=== PATIENT | male | born 1945 | race Caucasian/White ===

== ENCOUNTER → 2016-08-25 | Outpatient (CLI) | payer BC ==
[~2016-08-25] MED LIST: ACT15 PO; CPRUNK PO; GLC500 PO; INSDGI SC; LRT5 PO; SIMV20TA2 PO
[2016-08-25 13:46] LABS: ESTIMATED AVERAGE GLUCOSE 166 mg/dl; HA1C FLAG Normal (Normal)
[2016-08-25 15:08] LABS: BLOOD UREA NITROGEN 27 mg/dl (7-18); BUN/CREATININE RATIO 24.1 (10-20); CALCIUM 8.8 mg/dl (8.5-10.1); CARBON DIOXIDE 25 mmol/L (21-32); CHLORIDE 105 mmol/L (98-107); GLUCOSE 144 mg/dl (70-99); POTASSIUM 4.5 mmol/L (3.5-5.1); SODIUM 138 mmol/L (136-145)
--- NOTE | 2016-09-09 09:53 | CODING QUERY MEDICAL NECESSITY ---
CQSUPPORTING DIAGNOSIS NEEDED A supporting diagnosis is required for the test/procedure performed on this patient in order for us to be reimbursed by the patient's insurance. Please provide a supporting diagnosis for the following test/procedure listed below next to the test name along with your signature. *If there is no additional diagnosis for this patient that would support the following test/procedure please document that below next to the test/procedure. Test(s)/Procedure(s) that require a supporting diagnosis: DOS 08/25/16 GLYCATED HEMOGLOBIN TEST Provider Signature: Date: Thank you Marissa Howard Health Information Management Once completed, please kindly fax back to [phone] For questions please call [phone]
== END | disposition home or self-care (01) ==
LOC: C.LABBFT 07:40
PROVIDERS: ATTEND Family Medicine
DX: K63.5 Polyp of colon (principal); E11.9 Type 2 diabetes mellitus without complications

== ENCOUNTER → 2017-01-31 | Outpatient (CLI) | payer BC ==
[2017-01-31 10:43] LABS: ALT/SGPT 30 U/L (12-78); AST/SGOT 25 U/L (15-37); BLOOD UREA NITROGEN 21 mg/dl (7-18); BUN/CREATININE RATIO 19.2 (10-20); CALCIUM 8.9 mg/dl (8.5-10.1); CARBON DIOXIDE 31 mmol/L (21-32); CHLORIDE 107 mmol/L (98-107); ESTIMATED AVERAGE GLUCOSE 160 mg/dl; GLUCOSE 98 mg/dl (70-99); HA1C FLAG Normal (Normal); POTASSIUM 4.8 mmol/L (3.5-5.1); SODIUM 140 mmol/L (136-145)
[2017-01-31 10:46] LABS: ALB/GLOB RATIO 0.9 (0.9-2); ALKALINE PHOSPHATASE 76 U/L (45-117); CHOLESTEROL 108 mg/dl (0-200); CHOLESTEROL/HDL RATIO 2.8; HDL CHOLESTEROL 39 mg/dl; LDL CHOLESTEROL CALCULATED 51 mg/dl; TRIGLYCERIDES 90 mg/dl (0-150); VERY LOW DENSITY LIPOPROT CALC 18 mg/dl
== END | disposition home or self-care (01) ==
LOC: C.LAB 08:17
PROVIDERS: ATTEND Family Medicine
DX: E11.9 Type 2 diabetes mellitus without complications (principal); E78.5 Hyperlipidemia, unspecified

== ENCOUNTER 2017-05-26 14:07 | Emergency (ER) | payer BC ==
[~2017-05-26] VITALS: Ht 167.6 cm; Wt 85.4 kg
[2017-05-26 14:11] VITALS: TEMP 36.3; Ht 167.6 cm; Wt 85.4 kg
[2017-05-26] MEDS ORDERED: OXYCODONE HCL IR 5 MG TAB (IMMEDIATE RELEASE) PO STA (14:22)
--- NOTE | 2017-05-26 15:00 | DIAGNOSTIC IMAGING REPORT ---
CT HEAD WITHOUT CONTRAST (CT) CLINICAL HISTORY: Head pain status post head trauma PATIENT FELL ON ICE COMPARISON STUDY: No previous studies for comparison. TECHNIQUE: Axial CT of the brain is performed from the vertex to the skull base. IV contrast was not administered for this examination. A dose lowering technique was utilized adhering to the principles of ALARA. CT DOSE: 614.27 mGy.cm FINDINGS: No intra or extra-axial mass lesions are visualized. There is no CT evidence of acute cortical infarction. There is no evidence of midline shift. There is no acute hemorrhage. No calvarial fractures are visualized. There are mild white matter hypodensities likely on a small vessel basis. There is no evidence of pathologic ventricular dilatation. There is no evidence of acute sinusitis IMPRESSION: No acute intracranial findings Electronically signed by: Eugene Santos M.D. 05/26/2017 2:59 PM Dictated Date/Time: 05/26/2017 2:57 PM
[2017-05-26] MEDS ORDERED: NAPR500T3 PO (15:11)
[2017-05-26] MEDS ORDERED: NVLG SQ (15:11)
[2017-05-26] MEDS ORDERED: SILD1TAB19 PO (15:11)
[2017-05-26] MEDS ORDERED: CHOL200010 PO (15:11)
[2017-05-26] MEDS ORDERED: LDXO60 TOP (15:11)
[2017-05-26] MEDS ORDERED: METF-384 PO (15:11)
[2017-05-26] MEDS ORDERED: INSDGIPEN SC (15:11)
[2017-05-26] MEDS ORDERED: MoRPHine SULFATE 10 MG/ML CARP/VIAL IM STA (15:37)
--- NOTE | 2017-05-26 15:37 | DIAGNOSTIC IMAGING REPORT ---
R RIBS UNILATERAL WITH PA CHEST CLINICAL HISTORY: Right-sided rib pain COMPARISON STUDY: Chest x-ray dated 10/29/2012 FINDINGS: Erect chest reveals no pneumothorax. There is left lower lobe atelectasis/scarring. There is an equivocal nondisplaced fracture the right ninth rib posteriorly. IMPRESSION: 1. No evidence of pneumothorax 2. Equivocal nondisplaced fracture the right posterior ninth rib Electronically signed by: Eugene Santos M.D. 05/26/2017 3:36 PM Dictated Date/Time: 05/26/2017 3:34 PM
[2017-05-26] MEDS ORDERED: MoRPHine SULFATE 4 MG/ML 1 ML CARP\\VIAL ONE (15:44)
[2017-05-26] MEDS ORDERED: ONDANSETRON 4MG OD TAB PO ONE (15:45)
[2017-05-26] MEDS ORDERED: OXYC1TAB3 PO ×2 (15:55→16:14)
--- NOTE | 2017-05-26 16:31 | EMERGENCY ROOM VISIT NOTE ---
ED Visit Note First contact with patient: 14:15 I did evaluate and examine this patient myself. I did guide management for the patient. I agree with the APC's assessment as discussed. Please see the APC's dictation for further details. I did independently review the x-rays and CT scan. The patient does have a right rib fracture. It is nondisplaced. He was given precautions and follow up instructions.
[2017-05-26 16:45] VITALS: BP 129/83; PULSE 75; O2SAT 95
--- NOTE | 2017-05-26 16:56 | EMERGENCY ROOM VISIT NOTE ---
History First contact with patient: 14:15 Chief Complaint: RIB PAIN Stated Complaint: RIB PAIN History of Present Illness The patient is a 71 year old male who presents to the Emergency Room with complaints of right rib pain and head injury after he slipped on ice this morning and fell onto his right side. The patient complains mostly of right lateral rib pain that is worsened with deep breathing. He denies any shortness of breath, but has notable pain with breathing. He also reports hitting his head. He did have a hat and put on which absorbed some of the impact, but also complains of a headache. The patient is currently not on any blood thinners. The patient denies any focal back pain or other extremity injuries, and rates his discomfort a 6 out of 10. His who is also present reports that he has a very high pain tolerance, and if he had to come to the emergency department for evaluation, he likely has a significant injury. Review of Systems 10 system review was performed and was negative except for pertinent positives and negatives as indicated in history of present illness Past Medical/Surgical History Medical Problems: (1) Calculus Of Ureter (2) Diverticulosis Colon (W/O Ment Of Hemorrhage) (3) Hyperlipidemia, Unspecified (4) Obstructive Sleep Apnea (Adult) (Pediatric) (5) Tobacco Use Disorder (6) Type 2 Diabetes Mellitus Without Complications (7) Vitamin D Deficiency Nos Surgical Problems: (1) History of cholecystectomy Family History Unremarkable Social History Smoking Status: Never Smoker Alcohol Use: occasionally Marital Status: Occupation Status: retired Current/Historical Medications Scheduled Cholecalciferol (Vitamin D), 2,000 UNITS PO DAILY Insulin Glargine (Lantus Solostar), 30 UNITS SC QAM Metformin Hcl (Glucophage), 1,000 MG PO BIDM Sildenafil Citrate (Pulmonary (Sildenafil Citrate), 50 MG PO PRN UD Simvastatin (Zocor), 20 MG PO QPM Scheduled PRN Fluocinonide (Lidex 0.05% Oint), 1 APPLN TOP BID PRN for RASH Insulin Aspart (Novolog), UNITS SQ AC PRN for SLIDING SCALE Naproxen (Naproxen), 1 TAB PO BID PRN for Pain Oxycodone Ir (Roxicodone Ir), 1-2 TAB PO Q4H PRN for Pain Physical Exam Vital Signs Date Time Temp Pulse Resp B/P (MAP) Pulse Ox O2 Delivery O2 Flow Rate FiO2 1/16/18 16:45 75 18 129/83 95 05/26/17 14:11 36.3 80 18 168/86 97 Room Air Physical Exam CONSTITUTIONAL: Healthy and well nourished. Alert and oriented X 3 with positive affect. Patient appears in mild discomfort. GCS 15. HEENT: Examination shows mild edema over the right crown. No ecchymosis, abrasions or lacerations. Pupils equal, round and reactive. Subconjunctival hemorrhage, epistaxis, hemotympanum, raccoon's eyes or Evans sign. NECK: Full active range of motion without discomfort. RESPIRATORY: Clear to auscultation bilaterally with no wheezing, crackles, rhonchi or stridor. Deep breathing worsens the patient's discomfort. CARDIOVASCULAR: Regular rate and rhythm with no murmurs, rubs or gallops. GASTROINTESTINAL: Bowel sounds present in all quadrants. Soft and nontender to palpation. MUSCULOSKELETAL: Examination shows right lateral rib discomfort with palpation. No obvious subcutaneous emphysema or flail chest. No focal tenderness through the central thoracolumbar spine or costochondral joints. Patient has full range of motion of upper and lower extremities without discomfort. INTEGUMENTARY: No rash or other significant dermatologic conditions noted. NEUROLOGIC: No focal neurologic deficits noted. Medical Decision & Procedures ER Provider Diagnostic Interpretation: Noncontrast CT of the head does not show any acute fractures or intracranial bleed. Radiologist report is as follows: CT HEAD WITHOUT CONTRAST (CT) CLINICAL HISTORY: Head pain status post head trauma PATIENT FELL ON ICE COMPARISON STUDY: No previous studies for comparison. TECHNIQUE: Axial CT of the brain is performed from the vertex to the skull base. IV contrast was not administered for this examination. A dose lowering technique was utilized adhering to the principles of ALARA. CT DOSE: 614.27 mGy.cm FINDINGS: No intra or extra-axial mass lesions are visualized. There is no CT evidence of acute cortical infarction. There is no evidence of midline shift. There is no acute hemorrhage. No calvarial fractures are visualized. There are mild white matter hypodensities likely on a small vessel basis. There is no evidence of pathologic ventricular dilatation. There is no evidence of acute sinusitis IMPRESSION: No acute intracranial findings My interpretation of right rib x-rays with a PA chest view shows an equivocal posterior right ninth rib fracture. No pneumothorax noted. Radiologist report is as follows: R RIBS UNILATERAL WITH PA CHEST CLINICAL HISTORY: Right-sided rib pain COMPARISON STUDY: Chest x-ray dated 10/29/2012 FINDINGS: Erect chest reveals no pneumothorax. There is left lower lobe atelectasis/scarring. There is an equivocal nondisplaced fracture the right ninth rib posteriorly. IMPRESSION: 1. No evidence of pneumothorax 2. Equivocal nondisplaced fracture the right posterior ninth rib Medications Administered Medications (Trade) Dose Ordered Sig/Manda Route Start Time Stop Time Status Last Admin Dose Admin Oxycodone HCl (Roxicodone Immediate Rel Tab) 5 mg NOW STAT PO 05/26/17 14:22 05/26/17 14:24 DC 05/26/17 14:29 5 MG Ondansetron HCl (Zofran Odt) 4 mg ONE ONCE PO 05/26/17 15:45 05/26/17 15:46 DC 05/26/17 15:47 4 MG Morphine Sulfate (MoRPHine SULFATE INJ) 8 mg STK-MED ONCE .ROUTE 05/26/17 15:44 05/26/17 15:45 DC 05/26/17 15:48 8 MG ED Course Patient history and physical exam were performed. Nurse's notes were reviewed. Vital signs were reviewed, showing a blood pressure 168/86. O2 sat duration is 97% on room air, and the patient is not tachycardic. The patient was administered OxyIR 5 mg for pain. Noncontrast CT of the head was normal. X- rays of the right ribs with a PA chest reveals an equivocal posterior ninth rib fracture. No pneumothorax noted. After the patient returned from x-ray, he reported the pain was actually worsening. At this point, he was administered IM morphine, and Zofran ODT to prevent nausea. This reduced his pain to a 5 out of 10 at the conclusion of my exam. The patient was dispensed an incentive spirometer with instructions for use. Patient reports that he has naproxen at home for pain. The patient was advised that he may also add Tylenol if needed for additional pain relief. He was also provided a prescription for OxyIR 5 mg as needed for breakthrough pain. He was warned about sedation and constipation while taking this medication. I did encourage the patient to follow-up with his PCP for recheck within the next 3-5 days. Return to the emergency department for any other concerning symptoms, including shortness of breath, cough or fever. The patient was happy with plan of care, and voiced understanding of all discharge instructions. The patient was also seen and examined by Dr. Melendez, ED attending physician, who agrees with workup and plan of care. Medical Decision Head Trauma GCS Score: 15 Medication Reconcilliation Current Medication List: was personally reviewed by me Blood Pressure Screening Patient's blood pressure: Normal blood pressure Impression Primary Impression: Right rib fracture Additional Impression: Fall due to slipping on ice or snow Departure Information Prescriptions Oxycodone Ir (Roxicodone Ir) 5 Mg Tab 1-2 TAB PO Q4H Y for Pain, #15 TAB For Initial Treatment Prov: Aba Casillas PA 05/26/17 Referrals Trenton Campos M.D. (PCP) Patient Instructions My [facility] Problem Qualifiers Primary Impression: Right rib fracture Encounter type: initial encounter Rib fracture type: single rib Fracture type: closed Qualified Codes: S22.31XA - Fracture of one rib, right side, initial encounter for closed fracture Additional Impression: Fall due to slipping on ice or snow Encounter type: initial encounter Qualified Codes: W00.9XXA - Unspecified fall due to ice and snow, initial encounter
== END 2017-05-26 16:45 | disposition home or self-care (01) ==
LOC: C.EDB 14:09 → C.EDD 16:45
DX: S22.31XA Fracture of one rib, right side, initial encounter for closed fracture (principal); W00.9XXA Unspecified fall due to ice and snow, initial encounter; R51 Headache; E11.9 Type 2 diabetes mellitus without complications; E78.5 Hyperlipidemia, unspecified; R40.2412 Glasgow coma scale score 13-15, at arrival to emergency department; Z79.4 Long term (current) use of insulin; Z79.84 Long term (current) use of oral hypoglycemic drugs

== ENCOUNTER → 2017-07-31 | Day surgery (SDC) | payer BC ==
[2017-07-22 09:50] VITALS: BMI 44.0
[~2017-07-31] VITALS: Ht 167.6 cm; Wt 125.0 kg
[~2017-07-31] MED LIST changes: -ACT15 PO; +CHOL200010 PO; -CPRUNK PO; -GLC500 PO; -INSDGI SC; +INSDGIPEN SC; +LDXO60 TOP; +LIDOCAINE HCL 2% 2 ML VIAL (20MG/ML) ONE; -LRT5 PO; +METF-384 PO; +NAPR-1169 PO; +NVLG SQ; +PROPOFOL IV EMULSION 10 MG/ML 20 ML VIAL IV ONE; +SILD1TAB19 PO; +SODIUM CHLORIDE 0.9% 500ML 500 ML IV ONE
[2017-07-31 09:06] VITALS: Ht 167.6 cm; Wt 125.0 kg
--- NOTE | 2017-07-31 09:09 | Endo History and Physical ---
History & Physical Date of Service: Jul 31, 2017. Chief Complaint: History of colon polyps Referring Physician: Dr. Campos History of Present Illness 72 yo CM who presents for colonoscopy secondary to history of colon polyps. Past Surgical History Hx Cardiac Surgery: No Hx Internal Defibrillator: No Hx Pacemaker: No Hx Abdominal Surgery: Yes (ANICETO) Hx of Implantable Prosthesis: No Hx Post-Op Nausea and Vomiting: No Hx Cancer Surgery: Yes (NOSE EXCISION) Hx Thoracic Surgery: No Hx Orthopedic: No Hx Urinary Tract Surgery: No Family History Colon CA Social History Smoking Status: Never Smoker Hx Substance Use: No Hx Alcohol Use: Yes (RARELY) Allergies Coded Allergies: No Known Allergies (Verified , 07/31/17) Current Medications Reported Home Medications Medications Dose Route/Sig Max Daily Dose Days Date Category Dose Instructions Naprosyn (Naproxen) 500 Mg Tab 500 Mg PO BID PRN 07/22/17 Reported Vitamin D (Cholecalciferol) 2,000 Unit Cap 2,000 Units PO QAM 05/26/17 Reported Sildenafil Citrate (Sildenafil Citrate (Pulmonary) 20 Mg Tab 50 Mg PO PRN UD 05/26/17 Reported TAKE 2 1/2 TABS Novolog (Insulin Aspart) 100 Units/Ml Inj Units SQ AC PRN 05/26/17 Reported Glucophage (Metformin Hcl) 1,000 Mg Tab 1,000 Mg PO BIDM 05/26/17 Reported Lantus Solostar (Insulin Glargine) 100 Unit/Ml Inj 30 Units SC QAM 05/26/17 Reported Lidex 0.05% Oint (Fluocinonide) 180 Appln/60 Gm Oint 1 Appln TOP BID PRN 05/26/17 Reported Zocor (Simvastatin) 20 Mg Tab 20 Mg PO QPM 04/08/10 Reported Vital Signs Weight (Kilograms): 125 Height (Feet): 5 Height (Inches): 6 Physical Exam General Appearance: WD/WN, no apparent distress Respiratory/Chest: Auscultation: breath sounds normal Cardiovascular: Heart Auscultation: RRR Abdomen: Bowel Sounds: normal Inspection & Palpation: soft, non-distended, no tenderness, guarding & rebound Assessment and Plan Assessment: 72 yo CM who presents for colonoscopy secondary to history of colon polyps. Plan: Proceed with colonoscopy.
--- NOTE | 2017-07-31 10:10 | Discharge Instructions ---
Endoscopy Patient Instructions Date / Procedure(s) Performed Jul 31, 2017. Colonoscopy Allergy Information Coded Allergies: No Known Allergies (Verified , 07/31/17) Discharge Date / Findings Jul 31, 2017. Colon polyp Diverticulosis Medication Instructions Stopped Medication(s): metformin held 3 days OK to resume all medications today as prescribed Reported Home Medications Medications Dose Route/Sig Max Daily Dose Days Date Category Dose Instructions Naprosyn (Naproxen) 500 Mg Tab 500 Mg PO BID PRN 07/22/17 Reported Vitamin D (Cholecalciferol) 2,000 Unit Cap 2,000 Units PO QAM 05/26/17 Reported Sildenafil Citrate (Sildenafil Citrate (Pulmonary) 20 Mg Tab 50 Mg PO PRN UD 05/26/17 Reported TAKE 2 1/2 TABS Novolog (Insulin Aspart) 100 Units/Ml Inj Units SQ AC PRN 05/26/17 Reported Glucophage (Metformin Hcl) 1,000 Mg Tab 1,000 Mg PO BIDM 05/26/17 Reported Lantus Solostar (Insulin Glargine) 100 Unit/Ml Inj 30 Units SC QAM 05/26/17 Reported Lidex 0.05% Oint (Fluocinonide) 180 Appln/60 Gm Oint 1 Appln TOP BID PRN 05/26/17 Reported Zocor (Simvastatin) 20 Mg Tab 20 Mg PO QPM 04/08/10 Reported Provider Instructions Activity Restrictions - No exercising or heavy lifting for 24 hours. - Do not drink alcohol the day of the procedure. - Do not drive a car or operate machinery until the day after the procedure. - Do not make any important decisions or sign important papers in 24 hours after the procedure. Following Day: - Return to full activity which may include returning to work/school. Diet Start your diet with liquids and light foods (jello, soup, juice, toast). Then eat your usual diet if not nauseated. Treatment For Common After Affects For mild abdominal pain, bloating, or excessive gas: - Rest - Eat lightly - Lie on right side Follow-Up Information Follow-up with dr. navarro as scheduled Anesthesia Information What You Should Know You have had a procedure that required some medicine to reduce anxiety and discomfort. This treatment is called moderate sedation. After receiving the treatment, you may be sleepy, but you will be able to breathe on your own. The effects of the treatment may last for several hours. Follow these instructions along with Activity/Diet recommendations noted above: * Do NOT do anything where dizziness or clumsiness would be dangerous. * Rest quietly at home today, then you can be up and about tomorrow. * Have a responsible person stay with you the rest of today. * You may have had an I.V. today. If so, you may take the dressing off later today. Recommendations Call your doctor if: * Trouble breathing * Continuous vomiting for more than 24 hours * Temperature above 101 degrees * Severe abdominal pain or bloating * Pain not relieved by pain medicine ordered * There is increased drainage or redness from any incision * A large amount of rectal bleeding greater than 2-3 tablespoons. (If you had a polyp/s removed or have hemorrhoids, a small amount of blood - from the rectum is to be expected.) * You have any unanswered questions or concerns. IN THE EVENT OF A SERIOUS EMERGENCY, GO TO THE NEAREST EMERGENCY ROOM Your discharge instructions were prepared by provider Robe Milton. Patient Instructions Signature Page Vj Dumas Patient (or Guardian) Signature/Date: I have read and understand the instructions given to me by my caregivers. Caregiver/RN/Doctor Signature/Date: The above-named patient and/or guardian has received patient instructions on this date. + Original Patient Signature Page (only) stays with chart. Please make copy for patient.
--- NOTE | 2017-07-31 10:28 | Anesthesiology Progress Note ---
Anesthesia Post Op Note Date & Time Jul 31, 2017 at 10:28 Vital Signs Pain Intensity: 0 Vital Signs Past 12 Hours Date Time Temp Pulse Resp B/P (MAP) Pulse Ox O2 Delivery O2 Flow Rate FiO2 07/31/17 10:10 86 16 124/65 (84) 97 Room Air 07/31/17 09:16 36.5 80 20 148/88 (108) 95 Room Air Notes Mental Status: alert / awake / arousable, participated in evaluation Pt Amnestic to Procedure: Yes Nausea / Vomiting: adequately controlled Pain: adequately controlled Airway Patency, RR, SpO2: stable & adequate BP & HR: stable & adequate Hydration State: stable & adequate Anesthetic Complications: no major complications apparent
[2017-07-31 10:40] VITALS: BP 154/97; PULSE 71; O2SAT 97
--- NOTE | 2017-07-31 10:43 | GI REPORT ---
Procedure Date: 07/31/2017 9:41 AM Procedure: Colonoscopy Indications: High risk colon cancer surveillance: Personal history of colonic polyps Medicines: Monitored Anesthesia Care Complications: No immediate complications. Estimated Blood Loss: Estimated blood loss: none. Procedure: Pre-Anesthesia Assessment: - Prior to the procedure, a History and Physical was performed, and patient medications and allergies were reviewed. The patient's tolerance of previous anesthesia was also reviewed. The risks and benefits of the procedure and the sedation options and risks were discussed with the patient. All questions were answered, and informed consent was obtained. Prior Anticoagulants: The patient has taken no previous anticoagulant or antiplatelet agents. ASA Grade Assessment: III - A patient with severe systemic disease. After reviewing the risks and benefits, the patient was deemed in satisfactory condition to undergo the procedure. After I obtained informed consent, the scope was passed under direct vision. Throughout the procedure, the patient's blood pressure, pulse, and oxygen saturations were monitored continuously. The scope was introduced through the anus and advanced to the terminal ileum. The colonoscopy was performed without difficulty. The patient tolerated the procedure well. The quality of the bowel preparation was good. The terminal ileum, ileocecal valve, appendiceal orifice, and rectum were photographed. Findings: The perianal and digital rectal examinations were normal. A 6 mm polyp was found in the sigmoid colon. The polyp was sessile. The polyp was removed with a hot snare. Resection and retrieval were complete. Multiple small-mouthed diverticula were found in the sigmoid colon. Non-bleeding internal hemorrhoids were found during retroflexion. The hemorrhoids were small. Impression: - One 6 mm polyp in the sigmoid colon, removed with a hot snare. Resected and retrieved. - Diverticulosis in the sigmoid colon. - Non-bleeding internal hemorrhoids. Recommendation: - Resume previous diet. - Continue present medications. - Repeat colonoscopy for surveillance based on pathology results. - Return to primary care physician as previously scheduled. Robe Milton, DO 07/31/2017 10:42:50 AM This report has been signed electronically. Note Initiated On: 07/31/2017 9:41 AM I attest to the content of the Intraoperative Record and orders documented therein, exceptions below
== END | disposition home or self-care (01) ==
LOC: C.GI 08:40
PROVIDERS: ATTEND Internal Medicine
DX: Z12.11 Encounter for screening for malignant neoplasm of colon (principal); D12.5 Benign neoplasm of sigmoid colon; K57.30 Diverticulosis of large intestine without perforation or abscess without bleeding; K64.8 Other hemorrhoids; Z86.010 Personal history of colon polyps; Z80.0 Family history of malignant neoplasm of digestive organs; Z90.49 Acquired absence of other specified parts of digestive tract; G47.33 Obstructive sleep apnea (adult) (pediatric); E78.5 Hyperlipidemia, unspecified; E11.9 Type 2 diabetes mellitus without complications; Z87.442 Personal history of urinary calculi; Z87.2 Personal history of diseases of the skin and subcutaneous tissue; Z90.89 Acquired absence of other organs; M19.90 Unspecified osteoarthritis, unspecified site; Z87.891 Personal history of nicotine dependence

== ENCOUNTER → 2017-08-31 | Outpatient (CLI) | payer BC ==
[~2017-08-31] MED LIST changes: -LIDOCAINE HCL 2% 2 ML VIAL (20MG/ML) ONE; -PROPOFOL IV EMULSION 10 MG/ML 20 ML VIAL IV ONE; -SODIUM CHLORIDE 0.9% 500ML 500 ML IV ONE
[2017-08-31 12:28] LABS: HEMATOCRIT 44.9 % (42-52); HEMOGLOBIN 15.4 g/dL (14.0-18.0); MEAN CELL VOLUME 87.9 fL (80-100); MEAN CORPUSCULAR HEMOGLOBIN 30.1 pg (25-34); MEAN CORPUSCULAR HGB CONC 34.3 g/dl (32-36); MEAN PLATELET VOLUME 9.6 fL (7.4-10.4); PLATELET COUNT 295 K/uL (130-400); RED CELL DISTRIBUTION WIDTH CV 14.1 % (11.5-14.5); RED CELL DISTRIBUTION WIDTH SD 45.5 fL (36.4-46.3); WHITE BLOOD COUNT 8.69 K/uL (4.8-10.8)
[2017-08-31 12:39] LABS: HEMOGLOBIN A1C 7.9 % (4.5-5.6)
[2017-08-31 13:09] LABS: ALBUMIN 3.3 gm/dl (3.4-5.0); ALT/SGPT 24 U/L (12-78); BLOOD UREA NITROGEN 24 mg/dl (7-18); CARBON DIOXIDE 27 mmol/L (21-32); CHOLESTEROL 113 mg/dl (0-200); CREATININE 1.24 mg/dl (0.60-1.40); GLUCOSE 198 mg/dl (70-99); POTASSIUM 4.6 mmol/L (3.5-5.1); SODIUM 136 mmol/L (136-145); TOTAL PROTEIN 7.3 gm/dl (6.4-8.2)
[2017-08-31 13:20] LABS: ALKALINE PHOSPHATASE 89 U/L (45-117); AST/SGOT 17 U/L (15-37); LDL CHOLESTEROL CALCULATED 52 mg/dl
== END | disposition home or self-care (01) ==
LOC: C.LABBFT 07:41
PROVIDERS: ATTEND Internal Medicine
DX: E11.9 Type 2 diabetes mellitus without complications (principal); Z12.5 Encounter for screening for malignant neoplasm of prostate

== ENCOUNTER → 2017-09-23 | Outpatient (CLI) | payer BC | END | disposition home or self-care (01) | LOC: C.LABBFT 10:37 | PROVIDERS: ATTEND Internal Medicine | DX: T14.8XXA Other injury of unspecified body region, initial encounter (principal); W57.XXXA Bitten or stung by nonvenomous insect and other nonvenomous arthropods, initial encounter ==

== ENCOUNTER 2019-08-30 20:41 | Inpatient (IN) ==
--- NOTE | 2019-08-30 21:31 | Emergency Department Note ---
History of Present Illness General Chief Complaint: Abdominal Pain Stated Complaint: ABD PAIN Time Seen by Provider: 08/30/19 21:19 History of Present Illness Provider Complaint: abdominal pain Onset (ago): hour(s) (11) Pain Consistency: constant Location: suprapubic Radiation: none Migration to: no migration Severity: moderate Maximum Pain Intensity: 6 Current Pain Intensity: 6 Quality: + aching, + fullness and + dull Relieved By: + nothing Exacerbated By: + nothing Associated Symptoms: + nausea and + anorexia; no vomiting, no fever, no chills, no dysuria, no hematemesis, no melena, no hematuria, no chest pain and no obdulio athing difficulty Decreased flatulence inability to have bowel movement. Home Medications Home Medications Medication Instructions Recorded Confirmed Type aspirin 81 mg tablet,delayed 81 mg PO DAILY #30 tab 03/11/19 08/30/19 Rx release insulin aspart U-100 100 unit/mL See Rx Instructions SUBCUT 04/15/19 08/30/19 Rx (3 mL) subcutaneous pen .COMPLEX #45 ml metformin 1,000 mg tablet 1,000 mg PO BID #180 tab 06/01/19 08/30/19 Rx linagliptin 5 mg tablet 5 mg PO DAILY #90 tab 06/03/19 08/30/19 Rx simvastatin 20 mg tablet 20 mg PO HS #90 tab 06/07/19 08/30/19 Rx insulin glargine 100 unit/mL (3 30 unit SUBCUT QAM #15 ml 08/12/19 08/30/19 Rx mL) subcutaneous pen naproxen 500 mg tablet 500 mg PO BID PRN #180 tab 08/12/19 08/30/19 Rx Allergies Allergy/AdvReac Type Severity Reaction Status Date / Time exenatide [From [place]] AdvReac Unknown Vomiting Verified 08/30/19 21:38 Past Med/Surg History Medical History Benign colonic polyp (Inactive 07/2017) tubular adenoma, recheck in 5 years 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 Diabetes mellitus, type 2 IDDM Diverticulosis (Inactive) Fracture, rib (Inactive) [place] syndrome (Inactive) Hyperlipidemia Kidney stones Malignant melanoma of skin (Inactive) Osteoarthritis Sleep apnea CPAP Vitamin D deficiency (Inactive) Surgical History History of cataract surgery Left- 2mg versed given without issues History of cholecystectomy History of colonoscopy (07/31/17) 6 mm tubular adenoma, sigmoid Dr deja Case History of herniorrhaphy UMBILICAL History of lithotripsy History of tonsillectomy History of tooth extraction Family History Brother Prostate cancer Social History Preferred Language: Georgian Communication Ability: Effective 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 Beliefs That Will Affect Care: None Current Living Situation: Spouse Feels Safe at Home: Yes Smoking Status: Never smoker Second Hand Exposure: No ; Hx Alcohol Use: No Hx Substance Use: No Review of Systems A total of 10 systems reviewed and were otherwise negative Physical Exam Vital Signs: Vital Signs - 24 hr 08/30/19 20:53 08/30/19 22:01 Temperature 36.8 C Temperature Source Oral Pulse Rate 90 Pulse Rate [Right Finger] 85 Respiratory Rate 18 18 Respiratory Effort / Characteristics Non-Labored Sponta neous Respiratory Depth Normal Blood Pressure 195/106 H Blood Pressure [Ri ght Arm] 187/107 H Blood Pressure Shari n 135 Blood Pressure Shari n [Right Arm] 133 Pulse Oximetry 98 98 Oxygen Delivery Me thod Room Air Sepsis Recent Feve r Within 48 Hours No Sepsis New/Unexpla ined Change in Men sindhu Status No Sepsis Action Take n by Nursing No Action Required Physical Exam: Physical Exam GENERAL: He is oriented to person, place, and time. He appears well-developed and well-nourished. He does not appear distressed. HENT: Exam performed. - Head: Normocephalic and atraumatic. - Right Ear: External ear normal. No mastoid tenderness. - Left Ear: External ear normal. No mastoid tenderness. - Mouth/Throat: The oropharynx is clear and moist. No trismus in the jaw. No dental abscesses or uvula swelling. No oropharyngeal exudate or tonsillar abscesses. EYES: Conjunctivae and EOM are normal. Pupils are equal, round, and reactive to light. Right eye exhibits no discharge. Left eye exhibits no discharge. No scleral icterus. NECK: Normal range of motion. Neck supple. No JVD present. No spinous process tenderness present. No carotid bruit present. No rigidity. No tracheal deviation and normal range of motion present. No Brudzinski's sign and no Kernig's sign noted. CV: Normal rate, regular rhythm, normal heart sounds and intact distal pulses. There is no peripheral edema. Palpable radial pulses bue. PULM/CHEST: Effort normal and breath sounds normal. No respiratory distress. No stridor. He has no wheezes. He has no rales. - Chest Wall: He exhibits no tenderness. ABD: Abdomen is distended. Diffusely tender to palpation especially in the suprapubic area. MUSC/SKEL: Normal range of motion. There is no peripheral edema, tenderness or deformity. LYMPH: No cervical adenopathy. NEURO: He is alert and oriented to person, place, and time. He has normal strength. No cranial nerve deficit or sensory deficit. Coordination and gait normal. GCS eye subscore is 4. GCS verbal subscore is 5. GCS motor subscore is 6. Cerebellar tests wnl. SKIN: Skin is warm and dry. He is not diaphoretic. PSYCH: He has a normal mood and affect. Behavior is normal. Judgment and thought content normal. Course Course 2124: The patient was evaluated in room C7. A complete history and physical exam was performed. 2229: Vital signs stable. Labs show leukocytosis 16.48. Imaging shows a possible positional diverticulitis. No small bowel obstruction however enteritis versus ileus is present on the CAT scan. Given the patient's leukocytosis, his inability have a bowel movement and pass gas, as well as the general diverticulitis, the patient will be admitted to the hospital. IV Rocephin and Flagyl started. Discussed the case with [facility] hospitalist Dr. Prather who agrees to the admission. Administered Medications Ioversol (Optiray 320 100ml) 93 ml IV ONCE PRN PRN Reason: Interaction Checking Stop: 09/03/19 21:50 Last Admin: 08/30/19 21:51 Dose: 93 ml Documented by: [id number] Medical Decision Making Laboratory Data Result diagrams: 08/30/19 21:30 08/30/19 21:30 Lab Results 08/30/19 08/30/19 08/30/19 Range/Units 21:20 21:30 21:30 WBC 16.48 H (4.8-10.8) K/uL RBC 4.85 (4.7-6.1) M/uL Hgb 14.7 (14.0-18.0) g/dL POC Hgb (14.0-18.0) g/dl Hct 42.1 (42-52) % POC Hct (42-52) % MCV 86.8 (80-100) fL MCH 30.3 (25-34) pg MCHC 34.9 (32-36) g/dL RDW Std Deviation 44.1 (36.4-46.3) fL RDW Coeff of [place] 13.9 (11.5-14.5) % Plt Count 327 (130-400) K/uL MPV 9.0 (7.4-10.4) fL Immature Gran % (Auto) 0.3 % Neut % (Auto) 65.6 % Lymph % (Auto) 26.7 % [place] % (Auto) 7.2 % Eos % (Auto) 0.1 % Baso % (Auto) 0.1 % Immature Gran # (Auto) 0.05 H (0.00-0.02) K/uL Neut # (Auto) 10.83 H (1.4-6.5) K/uL Lymph # (Auto) 4.40 H (1.2-3.4) K/uL [place] # (Auto) 1.18 H (0.11-0.59) K/uL Eos # (Auto) 0.01 (0-0.5) K/uL Baso # (Auto) 0.01 (0-0.2) K/uL PT (9.0-12.0) Seconds INR (0.9-1.1) APTT (21.0-31.0) Seconds PTT Ratio POC Sodium (135-144) mmol/L Sodium 135 L (136-145) mmol/L POC Potassium (3.3-5.0) mmol/L Potassium 4.0 (3.5-5.1) mmol/L POC Chloride (101-112) mmol/L Chloride 103 (98-107) mmol/L Carbon Dioxide 25 (21-32) mmol/L POC Total CO2 (24-31) mEq/l Anion Gap 6.0 (3-11) POC Anion Gap (16-25) mmol/L POC BUN (7-18) mg/dl BUN 25 H (7-18) mg/dl Creatinine 1.06 (0.6-1.4) mg/dl POC Creatinine (0.6-1.3) mg/dl Est Cr Clr Drug Dosing 63.0 ml/min Est GFR ( Amer) 80.3 Est GFR (Non-Af Amer) 69.3 BUN/Creatinine Ratio 23.4 H (10-20) Glucose 99 (70-99) mg/dl POC Glucose (other) (70-99) mg/dl Calcium 9.3 (8.5-10.1) mg/dl POC Ioniz Calcium Rebeca (1.12-1.32) mmol/l Total Bilirubin 1.2 H (0.2-1) mg/dl AST 20 (15-37) U/L ALT 25 (12-78) U/L Alkaline Phosphatase 75 (45-117) U/L Total Protein 7.6 (6.4-8.2) gm/dl Albumin 3.7 (3.4-5.0) gm/dl Globulin 3.9 (2.5-4.0) gm/dl Albumin/Globulin Ratio 1.0 (0.9-2) Lipase 202 (73-393) U/L Urine Color Yellow Urine Appearance Clear (Clear) Urine pH 7.0 (4.5-7.5) Ur Specific [place] 1.017 (1.000-1.030) Urine Protein Negative (Negative) Urine Glucose (UA) Negative (Negative) Urine Ketones Trace H (Negative) Urine Blood Trace H (Negative) Urine Nitrite Negative (Negative) Urine Bilirubin Negative (Negative) Urine Urobilinogen Negative (Negative) Ur Leukocyte Esterase Negative (Negative) Urine WBC (Auto) 0 (0-5) /hpf Urine RBC (Auto) 5-10 H (0-4) /hpf U Hyaline Cast (Auto) 0 (0-5) /lpf U Epithel Cells (Auto) 0-5 (0-5) /lpf Urine Bacteria (Auto) Negative (Negative) 08/30/19 08/30/19 Range/Units 21:30 21:42 WBC (4.8-10.8) K/uL RBC (4.7-6.1) M/uL Hgb (14.0-18.0) g/dL POC Hgb 15.0 (14.0-18.0) g/dl Hct (42-52) % POC Hct 44 (42-52) % MCV (80-100) fL MCH (25-34) pg MCHC (32-36) g/dL RDW Std Deviation (36.4-46.3) fL RDW Coeff of [place] (11.5-14.5) % Plt Count (130-400) K/uL MPV (7.4-10.4) fL Immature Gran % (Auto) % Neut % (Auto) % Lymph % (Auto) % [place] % (Auto) % Eos % (Auto) % Baso % (Auto) % Immature Gran # (Auto) (0.00-0.02) K/uL Neut # (Auto) (1.4-6.5) K/uL Lymph # (Auto) (1.2-3.4) K/uL [place] # (Auto) (0.11-0.59) K/uL Eos # (Auto) (0-0.5) K/uL Baso # (Auto) (0-0.2) K/uL PT 10.8 (9.0-12.0) Seconds INR 1.0 (0.9-1.1) APTT 29.5 (21.0-31.0) Seconds PTT Ratio 1.1 POC Sodium 134 L (135-144) mmol/L Sodium (136-145) mmol/L POC Potassium 4.2 (3.3-5.0) mmol/L Potassium (3.5-5.1) mmol/L POC Chloride 102 (101-112) mmol/L Chloride (98-107) mmol/L Carbon Dioxide (21-32) mmol/L POC Total CO2 24 (24-31) mEq/l Anion Gap (3-11) POC Anion Gap 14.0 L (16-25) mmol/L POC BUN 25 H (7-18) mg/dl BUN (7-18) mg/dl Creatinine (0.6-1.4) mg/dl POC Creatinine 1.0 (0.6-1.3) mg/dl Est Cr Clr Drug Dosing ml/min Est GFR ( Amer) Est GFR (Non-Af Amer) BUN/Creatinine Ratio (10-20) Glucose (70-99) mg/dl POC Glucose (other) 97 (70-99) mg/dl Calcium (8.5-10.1) mg/dl POC Ioniz Calcium Rebeca 1.12 (1.12-1.32) mmol/l Total Bilirubin (0.2-1) mg/dl AST (15-37) U/L ALT (12-78) U/L Alkaline Phosphatase (45-117) U/L Total Protein (6.4-8.2) gm/dl Albumin (3.4-5.0) gm/dl Globulin (2.5-4.0) gm/dl Albumin/Globulin Ratio (0.9-2) Lipase (73-393) U/L Urine Color Urine Appearance (Clear) Urine pH (4.5-7.5) Ur Specific [place] (1.000-1.030) Urine Protein (Negative) Urine Glucose (UA) (Negative) Urine Ketones (Negative) Urine Blood (Negative) Urine Nitrite (Negative) Urine Bilirubin (Negative) Urine Urobilinogen (Negative) Ur Leukocyte Esterase (Negative) Urine WBC (Auto) (0-5) /hpf Urine RBC (Auto) (0-4) /hpf U Hyaline Cast (Auto) (0-5) /lpf U Epithel Cells (Auto) (0-5) /lpf Urine Bacteria (Auto) (Negative) Imaging Data Radiologist's Impression: ABDOMEN AND PELVIS CT WITH IV CONTRAST CT DOSE: 569.83 mGy.cm HISTORY: Acute generalized abdominal pain with distention abddistentiondecreasedbmdecreasedflatulencerosbo TECHNIQUE: Multiaxial CT images of the abdomen and pelvis were performed following the IV administration of 93 cc of Optiray 320, A dose lowering technique was utilized adhering to the principles of ALARA. COMPARISON STUDY: CT abdomen and pelvis 02/26/2007 FINDINGS: Mild linear subsegmental bibasilar atelectasis/scarring. No pneumatosis or pneumoperitoneum identified. Imaged inferior cardiac chambers are mildly enlarged. Coronary artery calcifications. Spleen, adrenal glands, and pancreas appear unremarkable. Cholecystectomy. Patency of the hepatic and portal veins. No biliary ductal dilation. Unremarkable appearance of the liver. The hepatic and portal veins appear patent. Mild nonspecific bilateral perinephric stranding. 2 mm nonobstructing calculus of the inferior pole left kidney. 11 mm hypodensity of the interpolar left kidney suggest probable cyst. Partial distention of the urinary bladder with mild wall thickening. Prostamegaly. Moderate calcified plaque of the abdominal aorta. Jejunal diverticulosis. There is a 3.9 x 3.0 cm inflamed jejunal diverticulum of the left paracentral mid abdomen on image 234 series 3 demonstrating mucosal hyperemia with mild surrounding inflammatory stranding. No perforation identified. No drainable fluid collection. Moderate fecal retention. Colonic diverticulosis without acute diverticulitis of the large bowel. Normal appendix. Multiple nondilated air and fluid-filled loops of small bowel throughout the abdomen and pelvis. No small bowel obstruction. Tiny fat filled periumbilical hernia. Multilevel spondylitic spurring with facet arthrosis of the spine. Remote bilateral L5 pars defects with grade 1 anterolisthesis L5 on S1. IMPRESSION: 1. Small bowel diverticulosis with an acutely inflamed moderate sized jejunal diverticulum of the left paracentral mid abdomen. No evidence of perforation or drainable fluid collection. 2. Scattered small bowel air-fluid levels suggest enteritis versus ileus. No bowel obstruction. 3. Moderate fecal retention. 4. Colonic diverticulosis without acute diverticulitis. 5. Nonobstructing left nephrolithiasis. ACT 112: Negative or not required by law. The above report was generated using voice recognition software. It may contain grammatical, syntax or spelling errors. Electronically signed by: Sukhwinder Hartley M.D. 08/30/2019 10:14 PM Dictated: 08/30/192201 Transcribed: 08/30/192201 [facility] Narrative Vital signs stable. Labs show leukocytosis 16.48. Imaging shows a possible positional diverticulitis. No small bowel obstruction however enteritis versus ileus is present on the CAT scan. Given the patient's leukocytosis, his inability have a bowel movement and pass gas, as well as the general diverticulitis, the patient will be admitted to the hospital. IV Rocephin and Flagyl started. Discussed the case with [facility] hospitalist Dr. Prather who agrees to the admission. Impression & Plan Diverticulitis Discharge Plan Visit Data Chief Complaint: Abdominal Pain Stated Complaint: ABD PAIN ED Provider: Genaro Smallwood Discharge Problem: Diverticulitis Patient Disposition: Being Evaluated by Hospitalist Forms Stand Alone Forms: My [facility] [employer]pi[employer] Prescriptions Prescriptions: No Action Novolog Flexpen U-100 Insulin 100 unit/mL (3 mL) insulin pen See Rx Instructions SUBCUT .COMPLEX Qty: 45 RF: 3 metformin 1,000 mg tablet 1,000 mg PO BID Qty: 180 RF: 3 Tradjenta 5 mg tablet 5 mg PO DAILY Qty: 90 RF: 3 simvastatin 20 mg tablet 20 mg PO HS Qty: 90 RF: 3 naproxen 500 mg tablet 500 mg PO BID PRN (Reason: Pain) Qty: 180 RF: 1 Lantus Solostar U-100 Insulin 100 unit/mL (3 mL) insulin pen 30 unit SUBCUT QAM Qty: 15 RF: 6 aspirin [Adult Low Dose Aspirin] 81 mg tablet,delayed release (DR/EC) 81 mg PO DAILY Qty: 30 RF: 2 Referrals Referrals: Trenton Campos III, MD [Primary Care Provider] -
[2019-08-30 21:43] LABS: Basophils # (auto) 0.01 K/uL (0-0.2); Basophils % (auto) 0.1 %; Eosinophils # (auto) 0.01 K/uL (0-0.5); Eosinophils % (auto) 0.1 %; Hematocrit (blood only) 42.1 % (42-52); Hemoglobin 14.7 g/dL (14.0-18.0); Immature Granulocytes # (auto) 0.05 K/uL (0.00-0.02); Immature Granulocytes % (auto) 0.3 %; Lymphocytes % (auto) 26.7 %; Mean Corpuscular Hemoglobin 30.3 pg (25-34); Mean Corpuscular Hgb Conc 34.9 g/dL (32-36); Mean Corpuscular Volume 86.8 fL (80-100); Monocytes # (auto) 1.18 K/uL (0.11-0.59); Monocytes % (auto) 7.2 %; Neutrophils # (auto) 10.83 K/uL (1.4-6.5); Neutrophils % (auto) 65.6 %; Platelet Count 327 K/uL (130-400); RDW Coefficient of Variation 13.9 % (11.5-14.5); RDW Standard Deviation 44.1 fL (36.4-46.3); Red Blood Count 4.85 M/uL (4.7-6.1); White Blood Count 16.48 K/uL (4.8-10.8)
[2019-08-30] MEDS ORDERED: IOVERSOL 100ml IV PRN (21:51)
[2019-08-30 21:55] LABS: iSTAT Ionized Calcium 1.12 mmol/l (1.12-1.32); iSTAT Potassium 4.2 mmol/L (3.3-5.0)
[2019-08-30 21:59] LABS: Partial Thromboplastin Ratio 1.1; Partial Thromboplastin Time 29.5 Seconds (21.0-31.0); Prothrombin Time 10.8 Seconds (9.0-12.0)
[2019-08-30 22:02] LABS: Albumin Level 3.7 gm/dl (3.4-5.0); BUN Creatinine Ratio 23.4 (10-20); Calcium 9.3 mg/dl (8.5-10.1); Est GFR (African American) 80.3; Est GFR (Non-African American) 69.3
[2019-08-30 22:05] LABS: Bilirubin,Total 1.2 mg/dl (0.2-1); Globulin 3.9 gm/dl (2.5-4.0); Total Protein 7.6 gm/dl (6.4-8.2)
[2019-08-30 22:06] LABS: Appearance Urine Clear (Clear); Bacteria Urine Automated Negative (Negative); Bilirubin Urine Negative (Negative); Blood Urine Trace (Negative); Cast Urine Automated 0 /lpf (0-5); Color Urine Yellow; Epithelial Cell Urine Auto 0-5 /lpf (0-5); Glucose Urine UA Negative (Negative); Ketones Urine Trace (Negative); Leukocyte Esterase Urine Negative (Negative); Nitrite Urine Negative (Negative); Protein Urine Negative (Negative); Specific Gravity Urine 1.017 (1.000-1.030); Urobilinogen Urine Negative (Negative); WBC Urine Automated 0 /hpf (0-5)
--- NOTE | 2019-08-30 22:15 | CT Scan Report ---
ABDOMEN AND PELVIS CT WITH IV CONTRAST CT DOSE: 569.83 mGy.cm HISTORY: Acute generalized abdominal pain with distention abddistentiondecreasedbmdecreasedflatulenc erosbo TECHNIQUE: Multiaxial CT images of the abdomen and pelvis were performed following the IV administrat ion of 93 cc of Optiray 320, A dose lowering technique was utilized adhering to the principles of AL AMY. COMPARISON STUDY: CT abdomen and pelvis 02/26/2007 FINDINGS: Mild linear subsegmental bibasilar atelectasis/scarring. No pneumatosis or pneumoperitoneum identifie d. Imaged inferior cardiac chambers are mildly enlarged. Coronary artery calcifications. Spleen, adre nal glands, and pancreas appear unremarkable. Cholecystectomy. Patency of the hepatic and portal vein s. No biliary ductal dilation. Unremarkable appearance of the liver. The hepatic and portal veins allie ear patent. Mild nonspecific bilateral perinephric stranding. 2 mm nonobstructing calculus of the inferior pole l eft kidney. 11 mm hypodensity of the interpolar left kidney suggest probable cyst. Partial distention of the urinary bladder with mild wall thickening. Prostamegaly. Moderate calcified plaque of the abd ominal aorta. Jejunal diverticulosis. There is a 3.9 x 3.0 cm inflamed jejunal diverticulum of the le ft paracentral mid abdomen on image 234 series 3 demonstrating mucosal hyperemia with mild surroundin g inflammatory stranding. No perforation identified. No drainable fluid collection. Moderate fecal re tention. Colonic diverticulosis without acute diverticulitis of the large bowel. Normal appendix. Mul tiple nondilated air and fluid-filled loops of small bowel throughout the abdomen and pelvis. No smal l bowel obstruction. Tiny fat filled periumbilical hernia. Multilevel spondylitic spurring with facet arthrosis of the spine. Remote bilateral L5 pars defects with grade 1 anterolisthesis L5 on S1. IMPRESSION: 1. Small bowel diverticulosis with an acutely inflamed moderate sized jejunal diverticulum of the lef t paracentral mid abdomen. No evidence of perforation or drainable fluid collection. 2. Scattered small bowel air-fluid levels suggest enteritis versus ileus. No bowel obstruction. 3. Moderate fecal retention. 4. Colonic diverticulosis without acute diverticulitis. 5. Nonobstructing left nephrolithiasis. ACT 112: Negative or not required by law. The above report was generated using voice recognition software. It may contain grammatical, syntax o r spelling errors. Electronically signed by: Sukhwinder Hartley M.D. 08/30/2019 10:14 PM
[2019-08-30] MEDS ORDERED: cefTRIAXone SODIUM 1,000 MG/50 ML BAG IV STA (22:26)
[2019-08-30] MEDS ORDERED: metroNIDAZOLE 500 MG/100 ML BAG IV STA (22:26)
--- NOTE | 2019-08-30 23:16 | History & Physical Report ---
Date of Service August 30, 2019 Assessment & Plan (1) Diverticulitis: Vj Dumas is a 74 year old man with DMII, hyperlipidemia and history of abdominal surgery x2 who presents with a small bowel diverticulitis and possible SBO. Diverticulitis, Jejunal with possible SBO CT abdomen showing Small bowel diverticulosis with an acutely inflamed moderate sized jejunal diverticulum of the left paracentral mid abdomen. No evidence of perforation or drainable fluid collection. Along with multiple small bowel air fluid levels suggesting enteritis vs ileus, no SBO Will manage conservatively with IV ceftriaxone and metronidazole IV fluids NPO Holding off on NG tube at this time with no stella obstruction seen and no vomiting/mild symptoms Did not consult GI at this time, expect him to improve with antibiotics and bowel rest. No signs of perforation on imaging no signs of peritonitis on exam, will need to monitor closely for any acute changes but no need to consult surgery at this time. DMII Placed on sliding scale insulin, holding home metformin and linagliptin OA Holding naproxen HLD Holding simvastatin until he can tolerate PO DVT PPx: Lovenox F/E/N: NSS at 80 mls/hour Dispo: Med surg with antibiotics and bowel rest pending improvement and then hope to transition to oral abx and d/c home. 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 He woke up this morning in his usual state of health, and had breakfast around 8 am. After that time he developed some abdominal discomfort just under his belly button which persisted. About two hours later he was nauseous and dry heaving and thought he needed to throw up but was unable to. The discomfort continued, but he decided to try lunch and two hours after that he also developed dry heaving and the need to vomit. He again did not vomit the abdominal pain felt worse and he decided to come in for treatment. He had his last BM this morning after he woke up with no abnormality. On presentation to ED his vital signs were wnl apart from some hypertension. His discomfort continued and he received a CT abdomen pelvis which showed a jejunal divertuclum which was suspicious for possible diverticulitis/obstruction secondary to some air fluid levels appreciated on scan. He was given one dose of ceftriaxone and metornidazole and hospital team was consulted for admission. He has been eating and drinking well and normally for the past week. He has never had anything like this before. He denies any fevers, chills, weight changes, no sick contacts, no recent travel. No URI symptoms, no vision changes or dry eyes, no difficulty swallowing or sore throat, no SOB, no cough, no chest pain, no dyspnea on exertion. Abdominal pain as listed above, no skin rashes, no focal neuro weakness or other abnormalities. He has a history of two abdominal surgeries a cholecystectomy and a a hernia repair, he is not sure when these were but tells me it was many years ago. On home metformin glipizide and insulin for his DMII. Generally well controlled. Allergies Allergy/AdvReac Type Severity Reaction Status Date / Time exenatide [From [place]] AdvReac Unknown Vomiting Verified 08/30/19 21:38 Home Medications Home Medications Medication Instructions Recorded Confirmed Type aspirin 81 mg tablet,delayed 81 mg PO DAILY #30 tab 03/11/19 08/30/19 Rx release insulin aspart U-100 100 unit/mL See Rx Instructions SUBCUT 04/15/19 08/30/19 Rx (3 mL) subcutaneous pen .COMPLEX #45 ml metformin 1,000 mg tablet 1,000 mg PO BID #180 tab 06/01/19 08/30/19 Rx linagliptin 5 mg tablet 5 mg PO DAILY #90 tab 06/03/19 08/30/19 Rx simvastatin 20 mg tablet 20 mg PO HS #90 tab 06/07/19 08/30/19 Rx insulin glargine 100 unit/mL (3 30 unit SUBCUT QAM #15 ml 08/12/19 08/30/19 Rx mL) subcutaneous pen naproxen 500 mg tablet 500 mg PO BID PRN #180 tab 08/12/19 08/30/19 Rx Past Med/Surg History Medical History Benign colonic polyp (Inactive 07/2017) tubular adenoma, recheck in 5 years 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 Diabetes mellitus, type 2 IDDM Diverticulosis (Inactive) Fracture, rib (Inactive) Compton syndrome (Inactive) Hyperlipidemia Kidney stones Malignant melanoma of skin (Inactive) Osteoarthritis Sleep apnea CPAP Vitamin D deficiency (Inactive) Surgical History History of cataract surgery Left- 2mg versed given without issues History of cholecystectomy History of colonoscopy (07/31/17) 6 mm tubular adenoma, sigmoid ticamado, Case History of herniorrhaphy UMBILICAL History of lithotripsy History of tonsillectomy History of tooth extraction Family History Brother Prostate cancer Social History Preferred Language: Bahamian Communication Ability: Effective 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 Beliefs That Will Affect Care: None Current Living Situation: Spouse Feels Safe at Home: Yes Smoking Status: Never smoker Second Hand Exposure: No ; Hx Alcohol Use: No Hx Substance Use: No Review of Systems Review of Systems: All systems reviewed & are unremarkable except as noted in HPI & below Physical Exam Physical Exam: Constitutional: Well appearing 74 year old man in no apparent distress, conversing comfortably, Eyes: Anicteric sclerae, EOMMI bilaterally ENMT: External Appearance normal Neck: Supple, nontenderm, no masses REsp: Lungs clear to aucultation bilaterally, no increased work of breathing, breath sounds vesicular normal rate Cardiovascular: Patient with a quiet systolic ejection murmur, regular rate regular rhythm, peripheral pulses intact GI: Abdomen soft, acutely tender over and just inferior to umbilicus and just lateral in both directions. Inguinal and suprapubic areas nontender and epigastric and LUQ/RUQ nontender. Bowel sounds active and easily appreciated normal pitch. Skin: Warm dry and intact Neuro: AA+Ox4, no focal abnormalities Results & Data Results & Data ([facility]) Vital Signs (Past 12 Hours) Vital Signs Temp Pulse Pulse Resp BP BP Pulse Ox 08/30/19 22:01 85 18 187/107 H 98 08/30/19 20:53 36.8 C 90 18 195/106 H 98 Supervising Physician Co-Signing Physician Notes Patient seen and examined, chart reviewed, case discussed with Dr. Mares and I agree with his assessment and plan as documented above. Briefly, patient is a 74yo C male with history of DM, HLP presenting with lower abdominal pain, nausea and dry heaving following meals. No flatus, no BM since this AM. Found to have small bowel diverticulosis with acutely inflamed jejunal diverticulum, possible enteritis vs ileus. On exam he is afebrile, hypertensive otherwise HD stable, NAD HEENT - NC/AT, PERRL, MMM Heart - +S1/S2, regular, 2/6 CASI, no rhonchi/wheezes Lungs - CTA, no rales/rhonchi/wheezes Abd - +BS, soft, mildly tender in lower abdomen, no rebound/guarding Ext - No edema Labs and images reviewed, significant for WBC=16.48, Tbili=1.2 Assessment/Plan: Jejunal diverticultis with possible ileus - admit to medical floor. NPO, IVF and electrolyte repletion. Ceftriaxone and Metronidazole Remainder of plan as above Resident Activity Tracking Resident Involvement: Resident Care Provided Care Provided: Adult Hospital Medicine
[2019-08-31] MEDS ORDERED: GLUCOSE 10 TABS/TUBE PO PRN (01:47)
[2019-08-31] MEDS ORDERED: DC ALL PREVIOUSLY ORDERED DIABETES MEDS ONE (01:47)
[2019-08-31] MEDS ORDERED: GLUCAGON FOR INJ 1 MG VIAL SQ PRN (01:47)
[2019-08-31] MEDS ORDERED: ONDANSETRON INJ 2 MG/ML 2 ML VIAL IV PRN (01:47)
[2019-08-31] MEDS ORDERED: DEXTROSE 50% 50 ML SYRINGE IV PRN (01:47)
[2019-08-31] MEDS ORDERED: GLUCOSE 40% GEL 15 GM TUBE PO PRN (01:47)
[2019-08-31] MEDS ORDERED: CARBOHYDRATES FOR HYPOGLYCEMIA PO PRN (01:47)
--- NOTE | 2019-08-31 01:58 | Billing Data ---
Date of Service August 31, 2019 Coding Level of Care Code 13232 Initial Inpt Care Lvl 3
[2019-08-31] MEDS ORDERED: MoRPHine SULFATE 2 MG/ML CARP IV PRN (02:51)
[2019-08-31] MEDS: SODIUM CHLORIDE 0.9% 1000ML 1,000 ML IV SCH ×2 (02:55→14:34)
[2019-08-31] MEDS: ACETAMINOPHEN 1,000 MG/100 ML VIAL IV PRN ×2 (03:22→23:45)
[2019-08-31] MEDS: metroNIDAZOLE 500 MG/100 ML BAG IV SCH ×3 (06:34→21:11)
[2019-08-31] MEDS: ENOXAPARIN INJ 40 MG/0.4 ML SYR SQ SCH (06:35)
[2019-08-31] MEDS: INSULIN ASPART 100 UNITS/ML 3 ML PEN SC SCH ×4 (06:41→20:45)
[2019-08-31 13:20] LABS: Basophils # (auto) 0.01 K/uL (0-0.2); Basophils % (auto) 0.1 %; Eosinophils # (auto) 0.02 K/uL (0-0.5); Eosinophils % (auto) 0.2 %; Hemoglobin 14.3 g/dL (14.0-18.0); Immature Granulocytes # (auto) 0.03 K/uL (0.00-0.02); Immature Granulocytes % (auto) 0.2 %; Lymphocytes # (auto) 3.63 K/uL (1.2-3.4); Lymphocytes % (auto) 30.2 %; Mean Corpuscular Hemoglobin 29.5 pg (25-34); Mean Corpuscular Volume 86.6 fL (80-100); Mean Platelet Volume 9.1 fL (7.4-10.4); Monocytes # (auto) 0.89 K/uL (0.11-0.59); Monocytes % (auto) 7.4 %; Neutrophils # (auto) 7.44 K/uL (1.4-6.5); Neutrophils % (auto) 61.9 %; Platelet Count 275 K/uL (130-400); RDW Coefficient of Variation 14.1 % (11.5-14.5); RDW Standard Deviation 44.2 fL (36.4-46.3); Red Blood Count 4.85 M/uL (4.7-6.1); White Blood Count 12.02 K/uL (4.8-10.8)
[2019-08-31 13:36] LABS: BUN Creatinine Ratio 18.7 (10-20); Calcium 8.6 mg/dl (8.5-10.1); Est GFR (African American) 83.1; Est GFR (Non-African American) 71.7; Magnesium 1.5 mg/dl (1.8-2.4); Potassium 4.2 mmol/L (3.5-5.1)
--- NOTE | 2019-08-31 14:52 | Hospitalist Progress Note ---
Date of Service August 31, 2019 Assessment & Plan (1) Diverticulitis: Vj Dumas is a 74 year old man with DMII, hyperlipidemia and history of abdominal surgery x2 who presents with a small bowel diverticulitis and possible SBO. Diverticulitis, Jejunal with possible SBO CT abdomen showing Small bowel diverticulosis with an acutely inflamed moderate sized jejunal diverticulum of the left paracentral mid abdomen. No evidence of perforation or drainable fluid collection. Along with multiple small bowel air fluid levels suggesting enteritis vs ileus, no SBO Much improved already with bowel rest, IVFs Leukocytosis improving from 16 down to 12 -advance diet to clear liquids today -continue with IV ceftriaxone and metronidazole -continue IV fluids until taking po reliably (2) Aortic valve stenosis: mild-mod on ECHO from 2019 monitor as outpt (3) Uncontrolled type 2 diabetes mellitus with insulin therapy: -continue accuchecks, SSI holding home meds (4) Hyperlipidemia: -holding home statin (5) Hypomagnesemia: Mag 1.5 replace with IV magnesium follow in the AM Admission and Anticipated Discharge Date Admission Date: August 30, 2019 Subjective Feeling much improved. Abd pain is almost completely gone and is residual just below the umbilicus on the right. No nausea or vomiting. He passed flatus x 2 today but no BM since yesterday. Wants to eat. No chest pain or SOB Review of Systems Review of Systems: All systems reviewed & are unremarkable except as noted in HPI & below Physical Exam Constitutional: WD/WN, vitals as above Eyes: + anicteric sclerae ENMT: external ear and nose normal, oropharynx normal Neck: trachea midline, no thyromegaly Respiratory: normal respiratory effort, lungs clear to auscultation Cardiovascular: RRR, no murmur, no edema Chest (Breasts): Chest: normal inspection of chest Gastrointestinal (Abdomen): Inspection/Auscultation: abdomen normal to inspection and normal bowel sounds; abdomen not distended Percussion/Palpation: + abdomen tender (mild TTP right periumbilical region w/o guarding or rebound tenderness) and abdomen soft Musculoskeletal: Extremities: extremities normal to inspection; no cyanosis and no clubbing Skin: no rashes, warm and dry Neurologic: moves all extremities and awake; no focal motor deficits Psychiatric: A+Ox3, euthymic affect Lymphatic: no lymphedema Results & Data Results & Data ([place]) Vital Signs (Past 12 Hours) Vital Signs Temp Pulse Resp BP Pulse Ox 08/31/19 07:03 36.8 C 85 18 130/73 97 Laboratory Results 08/31/19 08/31/19 08/31/19 Range/Units 20:41 17:54 13:00 WBC (4.8-10.8) K/uL RBC (4.7-6.1) M/uL Hgb (14.0-18.0) g/dL Hct (42-52) % MCV (80-100) fL MCH (25-34) pg MCHC (32-36) g/dL RDW Std Deviation (36.4-46.3) fL RDW Coeff of [place] (11.5-14.5) % Plt Count (130-400) K/uL MPV (7.4-10.4) fL Immature Gran % (Auto) % Neut % (Auto) % Lymph % (Auto) % Howell % (Auto) % Eos % (Auto) % Baso % (Auto) % Immature Gran # (Auto) (0.00-0.02) K/uL Neut # (Auto) (1.4-6.5) K/uL Lymph # (Auto) (1.2-3.4) K/uL Howell # (Auto) (0.11-0.59) K/uL Eos # (Auto) (0-0.5) K/uL Baso # (Auto) (0-0.2) K/uL Sodium 133 L (136-145) mmol/L Potassium 4.2 (3.5-5.1) mmol/L Chloride 107 (98-107) mmol/L Carbon Dioxide 23 (21-32) mmol/L Anion Gap 3.0 (3-11) BUN 19 H (7-18) mg/dl Creatinine 1.03 (0.6-1.4) mg/dl Est Cr Clr Drug Dosing 64.0 ml/min Est GFR ( Amer) 83.1 Est GFR (Non-Af Amer) 71.7 BUN/Creatinine Ratio 18.7 (10-20) Glucose 118 H (70-99) mg/dl POC Glucose 206 H 217 H (70-99) mg/dl Calcium 8.6 (8.5-10.1) mg/dl Magnesium 1.5 L (1.8-2.4) mg/dl 08/31/19 08/31/19 08/31/19 Range/Units 13:00 12:12 06:10 WBC 12.02 H (4.8-10.8) K/uL RBC 4.85 (4.7-6.1) M/uL Hgb 14.3 (14.0-18.0) g/dL Hct 42.0 (42-52) % MCV 86.6 (80-100) fL MCH 29.5 (25-34) pg MCHC 34.0 (32-36) g/dL RDW Std Deviation 44.2 (36.4-46.3) fL RDW Coeff of [place] 14.1 (11.5-14.5) % Plt Count 275 (130-400) K/uL MPV 9.1 (7.4-10.4) fL Immature Gran % (Auto) 0.2 % Neut % (Auto) 61.9 % Lymph % (Auto) 30.2 % Howell % (Auto) 7.4 % Eos % (Auto) 0.2 % Baso % (Auto) 0.1 % Immature Gran # (Auto) 0.03 H (0.00-0.02) K/uL Neut # (Auto) 7.44 H (1.4-6.5) K/uL Lymph # (Auto) 3.63 H (1.2-3.4) K/uL Howell # (Auto) 0.89 H (0.11-0.59) K/uL Eos # (Auto) 0.02 (0-0.5) K/uL Baso # (Auto) 0.01 (0-0.2) K/uL Sodium (136-145) mmol/L Potassium (3.5-5.1) mmol/L Chloride (98-107) mmol/L Carbon Dioxide (21-32) mmol/L Anion Gap (3-11) BUN (7-18) mg/dl Creatinine (0.6-1.4) mg/dl Est Cr Clr Drug Dosing ml/min Est GFR ( Amer) Est GFR (Non-Af Amer) BUN/Creatinine Ratio (10-20) Glucose (70-99) mg/dl POC Glucose 110 H 98 (70-99) mg/dl Calcium (8.5-10.1) mg/dl Magnesium (1.8-2.4) mg/dl 08/31/19 Range/Units 01:46 WBC (4.8-10.8) K/uL RBC (4.7-6.1) M/uL Hgb (14.0-18.0) g/dL Hct (42-52) % MCV (80-100) fL MCH (25-34) pg MCHC (32-36) g/dL RDW Std Deviation (36.4-46.3) fL RDW Coeff of [place] (11.5-14.5) % Plt Count (130-400) K/uL MPV (7.4-10.4) fL Immature Gran % (Auto) % Neut % (Auto) % Lymph % (Auto) % Howell % (Auto) % Eos % (Auto) % Baso % (Auto) % Immature Gran # (Auto) (0.00-0.02) K/uL Neut # (Auto) (1.4-6.5) K/uL Lymph # (Auto) (1.2-3.4) K/uL Howell # (Auto) (0.11-0.59) K/uL Eos # (Auto) (0-0.5) K/uL Baso # (Auto) (0-0.2) K/uL Sodium (136-145) mmol/L Potassium (3.5-5.1) mmol/L Chloride (98-107) mmol/L Carbon Dioxide (21-32) mmol/L Anion Gap (3-11) BUN (7-18) mg/dl Creatinine (0.6-1.4) mg/dl Est Cr Clr Drug Dosing ml/min Est GFR ( Amer) Est GFR (Non-Af Amer) BUN/Creatinine Ratio (10-20) Glucose (70-99) mg/dl POC Glucose 88 (70-99) mg/dl Calcium (8.5-10.1) mg/dl Magnesium (1.8-2.4) mg/dl PG Care Time/CCT Total # of Minutes Spent Total Time Spent with Patient: Total time spent is greater than 50% in coordination of care (as documented) at patient's floor/unit and/or counseling patient: Coding Level of Care Code None Diagnoses Diverticulitis K57.92 Aortic valve stenosis I35.0 Uncontrolled type 2 diabetes mellitus with insulin therapy E11.65; Z79.4 Hyperlipidemia E78.5 Hypomagnesemia E83.42
[2019-08-31] MEDS ORDERED: Nursing to Pharmacy Communication ONE (15:17)
[2019-08-31] MEDS: MAGNESIUM SULFATE / D5W 1 GM/100 ML BAG IV SCH ×2 (15:37→17:01)
[2019-08-31] MEDS ORDERED: cefTRIAXone SODIUM 2,000 MG/70 ML BAG IV SCH (21:00)
[2019-09-01 05:41] LABS: Basophils # (auto) 0.01 K/uL (0-0.2); Basophils % (auto) 0.1 %; Eosinophils # (auto) 0.02 K/uL (0-0.5); Eosinophils % (auto) 0.2 %; Hematocrit (blood only) 40.4 % (42-52); Hemoglobin 13.8 g/dL (14.0-18.0); Immature Granulocytes # (auto) 0.02 K/uL (0.00-0.02); Immature Granulocytes % (auto) 0.2 %; Lymphocytes # (auto) 3.62 K/uL (1.2-3.4); Mean Corpuscular Hemoglobin 29.6 pg (25-34); Mean Corpuscular Hgb Conc 34.2 g/dL (32-36); Mean Corpuscular Volume 86.5 fL (80-100); Mean Platelet Volume 9.3 fL (7.4-10.4); Monocytes # (auto) 1.05 K/uL (0.11-0.59); Monocytes % (auto) 8.4 %; Neutrophils # (auto) 7.78 K/uL (1.4-6.5); Neutrophils % (auto) 62.1 %; Platelet Count 279 K/uL (130-400); RDW Standard Deviation 43.9 fL (36.4-46.3); Red Blood Count 4.67 M/uL (4.7-6.1)
[2019-09-01] MEDS: metroNIDAZOLE 500 MG/100 ML BAG IV SCH ×3 (05:51→21:47)
[2019-09-01] MEDS: SODIUM CHLORIDE 0.9% 1000ML 1,000 ML IV SCH ×2 (05:51→20:07)
[2019-09-01] MEDS: ENOXAPARIN INJ 40 MG/0.4 ML SYR SQ SCH (05:54)
[2019-09-01 06:07] LABS: BUN Creatinine Ratio 15.9 (10-20); Calcium 8.1 mg/dl (8.5-10.1); Creatinine Clr Calc Pharmacy 62.8 ml/min; Est GFR (African American) 81.2; Est GFR (Non-African American) 70.1; Magnesium 1.9 mg/dl (1.8-2.4); Potassium 4.1 mmol/L (3.5-5.1)
[2019-09-01] MEDS: INSULIN ASPART 100 UNITS/ML 3 ML PEN SC SCH ×4 (09:13→21:19)
--- NOTE | 2019-09-01 10:14 | Hospitalist Progress Note ---
Date of Service September 01, 2019 Assessment & Plan (1) Diverticulitis: Vj Dumas is a 74 year old man with DMII, hyperlipidemia and history of abdominal surgery x2 who presents with a small bowel diverticulitis and possible SBO. Diverticulitis, Jejunal with ileus CT abdomen showing Small bowel diverticulosis with an acutely inflamed moderate sized jejunal diverticulum of the left paracentral mid abdomen. No evidence of perforation or drainable fluid collection. Along with multiple small bowel air fluid levels suggesting enteritis vs ileus, no SBO Improved with bowel rest, IVFs, however WBC count stable today at 12k (16k on admission, but remains elevated) -withsome bloating and pain continuing, passing flatus but no BM-mild ileus remains -continue clear liquids today -dc IV ceftriaxone and switch to IV Cipro -continue IV metronidazole -follow CBC -continue IV fluids until taking more po -if leukocytosis persists or pain worsens, would repeat imaging to look for abscess/microperf (2) Aortic valve stenosis: mild-mod on ECHO from 2019 monitor as outpt (3) Uncontrolled type 2 diabetes mellitus with insulin therapy: HgbA1C ordered for tomorrow With some hyperglycemia here since starting po -continue accuchecks, SSI holding home meds of linagliptin, metformin -start Lantus 8 units daily (home dose 30 units daily) (4) Hyperlipidemia: -holding home statin (5) Hypomagnesemia: Mag 1.5 and was replaced--> now normal follow in the AM (6) Hyponatremia: Na+ 133 and now up to 134 with IVF hydration, likely from dehydration -follow BMP -continue NS at 80mLs/hr (7) DVT prophylaxis: Lovenox Dispo-continued stay for diverticulitis treatment, leukocytosis, abd pain Possible dc tomorrow if improving Continue ambulation Admission and Anticipated Discharge Date Admission Date: August 30, 2019 Subjective Still having some mid abdominal pain and bloating, worse after eating clears diet today. Still passing flatus but no BM in 2 days. Is making urine. Has been ambulating in halls. Denies chest pain or SOB. Review of Systems Review of Systems: All systems reviewed & are unremarkable except as noted in HPI & below Physical Exam Constitutional: WD/WN, vitals as above Eyes: + anicteric sclerae Neck: trachea midline, no thyromegaly Respiratory: normal respiratory effort, lungs clear to auscultation Cardiovascular: Rate/Rhythm: regular rate and regular rhythm Heart Sounds: + murmur (2/6 CASI at [facility]) Chest (Breasts): Chest: normal inspection of chest Gastrointestinal (Abdomen): Inspection/Auscultation: abdomen normal to inspection and normal bowel sounds; abdomen not distended Percussion/Palpation: + abdomen tender (mild TTP right periumbilical region w/o guarding or rebound tenderness) and abdomen soft Musculoskeletal: Extremities: extremities normal to inspection; no cyanosis and no clubbing Skin: no rashes, warm and dry Neurologic: moves all extremities and awake; no focal motor deficits Psychiatric: A+Ox3, euthymic affect Lymphatic: no lymphedema Results & Data Results & Data ([facility]) Vital Signs (Past 12 Hours) Vital Signs Temp Pulse Resp BP Pulse Ox 09/01/19 07:00 36.3 C L 77 16 123/69 96 08/31/19 23:05 37.2 C 86 16 149/74 H 95 Laboratory Results 09/01/19 09/01/19 09/01/19 Range/Units 08:05 04:49 04:49 WBC 12.50 H (4.8-10.8) K/uL RBC 4.67 L (4.7-6.1) M/uL Hgb 13.8 L (14.0-18.0) g/dL Hct 40.4 L (42-52) % MCV 86.5 (80-100) fL MCH 29.6 (25-34) pg MCHC 34.2 (32-36) g/dL RDW Std Deviation 43.9 (36.4-46.3) fL RDW Coeff of [place] 14.0 (11.5-14.5) % Plt Count 279 (130-400) K/uL MPV 9.3 (7.4-10.4) fL Immature Gran % (Auto) 0.2 % Neut % (Auto) 62.1 % Lymph % (Auto) 29.0 % Coffee % (Auto) 8.4 % Eos % (Auto) 0.2 % Baso % (Auto) 0.1 % Immature Gran # (Auto) 0.02 (0.00-0.02) K/uL Neut # (Auto) 7.78 H (1.4-6.5) K/uL Lymph # (Auto) 3.62 H (1.2-3.4) K/uL Coffee # (Auto) 1.05 H (0.11-0.59) K/uL Eos # (Auto) 0.02 (0-0.5) K/uL Baso # (Auto) 0.01 (0-0.2) K/uL Sodium 134 L (136-145) mmol/L Potassium 4.1 (3.5-5.1) mmol/L Chloride 105 (98-107) mmol/L Carbon Dioxide 22 (21-32) mmol/L Anion Gap 7.0 (3-11) BUN 17 (7-18) mg/dl Creatinine 1.05 (0.6-1.4) mg/dl Est Cr Clr Drug Dosing 62.8 ml/min Est GFR ( Amer) 81.2 Est GFR (Non-Af Amer) 70.1 BUN/Creatinine Ratio 15.9 (10-20) Glucose 153 H (70-99) mg/dl POC Glucose 157 H (70-99) mg/dl Calcium 8.1 L (8.5-10.1) mg/dl Magnesium 1.9 (1.8-2.4) mg/dl 08/31/19 08/31/19 08/31/19 Range/Units 20:41 17:54 13:00 WBC (4.8-10.8) K/uL RBC (4.7-6.1) M/uL Hgb (14.0-18.0) g/dL Hct (42-52) % MCV (80-100) fL MCH (25-34) pg MCHC (32-36) g/dL RDW Std Deviation (36.4-46.3) fL RDW Coeff of [place] (11.5-14.5) % Plt Count (130-400) K/uL MPV (7.4-10.4) fL Immature Gran % (Auto) % Neut % (Auto) % Lymph % (Auto) % Coffee % (Auto) % Eos % (Auto) % Baso % (Auto) % Immature Gran # (Auto) (0.00-0.02) K/uL Neut # (Auto) (1.4-6.5) K/uL Lymph # (Auto) (1.2-3.4) K/uL Coffee # (Auto) (0.11-0.59) K/uL Eos # (Auto) (0-0.5) K/uL Baso # (Auto) (0-0.2) K/uL Sodium 133 L (136-145) mmol/L Potassium 4.2 (3.5-5.1) mmol/L Chloride 107 (98-107) mmol/L Carbon Dioxide 23 (21-32) mmol/L Anion Gap 3.0 (3-11) BUN 19 H (7-18) mg/dl Creatinine 1.03 (0.6-1.4) mg/dl Est Cr Clr Drug Dosing 64.0 ml/min Est GFR ( Amer) 83.1 Est GFR (Non-Af Amer) 71.7 BUN/Creatinine Ratio 18.7 (10-20) Glucose 118 H (70-99) mg/dl POC Glucose 206 H 217 H (70-99) mg/dl Calcium 8.6 (8.5-10.1) mg/dl Magnesium 1.5 L (1.8-2.4) mg/dl 08/31/19 08/31/19 Range/Units 13:00 12:12 WBC 12.02 H (4.8-10.8) K/uL RBC 4.85 (4.7-6.1) M/uL Hgb 14.3 (14.0-18.0) g/dL Hct 42.0 (42-52) % MCV 86.6 (80-100) fL MCH 29.5 (25-34) pg MCHC 34.0 (32-36) g/dL RDW Std Deviation 44.2 (36.4-46.3) fL RDW Coeff of [place] 14.1 (11.5-14.5) % Plt Count 275 (130-400) K/uL MPV 9.1 (7.4-10.4) fL Immature Gran % (Auto) 0.2 % Neut % (Auto) 61.9 % Lymph % (Auto) 30.2 % Coffee % (Auto) 7.4 % Eos % (Auto) 0.2 % Baso % (Auto) 0.1 % Immature Gran # (Auto) 0.03 H (0.00-0.02) K/uL Neut # (Auto) 7.44 H (1.4-6.5) K/uL Lymph # (Auto) 3.63 H (1.2-3.4) K/uL Coffee # (Auto) 0.89 H (0.11-0.59) K/uL Eos # (Auto) 0.02 (0-0.5) K/uL Baso # (Auto) 0.01 (0-0.2) K/uL Sodium (136-145) mmol/L Potassium (3.5-5.1) mmol/L Chloride (98-107) mmol/L Carbon Dioxide (21-32) mmol/L Anion Gap (3-11) BUN (7-18) mg/dl Creatinine (0.6-1.4) mg/dl Est Cr Clr Drug Dosing ml/min Est GFR ( Amer) Est GFR (Non-Af Amer) BUN/Creatinine Ratio (10-20) Glucose (70-99) mg/dl POC Glucose 110 H (70-99) mg/dl Calcium (8.5-10.1) mg/dl Magnesium (1.8-2.4) mg/dl PG Care Time/CCT Total # of Minutes Spent Total Time Spent with Patient: Total time spent is greater than 50% in coordination of care (as documented) at patient's floor/unit and/or counseling patient: Coding Level of Care Code 82032 Subseq Hosp Care Lvl 3 Diagnoses Diverticulitis K57.92 Aortic valve stenosis I35.0 Uncontrolled type 2 diabetes mellitus with insulin therapy E11.65; Z79.4 Hyperlipidemia E78.5 Hypomagnesemia E83.42 Hyponatremia E87.1 DVT prophylaxis Z29.9
[2019-09-01] MEDS: CIPROFLOXACIN / D5W 400 MG/200 ML BAG IV SCH ×2 (11:22→22:52)
[2019-09-01] MEDS: INSULIN GLARGINE SOLOSTAR 100 UNITS/ML 3 ML PEN SC SCH (11:25)
[2019-09-01] MEDS: ACETAMINOPHEN 1,000 MG/100 ML VIAL IV PRN (21:16)
[2019-09-02 05:32] LABS: Basophils # (auto) 0.01 K/uL (0-0.2); Basophils % (auto) 0.1 %; Eosinophils # (auto) 0.03 K/uL (0-0.5); Eosinophils % (auto) 0.3 %; Hemoglobin 13.6 g/dL (14.0-18.0); Immature Granulocytes # (auto) 0.03 K/uL (0.00-0.02); Immature Granulocytes % (auto) 0.3 %; Lymphocytes # (auto) 3.44 K/uL (1.2-3.4); Lymphocytes % (auto) 37.1 %; Mean Corpuscular Hemoglobin 29.4 pg (25-34); Mean Corpuscular Volume 86.4 fL (80-100); Monocytes # (auto) 1.04 K/uL (0.11-0.59); Monocytes % (auto) 11.2 %; Neutrophils # (auto) 4.73 K/uL (1.4-6.5); Platelet Count 248 K/uL (130-400); RDW Coefficient of Variation 14.1 % (11.5-14.5); RDW Standard Deviation 44.2 fL (36.4-46.3); Red Blood Count 4.63 M/uL (4.7-6.1); White Blood Count 9.28 K/uL (4.8-10.8)
[2019-09-02 06:01] LABS: Albumin Level 2.5 gm/dl (3.4-5.0); BUN Creatinine Ratio 12.6 (10-20); Bilirubin Direct 0.3 mg/dl (0-0.2); Calcium 7.9 mg/dl (8.5-10.1); Creatinine Clr Calc Pharmacy 68.7 ml/min; Est GFR (African American) 90.5; Est GFR (Non-African American) 78.1; Magnesium 1.8 mg/dl (1.8-2.4); Potassium 4.4 mmol/L (3.5-5.1)
[2019-09-02 06:03] LABS: Bilirubin,Total 1.3 mg/dl (0.2-1); Phosphorus 1.9 mg/dl (2.5-4.9); Total Protein 6.3 gm/dl (6.4-8.2)
[2019-09-02] MEDS: metroNIDAZOLE 500 MG/100 ML BAG IV SCH (06:06)
[2019-09-02] MEDS: ENOXAPARIN INJ 40 MG/0.4 ML SYR SQ SCH (06:06)
[2019-09-02 06:09] LABS: Estimated Average Glucose 148 mg/dl; Hemoglobin A1C 6.8 % (4.5-5.6)
[2019-09-02] MEDS: INSULIN GLARGINE SOLOSTAR 100 UNITS/ML 3 ML PEN SC SCH (08:36)
[2019-09-02] MEDS: INSULIN ASPART 100 UNITS/ML 3 ML PEN SC SCH ×2 (08:38→12:52)
[2019-09-02] MEDS: POT PHOSPHATE MONOBASIC W/ SOD TAB PO SCH ×2 (10:27→12:54)
[2019-09-02] MEDS: CIPROFLOXACIN / D5W 400 MG/200 ML BAG IV SCH (10:29)
--- NOTE | 2019-09-02 11:20 | Discharge Summary ---
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 He woke up this morning in his usual state of health, and had breakfast around 8 am. After that time he developed some abdominal discomfort just under his belly button which persisted. About two hours later he was nauseous and dry heaving and thought he needed to throw up but was unable to. The discomfort continued, but he decided to try lunch and two hours after that he also developed dry heaving and the need to vomit. He again did not vomit the abdominal pain felt worse and he decided to come in for treatment. He had his last BM this morning after he woke up with no abnormality. On presentation to ED his vital signs were wnl apart from some hypertension. His discomfort continued and he received a CT abdomen pelvis which showed a jejunal divertuclum which was suspicious for possible diverticulitis/obstruction seco ndary to some air fluid levels appreciated on scan. He was given one dose of ceftriaxone and metornidazole and hospital team was consulted for admission. He has been eating and drinking well and normally for the past week. He has never had anything like this before. He denies any fevers, chills, weight changes, no sick contacts, no recent travel. No URI symptoms, no vision changes or dry eyes, no difficulty swallowing or sore throat, no SOB, no cough, no chest pain, no dyspnea on exertion. Abdominal pain as listed above, no skin rashes, no focal neuro weakness or other abnormalities. He has a history of two abdominal surgeries a cholecystectomy and a a hernia repair, he is not sure when these were but tells me it was many years ago. On home metformin glipizide and insulin for his DMII. Generally well controlled. Principal Diagnosis Jejunal diverticulitis Discharge Exam Constitutional WD/WN, vitals as above Eyes + anicteric sclerae ENMT external ear and nose normal, oropharynx normal Neck trachea midline, no thyromegaly Respiratory normal respiratory effort, lungs clear to auscultation Cardiovascular RRR, no murmur, no edema Rate/Rhythm: regular rate and regular rhythm Heart Sounds: + murmur (2/6 CASI at RUSB) Chest (Breasts) Chest: normal inspection of chest Gastrointestinal (Abdomen) Inspection/Auscultation: abdomen normal to inspection and normal bowel sounds; abdomen not distended Percussion/Palpation: + abdomen tender (mild TTP right periumbilical region w/o guarding or rebound tenderness) and abdomen soft Musculoskeletal Extremities: extremities normal to inspection; no cyanosis and no clubbing Skin no rashes, warm and dry Neurologic moves all extremities and awake; no focal motor deficits Psychiatric A+Ox3, euthymic affect Lymphatic no lymphedema Discharge Data Allergies Allergy/AdvReac Type Severity Reaction Status Date / Time exenatide [From [place]] AdvReac Unknown Vomiting Verified 08/30/19 21:38 Consultations 08/30/19 22:30 ED Decision to Admit Stat Ordered Studies 08/30/19 21:26 CT abd pelvis IV con only Stat Hospital Course (1) Diverticulitis: Vj Dumas is a 74 year old man with DMII, hyperlipidemia and history of abdominal surgery x2 who presents with a small bowel diverticulitis and possible SBO. Diverticulitis, Jejunal with ileus CT abdomen showing Small bowel diverticulosis with an acutely inflamed moderate sized jejunal diverticulum of the left paracentral mid abdomen. No evidence of perforation or drainable fluid collection. Along with multiple small bowel air fluid levels suggesting enteritis vs ileus, no SBO Improved with bowel rest, IVFs. Leukocytosis resolved -ileus resolved, passing BMs and flatus Tolerating low fiber diet -finish out course of Cipro and Flagyl x 10 days (2) Aortic valve stenosis: mild-mod on ECHO from 2019 monitor as outpt (3) Uncontrolled type 2 diabetes mellitus with insulin therapy: HgbA1C 6.8% -cont home meds of linagliptin, metformin, Lantus at half dose for now at home (4) Hyperlipidemia: -continue statin (5) Hypomagnesemia: Mag 1.5 and was replaced--> now normal (6) Hyponatremia: Na+ 133 and now up to 136 with IVF hydration, likely from dehydration (7) DVT prophylaxis: Lovenox Dispo-stable for dc to home Much improved Total Time Total Time Spent Total Time Spent (In Minutes): 40 min Total Time Includes: Examination of the Patient, Discharge Planning and Medication Reconciliation Discharge Plan Discharge Items Patient Disposition: Home - Self-Care Reason For Visit: JEJUNAL DIVERTICULUM, DIVERTICULITIS / SBO Discharge Diagnosis: Acute jejunal diverticulitis, ileus Condition on Discharge: Good Activity: Resume your previous activity Non-emergency contact: Primary Care Provider Call non-emergency contact if: you have any medication questions, your symptoms worsen, your pain is not controlled, your pain is worsening, your pain is unusual for you, your pain is concerning for you, you have a fever and your temperature is above 101 Follow-up/Referrals: Trenton Campos III, MD [Primary Care Provider] - 09/16/19 12:50 pm (Please follow up within 1-2 weeks visit will be over phone ) Diet: Carb Consistent or DM2 and Low Fiber Addtl Attending Provider Instructions: Please finish out 8 more days of the two antibiotics: Cipro 500mg twice a day and metronidazole 500mg three times a day. Eat a low fiber diet for the next 10-14 days and then gradually add fiber back in your diet. You were not requiring your usual dose of insulin while here as you were eating less, however you may need to slowly increase your insulin dose at home as your intake of food increases. If you have worsening abdominal pain, nausea, fevers, or any other acute concerns, please call your doctor or return to the hospital if severe. Pending Studies at Discharge: No Stand-Alone Forms: My [facility] Medications and DC Order Prescriptions: New ciprofloxacin HCl [Cipro] 500 mg tablet 500 mg PO BID Qty: 16 RF: 0 metronidazole 500 mg tablet 500 mg PO Q8H Qty: 24 RF: 0 Continued Novolog Flexpen U-100 Insulin 100 unit/mL (3 mL) insulin pen See Rx Instructions SUBCUT .COMPLEX Qty: 45 RF: 3 metformin 1,000 mg tablet 1,000 mg PO BID Qty: 180 RF: 3 Tradjenta 5 mg tablet 5 mg PO DAILY Qty: 90 RF: 3 simvastatin 20 mg tablet 20 mg PO HS Qty: 90 RF: 3 naproxen 500 mg tablet 500 mg PO BID PRN (Reason: Pain) Qty: 180 RF: 1 aspirin [Adult Low Dose Aspirin] 81 mg tablet,delayed release (DR/EC) 81 mg PO DAILY Qty: 30 RF: 2 Discontinued Lantus Solostar U-100 Insulin 100 unit/mL (3 mL) insulin pen 30 unit SUBCUT QAM Qty: 15 RF: 6 No Action fluocinonide 0.05 % ointment TOP .APPLY SPARINGLY TO A RF: 0 cholecalciferol (vitamin D3) 50 mcg (2,000 unit) capsule PO .one daily RF: 0 Lantus Solostar U-100 Insulin 100 unit/mL (3 mL) insulin pen 30 units SUBCUT QAM Qty: 15 RF: 6 Discharge Orders: Discharge Order (Routine); Ordered 09/02/19 Ordered By: Ava Stephens Admission Data Admit Date/Time: 08/30/19 23:31 Attending Provider: Ava Stephens Admit Provider: Tomy aGr Primary Care Provider: Trenton Campos III Other Interventions: Discharge Summary Assessment (RN) Last Done: 09/02/19 11:19 DC Date/Time DO NOT enter until pt leaves facility: 09/02/19 13:52 Coding Level of Care Code D/C Day Management >30 mins Diagnoses Diverticulitis K57.92 Aortic valve stenosis I35.0 Uncontrolled type 2 diabetes mellitus with insulin therapy E11.65; Z79.4 Hyperlipidemia E78.5 Hypomagnesemia E83.42 Hyponatremia E87.1 DVT prophylaxis Z29.9
== END 2019-09-02 13:52 | disposition home or self-care (01) | DRG 392 ==
LOC: ED 20:41 → 3E 23:31 → SUATTDRO 23:31 → 3E 08-31 01:07

== ENCOUNTER 2020-06-23 11:48 | Inpatient (IN) ==
[2020-06-23] MEDS ORDERED: ONDANSETRON INJ 2 MG/ML 2 ML VIAL IV STA (12:02)
--- NOTE | 2020-06-23 12:08 | Emergency Department Note ---
Impression & Plan Pneumonia, Acute left flank pain, Loculated pleural effusion, Left-sided chest pain ED Provider Note INFORMANT: Patient ED PROVIDER(S): Vj Samaniego MD CHIEF COMPLAINT: Flank pain PLAN: Disposition: Admitted Condition: Good Outpatient prescription management: none Referral: None MEDICAL DECISION MAKING: Patient presented with acute left-sided pain that he noted was in the flank r adiating into his chest. He looked extremely uncomfortable. He was evaluated right away and an ECG was performed. No ischemia was noted. The patient was tachycardic. He had a stat portable chest x-ray performed and there was no pneumothorax noted. The patient did have a pleural effusion. Given his history of kidney stones and the severe pain he was given IV Dilaudid and Zofran. The patient was sent for CT imaging. There was no evidence of intra-abdominal acute pathology however the patient was noted to have what appeared to be a pneumonia and pleural effusion. Given the severe pain, effusion, and sudden onset he was sent for a CT dissection study. This was negative for dissection however did confirm the pneumonia and loculated pleural effusion. The patient did have an elevated white count of 19,000. His other labs were unremarkable. Covid testing was negative. He was given IV cefepime and vancomycin. [facility] Patient was evaluated in the ER for further management. Triage Nursing notes reviewed and agree them. Vital Signs: reviewed and remarkable for tachycardia and hypertension Differential diagnosis: Renal colic, hemorrhage, PTX, ACS, UTI, appendicitis, diverticulitis, mesenteric ischemia, aortic pathology, infections, inflammatory bowel disease, PUD, biliary pathology, as well as other pathologies. Diagnostics interpreted by me: ECG: Twelve-lead ECG revealed sinus tachycardia 123 bpm. Poor baseline data. Nonspecific ST changes noted. No ST elevation. No PVCs. Normal axis. Cardiac Monitoring: Cardiac monitoring ordered by me: The patient was placed on continuous cardiac monitoring and observed. It revealed sinus tachycardia at 108 beats per minute without ectopy or evidence of dysrhythmia. Imaging studies: Chest x-ray and CT scans as noted above. I refer you to the EMR for further details. HPI: The patient is a 75 year old male who presents to the Emergency Room with complaints of left flank pain. This started 2 hrs ago and is severe. The kvng ent also notes the following associated symptoms, pain with breathing on left, left shoulder pain. The patient has tried naprosyn relieving factors. Current pain is rated as 9/10. Prior hx of stones but this feels different. Pt denies LOC, headache, fevers, chills, diaphoresis, visual changes, neck pain, nausea, vomiting, abdominal pain, back pain, melena, hematochezia, urinary symptoms, numbness, weakness, lymphadenopathy, rash, or other complaints. ROS: See above HPI for pertinent positives & negatives. A total of 10 systems reviewed and were otherwise negative. PAST MEDICAL HISTORY:See Below , DM PAST SURGICAL HISTORY:See Below,GB FAMILY HISTORY:See Below, kidney stones SOCIAL HISTORY:See Below, no tobacco HOME MEDICATIONS:See Below ALLERGIES:See Below VITALS:See Below PHYSICAL EXAMINATION: GENERAL: Awake, alert, very uncomfortable-appearing, in severe distress HENT: Normocephalic, atraumatic. Oropharynx unremarkable. EYES: Normal conjunctiva. Sclera non-icteric. NECK: Inspection normal. Non-tender. Supple. No nuchal rigidity. FROM. No masses. RESPIRATORY: Clear to auscultation. No wheezes. No rales. Normal respiratory effort. CARDIAC: Tachycardic rate. Normal rhythm. No murmurs. No rubs. Extremities warm and well perfused. Pulses equal. No JVD. GI: Soft, non-distended. Left flank and lateral tenderness to palpation. No rebound or guarding. No masses. RECTAL: Deferred. MUSCULOSKELETAL: Atraumatic. Chest examination reveals no tenderness. The back is symmetrical on inspection without obvious abnormality. There is no CVA tenderness to palpation. No joint edema. LOWER EXTREMITIES: Calves are equal size bilaterally and non-tender. No edema. No discoloration. NEURO: Normal sensorium. No sensory or motor deficits noted. SKIN: No rash or jaundice noted. Vj Samaniego MD Past Med/Surg History Medical History Benign colonic polyp (07/2017) tubular adenoma, recheck in 5 years 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 Diabetes mellitus, type 2 IDDM Diverticulosis Fracture, rib Marl[place] syndrome Hyperlipidemia Kidney stones Malignant melanoma of skin Osteoarthritis Sleep apnea CPAP Vitamin D deficiency Surgical History History of cataract surgery Left- 2mg versed given without issues History of cholecystectomy History of colonoscopy (07/31/17) 6 mm tubular adenoma, sigmoid Dr deja Case History of herniorrhaphy UMBILICAL History of lithotripsy History of tonsillectomy History of tooth extraction Family History Brother Prostate cancer Denies family history of Ovarian cancer Myocardial infarction Breast cancer Lung cancer Colorectal cancer Social History Smoking Status: Never smoker Second Hand Exposure: No; Hx Alcohol Use: Yes Alcohol type: beer Hx Substance Use: No Preferred Language: Qatari Communication Ability: Effective [employer]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 Beliefs That Will Affect Care: None Current Living Situation: Spouse Other Information That Helps Us Care for You: No Feels Safe at Home: Yes Safety Concerns: Feels Safe At This Time Seatbelt Use: always Assistive Devices: CPAP and Glasses Allergies Allergies Allergy/AdvReac Type Severity Reaction Status Date / Time exenatide [From [place]] AdvReac Unknown Vomiting Verified 06/23/20 13:55 Home Meds Home Medications Medication Instructions Recorded Confirmed cholecalciferol (vitamin D3) 50 50 mcg PO DAILY 09/07/19 06/23/20 mcg (2,000 unit) capsule Previous Rx's Medication Instructions Recorded aspirin 81 mg tablet,delayed 81 mg PO DAILY #30 tab 03/11/19 release insulin aspart U-100 100 unit/mL See Rx Instructions SUBCUT 04/15/19 (3 mL) subcutaneous pen .COMPLEX #45 ml insulin glargine 100 unit/mL (3 30 units SUBCUT QAM #15 ml 09/05/19 mL) subcutaneous pen pen needle, diabetic 31 gauge x #900 ea 10/11/19 5/16" naproxen 500 mg tablet 500 mg PO BID PRN #180 tab 01/19/20 simvastatin 20 mg tablet 20 mg PO HS #90 tab 05/09/20 metformin 1,000 mg tablet 1,000 mg PO BID #180 tab 05/21/20 blood sugar diagnostic #100 ea 06/06/20 linagliptin 5 mg tablet 5 mg PO DAILY #90 tab 06/22/20 Results & Data (ED) Vital Signs Vital Signs - 24 hr 06/23/20 11:51 06/23/20 12:02 06/23/20 12:09 Temperature Temperature Source Pulse Rate 120 H 116 H 114 H Pulse Rate [Apical] Pulse Rate from SpO2 Sensor 117 H Pulse Rhythm [Apical] Pulse Strength [Apical] Respiratory Rate 22 25 H 22 Blood Pressure 213/110 H Blood Pressure [Right Arm] Blood Pressure Mean 144 Blood Pressure Mean [Right Arm] Blood Pressure Position [Right Arm] Pulse Oximetry 92 93 92 Oxygen Delivery Method Room Air Room Air Oxygen Flow Rate Sepsis Recent Fever Within 48 Hours No Sepsis New/Unexplained Change in Mental Status N/A Sepsis Action Taken by Nursing No Action Required 06/23/20 12:12 06/23/20 12:30 06/23/20 13:03 Temperature Temperature Source Pulse Rate 112 H 115 H 117 H Pulse Rate [Apical] Pulse Rate from SpO2 Sensor 112 H 112 H Pulse Rhythm [Apical] Pulse Strength [Apical] Respiratory Rate 30 H 23 19 Blood Pressure 172/114 H 154/89 H Blood Pressure [Right Arm] Blood Pressure Mean 133 110 Blood Pressure Mean [Right Arm] Blood Pressure Position [Right Arm] Pulse Oximetry 93 93 Oxygen Delivery Method Oxygen Flow Rate Sepsis Recent Fever Within 48 Hours Sepsis New/Unexplained Change in Mental Status Sepsis Action Taken by Nursing 06/23/20 13:04 06/23/20 13:19 06/23/20 13:25 Temperature Temperature Source Pulse Rate 118 H Pulse Rate [Apical] Pulse Rate from SpO2 Sensor 117 H Pulse Rhythm [Apical] Pulse Strength [Apical] Respiratory Rate 20 Blood Pressure 161/86 H Blood Pressure [Right Arm] Blood Pressure Mean 111 Blood Pressure Mean [Right Arm] Blood Pressure Position [Right Arm] Pulse Oximetry 94 82 L 92 Oxygen Delivery Method Room Air Nasal Cannula Oxygen Flow Rate 2 Sepsis Recent Fever Within 48 Hours Sepsis New/Unexplained Change in Mental Status Sepsis Action Taken by Nursing 06/23/20 13:30 06/23/20 13:31 06/23/20 13:32 Temperature Temperature Source Pulse Rate 106 H 105 H 108 H Pulse Rate [Apical] Pulse Rate from SpO2 Sensor 101 H 105 H 104 H Pulse Rhythm [Apical] Pulse Strength [Apical] Respiratory Rate 20 22 23 Blood Pressure 154/86 H Blood Pressure [Right Arm] Blood Pressure Mean 108 Blood Pressure Mean [Right Arm] Blood Pressure Position [Right Arm] Pulse Oximetry 98 98 98 Oxygen Delivery Method Oxygen Flow Rate Sepsis Recent Fever Within 48 Hours Sepsis New/Unexplained Change in Mental Status Sepsis Action Taken by Nursing 06/23/20 14:00 06/23/20 14:01 Temperature 36.6 C Temperature Source Temporal Artery Scan Pulse Rate 108 H 105 H Pulse Rate [Apical] 105 H Pulse Rate from SpO2 Sensor 107 H 98 H Pulse Rhythm [Apical] Regular Pulse Strength [Apical] Normal Respiratory Rate 20 21 Blood Pressure 143/89 H Blood Pressure [Right Arm] 143/89 H Blood Pressure Mean 107 Blood Pressure Mean [Right Arm] 107 Blood Pressure Position [Right Arm] Sitting Pulse Oximetry 99 99 Oxygen Delivery Method Room Air Oxygen Flow Rate Sepsis Recent Fever Within 48 Hours Sepsis New/Unexplained Change in Mental Status Sepsis Action Taken by Nursing Laboratory Data Result diagrams: 06/23/20 12:09 06/23/20 12:09 Lab Results 06/23/20 06/23/20 06/23/20 Range/Units 12:09 12:09 13:29 WBC 19.90 H (4.8-10.8) K/uL RBC 5.03 (4.7-6.1) M/uL Hgb 14.8 (14.0-18.0) g/dL Hct 43.6 (42-52) % MCV 86.7 (80-100) fL MCH 29.4 (25-34) pg MCHC 33.9 (32-36) g/dL RDW Std Deviation 43.2 (36.4-46.3) fL RDW Coeff of [place] 13.6 (11.5-14.5) % Plt Count 345 (130-400) K/uL MPV 8.8 (7.4-10.4) fL Neutrophils % (Manual) 68.7 % Lymphocytes % (Manual) 7.0 % Reactive Lymphs % (Man) 21.7 % Monocytes % (Manual) 2.6 % Neutrophils # (Manual) 13.67 H (1.4-6.5) K/uL Total Absolute Neuts 13.67 H (1.4-6.5) K/uL Lymphocytes # (Manual) 1.39 (1.2-3.4) K/uL Reactive Lymphs # 4.32 K/uL Total Abs Lymphocytes 5.71 H (1.2-3.4) K/uL Monocytes # (Manual) 0.52 (0.11-0.59) K/uL Smudge Cells Present Sodium 135 L (136-145) mmol/L Potassium 4.8 (3.5-5.1) mmol/L Chloride 102 (98-107) mmol/L Carbon Dioxide 25 (21-32) mmol/L Anion Gap 8.0 (3-11) BUN 23 H (7-18) mg/dl Creatinine 1.46 H (0.6-1.4) mg/dl Est Cr Clr Drug Dosing 44.1 ml/min Est GFR ( Amer) 54.1 Est GFR (Non-Af Amer) 46.7 BUN/Creatinine Ratio 15.8 (10-20) Glucose 280 H (70-99) mg/dl Calcium 9.3 (8.5-10.1) mg/dl Total Bilirubin 1.8 H (0.2-1) mg/dl AST 40 H (15-37) U/L ALT 37 (12-78) U/L Alkaline Phosphatase 122 H (45-117) U/L Troponin I < 0.015 (0-0.045) ng/ml Total Protein 7.5 (6.4-8.2) gm/dl Albumin 3.2 L (3.4-5.0) gm/dl Globulin 4.3 H (2.5-4.0) gm/dl Albumin/Globulin Ratio 0.7 L (0.9-2) Lipase 192 (73-393) U/L Urine Color Urine Appearance (Clear) Urine pH (4.5-7.5) Ur Specific [place] (1.000-1.030) Urine Protein (Negative) Urine Glucose (UA) (Negative) Urine Ketones (Negative) Urine Blood (Negative) Urine Nitrite (Negative) Urine Bilirubin (Negative) Urine Urobilinogen (Negative) Ur Leukocyte Esterase (Negative) Urine WBC (Auto) (0-5) /hpf Urine RBC (Auto) (0-4) /hpf U Hyaline Cast (Auto) (0-5) /lpf U Epithel Cells (Auto) (0-5) /lpf Urine Bacteria (Auto) (Negative) COVID-19 Eval Order CovFluRsv at [facility] SARS-CoV-2 (PCR) (Negative) Influenza Type A (PCR) (Neg) Influenza Type B (PCR) (Neg) RSV (RT-PCR) (Neg) 06/23/20 06/23/20 Range/Units 13:29 14:25 WBC (4.8-10.8) K/uL RBC (4.7-6.1) M/uL Hgb (14.0-18.0) g/dL Hct (42-52) % MCV (80-100) fL MCH (25-34) pg MCHC (32-36) g/dL RDW Std Deviation (36.4-46.3) fL RDW Coeff of [place] (11.5-14.5) % Plt Count (130-400) K/uL MPV (7.4-10.4) fL Neutrophils % (Manual) % Lymphocytes % (Manual) % Reactive Lymphs % (Man) % Monocytes % (Manual) % Neutrophils # (Manual) (1.4-6.5) K/uL Total Absolute Neuts (1.4-6.5) K/uL Lymphocytes # (Manual) (1.2-3.4) K/uL Reactive Lymphs # K/uL Total Abs Lymphocytes (1.2-3.4) K/uL Monocytes # (Manual) (0.11-0.59) K/uL Smudge Cells Sodium (136-145) mmol/L Potassium (3.5-5.1) mmol/L Chloride (98-107) mmol/L Carbon Dioxide (21-32) mmol/L Anion Gap (3-11) BUN (7-18) mg/dl Creatinine (0.6-1.4) mg/dl Est Cr Clr Drug Dosing ml/min Est GFR ( Amer) Est GFR (Non-Af Amer) BUN/Creatinine Ratio (10-20) Glucose (70-99) mg/dl Calcium (8.5-10.1) mg/dl Total Bilirubin (0.2-1) mg/dl AST (15-37) U/L ALT (12-78) U/L Alkaline Phosphatase (45-117) U/L Troponin I (0-0.045) ng/ml Total Protein (6.4-8.2) gm/dl Albumin (3.4-5.0) gm/dl Globulin (2.5-4.0) gm/dl Albumin/Globulin Ratio (0.9-2) Lipase (73-393) U/L Urine Color Yellow Urine Appearance Clear (Clear) Urine pH 7.0 (4.5-7.5) Ur Specific [place] 1.045 H (1.000-1.030) Urine Protein Negative (Negative) Urine Glucose (UA) 3+ H (Negative) Urine Ketones Trace H (Negative) Urine Blood Trace H (Negative) Urine Nitrite Negative (Negative) Urine Bilirubin Negative (Negative) Urine Urobilinogen Negative (Negative) Ur Leukocyte Esterase Negative (Negative) Urine WBC (Auto) 0 (0-5) /hpf Urine RBC (Auto) 5-10 H (0-4) /hpf U Hyaline Cast (Auto) 0 (0-5) /lpf U Epithel Cells (Auto) 0-5 (0-5) /lpf Urine Bacteria (Auto) Negative (Negative) COVID-19 Eval Order SARS-CoV-2 (PCR) NEGATIVE (Negative) Influenza Type A (PCR) Negative (Neg) Influenza Type B (PCR) Negative (Neg) RSV (RT-PCR) Negative (Neg) Administered Medications Heparin Sodium (Porcine) (Heparin Sod 5,000 Unit/0.5 Ml Vial) 5,000 units SQ Q12 RICHARD Stop: 07/23/20 20:59 Last Admin: 06/23/20 19:51 Dose: 5,000 units Documented by: [id number] Hydromorphone HCl (Hydromorphone Inj 0.5 Mg/0.5 Ml Syr) 0.5 mg IV Q15M PRN PRN Reason: Pain Stop: 07/07/20 12:01 Last Admin: 06/23/20 19:43 Dose: 0.5 mg Documented by: [id number] Admin: 06/23/20 12:31 Dose: 0.5 mg Documented by: [id number] Admin: 06/23/20 12:12 Dose: 0.5 mg Documented by: [id number] Sodium Chloride (Nss 1000ml) 1,000 mls @ 100 mls/hr IV .Q10H RICHARD Stop: 06/24/20 11:43 Last Admin: 06/23/20 16:04 Dose: 100 mls/hr Documented by: [id number] Azithromycin 500 mg/ Dextrose 255 mls @ 125 mls/hr IV Q24H RICHARD Stop: 06/30/20 16:59 Last Infusion: 06/23/20 19:58 Dose: 0 mls/hr Documented by: [id number] Admin: 06/23/20 17:16 Dose: 125 mls/hr Documented by: [id number] Ampicillin Sodium/Sulbactam Sodium 3,000 mg/ Sodium Chloride 108 mls @ 200 mls/hr IV Q6H [facility]; Protocol Stop: 06/30/20 19:59 Last Admin: 06/23/20 19:56 Dose: 200 mls/hr Documented by: [id number] Insulin Aspart (Insulin Aspart 100 Units/Ml 3 Ml Pen) 0 units SC ACHS RICHARD Stop: 07/23/20 16:29 Last Admin: 06/23/20 17:16 Dose: 12 units Documented by: [id number] Cosigned by: [id number] Morphine Sulfate (Morphine Sulfate 4 Mg/Ml 1 Ml Carp\\Vial) 4 mg IV Q4 PRN PRN Reason: Pain Stop: 07/07/20 15:31 Last Admin: 06/23/20 16:04 Dose: 4 mg Documented by: [id number] Oxycodone HCl (Oxycodone Hcl Ir 5 Mg Tab (Immediate Release)) 10 mg PO Q6H PRN PRN Reason: Moderate Pain Stop: 07/07/20 15:31 Last Admin: 06/23/20 17:16 Dose: 10 mg Documented by: [id number] Simvastatin (Simvastatin 20 Mg Tab) 20 mg PO HS RICHARD Stop: 07/23/20 20:59 Last Admin: 06/23/20 19:56 Dose: 20 mg Documented by: [id number] Discontinued Medications Cefepime HCl (Maxipime) 2,000 mg in 20 mls @ 5 mls/min IV NOW STA; Protocol Stop: 06/23/20 12:47 Last Admin: 06/23/20 13:33 Dose: 5 mls/min Documented by: [id number] Sodium Chloride (Nss 1000ml) 1,000 mls @ 999 mls/hr IV .Q1H1M ONE Stop: 06/23/20 13:49 Last Infusion: 06/23/20 14:34 Dose: 0 mls/hr Documented by: [id number] Admin: 06/23/20 13:33 Dose: 999 mls/hr Documented by: [id number] Vancomycin HCl 2,000 mg/ (Sodium Chloride) 540 mls @ 200 mls/hr IV NOW ONE Stop: 06/23/20 16:30 Last Infusion: 06/23/20 16:39 Dose: 0 mls/hr Documented by: [id number] Admin: 06/23/20 14:16 Dose: 200 mls/hr Documented by: [id number] Ioversol (Optiray 320 125ml) 119 ml IV ONCE ONE Stop: 06/23/20 13:03 Last Admin: 06/23/20 13:03 Dose: 119 ml Documented by: [id number] Ondansetron HCl (Ondansetron Inj 2 Mg/Ml 2 Ml Vial) 4 mg IV NOW STA Stop: 06/23/20 12:03 Last Admin: 06/23/20 12:12 Dose: 4 mg Documented by: [id number] Discharge Plan Visit Data Chief Complaint: Shoulder Pain Stated Complaint: LEFT SHOULDER PAIN & RIB CAGE ED Provider: Vj Samaniego Discharge Problem: Pneumonia, Acute left flank pain, Loculated pleural effusion, Left-sided chest pain Patient Disposition: Admitted As Inpatient Discharge Instructions Interventions: ED Discharge Assessment Last Done: 06/23/20 15:19
[2020-06-23] MEDS: HYDROmorphone INJ 0.5 MG/0.5 ML SYR IV PRN ×3 (12:12→19:43)
[2020-06-23 12:16] LABS: Hematocrit (blood only) 43.6 % (42-52); Hemoglobin 14.8 g/dL (14.0-18.0); Mean Corpuscular Hemoglobin 29.4 pg (25-34); Mean Corpuscular Hgb Conc 33.9 g/dL (32-36); Mean Corpuscular Volume 86.7 fL (80-100); Mean Platelet Volume 8.8 fL (7.4-10.4); Platelet Count 345 K/uL (130-400); RDW Coefficient of Variation 13.6 % (11.5-14.5); RDW Standard Deviation 43.2 fL (36.4-46.3); Red Blood Count 5.03 M/uL (4.7-6.1)
[2020-06-23 12:36] LABS: Alanine Aminotransferase 37 U/L (12-78); Albumin Level 3.2 gm/dl (3.4-5.0); Aspartate Aminotransferase 40 U/L (15-37); BUN Creatinine Ratio 15.8 (10-20); Blood Urea Nitrogen 23 mg/dl (7-18); Calcium 9.3 mg/dl (8.5-10.1); Carbon Dioxide 25 mmol/L (21-32); Chloride 102 mmol/L (98-107); Creatinine Clr Calc Pharmacy 44.1 ml/min; Est GFR (African American) 54.1; Est GFR (Non-African American) 46.7; Glucose 280 mg/dl (70-99); Lipase 192 U/L (73-393); Potassium 4.8 mmol/L (3.5-5.1); Sodium 135 mmol/L (136-145)
[2020-06-23 12:40] LABS: Albumin Globulin Ratio 0.7 (0.9-2); Alkaline Phosphatase 122 U/L (45-117); Bilirubin,Total 1.8 mg/dl (0.2-1); Globulin 4.3 gm/dl (2.5-4.0); Total Protein 7.5 gm/dl (6.4-8.2); Troponin I < 0.015 ng/ml (0-0.045)
--- NOTE | 2020-06-23 12:40 | CT Scan Report ---
CT SCAN OF THE ABDOMEN AND PELVIS WITHOUT IV CONTRAST CLINICAL HISTORY: Left flank pain. COMPARISON STUDY: Abdominal CT dated 08/30/2019. TECHNIQUE: CT scan of the abdomen and pelvis is performed from the lung bases to the proximal femora. Images are reviewed in the axial, sagittal, and coronal planes. IV contrast was not administered for this examination. Note that the examination was performed in suboptimal fashion without oral and IV contrast. The examination is also compromised by motion artifact. A dose lowering technique was utili zed adhering to the principles of ALARA. CT DOSE: 623.84 mGy.cm FINDINGS: Lung bases: The heart is enlarged and without pericardial effusion. The coronary arteries are densely calcified. There is a small hiatal hernia. There is a small and at least partially loculated left pl eural effusion with left basilar consolidation. Scarring/atelectasis is noted at both lung bases. Liver: The unenhanced liver is normal in size, contour, and attenuation. There is no intrahepatic lydia iary ductal dilatation. Gallbladder: Surgically absent noting clips in the gallbladder fossa. Spleen: Normal in size and attenuation. Pancreas: The unenhanced pancreas is moderately atrophic and grossly unremarkable. Adrenal glands: Unremarkable. Kidneys: The unenhanced kidneys demonstrate cortical atrophy and are without hydronephrosis. There is a 3 mm nonobstructing left renal calculus. No right renal calculi are identified and there is no ure teral stone. There is no evidence of contour deforming renal mass lesion. Abdominal vasculature: The abdominal aorta is normal in course and caliber noting moderate atheroscle rotic calcification. Bowel: There is mild colonic diverticulosis without CT evidence of acute diverticulitis. Moderate con stipation is seen throughout the colon. No high-grade bowel obstruction is identified. A small umbili arvin hernia contains a nonobstructed segment of small bowel is seen on image #355. There is diverticul osis of the small bowel, with several giant small bowel diverticula which measure as much as 5 cm (im ages #211, #217, #231, and #258). The small bowel is mildly distended and fluid-filled. The appendix is well-visualized and normal. Peritoneum: There is no intraperitoneal free air or abdominal ascites. Lymphadenopathy: Mildly enlarged mesenteric lymph nodes are similar to previous. The largest node see n in the right lower quadrant on image #319 and measures 1.6 x 0.8 cm. Pelvic viscera: The prostate gland is mildly enlarged and heterogeneous. The bladder is normal as vis ualized. There are small bilateral fat-containing inguinal hernias. Skeletal structures: The skeletal structures are osteopenic. There are bilateral pars defects at L5 w ith minimal anterolisthesis at L5-S1. Mild lumbosacral spondylosis is observed. No lytic or blastic l esions are seen. IMPRESSION: 1. There is a small and at least partially loculated left pleural effusion with left basilar consolid ation. Correlate clinically for evidence of pneumonia/aspiration pneumonitis. 2. There is diverticulosis of both of the small bowel and colon, including several giant diverticula of the small bowel. There is no CT evidence of acute diverticulitis. 3. An umbilical hernia contains a tiny segment of small bowel. There is no evidence of high-grade obs truction. 4. The small bowel loops are mildly distended and fluid-filled. Correlate clinically for evidence of a nonspecific enteritis. 5. Left-sided nephrolithiasis. 6. Moderate constipation. 7. Cardiomegaly. 8. Additional findings as above. ACT 112: Negative or not required by law. Electronically signed by: Erik Breaux M.D. 06/23/2020 12:39 PM
[2020-06-23] MEDS ORDERED: CEFEPIME 2,000 MG/20 ML VIAL IV STA (12:44)
[2020-06-23] MEDS ORDERED: SODIUM CHLORIDE 0.9% 1000ML 1,000 ML IV ONE (12:49)
--- NOTE | 2020-06-23 12:57 | XRay Report ---
SINGLE VIEW CHEST CLINICAL HISTORY: Atypical chest pain. Left flank pain. FINDINGS: An AP, portable, upright chest radiograph is compared to study dated 05/26/2017. The examina tion is mildly degraded by portable technique and patient rotation. The heart is enlarged. The pulm onary vasculature is noncongested. There are low lung volumes. There is a small left pleural effusion with left basilar consolidation. Atelectasis is seen at the right lung base. No pneumothorax is seen . The skeletal structures are osteopenic. The bony thorax is grossly intact. Cholecystectomy clips ar e noted in the right upper quadrant. IMPRESSION: 1. Cardiomegaly without radiographic evidence of congestive failure. 2. Small left pleural effusion with left basilar consolidation. Correlate clinically for evidence of pneumonia/aspiration pneumonitis. 3. Low lung volumes. ACT 112: Negative or not required by law. Electronically signed by: Erik Breaux M.D. 06/23/2020 12:56 PM
[2020-06-23 12:59] LABS: ALC (manual) 5.71 K/uL (1.2-3.4); ANC (manual) 13.67 K/uL (1.4-6.5); Lymphocytes # (manual) 1.39 K/uL (1.2-3.4); Monocytes # (manual) 0.52 K/uL (0.11-0.59); Monocytes % (manual) 2.6 %; Neutrophils # (manual) 13.67 K/uL (1.4-6.5); Neutrophils % (manual) 68.7 %; Reactive Lymphocytes # (manual) 4.32 K/uL; Reactive Lymphocytes % (manual) 21.7 %; Smudge Cells Present
[2020-06-23] MEDS ORDERED: OPTIRAY 320 125ml IV ONE (13:02)
--- NOTE | 2020-06-23 13:16 | CT Scan Report ---
CT ANGIOGRAM OF THE CHEST COMBO CLINICAL HISTORY: Atypical chest pain. COMPARISON STUDY: Chest x-ray dated 06/23/2020. TECHNIQUE: Before and following the IV administration of 119 cc of Optiray 320, CT angiogram of the c hest was performed from the thoracic inlet to the upper abdomen utilizing the dissection protocol. Im ages are reviewed in the axial, sagittal, and coronal planes. 3-D MIPS images are created and assesse d. IV contrast was administered without complication. A dose lowering technique was utilized adherin g to the principles of ALARA. CT DOSE: 660.00 mGy.cm FINDINGS: Thyroid: Imaged portions of the thyroid gland are normal in size and attenuation. A 7 mm low-attenuat ion nodule is noted in the left lobe. Thoracic aorta: No intramural hemorrhage is seen on the unenhanced series. There is mild atherosclero tic calcification of the thoracic aorta, which is normal in caliber and demonstrates standard 3-vesse l arch anatomy. No dissection is seen. The arch vessels are widely patent. Pulmonary vasculature: The pulmonary trunk is normal in caliber. There are no filling defects identif ied within the main, lobar, or segmental pulmonary branches to indicate pulmonary emboli. Heart: The heart is enlarged and without pericardial effusion. The coronary arteries are densely calc ified. Lungs and pleural spaces: Evaluation of the lung parenchyma is degraded by motion artifact. Foci of p arenchymal scarring/atelectasis are seen in the right mid to lower lung. There is a small and at leas t partially loculated left pleural effusion with left basilar consolidation. The trachea and central airways are clear. Mediastinum: There is no mediastinal lymphadenopathy. Aida: Clear. Axillae: There is no axillary lymphadenopathy. Upper abdomen: There is a small hiatal hernia. Partially visualized upper abdominal viscera is otherw ise grossly unremarkable. Skeletal structures: The skeletal structures are osteopenic. Degenerative change and hyperkyphosis ar e noted in the thoracic spine. No lytic or blastic bony lesions are seen. IMPRESSION: 1. There is no aneurysm or dissection of the thoracic aorta. 2. There is no evidence of pulmonary embolus in the main, lobar, or segmental pulmonary arteries. 3. There is a small and at least partially loculated left pleural effusion with left basilar consolid ation. Correlate clinically for evidence of pneumonia/aspiration pneumonitis 4. Cardiomegaly. 5. Additional findings as above. ACT 112: Negative or not required by law. Electronically signed by: Erik Breaux M.D. 06/23/2020 1:15 PM
[2020-06-23] MEDS ORDERED: VANCOMYCIN CONSULT ACTIVE PRN (13:49)
[2020-06-23] MEDS ORDERED: VANCOMYCIN HCL 2,000 MG in SODIUM CHLORIDE 0.9% 500 ML IV ONE (13:49)
--- NOTE | 2020-06-23 14:17 | History & Physical Report ---
Date of Service June 23, 2020 Assessment & Plan (1) Pneumonia: Patient presents with little pulmonary symptoms but flank pain found to have pneumonia with parapneumonic loculated effusion. Does have a white blood cell count of 19,000 is hypoxic with exertion CT angiogram chest performed 06/23/2020, no evidence of PE small partially loculated left pleural effusion with left basilar consolidation associated with it CT scan abdomen pelvis 06/23/2020 diverticulosis of small and large bowel with no evidence of diverticulitis. Umbilical hernia containing a tiny segment of bowel with no evidence of obstruction. Possibly nonspecific enteritis with mildly distended loops of fluid-filled bowel. Left-sided nephrolithiasis with moderate constipation. pts vancomycin will cover until mrsa nasal swab is resulted, after speaking to pulmonary medicine will have unasyn to cover aspiration pneumonia and azithorymcin for atypicals, will have formal consult 06/24 and sent legionella ag (2) MARISSA (acute kidney injury): Pt has elevation of his creatinine on admission will hydrate but avoid nsaids for pain control (3) Uncontrolled type 2 diabetes mellitus with insulin therapy: Pt is on basal bolus insulin and linagliptin plus metformin, will hold the latter and use glargine 30 units at night plus ssi (4) Hyperlipidemia: continues on zocor (5) Aortic valve stenosis: Patient has mild we will keep fluids at a conservative pace (6) DVT prophylaxis: heparin sc full code History of Present Illness Primary Care Provider: Trenton Campos MD 75 year old male who presents to the Emergency Room with complaints of left flank pain. This started 2 hrs bell captain and is severe 9/10. The patient also notes pleuritic chest pain on left, left shoulder pain. Prior hx of kidney stones but this feels different. Pt denies LOC, headache, fevers, chills, diaphoresis, visual changes, neck pain, nausea, vomiting, abdominal pain, back pain, melena, hematochezia, urinary symptoms, numbness, weakness, lymphadenopathy, rash, or other complaints. with Ct evaluation apparent pneumonia with loculated effusion is present on the left, given vancomycin and Cefepime in the ER Allergies Allergy/AdvReac Type Severity Reaction Status Date / Time exenatide [From Byetta] AdvReac Unknown Vomiting Verified 06/23/20 13:55 Home Medications Medication Instructions Recorded Confirmed Type aspirin 81 mg tablet,delayed 81 mg PO DAILY #30 tab 03/11/19 06/23/20 Rx release insulin aspart U-100 100 unit/mL See Rx Instructions SUBCUT 04/15/19 06/23/20 Rx (3 mL) subcutaneous pen .COMPLEX #45 ml insulin glargine 100 unit/mL (3 30 units SUBCUT QAM #15 ml 09/05/19 06/23/20 Rx mL) subcutaneous pen cholecalciferol (vitamin D3) 50 50 mcg PO DAILY 09/07/19 06/23/20 History mcg (2,000 unit) capsule pen needle, diabetic 31 gauge x #900 ea 10/11/19 02/27/20 Rx 5/16" naproxen 500 mg tablet 500 mg PO BID PRN #180 tab 01/19/20 06/23/20 Rx simvastatin 20 mg tablet 20 mg PO HS #90 tab 05/09/20 06/23/20 Rx metformin 1,000 mg tablet 1,000 mg PO BID #180 tab 05/21/20 06/23/20 Rx blood sugar diagnostic #100 ea 06/06/20 Rx linagliptin 5 mg tablet 5 mg PO DAILY #90 tab 06/22/20 06/23/20 Rx Past Med/Surg History Medical History Benign colonic polyp (07/2017) tubular adenoma, recheck in 5 years 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 Diabetes mellitus, type 2 IDDM Diverticulosis Fracture, rib Ashburn syndrome Hyperlipidemia Kidney stones Malignant melanoma of skin Osteoarthritis Sleep apnea CPAP Vitamin D deficiency Surgical History History of cataract surgery Left- 2mg versed given without issues History of cholecystectomy History of colonoscopy (07/31/17) 6 mm tubular adenoma, sigmoid Dr deja Case History of herniorrhaphy UMBILICAL History of lithotripsy History of tonsillectomy History of tooth extraction Family History Brother Prostate cancer Denies family history of Ovarian cancer Myocardial infarction Breast cancer Lung cancer Colorectal cancer Social History Smoking Status: Never smoker Second Hand Exposure: No; Hx Alcohol Use: Yes Hx Substance Use: No Preferred Language: Chilean Communication Ability: Effective 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 Beliefs That Will Affect Care: None Current Living Situation: Spouse Feels Safe at Home: Yes Seatbelt Use: always Assistive Devices: None Review of Systems Review of Systems: Mild distress and fatigue no headache, blurry or double vision no speech or swallowing issues no chest pain, pressure or palpitations no shortness of breath, cough or wheezes no abdominal pain, nausea or vomiting, diarrhea or constipation no dysuria, hematuria or frequency no focal joint pain or swelling no back pain, CVA tenderness or radicular pain no bruising, bleeding or rashes no focal signs of weakness or numbness or altered sensation no complaints of anxiety or depression.. Physical Exam Physical Exam: The patient appeared well nourished and normally developed. Vital signs as documented. Head exam is normocephalic atraumatic no scleral icterus Neck is without JVD, thyromegaly, or carotid bruits. Lungs are clear to auscultation, no focal loss of breath sounds Cardiac exam, Rhythm is regular.. No murmurs, rubs or gallops. Abdominal exam reveals normal bowel sounds, soft non tender, no masses Extremities are nonedematous and both pedal pulses are present Neurologic exam is alert and oriented, no focal loss of strength or sensation Skin is without bruises or rashes Psychologically is without concerns for anxiety or depression Results & Data Results & Data ([facility]) Vital Signs (Past 12 Hours) Vital Signs Pulse Resp BP Pulse Ox 06/23/20 13:31 105 H 22 154/86 H 98 06/23/20 13:30 106 H 20 98 06/23/20 13:25 92 06/23/20 13:19 82 L 06/23/20 13:04 118 H 20 161/86 H 94 06/23/20 13:03 117 H 19 06/23/20 12:30 115 H 23 154/89 H 93 06/23/20 12:12 112 H 30 H 172/114 H 93 06/23/20 12:09 114 H 22 92 06/23/20 12:02 116 H 25 H 93 06/23/20 11:51 120 H 22 213/110 H 92 EKG shows sinus tach PG Care Time/CCT Total # of Minutes Spent Total Time Spent with Patient: Total time spent is greater than 50% in coordination of care (as documented) at patient's floor/unit and/or counseling patient: Coding Level of Care Code 05183 Initial Inpt Care Lvl 3 Diagnoses Pneumonia J18.9 MARISSA (acute kidney injury) N17.9 Uncontrolled type 2 diabetes mellitus with insulin therapy E11.65; Z79.4 Hyperlipidemia E78.5 Aortic valve stenosis I35.0 DVT prophylaxis Z29.9
[2020-06-23 14:25] LABS: Influenza A virus by PCR Negative (Neg); Influenza B virus by PCR Negative (Neg); RSV by PCR Negative (Neg); SARS CoV2 RNA(COVID-19) InHosp NEGATIVE (Negative)
[2020-06-23 15:01] LABS: Appearance Urine Clear (Clear); Bacteria Urine Automated Negative (Negative); Bilirubin Urine Negative (Negative); Blood Urine Trace (Negative); Cast Urine Automated 0 /lpf (0-5); Color Urine Yellow; Epithelial Cell Urine Auto 0-5 /lpf (0-5); Glucose Urine UA 3+ (Negative); Ketones Urine Trace (Negative); Leukocyte Esterase Urine Negative (Negative); Nitrite Urine Negative (Negative); Protein Urine Negative (Negative); Specific Gravity Urine 1.045 (1.000-1.030); Urobilinogen Urine Negative (Negative); WBC Urine Automated 0 /hpf (0-5)
[2020-06-23] MEDS ORDERED: DEXTROSE 50% 50 ML SYRINGE IV PRN (15:44)
[2020-06-23] MEDS ORDERED: POLYETHYLENE (MIRALAX) 17 GM PACK PO PRN (15:44)
[2020-06-23] MEDS ORDERED: CARBOHYDRATES FOR HYPOGLYCEMIA PO PRN (15:44)
[2020-06-23] MEDS ORDERED: GLUCOSE 10 TABS/TUBE PO PRN (15:44)
[2020-06-23] MEDS ORDERED: ACETAMINOPHEN 500 MG TAB PO PRN (15:44)
[2020-06-23] MEDS ORDERED: GLUCOSE 40% GEL 15 GM TUBE PO PRN (15:44)
[2020-06-23] MEDS ORDERED: ALUMINUM/MAGNESIUM SUSP 30 ML UDC PO PRN (15:44)
[2020-06-23] MEDS ORDERED: GLUCAGON FOR INJ 1 MG VIAL SQ PRN (15:44)
[2020-06-23] MEDS ORDERED: PHARMACY GLYCEMIC MGMT CONSULT PRN (15:54)
[2020-06-23] MEDS: MoRPHine SULFATE 4 MG/ML 1 ML CARP\\VIAL IV PRN ×2 (16:04→21:41)
[2020-06-23] MEDS: SODIUM CHLORIDE 0.9% 1000ML 1,000 ML IV SCH (16:04)
--- NOTE | 2020-06-23 16:13 | Pharmacy Report ---
Pharmacy Glycemic Short Note 2 - Date of Service June 23, 2020 - Glycemic Short BSG Results (Last 24 hours): 06/23/20 12:09 Glucose 280 H OUTPATIENT ANTIDIABETIC REGIMEN: * Lantus 30 units SQ AM * NovoLog 10-16 units SQ BIDM * Linagliptin (Tradjenta) 5mg PO Daily * Metformin 1,000mg PO BIDM * A1c = 7.5% on 02/20/20 ASSESSMENT: * 75yo T2DM male with adequate outpatient control per recent A1c/ However, this value is slightly outdated (greater than 90 days) will re-order repeat A1c with AM labs * Pt is maintained on oral antidiabetic agents + SQ basal bolus insulin as an outpatient * Oral agents are not recommended for inpatient use d/t drug interactions, changing PO intake, and difficulty titrating for acute hyper/hypoglycemia. ADA recommends re-initiating outpatient oral agents 1-2 days prior to di scharge if/when appropriate if they were held on admission. * Will hold oral agents for admission and adjust outpatient dosing of SQ basal bolus insulin regimen which is the recommended regimen for inpatient glycemic control. 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 BSGs Q4hrs RTC to cover for stress/illness hyperglycemia. PLAN FOR INPATIENT GLYCEMIC CONTROL: * Hold outpatient oral diabetes medications * Basal insulin * Lantus 30 units SQ daily in AM * Bolus insulin * NovoLog per scale ACHS or Q6hrs while NPO. Additional checks + coverage at 0000 & 0400 for hyperglycemia on admission * Goal Range: Low 100 mg/dL - High 140 mg/dL * Correction Factor: 20 mg/dL/unit * Nutritional / Prandial insulin per carb ratio of 1 unit per 6 grams CHO consumed PLAN FOR DISCHARGE: * TBD based on A1c
[2020-06-23] MEDS: INSULIN ASPART 100 UNITS/ML 3 ML PEN SC SCH ×2 (17:16→21:43)
[2020-06-23] MEDS: AZITHROMYCIN 500 MG in DEXTROSE 5% 250 ML IV SCH (17:16)
[2020-06-23] MEDS: oxyCODONE HCL IR 5 MG TAB (IMMEDIATE RELEASE) PO PRN (17:16)
[2020-06-23] MEDS: HEPARIN SOD 5,000 UNIT/0.5 ML VIAL SQ SCH (19:51)
[2020-06-23] MEDS: AMPICILLIN/SULBACTAM SOD 3,000 MG in 0.9 % SODIUM CHLORIDE 100 ML IV SCH (19:56)
[2020-06-23] MEDS: SIMVASTATIN 20 MG TAB PO SCH (19:56)
[2020-06-24] MEDS: INSULIN ASPART 100 UNITS/ML 3 ML PEN SC SCH ×6 (00:11→21:37)
[2020-06-24] MEDS: oxyCODONE HCL IR 5 MG TAB (IMMEDIATE RELEASE) PO PRN ×2 (00:26→17:50)
[2020-06-24] MEDS: AMPICILLIN/SULBACTAM SOD 3,000 MG in 0.9 % SODIUM CHLORIDE 100 ML IV SCH ×4 (02:29→21:35)
[2020-06-24] MEDS: SODIUM CHLORIDE 0.9% 1000ML 1,000 ML IV SCH (04:51)
[2020-06-24 06:17] LABS: Hematocrit (blood only) 37.6 % (42-52); Hemoglobin 12.4 g/dL (14.0-18.0); Mean Corpuscular Hemoglobin 29.5 pg (25-34); Mean Corpuscular Volume 89.3 fL (80-100); Mean Platelet Volume 8.7 fL (7.4-10.4); Platelet Count 357 K/uL (130-400); RDW Coefficient of Variation 14.1 % (11.5-14.5); RDW Standard Deviation 46.1 fL (36.4-46.3); Red Blood Count 4.21 M/uL (4.7-6.1); White Blood Count 23.94 K/uL (4.8-10.8)
--- NOTE | 2020-06-24 06:32 | Electrocardiogram Report ---
Test Reason : Blood Pressure : / mmHG Vent. Rate : 123 BPM Atrial Rate : 123 BPM P-R Int : 132 ms QRS Dur : 084 ms QT Int : 288 ms P-R-T Axes : 042 032 -03 degrees QTc Int : 412 ms Poor data quality, interpretation may be adversely affected Sinus tachycardia Cannot rule out Anterior infarct (cited on or before 08-APR-2010) Abnormal ECG When compared with ECG of 08-APR-2010 12:57, No significant change was found Confirmed by Jakub Martinez ([id number]) on 06/24/2020 6:32:04 AM Referred By: REFERRED SELF Confirmed By:Jakub Martinez
[2020-06-24 06:52] LABS: BUN Creatinine Ratio 15.9 (10-20); Calcium 8.3 mg/dl (8.5-10.1); Est GFR (Non-African American) 50.9; Potassium 4.8 mmol/L (3.5-5.1)
[2020-06-24] MEDS ORDERED: INSULIN GLARGINE SOLOSTAR 100 UNITS/ML 3 ML PEN SQ SCH (09:00)
[2020-06-24] MEDS: ONDANSETRON INJ 2 MG/ML 2 ML VIAL IV PRN (09:02)
[2020-06-24] MEDS: HEPARIN SOD 5,000 UNIT/0.5 ML VIAL SQ SCH ×2 (09:03→19:28)
[2020-06-24] MEDS: ASPIRIN 81 MG ECTAB PO SCH (09:05)
--- NOTE | 2020-06-24 11:55 | Hospitalist Progress Note ---
Date of Service June 24, 2020 Assessment & Plan (1) Pneumonia: 75-year-old male with past medical history type 2 diabetes, hyperlipidemia, aortic valve stenosis presents with concerns of flank pain found to have concern for pneumonia with parapneumonic loculated effusion seen on chest imaging. Pneumonia with Loculated pleural effusion -Patient presents with little pulmonary symptoms but flank pain found to have pneumonia with parapneumonic loculated effusion. On admission does have a white blood cell count of 19,000 and is hypoxic with exertion -CT angiogram chest performed 06/23/2020, no evidence of PE small . There is a small and at least partially loculated left pleural effusion with left basilar consolidation Covid negative -IV vancomycin DC'd as MRSA nasal swab negative IV unasyn to cover aspiration pneumonia and azithorymcin for atypicals. Will await culture results as well as pleural analysis as below. Legionella pending. Pro-Randell 1.76 -Concern for parapneumonic loculation that may represent an empyema. Pulm notes that unfortunately the loculated fluid collection appears to reside behind the scapula and therefore cannot find a window to be able to get into it to sample -Plan tomorrow is for radiology to undergo CT guided procedure to aspirate and possibly be able to get a pigtail catheter into the space. If able to send fluid for pH, LDH, Gram stain and culture, cell count differential, LDH, glucose, total protein If radiology is unable to successfully access to pleural space, consider patient for transfer to tertiary center with interventional radiology/thoracic surgery capabilities versus continuing to follow the patient closely clinically with antibiotics Appreciate pulmonology consult Hypoxia Wean off oxygen supplementation as needed. Patient currently requiring 2L NC. Normally with no O2 needs Uncontrolled type 2 diabetes mellitus with insulin therapy -A1c 7.13 February 2020. Repeat A1c this admission pending -Pt is on basal bolus insulin and linagliptin plus metformin, will hold the latter and use glargine 30 units at night plus SSI Hyperlipidemia -Continue on zocor MARISSA Pt had elevation of his creatinine on admission. Resolved after hydration -We will try and avoid nsaids for pain control Aortic valve stenosis -Patient has mild we will keep fluids at a conservative pace FEN/GI: DM 2 diet DVT prophylaxis: Heparin SQ CODE STATUS: Full code Dispo: Med telemetry Admission and Anticipated Discharge Date Admission Date: June 23, 2020 Supervising Physician Co-Signing Physician Notes Resident Physician Supervision Note: I independently interviewed and examined the patient and verified the bonds history and physical, reviewed labs and image studies, discussed the case with the resident Dr. Griffin and agree with the findings and care plan. Subjective Patient found in bed this morning in no acute distress. No reported overnight events. Patient notes still no ongoing issues with cough or breathing. No fevers, chills, sweats. Notes that pain in his flank has improved. Still requiring nasal cannula. Tolerating p.o. intake. Patient no other acute concerns or complaints. Review of Systems Review of Systems: All systems reviewed & are unremarkable except as noted in HPI & below Physical Exam Constitutional: WD/WN, vitals as above Eyes: PERRL, conjunctivae normal, anicteric sclerae ENMT: external ear and nose normal, oropharynx normal Respiratory: normal respiratory effort, lungs clear to auscultation Cardiovascular: Rate/Rhythm: regular rate and regular rhythm Heart Sounds: + murmur (AV) Gastrointestinal (Abdomen): normal bowel sounds, soft, nontender, no hepatosplenomegaly Skin: no rashes, warm and dry Psychiatric: A+Ox3, euthymic affect Results & Data Results & Data ([facility]) Vital Signs (Past 12 Hours) Vital Signs Temp Pulse Pulse Resp BP BP Pulse Ox 06/24/20 11:34 36.5 C 87 16 114/71 92 06/24/20 08:00 37.2 C 97 H 20 106/62 90 06/24/20 07:00 93 H 06/24/20 03:17 36.6 C 96 H 19 104/64 91 Laboratory Results Laboratory Results - last 24 hr 06/23/20 06/23/20 06/23/20 12:09 12:09 13:29 WBC 19.90 H RBC 5.03 Hgb 14.8 Hct 43.6 MCV 86.7 MCH 29.4 MCHC 33.9 RDW Std Deviation 43.2 RDW Coeff of Frnace 13.6 Plt Count 345 MPV 8.8 Neutrophils % (Manual) 68.7 Lymphocytes % (Manual) 7.0 Reactive Lymphs % (Man) 21.7 Monocytes % (Manual) 2.6 Neutrophils # (Manual) 13.67 H Total Absolute Neuts 13.67 H Lymphocytes # (Manual) 1.39 Reactive Lymphs # 4.32 Total Abs Lymphocytes 5.71 H Monocytes # (Manual) 0.52 Smudge Cells Present Blood Smear Review Pending Sodium 135 L Potassium 4.8 Chloride 102 Carbon Dioxide 25 Anion Gap 8.0 BUN 23 H Creatinine 1.46 H Est Cr Clr Drug Dosing 44.1 Est GFR ( Amer) 54.1 Est GFR (Non-Af Amer) 46.7 BUN/Creatinine Ratio 15.8 Glucose 280 H POC Glucose Estimat Average Glucose Hemoglobin A1c Lactate Calcium 9.3 Total Bilirubin 1.8 H AST 40 H ALT 37 Alkaline Phosphatase 122 H Troponin I < 0.015 Total Protein 7.5 Albumin 3.2 L Globulin 4.3 H Albumin/Globulin Ratio 0.7 L Lipase 192 Procalcitonin Urine Color Urine Appearance Urine pH Ur Specific Emerson Urine Protein Urine Glucose (UA) Urine Ketones Urine Blood Urine Nitrite Urine Bilirubin Urine Urobilinogen Ur Leukocyte Esterase Urine WBC (Auto) Urine RBC (Auto) U Hyaline Cast (Auto) U Epithel Cells (Auto) Urine Bacteria (Auto) Nasal Screen MRSA (PCR) COVID-19 Eval Order CovFluRsv at [facility] SARS-CoV-2 (PCR) Influenza Type A (PCR) Influenza Type B (PCR) Urine Legionella Ag RSV (RT-PCR) 06/23/20 06/23/20 06/23/20 13:29 14:25 15:04 WBC RBC Hgb Hct MCV MCH MCHC RDW Std Deviation RDW Coeff of [place] Plt Count MPV Neutrophils % (Manual) Lymphocytes % (Manual) Reactive Lymphs % (Man) Monocytes % (Manual) Neutrophils # (Manual) Total Absolute Neuts Lymphocytes # (Manual) Reactive Lymphs # Total Abs Lymphocytes Monocytes # (Manual) Smudge Cells Blood Smear Review Sodium Potassium Chloride Carbon Dioxide Anion Gap BUN Creatinine Est Cr Clr Drug Dosing Est GFR ( Amer) Est GFR (Non-Af Amer) BUN/Creatinine Ratio Glucose POC Glucose Estimat Average Glucose Hemoglobin A1c Lactate 1.2 Calcium Total Bilirubin AST ALT Alkaline Phosphatase Troponin I Total Protein Albumin Globulin Albumin/Globulin Ratio Lipase Procalcitonin Urine Color Yellow Urine Appearance Clear Urine pH 7.0 Ur Specific Emerson 1.045 H Urine Protein Negative Urine Glucose (UA) 3+ H Urine Ketones Trace H Urine Blood Trace H Urine Nitrite Negative Urine Bilirubin Negative Urine Urobilinogen Negative Ur Leukocyte Esterase Negative Urine WBC (Auto) 0 Urine RBC (Auto) 5-10 H U Hyaline Cast (Auto) 0 U Epithel Cells (Auto) 0-5 Urine Bacteria (Auto) Negative Nasal Screen MRSA (PCR) COVID-19 Eval Order SARS-CoV-2 (PCR) NEGATIVE Influenza Type A (PCR) Negative Influenza Type B (PCR) Negative Urine Legionella Ag RSV (RT-PCR) Negative 06/23/20 06/23/20 06/23/20 16:08 16:08 16:48 WBC RBC Hgb Hct MCV MCH MCHC RDW Std Deviation RDW Coeff of [place] Plt Count MPV Neutrophils % (Manual) Lymphocytes % (Manual) Reactive Lymphs % (Man) Monocytes % (Manual) Neutrophils # (Manual) Total Absolute Neuts Lymphocytes # (Manual) Reactive Lymphs # Total Abs Lymphocytes Monocytes # (Manual) Smudge Cells Blood Smear Review Sodium Potassium Chloride Carbon Dioxide Anion Gap BUN Creatinine Est Cr Clr Drug Dosing Est GFR ( Amer) Est GFR (Non-Af Amer) BUN/Creatinine Ratio Glucose POC Glucose 210 H Estimat Average Glucose Hemoglobin A1c Lactate Calcium Total Bilirubin AST ALT Alkaline Phosphatase Troponin I Total Protein Albumin Globulin Albumin/Globulin Ratio Lipase Procalcitonin Urine Color Urine Appearance Urine pH Ur Specific Emerson Urine Protein Urine Glucose (UA) Urine Ketones Urine Blood Urine Nitrite Urine Bilirubin Urine Urobilinogen Ur Leukocyte Esterase Urine WBC (Auto) Urine RBC (Auto) U Hyaline Cast (Auto) U Epithel Cells (Auto) Urine Bacteria (Auto) Nasal Screen MRSA (PCR) Negative COVID-19 Eval Order SARS-CoV-2 (PCR) Influenza Type A (PCR) Influenza Type B (PCR) Urine Legionella Ag Pending RSV (RT-PCR) 06/23/20 06/23/20 06/24/20 21:33 23:56 04:57 WBC RBC Hgb Hct MCV MCH MCHC RDW Std Deviation RDW Coeff of [place] Plt Count MPV Neutrophils % (Manual) Lymphocytes % (Manual) Reactive Lymphs % (Man) Monocytes % (Manual) Neutrophils # (Manual) Total Absolute Neuts Lymphocytes # (Manual) Reactive Lymphs # Total Abs Lymphocytes Monocytes # (Manual) Smudge Cells Blood Smear Review Sodium Potassium Chloride Carbon Dioxide Anion Gap BUN Creatinine Est Cr Clr Drug Dosing Est GFR ( Amer) Est GFR (Non-Af Amer) BUN/Creatinine Ratio Glucose POC Glucose 171 H 128 H 97 Estimat Average Glucose Hemoglobin A1c Lactate Calcium Total Bilirubin AST ALT Alkaline Phosphatase Troponin I Total Protein Albumin Globulin Albumin/Globulin Ratio Lipase Procalcitonin Urine Color Urine Appearance Urine pH Ur Specific Emerson Urine Protein Urine Glucose (UA) Urine Ketones Urine Blood Urine Nitrite Urine Bilirubin Urine Urobilinogen Ur Leukocyte Esterase Urine WBC (Auto) Urine RBC (Auto) U Hyaline Cast (Auto) U Epithel Cells (Auto) Urine Bacteria (Auto) Nasal Screen MRSA (PCR) COVID-19 Eval Order SARS-CoV-2 (PCR) Influenza Type A (PCR) Influenza Type B (PCR) Urine Legionella Ag RSV (RT-PCR) 06/24/20 06/24/20 06/24/20 05:57 05:57 05:57 WBC 23.94 H RBC 4.21 L Hgb 12.4 L Hct 37.6 L MCV 89.3 MCH 29.5 MCHC 33.0 RDW Std Deviation 46.1 RDW Coeff of [place] 14.1 Plt Count 357 MPV 8.7 Neutrophils % (Manual) Lymphocytes % (Manual) Reactive Lymphs % (Man) Monocytes % (Manual) Neutrophils # (Manual) Total Absolute Neuts Lymphocytes # (Manual) Reactive Lymphs # Total Abs Lymphocytes Monocytes # (Manual) Smudge Cells Blood Smear Review Sodium 136 Potassium 4.8 Chloride 104 Carbon Dioxide 27 Anion Gap 5.0 BUN 22 H Creatinine 1.36 Est Cr Clr Drug Dosing 49.0 Est GFR ( Amer) 59.0 Est GFR (Non-Af Amer) 50.9 BUN/Creatinine Ratio 15.9 Glucose 92 POC Glucose Estimat Average Glucose Pending Hemoglobin A1c Pending Lactate Calcium 8.3 L Total Bilirubin AST ALT Alkaline Phosphatase Troponin I Total Protein Albumin Globulin Albumin/Globulin Ratio Lipase Procalcitonin Urine Color Urine Appearance Urine pH Ur Specific Emerson Urine Protein Urine Glucose (UA) Urine Ketones Urine Blood Urine Nitrite Urine Bilirubin Urine Urobilinogen Ur Leukocyte Esterase Urine WBC (Auto) Urine RBC (Auto) U Hyaline Cast (Auto) U Epithel Cells (Auto) Urine Bacteria (Auto) Nasal Screen MRSA (PCR) COVID-19 Eval Order SARS-CoV-2 (PCR) Influenza Type A (PCR) Influenza Type B (PCR) Urine Legionella Ag RSV (RT-PCR) 06/24/20 06/24/20 06/24/20 06:11 07:45 10:55 WBC RBC Hgb Hct MCV MCH MCHC RDW Std Deviation RDW Coeff of [place] Plt Count MPV Neutrophils % (Manual) Lymphocytes % (Manual) Reactive Lymphs % (Man) Monocytes % (Manual) Neutrophils # (Manual) Total Absolute Neuts Lymphocytes # (Manual) Reactive Lymphs # Total Abs Lymphocytes Monocytes # (Manual) Smudge Cells Blood Smear Review Sodium Potassium Chloride Carbon Dioxide Anion Gap BUN Creatinine Est Cr Clr Drug Dosing Est GFR ( Amer) Est GFR (Non-Af Amer) BUN/Creatinine Ratio Glucose POC Glucose 92 105 H Estimat Average Glucose Hemoglobin A1c Lactate Calcium Total Bilirubin AST ALT Alkaline Phosphatase Troponin I Total Protein Albumin Globulin Albumin/Globulin Ratio Lipase Procalcitonin Pending Urine Color Urine Appearance Urine pH Ur Specific Emerson Urine Protein Urine Glucose (UA) Urine Ketones Urine Blood Urine Nitrite Urine Bilirubin Urine Urobilinogen Ur Leukocyte Esterase Urine WBC (Auto) Urine RBC (Auto) U Hyaline Cast (Auto) U Epithel Cells (Auto) Urine Bacteria (Auto) Nasal Screen MRSA (PCR) COVID-19 Eval Order SARS-CoV-2 (PCR) Influenza Type A (PCR) Influenza Type B (PCR) Urine Legionella Ag RSV (RT-PCR) Medications Administered Current Inpatient Medications Acetaminophen (Acetaminophen 500 Mg Tab) 1,000 mg PO Q6H PRN PRN Reason: Pain or Fever Stop: 07/23/20 15:43 Last Admin: 06/23/20 22:43 Dose: 1,000 mg Documented by: Al Hydrox/Mg Hydrox/Simethicone (Aluminum/Magnesium Susp 30 Ml Udc) 15 ml PO Q4H PRN PRN Reason: Dyspepsia Stop: 07/23/20 15:43 Aspirin (Aspirin 81 Mg Ectab) 81 mg PO DAILY RICHARD Stop: 07/24/20 08:59 Last Admin: 06/24/20 09:05 Dose: 81 mg Documented by: Dextrose (Dextrose 50% 50 Ml Syringe) 25 - 50 ml IV UD PRN; Protocol PRN Reason: Hypoglycemia Protocol Stop: 07/23/20 15:43 Glucagon (Glucagon For Inj 1 Mg Vial) 1 mg SQ UD PRN; Protocol PRN Reason: Hypoglycemia Protocol Stop: 07/23/20 15:43 Glucose (Glucose 10 Tabs/Tube) 4 - 8 tabs PO UD PRN; Protocol PRN Reason: Hypoglycemia Protocol Stop: 07/23/20 15:43 Glucose (Glucose 40% Gel 15 Gm Tube) 15 - 30 gm PO UD PRN; Protocol PRN Reason: Hypoglycemia Protocol Stop: 07/23/20 15:43 Heparin Sodium (Porcine) (Heparin Sod 5,000 Unit/0.5 Ml Vial) 5,000 units SQ Q12 RICHARD Stop: 07/23/20 20:59 Last Admin: 06/24/20 09:03 Dose: 5,000 units Documented by: Hydromorphone HCl (Hydromorphone Inj 0.5 Mg/0.5 Ml Syr) 0.5 mg IV Q15M PRN PRN Reason: Pain Stop: 07/07/20 12:01 Last Admin: 06/23/20 19:43 Dose: 0.5 mg Documented by: Azithromycin 500 mg/ Dextrose 255 mls @ 125 mls/hr IV Q24H [facility] Stop: 06/30/20 16:59 Last Infusion: 06/23/20 19:58 Dose: Infused Documented by: Ampicillin Sodium/Sulbactam Sodium 3,000 mg/ Sodium Chloride 108 mls @ 200 mls/hr IV Q6H [facility]; Protocol Stop: 06/30/20 19:59 Last Infusion: 06/24/20 09:48 Dose: Infused Documented by: Insulin Aspart (Insulin Aspart 100 Units/Ml 3 Ml Pen) 0 units SC ACHS [facility] Stop: 07/23/20 16:29 Last Admin: 06/24/20 09:04 Dose: 6 units Documented by: Insulin Glargine (Insulin Glargine Solostar 100 Units/Ml 3 Ml Pen) 30 units SQ QAM RICHARD Stop: 07/24/20 08:59 Last Admin: 06/24/20 09:05 Dose: 30 units Documented by: Miscellaneous (Carbohydrates For Hypoglycemia ) 15 - 30 gm PO UD PRN PRN Reason: Hypoglycemia Protocol Stop: 07/23/20 15:43 Miscellaneous Information (Pharmacy Glycemic Mgmt Consult) 1 ea N/A UD PRN; Protocol PRN Reason: Consult Stop: 07/23/20 15:53 Morphine Sulfate (Morphine Sulfate 2 Mg/Ml Carp) 2 mg IV Q4 PRN PRN Reason: Pain Stop: 07/07/20 15:31 Morphine Sulfate (Morphine Sulfate 4 Mg/Ml 1 Ml Carp\Vial) 4 mg IV Q4 PRN PRN Reason: Pain Stop: 07/07/20 15:31 Last Admin: 06/23/20 21:41 Dose: 4 mg Documented by: Ondansetron HCl (Ondansetron Inj 2 Mg/Ml 2 Ml Vial) 4 mg IV Q6H PRN PRN Reason: Nausea Stop: 07/23/20 15:43 Last Admin: 06/24/20 09:02 Dose: 4 mg Documented by: Oxycodone HCl (Oxycodone Hcl Ir 5 Mg Tab (Immediate Release)) 10 mg PO Q6H PRN PRN Reason: Moderate Pain Stop: 07/07/20 15:31 Last Admin: 06/24/20 00:26 Dose: 10 mg Documented by: Polyethylene Glycol (Polyethylene (Miralax) 17 Gm Pack) 17 gm PO DAILY PRN PRN Reason: Constipation Stop: 07/23/20 15:43 Simvastatin (Simvastatin 20 Mg Tab) 20 mg PO HS RICHARD Stop: 07/23/20 20:59 Last Admin: 06/23/20 19:56 Dose: 20 mg Documented by: Resident Activity Tracking Resident Involvement: Resident Care Provided Care Provided: Adult Hospital Medicine
--- NOTE | 2020-06-24 14:16 | Pulmonary Consultation ---
Date of Consultation June 24, 2020 Assessment & Plan (1) Pneumonia: (2) Loculated pleural effusion: Impression: 75-year-old male with loculated pleural effusion. I suspect this is likely parapneumonic and may represent an empyema. I performed ultrasound at the bedside but unfortunately the loculated fluid collection appears to reside behind the scapula and I cannot really find a window to be able to get into it to sample it were placed a pigtail catheter. Recommendations: 1. Loculated pleural effusion: Reviewed images with radiology, Dr. Santos. He believes that with CT guidance they can likely aspirate and may be able to get a pigtail catheter into the space. This will be set up for tomorrow. Fluid should be sent for pH, LDH, Gram stain and culture, cell count differential, LDH, glucose, total protein. 2. Agree with antibiotics in the form of Unasyn and azithromycin for now. Await results of culture data as well as pleural fluid analysis. 3. If radiology is unable to access the pleural space, options would be to continue antibiotics and follow the patient closely versus referral for interventional radiology or potential thoracic surgery evaluation. These would likely result and having to transfer the patient to a quaternary referral center History of Present Illness Attending Physician: Ann-Marie Fernandez MD History of Present Illness Asked by hospitalist to evaluate this patient with complicated pleural space, potentially infected. History is obtained from review the electronic medical record as well as interview the patient. Patient is a 75-year-old male with a history of nephrolithiasis who presented to the emergency room yesterday with complaints of left-sided flank pain. He had some pleuritic pain as well. No fevers chills diaphoresis nausea or vomiting or abdominal complaints. He had a CT scan performed which showed a somewhat loculated fluid collection on the left. He was treated with cefepime and van comycin in the emergency room. This was adjusted to Unasyn and azithromycin. The patient reports that his pain is somewhat better this morning. Allergies Allergy/AdvReac Type Severity Reaction Status Date / Time exenatide [From Byetta] AdvReac Unknown Vomiting Verified 06/23/20 13:55 Home Medications Medication Instructions Recorded Confirmed Type aspirin 81 mg tablet,delayed 81 mg PO DAILY #30 tab 03/11/19 06/23/20 Rx release insulin aspart U-100 100 unit/mL See Rx Instructions SUBCUT 04/15/19 06/23/20 Rx (3 mL) subcutaneous pen .COMPLEX #45 ml insulin glargine 100 unit/mL (3 30 units SUBCUT QAM #15 ml 09/05/19 06/23/20 Rx mL) subcutaneous pen cholecalciferol (vitamin D3) 50 50 mcg PO DAILY 09/07/19 06/23/20 History mcg (2,000 unit) capsule pen needle, diabetic 31 gauge x #900 ea 10/11/19 02/27/20 Rx 5/16" naproxen 500 mg tablet 500 mg PO BID PRN #180 tab 01/19/20 06/23/20 Rx simvastatin 20 mg tablet 20 mg PO HS #90 tab 05/09/20 06/23/20 Rx metformin 1,000 mg tablet 1,000 mg PO BID #180 tab 05/21/20 06/23/20 Rx blood sugar diagnostic #100 ea 06/06/20 Rx linagliptin 5 mg tablet 5 mg PO DAILY #90 tab 06/22/20 06/23/20 Rx Patient History Medical History Benign colonic polyp (07/2017) tubular adenoma, recheck in 5 years 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 Diabetes mellitus, type 2 IDDM Diverticulosis Fracture, rib Beulah syndrome Hyperlipidemia Kidney stones Malignant melanoma of skin Osteoarthritis Sleep apnea CPAP Vitamin D deficiency Surgical History History of cataract surgery Left- 2mg versed given without issues History of cholecystectomy History of colonoscopy (07/31/17) 6 mm tubular adenoma, sigmoid Dr deja Case History of herniorrhaphy UMBILICAL History of lithotripsy History of tonsillectomy History of tooth extraction Family History Brother Prostate cancer Denies family history of Ovarian cancer Myocardial infarction Breast cancer Lung cancer Colorectal cancer Social History Smoking Status: Never smoker Second Hand Exposure: No; Hx Alcohol Use: Yes Alcohol type: beer Hx Substance Use: No Preferred Language: Armenian Communication Ability: Effective Bioinformatics Developer Required: No Beliefs That Will Affect Care: None Current Living Situation: Spouse Other Information That Helps Us Care for You: No Feels Safe at Home: Yes Safety Concerns: Feels Safe At This Time Seatbelt Use: always Assistive Devices: Glasses and Walker Review of Systems Review of Systems: See HPI Physical Exam Constitutional: WD/WN, vitals as above Eyes: PERRL, conjunctivae normal, anicteric sclerae ENMT: external ear and nose normal, oropharynx normal Respiratory: normal respiratory effort, lungs clear to auscultation Cardiovascular: Rate/Rhythm: regular rate and regular rhythm Heart Sounds: + murmur (AV) Gastrointestinal (Abdomen): normal bowel sounds, soft, nontender, no hepatosplenomegaly Skin: no rashes, warm and dry Psychiatric: A+Ox3, euthymic affect Results & Data Results & Data ([facility]) Vital Signs (Past 12 Hours) Vital Signs Temp Pulse Pulse Resp BP BP Pulse Ox 06/24/20 11:34 36.5 C 87 16 114/71 92 06/24/20 08:00 37.2 C 97 H 20 106/62 90 06/24/20 07:00 93 H 06/24/20 03:17 36.6 C 96 H 19 104/64 91 Laboratory Results 06/24/20 05:57 06/24/20 05:[address] of the chest was independently reviewed. CLINICAL HISTORY: Atypical chest pain. COMPARISON STUDY: Chest x-ray dated 06/23/2020. TECHNIQUE: Before and following the IV administration of 119 cc of Optiray 320, CT angiogram of the chest was performed from the thoracic inlet to the upper abdomen utilizing the dissection protocol. Images are reviewed in the axial, sagittal, and coronal planes. 3-D MIPS images are created and assessed. IV contrast was administered without complication. A dose lowering technique was utilized adhering to the principles of ALARA. CT DOSE: 660.00 mGy.cm FINDINGS: Thyroid: Imaged portions of the thyroid gland are normal in size and attenuation. A 7 mm low-attenuation nodule is noted in the left lobe. Thoracic aorta: No intramural hemorrhage is seen on the unenhanced series. There is mild atherosclerotic calcification of the thoracic aorta, which is normal in caliber and demonstrates standard 3-vessel arch anatomy. No dissection is seen. The arch vessels are widely patent. Pulmonary vasculature: The pulmonary trunk is normal in caliber. There are no filling defects identified within the main, lobar, or segmental pulmonary branches to indicate pulmonary emboli. Heart: The heart is enlarged and without pericardial effusion. The coronary arteries are densely calcified. Lungs and pleural spaces: Evaluation of the lung parenchyma is degraded by motio n artifact. Foci of parenchymal scarring/atelectasis are seen in the right mid to lower lung. There is a small and at least partially loculated left pleural effusion with left basilar consolidation. The trachea and central airways are clear. Mediastinum: There is no mediastinal lymphadenopathy. Aida: Clear. Axillae: There is no axillary lymphadenopathy. Upper abdomen: There is a small hiatal hernia. Partially visualized upper abdominal viscera is otherwise grossly unremarkable. Skeletal structures: The skeletal structures are osteopenic. Degenerative change and hyperkyphosis are noted in the thoracic spine. No lytic or blastic bony lesions are seen. IMPRESSION: 1. There is no aneurysm or dissection of the thoracic aorta. 2. There is no evidence of pulmonary embolus in the main, lobar, or segmental pulmonary arteries. 3. There is a small and at least partially loculated left pleural effusion with left basilar consolidation. Correlate clinically for evidence of pneumonia/aspiration pneumonitis 4. Cardiomegaly. 5. Additional findings as above. PG Care Time/CCT Total # of Minutes Spent Total Time Spent with Patient: Total time spent is greater than 50% in coordination of care (as documented) at patient's floor/unit and/or counseling patient: Coding Level of Care Code 13917 Initial Inpt Care Lvl 3 Diagnoses Pneumonia J18.9 Loculated pleural effusion J90 Time Spent (min) 48
[2020-06-24] MEDS: AZITHROMYCIN 500 MG in DEXTROSE 5% 250 ML IV SCH (17:50)
[2020-06-24] MEDS: SIMVASTATIN 20 MG TAB PO SCH (19:29)
[2020-06-24] MEDS: MoRPHine SULFATE 4 MG/ML 1 ML CARP\\VIAL IV PRN (22:14)
[2020-06-25] MEDS: AMPICILLIN/SULBACTAM SOD 3,000 MG in 0.9 % SODIUM CHLORIDE 100 ML IV SCH ×4 (02:46→21:22)
[2020-06-25] MEDS: ONDANSETRON INJ 2 MG/ML 2 ML VIAL IV PRN (02:48)
[2020-06-25] MEDS: oxyCODONE HCL IR 5 MG TAB (IMMEDIATE RELEASE) PO PRN ×2 (04:17→18:16)
[2020-06-25 06:11] LABS: Estimated Average Glucose 160 mg/dl; Hemoglobin A1C 7.2 % (4.5-5.6)
[2020-06-25 06:53] LABS: Basophils # (auto) 0.01 K/uL (0-0.2); Eosinophils # (auto) 0.05 K/uL (0-0.5); Eosinophils % (auto) 0.2 %; Hematocrit (blood only) 37.8 % (42-52); Hemoglobin 12.5 g/dL (14.0-18.0); Immature Granulocytes # (auto) 0.16 K/uL (0.00-0.02); Immature Granulocytes % (auto) 0.6 %; Lymphocytes % (auto) 15.9 %; Mean Corpuscular Hemoglobin 29.5 pg (25-34); Mean Corpuscular Hgb Conc 33.1 g/dL (32-36); Mean Corpuscular Volume 89.2 fL (80-100); Mean Platelet Volume 8.7 fL (7.4-10.4); Monocytes # (auto) 1.42 K/uL (0.11-0.59); Monocytes % (auto) 5.6 %; Neutrophils # (auto) 19.51 K/uL (1.4-6.5); Neutrophils % (auto) 77.7 %; Platelet Count 327 K/uL (130-400); RDW Coefficient of Variation 13.9 % (11.5-14.5); RDW Standard Deviation 45.6 fL (36.4-46.3); Red Blood Count 4.24 M/uL (4.7-6.1); White Blood Count 25.15 K/uL (4.8-10.8)
[2020-06-25 07:17] LABS: BUN Creatinine Ratio 17.2 (10-20); Calcium 8.1 mg/dl (8.5-10.1); Creatinine Clr Calc Pharmacy 51.4 ml/min; Est GFR (African American) 62.3; Est GFR (Non-African American) 53.8; Potassium 4.6 mmol/L (3.5-5.1)
[2020-06-25] MEDS: ASPIRIN 81 MG ECTAB PO SCH (08:47)
[2020-06-25] MEDS: HEPARIN SOD 5,000 UNIT/0.5 ML VIAL SQ SCH ×2 (08:48→21:23)
[2020-06-25] MEDS: INSULIN ASPART 100 UNITS/ML 3 ML PEN SC SCH ×4 (08:48→21:23)
[2020-06-25] MEDS ORDERED: INSULIN GLARGINE SOLOSTAR 100 UNITS/ML 3 ML PEN SQ SCH (09:00)
--- NOTE | 2020-06-25 10:02 | Hospitalist Progress Note ---
Date of Service June 25, 2020 Assessment & Plan (1) Pneumonia: 75-year-old male who was admitted on 06/23/20 with chief complaint of flank pain, found to have a left lung consolidation concerning for a pneumonia with parapneumonic loculated effusion visualized on chest imaging. Sepsis - SIRS criteria met (elevated WBC, tachycardia) - has not met criteria for severe sepsis - infectious source: L basilar PNA with parapneumonic effusion. UA normal. COVID 19 negative. Blood Cultures showing no growth to date. - continue IV Unasyn + azithromycin - patient has been volume resuscitated - lactate normal on admission Parapneumonic Effusion - CT of A/P from admission showing L basilar consolidation with loculated effusion (concern for empyema) - Initially started on IV Vanco and Cefepime which were discontinued in favor of Unasyn (anaerobic coverage) + Azithromycin (atypical coverage) - WBC increasing from 19k to 25 k . procal elevated to 1.76. Legionella pending - Pulmonology consulted --> attempted bedside US pigtail catheter placement on 06/24 but unable to reach loculation (obscured by scapula) - Radiology performed CT guided aspiration + pigtail catheter placement today; chest tube connected to low intermittent suction; will send aspirate for analysis - Tylenol for mild pain, Roxicodone for moderate pain Leukocytosis - progressive - WBC up to 25 k today with neutrophil predominance - suspect secondary to parapneumonic effusion as above - anticipate improvement as parapneumonic loculation has been drained - smudge cells noted; peripheral smear favoring reactive process rather than lymphoproliferative disorder - trend CBC Hypoxia - suspect secondary to L basilar PNA and parapneumonic effusion - currently satting 94% on 3L --> wean O2 as tolerated Insulin dependent type 2 diabetes mellitus - A1c 7.2, down from 7.13 February 2020. At goal for age. - home medication regimen consists of basal insulin (30 units of glargine) + Sliding scale with Novolog, Metformin 2g daily and linagliptin 5mg, daily - hold home oral agents while inpatient; continue insulin therapy - patient is not on a high intensity statin (on simvastatin 20mg daily) or an FELTON/ARB; consider adding as outpatient Hyperlipidemia - Continue home simvastatin - most recent lipid panel showing LDL of 38. While this is at goal, patient is not getting plaque stabilization benefit of high intensity statin. Considering adjusting as outpatient MARISSA - resolved Pt had elevation of his creatinine on admission. Resolved after hydration - avoid nsaids; use Tylenol for pain control Aortic valve stenosis - Patient has mild ; we will keep fluids at a conservative rate - murmur present on exam FEN/GI: DM 2 diet DVT prophylaxis: Heparin SQ CODE STATUS: Full code Dispo: Med telemetry Admission and Anticipated Discharge Date Admission Date: June 23, 2020 Supervising Physician Co-Signing Physician Notes I personally examined the patient and verified all bonds points of history and exam, discussed case, and agree with decision making with Dr Govea. Main complaint is back pain. Pain medicines help but also make him feel a bit loopy. Vitals noted, in general he is awake and alert pleasant sitting upright in bed appears to be moderately uncomfortable. HEENT normocephalic atraumatic mucous membranes are moist. Breathing unlabored no accessory muscle use good effort. Skin shows no rashes no pallor or icterus. Neuro shows cranial nerves II through XII are grossly intact gross motor and sensory intact. Skin shows his drain sites to be well dressed, no tracking erythema no surrounding erythema no bruising or bleeding. Postop x-ray noted. Loculated effusionappears to be most likely empyema with sepsis present on admissioncontinue current antibiotics, drainage has been affected, continue to follow closely. Appreciate pulmonary input. Otherwise as above. Subjective No acute events overnight. Reports pain is well controlled. Breathing well. Review of Systems Respiratory: no cough and no dyspnea Cardiovascular: + chest pain (when taking a deep breath) Physical Exam Constitutional: WD/WN, vitals as above cooperative; no acute distress Eyes: PERRL, conjunctivae normal, anicteric sclerae ENMT: external ear and nose normal, oropharynx normal Neck: trachea midline and + tracheal deviation Respiratory: normal respiratory effort; no respiratory distress, no labored breathing and no cough Auscultation: no crackles, no wheezes and no vesicular breath sounds (respirations are coarse) Cardiovascular: Rate/Rhythm: regular rate, regular rhythm and + tachycardic Heart Sounds: normal S1, normal S2 and + murmur (systolic ejection ) Extremities: no pedal edema Gastrointestinal (Abdomen): normal bowel sounds, soft, nontender, no hepatosplenomegaly Skin: no rashes, warm and dry Neurologic: No focal deficits Psychiatric: A+Ox3, euthymic affect Results & Data Results & Data ([facility]) Vital Signs (Past 12 Hours) Vital Signs Temp Pulse Pulse Resp BP Pulse Ox 06/25/20 08:00 36.4 C L 108 H 18 122/74 91 06/25/20 07:53 100 H 06/25/20 03:10 37.7 C H 116 H 19 133/70 93 06/24/20 23:09 36.6 C 118 H 20 120/69 91 Resident Activity Tracking Resident Involvement: Resident Care Provided Care Provided: Adult [facility] Medicine
--- NOTE | 2020-06-25 11:09 | Pharmacy Report ---
Pharmacy Glycemic Short Note 2 - Date of Service June 25, 2020 - Glycemic Short BSG Results (Last 24 hours): 06/24/20 06/24/20 06/24/20 11:45 16:47 20:20 Glucose POC Glucose 210 H 205 H 231 H 06/24/20 06/25/20 06/25/20 21:12 02:46 06:34 Glucose 166 H POC Glucose 221 H 180 H 06/25/20 07:32 Glucose POC Glucose 161 H OUTPATIENT ANTIDIABETIC REGIMEN: * Lantus 30 units SQ AM * NovoLog 10-16 units SQ BIDM * Linagliptin (Tradjenta) 5mg PO Daily * Metformin 1,000mg PO BIDM * A1c = 7.5% on 02/20/20 ASSESSMENT: 06/25 * Patient received 55 units of insulin yesterday, of which 30 were basal insulin * Fasting BSG 161 mg/dL - patient did refused evening novolog coverage. BSGs in lower 200s yesterday * Patient NPO this AM, plan to reduce AM basal by ~25% for NPO status, continue same CF/CR for now 06/24 * 75yo T2DM male with adequate outpatient control per recent A1c/ However, this value is slightly outdated (greater than 90 days) will re-order repeat A1c with AM labs * Pt is maintained on oral antidiabetic agents + SQ basal bolus insulin as an outpatient * Oral agents are not recommended for inpatient use d/t drug interactions, changing PO intake, and difficulty titrating for acute hyper/hypoglycemia. ADA recommends re-initiating outpatient oral agents 1-2 days prior to discharge if/when appropriate if they were held on admission. * Will hold oral agents for admission and adjust outpatient dosing of SQ basal bolus insulin regimen which is the recommended regimen for inpatient glycemic control. * Pt took his Lantus this morning [employer], additional Lantus may not be needed today * Will slightly stress his NovoLog dosing to make up for oral agents on hold. BSGs Q4hrs RTC to cover for stress/illness hyperglycemia. PLAN FOR INPATIENT GLYCEMIC CONTROL: * Hold outpatient oral diabetes medications * Basal insulin * Lantus 23 units x 1 (npo status) * Bolus insulin * NovoLog per scale ACHS or Q6hrs while NPO. Additional checks + coverage at 0000 & 0400 for hyperglycemia on admission * Goal Range: Low 100 mg/dL - High 140 mg/dL * Correction Factor: 25 mg/dL/unit * Nutritional / Prandial insulin per carb ratio of 1 unit per 6 grams CHO consumed PLAN FOR DISCHARGE: * A1c of 7.2% indicates good glycemic control outpatient. Would recommend continuation of home diabetic agents as long as no contraindications exist
[2020-06-25] MEDS ORDERED: LIDOCAINE HCL 1% 20 ML VIAL ONE (11:25)
--- NOTE | 2020-06-25 12:35 | CT Scan Report ---
CT GUIDED PLEURAL FLUID DRAINAGE WITH PLACEMENT OF AN [address] DOSE: 627.23 mGycm CLINICAL HISTORY: L pleural effusion TECHNIQUE: Helical images were acquired in the transverse plane. A dose lowering technique was utili zed adhering to the principles of ALARA. COMPARISON STUDY: None. FINDINGS: A timeout was performed. The risks the procedure were explained the patient and informed consent was obtained. The patient was scanned in the right lateral decubitus position. The patient loculated left pleural effusion was localized utilizing a CT grid The patient was prepped and draped in a sterile fashion. The skin was anesthetized with 1% lidocaine. Utilizing a trocar technique. An 8 Palauan pigtail catheter was introduced into the pleural space. Approximately 300 cc of straw-colored fluid was aspirated. The catheter was affixed to the skin. The catheter be left in a placed on low suction pending laborat ory analysis of the pleural fluid. There were no immediate complications. Postprocedure images demonstrate adequate positioning of the pigtail catheter. There is a left-sided hydropneumothorax. There is left lung consolidation. Also noted is a small layering right pleural eff usion. IMPRESSION: 1. Successful CT-guided placement of an 8 Palauan pigtail catheter into the left pleural space. 2. The catheter will be placed on suction. 3. There were no immediate complications. ACT 112: Negative or not required by law. Electronically signed by: Eugene Santos M.D. 06/25/2020 12:34 PM
--- NOTE | 2020-06-25 13:18 | Pulmonology Progress Note ---
Date of Service June 25, 2020 Assessment & Plan (1) Pneumonia: (2) Loculated pleural effusion: Impression: 75-year-old male with loculated pleural effusion. Status post pigtail catheter placement by radiology on 06/25/2020. Recommendations: 1. Pleural fluid studies are pending. However, pleural pH is 6.93 which suggests a parapneumonic effusion and possibly an empyema. Continue Unasyn. MRSA screen on 06/23/2020 was negative. Urine Legionella ag is pending. Follow cultures closely. Pleural fluid cytology sent. Leave the pigtail catheter to suction. We will consider the instillation of intrapleural dornase and alteplase. Patient does have a postprocedural hydropneumothorax. Repeat chest x-ray is pending. (3) Hydropneumothorax: Admission and Anticipated Discharge Date Admission Date: June 23, 2020 Subjective Patient seen and examined this afternoon. A left pigtail catheter was placed by radiology. Approximately 100 mL of fluid was aspirated along with significant air. Postprocedural CT chest demonstrates a hydropneumothorax. A chest x-ray is pending. Patient feels symptomatically improved with less shortness of breath. He endorses a cough this morning that is nonproductive. No fevers overnight. Review of Systems Review of Systems: All systems reviewed & are unremarkable except as noted in HPI & below Physical Exam Constitutional: WD/WN, vitals as above Eyes: PERRL, conjunctivae normal, anicteric sclerae ENMT: external ear and nose normal, oropharynx normal Respiratory: normal respiratory effort, lungs clear to auscultation Diminished respiratory sounds on the left with mild expiratory wheezing. Cardiovascular: Rate/Rhythm: regular rhythm and + tachycardic Heart Sounds: + murmur (AV) Gastrointestinal (Abdomen): normal bowel sounds, soft, nontender, no hepatosplenomegaly Skin: no rashes, warm and dry Psychiatric: A+Ox3, euthymic affect Results & Data Results & Data ([facility]) Vital Signs (Past 12 Hours) Vital Signs Temp Pulse Pulse Pulse Resp BP Pulse Ox 06/25/20 13:11 97.9 F 108 H 16 117/70 93 06/25/20 12:30 100 H 18 117/70 94 06/25/20 11:45 102 H 104 H 22 152/89 H 92 06/25/20 08:00 97.5 F L 108 H 18 122/74 91 06/25/20 07:53 100 H 06/25/20 03:10 99.9 F H 116 H 19 133/70 93 PG Care Time/CCT Total # of Minutes Spent Total Time Spent with Patient: Total time spent is greater than 50% in coordination of care (as documented) at patient's floor/unit and/or counseling patient: Coding Level of Care Code 58610 Subseq Hosp Care Lvl 3 Diagnoses Pneumonia J18.9 Loculated pleural effusion J90 Hydropneumothorax J94.8
[2020-06-25 13:20] LABS: LDH Pleural Fluid 482 U/L; Total Protein Pleural Fluid 3.7 g/dl
[2020-06-25 14:08] LABS: Appearance Pleural Fluid CLOUDY; Basophils, Fluid 0 %; Color Pleural Fluid YELLOW; Eosinophils, Fluid 0 %; Lymphocytes, Fluid 0 %; Mono,Macrophage,Mesothelial 10 %; Neutrophils, Fluid 90 %; RBC Pleural Fluid (A) < 3000 /uL; Source Pleural Fluid LEFT LUNG; WBC Pleural Fluid (A) 8590 /uL
--- NOTE | 2020-06-25 14:28 | XRay Report ---
XR chest 1V portable CLINICAL HISTORY: Pneumothorax with pigtail catheter placement COMPARISON STUDY: Chest radiograph and chest CT June 23, 2020. CT-guided drain placement perform ed earlier today. FINDINGS: Left pleural pigtail catheter is in place. Left mid and basilar airspace opacities are pres ent. A small left pneumothorax has decreased in size since post catheter placement CT. Left lung volu me loss is noted. Right basilar opacity is present. Cardiomediastinal with stable. IMPRESSION: 1. Left pleural catheter in place. Interval decrease in size of the left pneumothorax since post proc edure CT. Small residual pneumothorax. 2. Left pleural effusion, decreased in size from preprocedure CT. Bilateral airspace opacities, great er within the left lung with mild left lung volume loss. ACT 112: Negative or not required by law. Electronically signed by: Dario Call M.D. 06/25/2020 2:26 PM
[2020-06-25] MEDS: ALTEPLASE, RECOMBINANT 10 MG in SYRINGE 50 ML IPL SCH (15:13)
[2020-06-25] MEDS: MoRPHine SULFATE 2 MG/ML CARP IV PRN ×2 (16:15→19:37)
[2020-06-25] MEDS: DORNASE ALFA 5 ML in SYRINGE 25 ML IPL SCH (17:19)
[2020-06-25] MEDS: AZITHROMYCIN 500 MG in DEXTROSE 5% 250 ML IV SCH (17:19)
[2020-06-25] MEDS ORDERED: oxyCODONE HCL IR 5 MG TAB (IMMEDIATE RELEASE) PO PRN (17:54)
[2020-06-25] MEDS ORDERED: IBUPROFEN 200 MG TAB PO PRN (17:54)
--- NOTE | 2020-06-25 17:59 | Billing Data ---
Date of Service June 25, 2020 Coding Level of Care Code 38372 Subseq Hosp Care Lvl 3
[2020-06-25] MEDS ORDERED: MELATONIN 3 MG TAB PO PRN (18:01)
--- NOTE | 2020-06-25 19:37 | Communication Note ---
Date of Service: June 25, 2020 Subjective: Called by nursing to evaluate Mr. Dumas who had an increased oxygen requirement from 2L NC to 6L oxymask. Objective: lungs course throughout with good air movement in all lung ko increased work of breathing, able to speak in 2-3 word sentences saturating 92% on 6L left sided chest tube appears in place and has pinkish fluid draining A/P: broadened abx with Cefepime ordered CXR, CBC, BMP and procal will continue to follow up imaging, labs and clinically Resident Activity Tracking Resident Involvement: Resident Care Provided Care Provided: [facility] Medicine CBC Results Results Complete Blood Count Results: RBC 4.24 M/uL (4.7-6.1) L 06/25/20 WBC 25.15 K/uL (4.8-10.8) H 06/25/20 Hgb 12.5 g/dL (14.0-18.0) L 06/25/20 Hct 37.8 % (42-52) L 06/25/20 Plt Count 327 K/uL (130-400) 06/25/20 Chemistry (BMP) Results BMP Results: Sodium 134 mmol/L (136-145) L 06/25/20 Potassium 4.6 mmol/L (3.5-5.1) 06/25/20 Chloride 103 mmol/L (98-107) 06/25/20 BUN 22 mg/dl (7-18) H 06/25/20 Creatinine 1.30 mg/dl (0.6-1.4) 06/25/20 Glucose 166 mg/dl (70-99) H 06/25/20
[2020-06-25 19:58] LABS: Basophils # (auto) 0.01 K/uL (0-0.2); Eosinophils # (auto) 0.01 K/uL (0-0.5); Hematocrit (blood only) 38.4 % (42-52); Immature Granulocytes # (auto) 0.14 K/uL (0.00-0.02); Immature Granulocytes % (auto) 0.6 %; Lymphocytes # (auto) 4.24 K/uL (1.2-3.4); Lymphocytes % (auto) 18.2 %; Mean Corpuscular Hemoglobin 30.2 pg (25-34); Mean Corpuscular Volume 89.3 fL (80-100); Mean Platelet Volume 8.7 fL (7.4-10.4); Monocytes # (auto) 1.23 K/uL (0.11-0.59); Monocytes % (auto) 5.3 %; Neutrophils # (auto) 17.64 K/uL (1.4-6.5); Neutrophils % (auto) 75.9 %; Platelet Count 389 K/uL (130-400); RDW Standard Deviation 46.1 fL (36.4-46.3); White Blood Count 23.27 K/uL (4.8-10.8)
--- NOTE | 2020-06-25 19:58 | XRay Report ---
XR chest 1V portable HISTORY: 75 years-old Male increased o2 req acute hypoxia COMPARISON: Chest radiograph and chest CT same day TECHNIQUE: Portable AP view of the chest FINDINGS: Cardiac silhouette is enlarged. Left-sided pleural drainage catheter redemonstrated which hasn't cool ged positioning with distal tip now projected inferiorly (previously projected superiorly medially). Previously noted tiny residual left apical pneumothorax is not identified. Persistent left pleural ef fusion with left greater than right bilateral airspace opacities. Left hemidiaphragmatic elevation. H ealed chronic right-sided rib fractures redemonstrated. IMPRESSION: 1. Slightly altered position of the left-sided pleural drainage catheter as above. 2. Previously noted tiny residual left-sided pneumothorax is not definitively seen. 3. Persistent left pleural effusion with left greater than right airspace opacities ACT 112: Negative or not required by law. The above report was generated using voice recognition software. It may contain grammatical, syntax o r spelling errors. Electronically signed by: Sukhwinder Hartley M.D. 06/25/2020 7:56 PM
[2020-06-25] MEDS ORDERED: CEFEPIME 2,000 MG in SYRINGE 0 ML IV SCH (20:00)
[2020-06-25 20:15] LABS: Calcium 8.5 mg/dl (8.5-10.1); Creatinine Clr Calc Pharmacy 48.4 ml/min; Potassium 4.6 mmol/L (3.5-5.1)
[2020-06-25] MEDS ORDERED: FUROSEMIDE 40 MG in SYRINGE 0 ML IV ONE (21:00)
[2020-06-25 21:01] LABS: Mean Corpuscular Hgb Conc 33.9 g/dL (32-36)
[2020-06-25] MEDS: SIMVASTATIN 20 MG TAB PO SCH (21:24)
[2020-06-25] MEDS: ACETAMINOPHEN 500 MG TAB PO SCH (21:24)
--- NOTE | 2020-06-25 22:49 | Communication Note ---
Date of Service: June 25, 2020 Patient was reassessed, and appeared stable from a respiratory standpoint, case was discussed with pulmonary and an EKG, troponin were ordered and the patient was given Lasix for concern of reexpansion edema. Patient was getting up to urinate after receiving Lasix and forgetting that he had his chest tube in place, a Abraham was placed although this can likely be removed tomorrow.
[2020-06-26] MEDS: AMPICILLIN/SULBACTAM SOD 3,000 MG in 0.9 % SODIUM CHLORIDE 100 ML IV SCH ×3 (02:17→14:17)
[2020-06-26] MEDS ORDERED: METOPROLOL TARTRATE 1 MG/ML VIAL IV STA ×4 (04:10→16:11)
[2020-06-26] MEDS ORDERED: dilTIAZem HCl 5 MG/ML 5 ML VIAL IV STA ×2 (04:57→05:28)
--- NOTE | 2020-06-26 04:58 | Communication Note ---
Date of Service: June 26, 2020 Subjective: - Nursing paged when the patient had elevated heart rate to 150's. He was asymptomatic. He is not having chest pain, no palpitations, no shortness of breath. was updated to the events and plan. Objective: - Blood pressure of 123/80's, his oxygen saturations have improved to mid 90's no increased work of breathing on exam, lungs with good air movement in all lung ko - EKG shows aflutter with rate of 150's A/P: - transfer to PCU - will give 10 mg IVP Diltiazem, will start diltiazem drip if needed - continue to evaluate and give IVF bolus if needed to support BP - added Magnesium to morning labs
[2020-06-26] MEDS ORDERED: STAT IV Infusion **Titration per Protocol STA ×2 (05:28→16:30)
[2020-06-26] MEDS: ACETAMINOPHEN 500 MG TAB PO SCH ×2 (05:29→14:18)
[2020-06-26] MEDS ORDERED: dilTIAZem HCL 125 MG in DEXTROSE 5% 100 ML IV SCH (05:30)
[2020-06-26] MEDS ORDERED: AMIODARONE 150MG / 100ML D5W IV ONE (05:31)
[2020-06-26 05:46] LABS: Hematocrit (blood only) 40.2 % (42-52); Hemoglobin 13.7 g/dL (14.0-18.0); Mean Corpuscular Hemoglobin 29.8 pg (25-34); Mean Corpuscular Hgb Conc 34.1 g/dL (32-36); Mean Corpuscular Volume 87.6 fL (80-100); Mean Platelet Volume 8.7 fL (7.4-10.4); Platelet Count 386 K/uL (130-400); RDW Coefficient of Variation 13.8 % (11.5-14.5); RDW Standard Deviation 44.3 fL (36.4-46.3); Red Blood Count 4.59 M/uL (4.7-6.1); White Blood Count 22.38 K/uL (4.8-10.8)
[2020-06-26] MEDS: ALTEPLASE, RECOMBINANT 10 MG in SYRINGE 50 ML IPL SCH (06:14)
[2020-06-26 06:20] LABS: BUN Creatinine Ratio 14.8 (10-20); Calcium 8.8 mg/dl (8.5-10.1); Est GFR (African American) 61.7; Est GFR (Non-African American) 53.3; Magnesium 1.6 mg/dl (1.8-2.4); Potassium 4.2 mmol/L (3.5-5.1)
[2020-06-26 06:43] LABS: Albumin Globulin Ratio 0.5 (0.9-2); Bilirubin,Total 2.6 mg/dl (0.2-1); Globulin 4.4 gm/dl (2.5-4.0); Total Protein 6.4 gm/dl (6.4-8.2)
--- NOTE | 2020-06-26 07:21 | XRay Report ---
XR chest 1V portable CLINICAL HISTORY: Left pleural effusion status post drainage COMPARISON STUDY: 06/25/2020 FINDINGS: The heart remains enlarged. There is a left-sided pleural pigtail catheter. There is a trac e left apical pneumothorax. There are left mid and lower lung zone opacities, atelectasis versus pneu monia. Minimally prominent right basilar markings remain similar.[There is a small left pleural effus ion. IMPRESSION: 1. Small left pleural effusion 2. Bibasilar left greater than right pulmonary airspace opacities ACT 112: Negative or not required by law. Electronically signed by: Eugene Santos M.D. 06/26/2020 7:20 AM
[2020-06-26] MEDS: DORNASE ALFA 5 ML in SYRINGE 25 ML IPL SCH (07:27)
[2020-06-26] MEDS: MAGNESIUM SULFATE / D5W 1 GM/100 ML BAG IV SCH ×2 (07:28→09:31)
[2020-06-26] MEDS: INSULIN ASPART 100 UNITS/ML 3 ML PEN SC SCH ×3 (07:49→16:27)
[2020-06-26] MEDS: ASPIRIN 81 MG ECTAB PO SCH (08:08)
[2020-06-26] MEDS: HEPARIN SOD 5,000 UNIT/0.5 ML VIAL SQ SCH (08:08)
[2020-06-26] MEDS ORDERED: INSULIN GLARGINE SOLOSTAR 100 UNITS/ML 3 ML PEN SQ SCH (09:00)
--- NOTE | 2020-06-26 09:20 | Hospitalist Progress Note ---
Date of Service June 26, 2020 Assessment & Plan (1) Pneumonia: 75-year-old male who was admitted on 06/23/20 with chief complaint of flank pain, found to have a left lung consolidation concerning for a pneumonia with parapneumonic loculated effusion visualized on chest imaging. Radiology was able to aspirate loculation and place pigtail catheter on 06/25/20. A post-procedure hydropneumothorax was visualized; chest tube was placed and connected to low intermittent wall suction. Overnight patient did have worsening pleural effusion, thought to be consistent with reexpansion edema. He was given Lasix 40mg IV with good dieresis. Later in the evening he entered into A-flutter with Rapid Ventricular response. He was placed on a diltiazem drip. On pulmonology rounds, the decision was made to transfer patient to the ICU for close monitoring. Sepsis - SIRS criteria met (elevated WBC, tachycardia) - has not met criteria for severe sepsis - infectious source: L basilar PNA with parapneumonic effusion. UA normal. COVID 19 negative. Blood Cultures showing no growth through 48 hours. - continue IV Unasyn + azithromycin - patient has been volume resuscitated - lactate normal on admission Parapneumonic Effusion - CT of A/P from admission showing L basilar consolidation with loculated effusion (concern for empyema) - Initially started on IV Vanco and Cefepime which were discontinued in favor of Unasyn (anaerobic coverage) + Azithromycin (atypical coverage). Cefepime added back overnight --> discontinued by day team. - Pulmonology consulted --> attempted bedside US pigtail catheter placement on 06/24 but unable to reach loculation (obscured by scapula) - Radiology performed CT guided aspiration + pigtail catheter placement on 06/25; chest tube connected to low intermittent suction. Patient underwent dornase and TPA's installation via chest tube. - WBC trending down. procal stable at 1.76. Legionella pending - scheduled Tylenol for mild pain + advil 200mg, prn and Roxicodone for moderate pain Exudative Effusion - Pleural fluid showing low pH, which is consistent with infection. all 3 Light's criteria met. culture pending - likely an empyema - pigtail catheter in place - consider transferring patient to tertiary care center for VATS - antibiotics as above A-flutter with RVR - HR increased to 150 bpm - EKG obtained showing A-flutter - Patient placed on Diltiazem drip by night team. Currently running at 10mg/hr. Rates < 110 bpm with adjunct Lopressor 5mg, prn - when patient was transferred to the ICU, he was started on a amiodarone drip - Echo ordered: EF appeared to be 60 to 65% with mild sclerosis of the aortic valve. There is mild right ventricular dysfunction. No evidence of cardiomyopathy. - TSH 3.1. Mag low, replacement ordered - [id number] at 3; long-term anticoagulation likely indicated; patient placed on a heparin drip on arrival to ICU Leukocytosis - improving - WBC down to 23k from 25 - suspect secondary to parapneumonic effusion as above - anticipate further improvement as parapneumonic loculation has been drained - smudge cells noted; peripheral smear favoring reactive process rather than lymphoproliferative disorder - trend CBC Hypoxia - suspect secondary to L basilar PNA and parapneumonic effusion - currently satting 92% on 5L --> wean O2 as tolerated Hypomagnesemia - level at 1.6 - replacement ordered Insulin dependent type 2 diabetes mellitus - A1c 7.2, down from 7.13 February 2020. At goal for age. - home medication regimen consists of basal insulin (30 units of glargine) + Sliding scale with Novolog, Metformin 2g daily and linagliptin 5mg, daily - hold home oral agents while inpatient; continue insulin therapy - patient is not on a high intensity statin (on simvastatin 20mg daily) or an FELTON/ARB; consider adding as outpatient Hyperlipidemia - Continue home simvastatin - most recent lipid panel showing LDL of 38. While this is at goal, patient is not getting plaque stabilization benefit of high intensity statin. Considering adjusting as outpatient MARISSA - resolved Pt had elevation of his creatinine on admission. Resolved after hydration - avoid nsaids; use Tylenol for pain control Aortic valve stenosis - Patient has mild ; we will keep fluids at a conservative rate - murmur present on exam FEN/GI: DM 2 diet DVT prophylaxis: Heparin SQ CODE STATUS: Full code Dispo: ICU Admission and Anticipated Discharge Date Admission Date: June 23, 2020 Subjective Overnight patient's O2 requirement increased from 2L to 6L. Night team checked a BMP, CBC and procal. The procal was unchanged and the WBC slightly trended down. Cefepime was added to antibiotic regimen. CXR showed worsening pleural effusion - 40mg IV lasix were given and henderson catheter was placed to assist with frequent urination. Later in the evening, Mr. Wiggins HR increased to 150bpm - trop and EKG were obtained. Trop was undetectable; EKG showed evidence of Aflutter. Patient was given Diltiazem 10mg IV x 2 without improvement. He was then started on a Diltizem drip at rate of 5. He was transferred to the PCU for close monitoring. His was updated twice overnight. This morning - he states it still hurts to take a deep breath. Review of Systems Cardiovascular: + chest pain (when taking a deep breath) Physical Exam Constitutional: WD/WN, vitals as above cooperative; no acute distress Eyes: PERRL, conjunctivae normal, anicteric sclerae ENMT: external ear and nose normal, oropharynx normal Neck: trachea midline and + tracheal deviation Respiratory: normal respiratory effort; no respiratory distress, no labored breathing and no cough Auscultation: no crackles, no wheezes and no vesicular breath sounds (respirations are coarse) Cardiovascular: Rate/Rhythm: regular rate, regular rhythm and + tachycardic Heart Sounds: normal S1, normal S2 and + murmur (systolic ejection ) Extremities: no pedal edema Chest (Breasts): Additional Comments: + pigtail catheter in place + chest tube in place draining blood tinged fluid (no clots) Gastrointestinal (Abdomen): normal bowel sounds, soft, nontender, no hepatosplenomegaly Skin: no rashes, warm and dry Psychiatric: A+Ox3, euthymic affect Genitourinary: Henderson catheter in place, draining yellow urine without visible blood clots Results & Data Results & Data ([facility]) Vital Signs (Past 12 Hours) Vital Signs Temp Pulse Pulse Pulse Resp BP BP 06/26/20 07:22 150 H 120/72 06/26/20 06:56 36.5 C 142 H 20 120/72 06/26/20 06:34 101/62 06/26/20 05:55 136 H 22 101/64 06/26/20 05:37 155 H 124/81 06/26/20 05:05 155 H 121/76 06/26/20 03:00 36.5 C 115 H 18 06/25/20 23:59 121 H 06/25/20 23:11 37 C 109 H 18 BP Pulse Ox 06/26/20 07:22 06/26/20 06:56 93 06/26/20 06:34 06/26/20 05:55 06/26/20 05:37 06/26/20 05:05 93 06/26/20 03:00 153/87 H 96 06/25/20 23:59 06/25/20 23:11 124/79 93 Resident Activity Tracking Resident Involvement: Resident Care Provided Care Provided: Adult Hospital Medicine
--- NOTE | 2020-06-26 10:47 | Pulmonology Progress Note ---
Date of Service June 26, 2020 Assessment & Plan (1) Pneumonia: (2) Loculated pleural effusion: Impression: 75-year-old male with a loculated pleural effusion. Status post pigtail catheter placement by radiology on 06/25/2020. Recommendations: 1. Pleural fluid studies are suggestive of a parapneumonic effusion. Cultures are pending. Continue Unasyn. Will order CT chest without contrast tomorrow. If there continues to be a significant amount of fluid on the CT chest, will need to consider transfer to a tertiary center for possible VATS decortication. MRSA screen on 06/23/2020 was negative. Urine Legionella ag is pending. Pleural fluid cytology sent. Leave the pigtail catheter to suction. Continue with intrapleural dornase and alteplase instillation. Management of tachycardia per primary team. I suspect this is sepsis mediated. He also may have a component of pulmonary edema, possibly from reexpansion pulmonary edema. Consider the addition of 20 mg IV Lasix today. I updated the patient's over the phone. She indicated that if transfer to a tertiary care center is required, then she would like her transferred to [facility]. (3) Hydropneumothorax: (4) Parapneumonic effusion: (5) Acute hypoxemic respiratory failure: Admission and Anticipated Discharge Date Admission Date: June 23, 2020 Subjective Patient seen and examined today. He had tachycardia overnight and is currently on diltiazem drip. He feels very fatigued and sleepy. He endorses insomnia overnight. He feels like he was having hallucinations. He has mild pain around the chest tube insertion site. He has drained roughly 1 L of fluid since insertion of chest tube. 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 Review of Systems Review of Systems: All systems reviewed & are unremarkable except as noted in HPI & below Physical Exam Constitutional: WD/WN, vitals as above Eyes: PERRL, conjunctivae normal, anicteric sclerae ENMT: external ear and nose normal, oropharynx normal Respiratory: Mild rhonchi bilaterally. Diminished lung sounds on the left. Cardiovascular: Rate/Rhythm: regular rhythm and + tachycardic Heart Sounds: + murmur (AV) Gastrointestinal (Abdomen): normal bowel sounds, soft, nontender, no hepatosplenomegaly Skin: no rashes, warm and dry Psychiatric: A+Ox3, euthymic affect Results & Data Results & Data ([facility]) Vital Signs (Past 12 Hours) Vital Signs Temp Pulse Pulse Pulse Resp BP BP 06/26/20 09:25 108 H 20 06/26/20 08:00 105 H 06/26/20 07:22 150 H 120/72 06/26/20 06:56 97.7 F 142 H 20 120/72 06/26/20 06:34 101/62 06/26/20 05:55 136 H 22 101/64 06/26/20 05:37 155 H 124/81 06/26/20 05:05 155 H 121/76 06/26/20 03:00 97.7 F 115 H 18 06/25/20 23:59 121 H 06/25/20 23:11 98.6 F 109 H 18 BP Pulse Ox 06/26/20 09:25 120/71 06/26/20 08:00 06/26/20 07:22 06/26/20 06:56 93 06/26/20 06:34 06/26/20 05:55 06/26/20 05:37 06/26/20 05:05 93 06/26/20 03:00 153/87 H 96 06/25/20 23:59 06/25/20 23:11 124/79 93 PG Care Time/CCT Total # of Minutes Spent Total Time Spent with Patient: Total time spent is greater than 50% in coordination of care (as documented) at patient's floor/unit and/or counseling patient: Coding Level of Care Code 87704 Subseq Hosp Care Lvl 3 Diagnoses Pneumonia J18.9 Loculated pleural effusion J90 Hydropneumothorax J94.8 Parapneumonic effusion J18.9; J91.8 Acute hypoxemic respiratory failure J96.01
--- NOTE | 2020-06-26 11:38 | Pharmacy Report ---
Pharmacy Glycemic Short Note 2 - Date of Service June 26, 2020 - Glycemic Short BSG Results (Last 24 hours): OUTPATIENT ANTIDIABETIC REGIMEN: * Lantus 30 units SQ AM * NovoLog 10-16 units SQ BIDM * Tradjenta 5 mg PO Daily * Metformin 1,000 mg PO BIDM * A1c = 7.2% (06/24/20) ASSESSMENT: 06/26: * Vj received a total of 35 units of insulin yesterday * 23 units basal + 12 units bolus * BSGs were elevated at [phone] mg/dL * Fasting BSG was 226 mg/dL this AM - significantly elevated * This is secondary to decreased basal dose patient received while NPO yesterday * Lantus was increased back to 30 units today * Lunchtime BSG was 282 mg/dL - uncontrolled * Have tightened goal range and will tighten both CF and CR today in hope of correcting hyperglycemia with Novolog. Believe these will need loosened tomorrow as increased basal dose starts to take effect. 06/25: * Patient received 55 units of insulin yesterday, of which 30 were basal insulin * Fasting BSG 161 mg/dL - patient did refused evening novolog coverage. BSGs in lower 200s yesterday * Patient NPO this AM, plan to reduce AM basal by ~25% for NPO status, continue same CF/CR for now 06/24: * 75yo T2DM male with adequate outpatient control per recent A1c/ However, this value is slightly outdated (greater than 90 days) will re-order repeat A1c with AM labs * Pt is maintained on oral antidiabetic agents + SQ basal bolus insulin as an outpatient * Oral agents are not recommended for inpatient use d/t drug interactions, changing PO intake, and difficulty titrating for acute hyper/hypoglycemia. ADA recommends re-initiating outpatient oral agents 1-2 days prior to discharge if/when appropriate if they were held on admission. * Will hold oral agents for admission and adjust outpatient dosing of SQ basal bolus insulin regimen which is the recommended regimen for inpatient glycemic control. * Pt took his Lantus this morning [employer], additional Lantus may not be needed today * Will slightly stress his NovoLog dosing to make up for oral agents on hold. BSGs Q4hrs RTC to cover for stress/illness hyperglycemia. PLAN FOR INPATIENT GLYCEMIC CONTROL: * Hold outpatient oral diabetes medications * Basal insulin - increased * Lantus 30 units SQ AM * Bolus insulin - tightened goal range, CF and CR * NovoLog per scale ACHS or Q6hrs while NPO. Additional checks + coverage at 0000 & 0400 for hyperglycemia on admission * Goal Range: Low 110 mg/dL - High 140 mg/dL * Correction Factor: 15 mg/dL/unit * Nutritional / Prandial insulin per carb ratio of 1 unit per 5 grams CHO consumed PLAN FOR DISCHARGE: * A1c of 7.2% indicates good glycemic control outpatient. Would recommend continuation of home diabetic agents as long as no contraindications exist
[2020-06-26] MEDS: oxyCODONE HCL IR 5 MG TAB (IMMEDIATE RELEASE) PO PRN (11:58)
[2020-06-26] MEDS ORDERED: METOPROLOL TARTRATE 1 MG/ML VIAL IV PRN (12:20)
[2020-06-26] MEDS ORDERED: PIPERACILL/TAZOBAC CONSULT ACTIVE PRN (15:59)
[2020-06-26] MEDS ORDERED: PIPERACILLIN/TAZOBACTAM 3.375 GM in DEXTROSE 5% 100 ML IV ONE (16:15)
--- NOTE | 2020-06-26 16:26 | Communication Note ---
Date of Service: June 26, 2020 I was called by the bedside nurse on the floor regarding the patient's condition. There was concern regarding his increasing tachypnea and tachycardia. I evaluated the patient at bedside and he appeared confused, hypoxic and tachycardic. He had an oxygen mask in place. He was complaining of left-sided chest pain. EKG obtained demonstrated atrial tachycardia with a rapid ventricular response. The patient underwent an echocardiogram earlier today. I spoke with Dr. Martinez of [facility] cardiology. He related to me that the EF appeared to be 60 to 65% with mild sclerosis of the aortic valve. There is mild right ventricular dysfunction. We are repeating a CBC, BMP, magnesium, phosphorus, lactate and a troponin series. Repeat chest x- ray is pending. Chest tube is draining serosanguineous appearing fluid. Patient underwent dornase and TPA's installation via chest tube. Patient is currently in the intensive care unit. He was given 5 mg of IV metoprolol with improvements of his heart rate to 110. He is currently on 10 mg IV of diltiazem. We will continue close monitoring in the ICU at this time. We will have a low threshold to start the patient on BiPAP. CRITICAL CARE TIME - I have personally spent 39 minutes of critical care time in the direct management of this patient. This is a life/limb threatening event. This includes time spent evaluating patient, direct bedside care, chart review, placing orders, interpretation of diagnostic studies, discussion with consultants, patient, and family members, as well as other required patient management activities. This time is exclusive of all separately billable procedures, and teaching time and separate from and in addition to any other critical care service time. Coding Level of Care Code Critical Care 1st 30-74 mins Time Spent (min) 39
[2020-06-26] MEDS ORDERED: AMIODARONE IV BOLUS & DRIP IV STA (16:30)
[2020-06-26] MEDS ORDERED: 0.2 MICRON FILTER SET 1 EA IV ONE (16:30)
[2020-06-26] MEDS ORDERED: Heparin IV Adult Wt-Based Standard *NO* Bolus Protocol IV ONE (16:30)
[2020-06-26] MEDS ORDERED: HEPARIN SODIUM/DEXTROSE 25,000 UNITS/500 ML BAG IV SCH (16:30)
[2020-06-26] MEDS ORDERED: AMIODARONE / D5W 150 MG/100 ML BAG IV ONE (16:45)
[2020-06-26 16:54] LABS: Basophils # (auto) 0.01 K/uL (0-0.2); Eosinophils # (auto) 0.02 K/uL (0-0.5); Eosinophils % (auto) 0.1 %; Hematocrit (blood only) 37.4 % (42-52); Hemoglobin 12.6 g/dL (14.0-18.0); Immature Granulocytes # (auto) 0.08 K/uL (0.00-0.02); Immature Granulocytes % (auto) 0.4 %; Lymphocytes % (auto) 20.8 %; Mean Corpuscular Hemoglobin 29.3 pg (25-34); Mean Platelet Volume 8.9 fL (7.4-10.4); Monocytes # (auto) 1.04 K/uL (0.11-0.59); Monocytes % (auto) 5.1 %; Neutrophils # (auto) 14.87 K/uL (1.4-6.5); Neutrophils % (auto) 73.6 %; Platelet Count 409 K/uL (130-400); RDW Coefficient of Variation 13.8 % (11.5-14.5); RDW Standard Deviation 43.7 fL (36.4-46.3); White Blood Count 20.22 K/uL (4.8-10.8)
[2020-06-26] MEDS ORDERED: AMIODARONE / D5W 360 MG/200 ML BAG IV ONE (16:55)
--- NOTE | 2020-06-26 16:55 | Cardiology Consultation ---
Date of Consultation June 26, 2020 Assessment & Plan (1) Atrial flutter with rapid ventricular response: (2) Acute hypoxemic respiratory failure: (3) Aortic valve stenosis: (4) Pneumonia: ASSESSMENT/PLAN: 1. Atrial flutter with rapid ventricular response: Started on 06/26/2020 at 3:47 a.m.. He is asymptomatic in this regard. Atrial flutter likely in response to his acute illness (sepsis/pneumonia/parapneumonic effusion) with respiratory failure. Recommend amiodarone 150 mg IV x1 followed by amiodarone drip per protocol. If no contraindication, recommend heparin drip to help reduce stroke risk reduction. Hopefully he will convert to sinus rhythm and would remain on amiodarone throughout the acute illness process. Can then discontinue diltiazem drip. 2. Acute hypoxemic respiratory failure: As per critical care team. He does not appear hypervolemic intravascular based on physical exam. LV systolic function normal. Has pneumonia with parapneumonic effusion. 3. Aortic stenosis/sclerosis: Based on today's echo, suspect sclerosis. No significant aortic stenosis. 4. Pneumonia: As per primary service. 5. Sepsis: As per primary service. 6. Disposition: Cardiology will continue to follow along. Patient care discussed with critical care team, Dr. Ford. I have personally spent 40 minutes of critical care time in the direct management of this patient, including treatment of his tachyarrhythmia, reviewing and interpreting diagnostic studies, chart review, direct bedside care, evaluation of patient, and coordinating care with critical care team and nursing staff. Thank you for allowing me to participate in the care of your patient. Please arvin l for any other questions or concerns. Sincerely, James Martinez M.D. History of Present Illness Reason for Consultation: Atrial tachycardia Requesting Physician: Dr. Ford Attending Physician: René Davis DO History of Present Illness Mr. Dumas is a very pleasant 75-year-old gentleman with history significant for type 2 diabetes, sleep apnea on CPAP, Gilbert's syndrome, and dyslipidemia. He was admitted on 06/23/2020 with pneumonia and a parapneumonic loculated effusion. On 06/25/2020, a left-sided pigtail catheter chest into his pleural space to assist in drainage of his loculated pleural effusion. A CT scan then demonstrated hydropneumothorax but his shortness of breath reportedly was improved following drain placement. Per pulmonology note, the pleural fluid studies suggest parapneumonic effusion. There is consideration for transfer to tertiary care center for possible VATS decortication depending on CT imaging findings (pending). His initial ECG on 06/25/2020 at 8:26 p.m., demonstrated sinus tachycardia with PVCs at 120 beats per minute. Overnight however, he developed atrial flutter at approximately 3:47 a.m. and became significantly more tachycardic. He was placed on a diltiazem drip by the hospitalist service. As the day progressed, he was transferred to the ICU for critical care given worsening dyspnea and ongoing tachycardia while in atrial flutter. While in the ICU, his heart rate was better controlled, with a heart rate near 110 beats per minute while on a diltiazem drip and also following intravenous metoprolol. He was not especially conversive in his current state, but was able to answer questions. He denies chest pain but does have pain at the chest tube location. He denies syncope, near-syncope, palpitations, edema, or bleeding. He admits that he is short of breath but was not certain if he has orthopnea as he has not been laying flat per his report. Review of systems: As above. Review of systems otherwise unremarkable. Family history: No known premature CAD. Social history: Denies tobacco, alcohol, or drug abuse. He was unaccompanied in his ICU room. Allergies Allergy/AdvReac Type Severity Reaction Status Date / Time exenatide [From [place]] AdvReac Unknown Vomiting Verified 06/23/20 13:55 Home Medications Medication Instructions Recorded Confirmed Type aspirin 81 mg tablet,delayed 81 mg PO DAILY #30 tab 03/11/19 06/23/20 Rx release insulin aspart U-100 100 unit/mL See Rx Instructions SUBCUT 04/15/19 06/23/20 Rx (3 mL) subcutaneous pen .COMPLEX #45 ml insulin glargine 100 unit/mL (3 30 units SUBCUT QAM #15 ml 09/05/19 06/23/20 Rx mL) subcutaneous pen cholecalciferol (vitamin D3) 50 50 mcg PO DAILY 09/07/19 06/23/20 History mcg (2,000 unit) capsule pen needle, diabetic 31 gauge x #900 ea 10/11/19 02/27/20 Rx /16" naproxen 500 mg tablet 500 mg PO BID PRN #180 tab 01/19/20 06/23/20 Rx simvastatin 20 mg tablet 20 mg PO HS #90 tab 05/09/20 06/23/20 Rx metformin 1,000 mg tablet 1,000 mg PO BID #180 tab 05/21/20 06/23/20 Rx blood sugar diagnostic #100 ea 06/06/20 Rx linagliptin 5 mg tablet 5 mg PO DAILY #90 tab 06/22/20 06/23/20 Rx Patient History Medical History Acute hypoxemic respiratory failure Atrial tachycardia Benign colonic polyp (07/2017) tubular adenoma, recheck in 5 years 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 Diabetes mellitus, type 2 IDDM Diverticulosis Fracture, rib [place] syndrome Hydropneumothorax Hyperlipidemia Kidney stones Malignant melanoma of skin Osteoarthritis Parapneumonic effusion Sleep apnea CPAP Vitamin D deficiency Surgical History History of cataract surgery Left- 2mg versed given without issues History of cholecystectomy History of colonoscopy (07/31/17) 6 mm tubular adenoma, sigmoid Dr deja Case History of herniorrhaphy UMBILICAL History of lithotripsy History of tonsillectomy History of tooth extraction Family History Brother Prostate cancer Denies family history of Ovarian cancer Myocardial infarction Breast cancer Lung cancer Colorectal cancer Social History Smoking Status: Never smoker Second Hand Exposure: No; Hx Alcohol Use: Yes Alcohol type: beer Hx Substance Use: No Preferred Language: Czech Communication Ability: Effective Marketing Lead Required: No Beliefs That Will Affect Care: None Current Living Situation: Spouse Other Information That Helps Us Care for You: No Feels Safe at Home: Yes Safety Concerns: Feels Safe At This Time Seatbelt Use: always Assistive Devices: Glasses and Walker Physical Exam Physical Exam: Gen.: Mild respiratory distress. Alert. HEENT: Anicteric sclera. Neck: No JVD. Bilateral carotid bruits versus radiation of cardiac murmur. Normal carotid upstrokes bilaterally. Cardiac: PMI was nonpalpable. No ventricular heave. Irregular. Normal S1-S2. 2/6 early peaking systolic ejection murmur. No rubs, or gallops. Pulmonary: Decreased breath sounds on anterior auscultation. Abdomen: Mildly distended, nontender, with normoactive bowel sounds. No bruits noted. Extremities: 2+ radial pulses bilaterally. 2+ posterior tibialis pulses bilaterally. Trace bilateral lower extremity edema. No cyanosis. Results & Data ([facility]) Vital Signs (Past 12 Hours) Vital Signs Temp Pulse Pulse Pulse Resp BP BP 06/26/20 16:24 118 H 117/76 06/26/20 15:17 36.6 C 117 H 22 114/48 L 06/26/20 11:15 37.0 C 104 H 19 119/86 06/26/20 09:25 108 H 20 06/26/20 08:00 105 H 06/26/20 07:22 150 H 120/72 06/26/20 06:56 36.5 C 142 H 20 120/72 06/26/20 06:34 101/62 06/26/20 05:55 136 H 22 101/64 06/26/20 05:37 155 H 124/81 06/26/20 05:05 155 H 121/76 BP Pulse Ox 06/26/20 16:24 06/26/20 15:17 90 06/26/20 11:15 92 06/26/20 09:25 120/71 06/26/20 08:00 06/26/20 07:22 06/26/20 06:56 93 06/26/20 06:34 06/26/20 05:55 06/26/20 05:37 06/26/20 05:05 93 Laboratory Results Laboratory Results - last 24 hr 06/25/20 06/25/20 06/25/20 19:40 19:40 19:40 WBC 23.27 H RBC 4.30 L Hgb 13.0 L Hct 38.4 L MCV 89.3 MCH 30.2 MCHC 33.9 RDW Std Deviation 46.1 RDW Coeff of [place] 14.0 Plt Count 389 MPV 8.7 Immature Gran % (Auto) 0.6 Neut % (Auto) 75.9 Lymph % (Auto) 18.2 [place] % (Auto) 5.3 Eos % (Auto) 0.0 Baso % (Auto) 0.0 Neut # (Auto) 17.64 H Lymph # (Auto) 4.24 H [place] # (Auto) 1.23 H Eos # (Auto) 0.01 Baso # (Auto) 0.01 Immature Gran # (Auto) 0.14 H Sodium 132 L Potassium 4.6 Chloride 101 Carbon Dioxide 23 Anion Gap 8.0 BUN 19 H Creatinine 1.38 Est Cr Clr Drug Dosing 48.4 Est GFR ( Amer) 58.0 Est GFR (Non-Af Amer) 50.0 BUN/Creatinine Ratio 14.0 Glucose 255 H POC Glucose Lactate Calcium 8.5 Phosphorus Magnesium Total Bilirubin AST ALT Alkaline Phosphatase Lactate Dehydrogenase Troponin I Total Protein Albumin Globulin Albumin/Globulin Ratio Lipase Procalcitonin 1.76 H TSH 06/25/20 06/25/20 06/25/20 19:43 20:42 22:16 WBC RBC Hgb Hct MCV MCH MCHC RDW Std Deviation RDW Coeff of [place] Plt Count MPV Immature Gran % (Auto) Neut % (Auto) Lymph % (Auto) [place] % (Auto) Eos % (Auto) Baso % (Auto) Neut # (Auto) Lymph # (Auto) [place] # (Auto) Eos # (Auto) Baso # (Auto) Immature Gran # (Auto) Sodium Potassium Chloride Carbon Dioxide Anion Gap BUN Creatinine Est Cr Clr Drug Dosing Est GFR ( Amer) Est GFR (Non-Af Amer) BUN/Creatinine Ratio Glucose POC Glucose 255 H 236 H Lactate Calcium Phosphorus Magnesium Total Bilirubin AST ALT Alkaline Phosphatase Lactate Dehydrogenase Troponin I < 0.015 Total Protein Albumin Globulin Albumin/Globulin Ratio Lipase Procalcitonin TSH 06/26/20 06/26/20 06/26/20 02:00 05:33 05:33 WBC 22.38 H RBC 4.59 L Hgb 13.7 L Hct 40.2 L MCV 87.6 MCH 29.8 MCHC 34.1 RDW Std Deviation 44.3 RDW Coeff of [place] 13.8 Plt Count 386 MPV 8.7 Immature Gran % (Auto) Neut % (Auto) Lymph % (Auto) [place] % (Auto) Eos % (Auto) Baso % (Auto) Neut # (Auto) Lymph # (Auto) [place] # (Auto) Eos # (Auto) Baso # (Auto) Immature Gran # (Auto) Sodium 133 L Potassium 4.2 Chloride 100 Carbon Dioxide 23 Anion Gap 10.0 BUN 19 H Creatinine 1.31 Est Cr Clr Drug Dosing 51.0 Est GFR ( Amer) 61.7 Est GFR (Non-Af Amer) 53.3 BUN/Creatinine Ratio 14.8 Glucose 191 H POC Glucose 193 H Lactate Calcium 8.8 Phosphorus Magnesium 1.6 L Total Bilirubin 2.6 H AST 17 ALT 22 Alkaline Phosphatase 136 H Lactate Dehydrogenase Troponin I Total Protein 6.4 Albumin 2.0 L Globulin 4.4 H Albumin/Globulin Ratio 0.5 L Lipase Procalcitonin TSH 06/26/20 06/26/20 06/26/20 05:33 05:33 07:22 WBC RBC Hgb Hct MCV MCH MCHC RDW Std Deviation RDW Coeff of [place] Plt Count MPV Immature Gran % (Auto) Neut % (Auto) Lymph % (Auto) [place] % (Auto) Eos % (Auto) Baso % (Auto) Neut # (Auto) Lymph # (Auto) [place] # (Auto) Eos # (Auto) Baso # (Auto) Immature Gran # (Auto) Sodium Potassium Chloride Carbon Dioxide Anion Gap BUN Creatinine Est Cr Clr Drug Dosing Est GFR ( Amer) Est GFR (Non-Af Amer) BUN/Creatinine Ratio Glucose POC Glucose 226 H Lactate Calcium Phosphorus Magnesium Total Bilirubin AST ALT Alkaline Phosphatase Lactate Dehydrogenase 174 Troponin I Total Protein Albumin Globulin Albumin/Globulin Ratio Lipase Procalcitonin TSH 3.100 06/26/20 06/26/20 06/26/20 11:12 16:21 16:31 WBC 20.22 H RBC 4.30 L Hgb 12.6 L Hct 37.4 L MCV 87.0 MCH 29.3 MCHC 33.7 RDW Std Deviation 43.7 RDW Coeff of [place] 13.8 Plt Count 409 H MPV 8.9 Immature Gran % (Auto) 0.4 Neut % (Auto) 73.6 Lymph % (Auto) 20.8 [place] % (Auto) 5.1 Eos % (Auto) 0.1 Baso % (Auto) 0.0 Neut # (Auto) 14.87 H Lymph # (Auto) 4.20 H [place] # (Auto) 1.04 H Eos # (Auto) 0.02 Baso # (Auto) 0.01 Immature Gran # (Auto) 0.08 H Sodium Potassium Chloride Carbon Dioxide Anion Gap BUN Creatinine Est Cr Clr Drug Dosing Est GFR ( Amer) Est GFR (Non-Af Amer) BUN/Creatinine Ratio Glucose POC Glucose 282 H 187 H Lactate Calcium Phosphorus Magnesium Total Bilirubin AST ALT Alkaline Phosphatase Lactate Dehydrogenase Troponin I Total Protein Albumin Globulin Albumin/Globulin Ratio Lipase Procalcitonin TSH 06/26/20 06/26/20 06/26/20 16:31 16:31 16:48 WBC RBC Hgb Hct MCV MCH MCHC RDW Std Deviation RDW Coeff of [place] Plt Count MPV Immature Gran % (Auto) Neut % (Auto) Lymph % (Auto) [place] % (Auto) Eos % (Auto) Baso % (Auto) Neut # (Auto) Lymph # (Auto) [place] # (Auto) Eos # (Auto) Baso # (Auto) Immature Gran # (Auto) Sodium 133 L Potassium 4.2 Chloride 101 Carbon Dioxide 25 Anion Gap 7.0 BUN 25 H Creatinine 1.32 Est Cr Clr Drug Dosing 50.6 Est GFR ( Amer) 61.2 Est GFR (Non-Af Amer) 52.8 BUN/Creatinine Ratio 18.9 Glucose 186 H POC Glucose Lactate 1.5 Calcium 8.8 Phosphorus Pending Magnesium Pending Total Bilirubin Pending AST 22 ALT 24 Alkaline Phosphatase Pending Lactate Dehydrogenase Troponin I Pending Total Protein Pending Albumin 1.9 L Globulin Pending Albumin/Globulin Ratio Pending Lipase Pending Procalcitonin TSH Diagnostic Findings Telemetry personally reviewed: Was in sinus rhythm, mostly sinus tachycardia until approximately 3:47 a.m. on 06/26/2020 when he developed atrial flutter with rapid ventricular response. Currently atrial flutter with improved heart rates but still tachycardic near 110 beats per minute. ECG from 06/25/2020 personally reviewed as noted above in HPI. ECG 06/26/2020 at 4:17 a.m.: Atrial flutter with PVC versus aberrantly conducted complex at 157 beats per minute. Possible Inferior infarct. ECG 06/26/2020 at 5:25 a.m.: Atrial flutter 154 beats per minute with PVC. Echo performed 06/26/2020 personally reviewed: Preliminary review demonstrated normal LV systolic function with normal wall motion. Estimated EF 60-65%. Right ventricle appeared mildly dilated with normal systolic function. Sclerotic aortic valve without significant stenosis. Formal review to follow. Medications Administered Current Inpatient Medications Acetaminophen (Acetaminophen 500 Mg Tab) 1,000 mg PO Q8 RICHARD Stop: 07/25/20 21:59 Last Admin: 06/26/20 14:18 Dose: 1,000 mg Documented by: Al Hydrox/Mg Hydrox/Simethicone (Aluminum/Magnesium Susp 30 Ml Udc) 15 ml PO Q4H PRN PRN Reason: Dyspepsia Stop: 07/23/20 15:43 Aspirin (Aspirin 81 Mg Ectab) 81 mg PO DAILY RICHARD Stop: 07/24/20 08:59 Last Admin: 06/26/20 08:08 Dose: 81 mg Documented by: Dextrose (Dextrose 50% 50 Ml Syringe) 25 - 50 ml IV UD PRN; Protocol PRN Reason: Hypoglycemia Protocol Stop: 07/23/20 15:43 Glucagon (Glucagon For Inj 1 Mg Vial) 1 mg SQ UD PRN; Protocol PRN Reason: Hypoglycemia Protocol Stop: 07/23/20 15:43 Glucose (Glucose 10 Tabs/Tube) 4 - 8 tabs PO UD PRN; Protocol PRN Reason: Hypoglycemia Protocol Stop: 07/23/20 15:43 Glucose (Glucose 40% Gel 15 Gm Tube) 15 - 30 gm PO UD PRN; Protocol PRN Reason: Hypoglycemia Protocol Stop: 07/23/20 15:43 Diltiazem HCl 125 mg/ Dextrose 125 mls @ 10 mls/hr IV .[id number] RICHARD; Protocol Stop: 07/26/20 05:29 Last Titration: 06/26/20 07:02 Dose: 10 mg/hr, 10 mls/hr Documented by: Piperacillin Sod/Tazobactam (Sod 3.375 gm/ Dextrose) 115 mls @ 28.75 mls/hr IV Q8H [facility]; Protocol Stop: 07/03/20 20:59 Piperacillin Sod/Tazobactam (Sod 3.375 gm/ Dextrose) 115 mls @ 28.75 mls/hr IV NOW ONE; Protocol Stop: 06/26/20 20:14 Last Admin: 06/26/20 16:25 Dose: 28.8 mls/hr Documented by: Heparin Sodium/Dextrose (Heparin Sodium/Dextrose) 25,000 units in 500 mls @ 26 mls/hr IV .[id number] [facility]; Protocol Stop: 07/26/20 16:29 Amiodarone HCl/Dextrose (Nexterone / D5w) 360 mg in 200 mls @ 33.333 mls/hr IV ONE ONE Stop: 06/26/20 22:54 Amiodarone HCl/Dextrose (Nexterone / D5w) 360 mg in 200 mls @ 16.667 mls/hr IV .Q12H RICHARD Stop: 07/26/20 22:54 Insulin Aspart (Insulin Aspart 100 Units/Ml 3 Ml Pen) 0 units SC ACHS RICHARD; Protocol Stop: 07/23/20 16:29 Last Admin: 06/26/20 16:27 Dose: 4 units Documented by: Insulin Glargine (Insulin Glargine Solostar 100 Units/Ml 3 Ml Pen) 30 units SQ QAM RICHARD Stop: 07/26/20 08:59 Last Admin: 06/26/20 08:08 Dose: 30 units Documented by: Melatonin (Melatonin 3 Mg Tab) 3 mg PO HS PRN PRN Reason: Sleep Stop: 07/25/20 18:00 Metoprolol Tartrate (Metoprolol Tartrate 1 Mg/Ml Vial) 5 mg IV Q5M PRN PRN Reason: Tachycardia Stop: 07/26/20 12:19 Miscellaneous (Carbohydrates For Hypoglycemia ) 15 - 30 gm PO UD PRN PRN Reason: Hypoglycemia Protocol Stop: 07/23/20 15:43 Miscellaneous Information (Pharmacy Glycemic Mgmt Consult) 1 ea N/A UD PRN; Protocol PRN Reason: Consult Stop: 07/23/20 15:53 Miscellaneous Information (Piperacill/Tazobac Consult Active) 1 ea N/A UD PRN PRN Reason: Consult Stop: 07/26/20 15:58 Ondansetron HCl (Ondansetron Inj 2 Mg/Ml 2 Ml Vial) 4 mg IV Q6H PRN PRN Reason: Nausea Stop: 07/23/20 15:43 Last Admin: 06/25/20 02:48 Dose: 4 mg Documented by: Polyethylene Glycol (Polyethylene (Miralax) 17 Gm Pack) 17 gm PO DAILY PRN PRN Reason: Constipation Stop: 07/23/20 15:43 Simvastatin (Simvastatin 20 Mg Tab) 20 mg PO HS RICHARD Stop: 07/23/20 20:59 Last Admin: 06/25/20 21:24 Dose: 20 mg Documented by: PG Care Time/CCT Total # of Minutes Spent Total Time Spent with Patient: Total time spent is greater than 50% in coordination of care (as documented) at patient's floor/unit and/or counseling patient: Critical Care Time: Yes Total Critical Care Time: 40 Coding Level of Care Code None Diagnoses Atrial flutter with rapid ventricular response I48.92 Acute hypoxemic respiratory failure J96.01 Aortic valve stenosis I35.0 Pneumonia J18.9 Additional Codes Critical Care Time - Critical Care Time: Yes ([id number]) Time Spent (min) 40 Comment [id number]
--- NOTE | 2020-06-26 16:59 | XRay Report ---
KUB HISTORY: Acute generalized abdominal pain abdominal pain COMPARISON: CT abdomen pelvis 06/23/2020 FINDINGS: Cholecystectomy. Prominent and mildly dilated air-filled loops of small bowel are noted thr oughout the abdomen measuring up to 3.2 cm transversely. Air is also noted within nondilated loops of large bowel. No renal calculi. No ureteral calculi. No pneumoperitoneum or pneumatosis. No fracture . IMPRESSION: Mildly dilated air-filled loops of small bowel within the central abdomen appears similar to comparis on which may reflect a mild enteritis or ileus. ACT 112: Negative or not required by law. The above report was generated using voice recognition software. It may contain grammatical, syntax o r spelling errors. Electronically signed by: Sukhwinder Hartley M.D. 06/26/2020 4:58 PM
--- NOTE | 2020-06-26 17:04 | XRay Report ---
XR chest 1V portable HISTORY: worsening hypoxia COMPARISON: Chest 06/26/2020. FINDINGS: Left upper lung zone percutaneous drainage catheter is again noted. Progressive left perihi lar opacification. This could represent progressive pleural fluid. No pneumothorax. Trace right pleur al effusion and cardiomegaly persist. Bibasilar densities are again noted. IMPRESSION: 1. Left-sided pleural pigtail catheter is again noted. This is in similar position. 2. Progressive left perihilar airspace opacities. This could represent increase in size of the pleura l effusion. ACT 112: Negative or not required by law. Electronically signed by: Myron Torres M.D. 06/26/2020 5:02 PM
[2020-06-26 17:07] LABS: Mean Corpuscular Hgb Conc 33.7 g/dL (32-36)
[2020-06-26 17:11] LABS: Albumin Level 1.9 gm/dl (3.4-5.0); BUN Creatinine Ratio 18.9 (10-20); Calcium 8.8 mg/dl (8.5-10.1); Creatinine Clr Calc Pharmacy 50.6 ml/min; Est GFR (African American) 61.2; Est GFR (Non-African American) 52.8; Potassium 4.2 mmol/L (3.5-5.1)
[2020-06-26 17:14] LABS: Lipase 64 U/L (73-393); Phosphorus 2.1 mg/dl (2.5-4.9); Troponin I < 0.015 ng/ml (0-0.045)
[2020-06-26 17:14] LABS: Albumin Globulin Ratio 0.5 (0.9-2); Bilirubin,Total 2.2 mg/dl (0.2-1); Total Protein 5.9 gm/dl (6.4-8.2)
--- NOTE | 2020-06-26 17:18 | CT Scan Report ---
CT chest diagnostic wo con CT DOSE: 362.75 mGy.cm HISTORY: Hypoxia TECHNIQUE: Multiaxial CT images of the chest were performed without contrast. A dose lowering techni que was utilized adhering to the principles of ALARA. COMPARISON: Chest CTA 06/23/2020. CT abscess drainage 06/25/2020. FINDINGS: There is again noted a left upper posterior pigtail pleural catheter. This appears to be in good position. The loculated small to moderate left pleural effusion has decreased in size. Trace le ft-sided pneumothorax likely represents postprocedural changes. There are few subcentimeter tree-in-b ud nodules within the left lung apex. These measure up to 4 mm. These are new from the prior study an d therefore favor mild inflammatory/infectious change. There is patchy areas of consolidation within the left upper lobe posteriorly and within the left lung. This could represent atelectasis from the l oculated pleural effusion or a superimposed pneumonia. The central airways are patent. There is mild respiratory motion artifact. There is a small right pleural effusion and consolidation within the rig ht lower lobe posteriorly. This also favors atelectasis. There is respiratory motion artifact. No fra ctures within the visualized osseous structures. Limited views the upper abdomen demonstrate a normal liver and spleen. Prior cholecystectomy. Normal esophagus. The heart is normal in size. No pericardi al effusion. Normal caliber thoracic aorta. Noncalcified plaque within the coronary arteries. No medi astinal or hilar lymphadenopathy. IMPRESSION: 1. There is again noted a left upper posterior pigtail pleural catheter. This appears to be good posi tion. 2. The loculated small to moderate left pleural effusion has decreased in size compared to the 021 CT-guided drainage study. 3. There is trace left pneumothorax which is likely related to catheter placement. 4. There is of consolidation within the left lung posteriorly and within the base of the right lower lobe. This is nonspecific but favors compressive atelectasis from the pleural effusions. A pneumonia could also have a similar appearance. 5. Small right pleural effusion. 6. A few new subcentimeter nodules within the left lung apex. This favors mild inflammatory/infectiou s change. ACT 112: Negative or not required by law. Electronically signed by: Myron Torres M.D. 06/26/2020 5:16 PM
[2020-06-26] MEDS ORDERED: VANCOMYCIN CONSULT ACTIVE PRN (18:14)
[2020-06-26 18:27] LABS: Appearance Urine Cloudy (Clear); Bacteria Urine Automated Negative (Negative); Blood Urine 2+ (Negative); Epithelial Cell Urine Auto >30 /lpf (0-5); Glucose Urine UA 1+ (Negative); Ketones Urine 1+ (Negative); Leukocyte Esterase Urine Trace (Negative); Nitrite Urine Negative (Negative); Protein Urine 2+ (Negative); Specific Gravity Urine 1.043 (1.000-1.030); Urobilinogen Urine Negative (Negative); pH Urine 5.5 (4.5-7.5)
[2020-06-26 18:30] LABS: Bilirubin Urine 1+ (Negative); Color Urine Dark Yellow
--- NOTE | 2020-06-26 18:49 | XCELERA ---
[id number]
--- NOTE | 2020-06-26 18:51 | Discharge Summary ---
Date of Service June 26, 2020 Admission HPI Per Admitting Provider 75 year old male who presents to the Emergency Room with complaints of left flank pain. This started 2 hrs captain room service and is severe 9/10. The patient also notes pleuritic chest pain on left, left shoulder pain. Prior hx of kidney stones but this feels different. Pt denies LOC, headache, fevers, chills, diaphoresis, visual changes, neck pain, nausea, vomiting, abdominal pain, back pain, melena, hematochezia, urinary symptoms, numbness, weakness, lymphadenopathy, rash, or other complaints. with Ct evaluation apparent pneumonia with loculated effusion is present on the left, given vancomycin and Cefepime in the ER Admission Exam Per Admitting Provider The patient appeared well nourished and normally developed. Vital signs as documented. Head exam is normocephalic atraumatic no scleral icterus Neck is without JVD, thyromegaly, or carotid bruits. Lungs are clear to auscultation, no focal loss of breath sounds Cardiac exam, Rhythm is regular.. No murmurs, rubs or gallops. Abdominal exam reveals normal bowel sounds, soft non tender, no masses Extremities are nonedematous and both pedal pulses are present Neurologic exam is alert and oriented, no focal loss of strength or sensation Skin is without bruises or rashes Psychologically is without concerns for anxiety or depression Principal Diagnosis Empyema Discharge Exam Constitutional WD/WN, vitals as above cooperative; no acute distress Eyes PERRL, conjunctivae normal, anicteric sclerae ENMT external ear and nose normal, oropharynx normal Neck trachea midline and + tracheal deviation Respiratory normal respiratory effort; no respiratory distress, no labored breathing and no cough Auscultation: no crackles, no wheezes and no vesicular breath sounds (respirations are coarse) Cardiovascular Rate/Rhythm: regular rate, regular rhythm and + tachycardic Heart Sounds: normal S1, normal S2 and + murmur (systolic ejection ) Extremities: no pedal edema Gastrointestinal (Abdomen) normal bowel sounds, soft, nontender, no hepatosplenomegaly Skin no rashes, warm and dry Psychiatric A+Ox3, euthymic affect Discharge Data Allergies Allergy/AdvReac Type Severity Reaction Status Date / Time exenatide [From [place]] AdvReac Unknown Vomiting Verified 06/23/20 13:55 Consultations 06/23/20 13:49 ED Decision to Admit Stat 06/23/20 15:44 Consult Pulmonology Routine 06/26/20 16:15 Consult Cardiology Routine 06/26/20 16:30 Consult Assistant Inventory Manager Routine 06/26/20 18:16 Burn CD for patient Stat Ordered Studies 06/23/20 12:02 CT abd pelvis wo con Stat 06/23/20 12:44 CT angio chest dissec wo/w con Stat 06/24/20 14:07 CT abscess drainage Routine 06/26/20 16:36 CT chest diagnostic wo con Stat 06/26/20 17:19 US point of care ultrasound Stat 06/27/20 06:00 CT chest diagnostic wo con Routine Hospital Course (1) Pneumonia: 75-year-old male who was admitted on 06/23/20 with chief complaint of flank pain, found to have a left lung consolidation concerning for a pneumonia with parapneumonic loculated effusion visualized on chest imaging. Radiology was able to aspirate loculation and place pigtail catheter on 06/25/20. A post-procedure hydropneumothorax was visualized; chest tube was placed and connected to low intermittent wall suction. Overnight patient did have worsening pleural effusion, thought to be consistent with reexpansion edema. He was given Lasix 40mg IV with good dieresis. Later in the evening he entered into A-flutter with Rapid Ventricular response. He was placed on a diltiazem drip. On pulmonology rounds, the patient's respiratory status decompensated (oxygen requirement went up to 6L) and decision was made to transfer patient to the ICU for close monitoring. Repeat CT of chest showed progression of L pleural effusion (despite re-expansion of the lung and drainage with chest tube with fibrinolytics). ICU team recommend [place] [facility] [place] as patient may require thoracic surgery intervention (possible VATS procedure). Transfer discussion was made with Dr. Tenzin Moralez (thoracic surgeon) and Dr. Shweta Estes at [facility]. Patient with leave via ambulance. An order to burn CD of his CT imaging was placed. Sepsis - SIRS criteria met (elevated WBC, tachycardia) - has not met criteria for severe sepsis - infectious source: L basilar PNA with parapneumonic effusion. UA normal. COVID 19 negative. Blood Cultures showing no growth through 48 hours. Blood Cultures re-drawn on 06/26/20. - antibiotics escalated to vanc + cefepime (per [facility] recommendation) - patient has been volume resuscitated - lactate normal on admission Parapneumonic Effusion - CT of A/P from admission showing L basilar consolidation with loculated effusion - Initially started on IV Vanco and Cefepime which were discontinued in favor of Unasyn (anaerobic coverage) + Azithromycin (atypical coverage). Cefepime and Vanco added back per [facility] transfer. - Pulmonology consulted --> attempted bedside US pigtail catheter placement on 06/24 but unable to reach loculation (obscured by scapula) - Radiology performed CT guided aspiration + pigtail catheter placement on 06/25; chest tube connected to low intermittent suction. Patient underwent dornase x2 and TPA's installation via chest tube. - WBC trending down. procal stable at 1.76. Legionella pending - repeat Chest CT today showing progression of pleural effusion despite re- expansion of lung - scheduled Tylenol for mild pain + advil 200mg, prn and Roxicodone for moderate pain Exudative Effusion - Pleural fluid showing low pH, which is consistent with infection. all 3 Light's criteria met. culture pending - likely an empyema - pigtail catheter in place - consider transferring patient to tertiary care center for VATS (effusion progressive despite drainage) - antibiotics as above A-flutter with RVR - HR increased to 150 bpm - EKG obtained showing A-flutter - Patient placed on Diltiazem drip by night team. Currently running at 10mg/hr. Rates < 110 bpm with adjunct Lopressor 5mg, prn - when patient was transferred to the ICU, he was started on a amiodarone drip - Echo ordered: EF appeared to be 60 to 65% with mild sclerosis of the aortic valve. There is mild right ventricular dysfunction. No evidence of cardiomyopathy. - TSH 3.1. Mag low, replacement ordered - [id number] at 3; long-term anticoagulation likely indicated; patient placed on a heparin drip on arrival to ICU. Discontinued prior to transfer (per [facility] recommendation) Leukocytosis - improving - WBC down to 23k from 25 - suspect secondary to parapneumonic effusion as above - anticipate further improvement as parapneumonic loculation has been drained - smudge cells noted; peripheral smear favoring reactive process rather than lymphoproliferative disorder - trend CBC Hypoxia - suspect secondary to L basilar PNA and parapneumonic effusion - currently satting 92% on 5L --> wean O2 as tolerated Hypomagnesemia - level at 1.6 - replacement ordered Insulin dependent type 2 diabetes mellitus - A1c 7.2, down from 7.13 February 2020. At goal for age. - home medication regimen consists of basal insulin (30 units of glargine) + Sliding scale with Novolog, Metformin 2g daily and linagliptin 5mg, daily - hold home oral agents while inpatient; continue insulin therapy - patient is not on a high intensity statin (on simvastatin 20mg daily) or an FELTON/ARB; consider adding as outpatient Hyperlipidemia - Continue home simvastatin - most recent lipid panel showing LDL of 38. While this is at goal, patient is not getting plaque stabilization benefit of high intensity statin. Considering adjusting as outpatient MARISSA - resolved Pt had elevation of his creatinine on admission. Resolved after hydration - avoid nsaids; use Tylenol for pain control Aortic valve stenosis - Patient has mild ; we will keep fluids at a conservative rate - murmur present on exam Total Time Total Time Spent Total Time Spent (In Minutes): >30 Discharge Plan Discharge Items Patient Disposition: Transfer Acute Care Hospital Reason For Visit: PNEUMONIA WITH EFFUSION Discharge Diagnosis: Empyema Activity: Resume your previous activity Non-emergency contact: Primary Care Provider Call non-emergency contact if: your symptoms worsen Follow-up/Referrals: Trenton Campos III, MD [Primary Care Provider] - Diet: Carb Consistent or DM2 Addtl Attending Provider Instructions: Per [facility]. Added to med rec - Cefepime, vano, amio. Pending Studies at Discharge: No Stand-Alone Forms: My [facility] Skilled Items Patient informed of condition?: Yes DNR: No Discharge Level of Care: Other Communicable Disease: No Discharge Prognosis: Other Lines: Peripheral IV Urinary Catheter: Yes Medications and DC Order Prescriptions: New aspirin 81 mg Tablet,Delayed Release (Dr/Ec) 81 mg PO DAILY 1 Days Qty: 1 RF: 0 acetaminophen 500 mg Tablet 1,000 mg PO Q8 14 Days Qty: 84 RF: 0 simvastatin 20 mg Tablet 20 mg PO HS 1 Days Qty: 1 RF: 0 Continued Novolog Flexpen U-100 Insulin 100 unit/mL (3 mL) insulin pen See Rx Instructions SUBCUT .COMPLEX Qty: 45 RF: 3 Lantus Solostar U-100 Insulin 100 unit/mL (3 mL) insulin pen 30 units SUBCUT QAM Qty: 15 RF: 6 Discontinued (DME) pen needle, diabetic [BD Ultra-Fine Short Pen Needle] 31 gauge x 5/16" needle See Rx Instructions .ROUTE .MEDSUPPLY Qty: 900 RF: 3 naproxen 500 mg tablet 500 mg PO BID PRN (Reason: Pain) Qty: 180 RF: 1 simvastatin 20 mg tablet 20 mg PO HS Qty: 90 RF: 3 metformin 1,000 mg tablet 1,000 mg PO BID Qty: 180 RF: 3 (DME) EasyMax Strip See Rx Instructions .ROUTE .MEDSUPPLY Qty: 100 RF: 2 Tradjenta 5 mg tablet 5 mg PO DAILY Qty: 90 RF: 3 aspirin [Adult Low Dose Aspirin] 81 mg tablet,delayed release (DR/EC) 81 mg PO DAILY Qty: 30 RF: 2 cholecalciferol (vitamin D3) 50 mcg (2,000 unit) capsule 50 mcg PO DAILY RF: 0 Discharge Orders: Discharge Order (Routine); Ordered 06/26/20 Ordered By: Corine Perdomo/Other Patient Handouts: Managing Type 2 Diabetes Admission Data Admit Date/Time: 06/23/20 14:26 Attending Provider: René Davis Admit Provider: Benjie Viramontes Primary Care Provider: Trenton Campos III Other Providers: Ann-Marie Fernandez ; Benjie Viramontes ; Lyndon Gonzalez ; Crescencio Pepper ; Logan Cornejo ; Rubén Walsh ; Pedro Robertson ; Garcia Mcadams ; Nikhil Blanc ; Sloane Key ; Rebecca Kapadia ; Curt Linares ; Oren Rivas ; Curt Galeana ; Aung Zimmer ; Dennys Romero ; Xavi Rosas ; Patrica Good ; Jakub Martinez ; Gayla Villagran ; Edmond Ryan Jr ; Damian Ford Supervising Physician Co-Signing Physician Notes I personally examined the patient and verified all bonds points of history and exam, discussed case, and agree with decision making with Dr Govea. When seen earlier in the day main complaint was a little bit of back or chest pain, as well as ongoing complaint that the pain medicines would make him feel a little bit loopy. Otherwise denied any chest pain palpitations fluttering etc. His breathing was really not bad. Later in the day his breathing was worsening and decision was made to transfer to [facility]. I was present and supervising Dr. Govea as she made the calls to transfer. Vitals noted, general awake and fatigued although not any serious physical distress to 2 times I see him. HEENT normocephalic atraumatic mucous membranes moist. Breathing is unlabored no accessory muscle use. Chest x-ray and CTs reviewed personally both films and reports. Cardio is irregularly irregular although whenever I see him his rates right around 100. Skin shows no rashes no pallor or icterus. Loculated effusionappears to be most likely empyema with sepsis present on admissionappears to be worsening in spite of chest tube drainagetransfer to [facility] for thoracic surgery supervision and possible further intervention. Continue antibiotics. Continue supportive care. New onset a flutterrate has been fairly easy to controlcontinue rate control for now. His [id number] would suggest that he will need long-term anticoagulation, but given everything going on with his chest and the possible need for procedures, there does not appear to be a need for immediate anticoagulation at this time. Otherwise as above Resident Activity Tracking Resident Involvement: Resident Care Provided Care Provided: Adult [facility]
--- NOTE | 2020-06-26 18:58 | Billing Data ---
Date of Service June 26, 2020 Coding Level of Care Code D/C Day Management >30 mins
[2020-06-26] MEDS ORDERED: VANCOMYCIN HCL 2,000 MG in SODIUM CHLORIDE 0.9% 500 ML IV ONE (19:00)
[2020-06-26] MEDS ORDERED: CEFEPIME 2,000 MG/20 ML VIAL IV ONE (19:15)
[2020-06-26] MEDS ORDERED: PIPERACILLIN/TAZOBACTAM 3.375 GM in DEXTROSE 5% 100 ML IV SCH (21:00)
[2020-06-26] MEDS ORDERED: AMIODARONE / D5W 360 MG/200 ML BAG IV SCH (22:55)
--- NOTE | 2020-06-27 05:52 | Electrocardiogram Report ---
Test Reason : Blood Pressure : / mmHG Vent. Rate : 120 BPM Atrial Rate : 120 BPM P-R Int : 146 ms QRS Dur : 086 ms QT Int : 302 ms P-R-T Axes : 018 -07 019 degrees QTc Int : 426 ms Sinus tachycardia with occasional Premature ventricular complexes Cannot rule out Inferior infarct , age undetermined Abnormal ECG When compared with ECG of 23-JUN-2020 11:53, Premature ventricular complexes are now Present Confirmed by Jakub Martinez ([id number]) on 06/27/2020 5:51:49 AM Referred By: REFERRED SELF Confirmed By:Jakub Martinez
--- NOTE | 2020-06-27 05:56 | Electrocardiogram Report ---
Test Reason : Blood Pressure : / mmHG Vent. Rate : 157 BPM Atrial Rate : 326 BPM P-R Int : 000 ms QRS Dur : 082 ms QT Int : 280 ms P-R-T Axes : 000 -01 010 degrees QTc Int : 452 ms Poor data quality, interpretation may be adversely affected Atrial flutter with variable A-V block with premature ventricular or aberrantly conducted complexes Left ventricular hypertrophy with repolarization abnormality Inferior infarct (cited on or before 25-JUN-2020) Abnormal ECG When compared with ECG of 25-JUN-2020 20:26, Atrial flutter has replaced Sinus rhythm Confirmed by Jakub Martinez ([id number]) on 06/27/2020 5:56:49 AM Referred By: REFERRED SELF Confirmed By:Jakub Martinez
--- NOTE | 2020-06-27 05:58 | Electrocardiogram Report ---
Test Reason : Blood Pressure : / mmHG Vent. Rate : 154 BPM Atrial Rate : 166 BPM P-R Int : 000 ms QRS Dur : 088 ms QT Int : 274 ms P-R-T Axes : 000 005 -14 degrees QTc Int : 438 ms Atrial flutter with rapid ventricular response with premature ventricular or aberrantly conducted com plexes Cannot rule out Anterior infarct , age undetermined Cannot rule out Inferior infarct Abnormal ECG When compared with ECG of 26-JUN-2020 04:17, No significant change Confirmed by Jakub Martinez ([id number]) on 06/27/2020 5:58:05 AM Referred By: REFERRED SELF Confirmed By:Jakub Martinez
[2020-06-27] MEDS ORDERED: VANCOMYCIN HCL 1,000 MG/270 ML BAG IV SCH (07:00)
--- NOTE | 2020-06-28 05:43 | Electrocardiogram Report ---
Test Reason : Blood Pressure : / mmHG Vent. Rate : 127 BPM Atrial Rate : 366 BPM P-R Int : 000 ms QRS Dur : 086 ms QT Int : 286 ms P-R-T Axes : 082 -03 054 degrees QTc Int : 415 ms Poor data quality, interpretation may be adversely affected Atrial flutter with variable A-V block with premature ventricular or aberrantly conducted complexes Inferior infarct (cited on or before 25-JUN-2020) Possible Anterior infarct (cited on or before 08-APR-2010) Abnormal ECG When compared with ECG of 26-JUN-2020 05:25, No significant change was found Confirmed by Jakub Martinez ([id number]) on 06/28/2020 5:42:32 AM Referred By: REFERRED SELF Confirmed By:Jakub Martinez
[2020-06-28] MEDS ORDERED: VANCOMYCIN TROUGH ONE (06:30)
== END 2020-06-26 21:24 | disposition short-term general hospital (02) | DRG 871 ==
LOC: ED 11:48 → 2N 14:26 → SUATTDRO 14:26 → 2N 15:19 → 2S 06-26 04:50 → 1E 06-26 16:04

== ENCOUNTER 2022-04-13 16:40 | Observation (INO) ==
[2022-04-13] MEDS ORDERED: SODIUM CHLORIDE 0.9% 1000ML 1,000 ML IV STA (17:08)
--- NOTE | 2022-04-13 17:19 | Emergency Department Note ---
Impression & Plan Rigors, Cholangitis, COVID-19 ED Provider Note Provider: Irineo Schmitz MD DATE OF SERVICE: 04/13/2022 CHIEF COMPLAINT: Shaking HISTORY OF PRESENT ILLNESS: Patient is a 76-year-old gentleman history of diabetes, diverticulitis, pneumonia, aortic stenosis, celiac disease presenting with today with the onset about 45 minutes prior to arrival of significant diffuse body shaking. Patient states that he may be had a bit of gas in his abdomen earlier but denies any neck pain now. Denies any recent fever or colds. Denies sore throat or chest pain. Denies shortness of breath. Denies rashes. Denies leg swelling. Patient states that shaking was very bad so they came here for evaluation. Did have some food before arrival in case it was related to low blood sugar as he is a diabetic and did not have lunch. No improvement with this. Still feels cold upon examination under blankets here. REVIEW OF SYSTEMS: A total of 10 review of systems was obtained and negative except as stated above in the HPI. PAST MEDICAL HISTORY: As noted above MEDICATIONS: Reviewed home medications SOCIAL HISTORY: , lives at home with PHYSICAL EXAM: GENERAL: alert and oriented in no acute distress on stretcher but under blankets and states he is feeling cold Head: normocephalic and atraumatic EYES: No injection, discharge or icterus. NECK: Trachea midline. Supple. ENT: Mucous membranes pink and moist. Pharynx without erythema or exudate. LUNGS: Airway patent. No retractions. Breath sounds clear with good air entry bilaterally. HEART: Regular rate and rhythm. No chest wall tenderness ABDOMEN: Soft and non-tender, without guarding or rebound. No significant flank tenderness. SKIN: Acyanotic, warm, dry, without rashes EXTREMITIES: Without swelling, tenderness or deformity NEUROLOGICAL: No focal deficits. No aphasia. No facial droop or slurred speech. Normal strength and tone in the extremities. Sensation to gross touch normal. EK bpm sinus tachycardia with PVC. Some artifact with a QTC of 400. No clear acute ST segment elevation. CONTINUOUS CARDIAC MONITORING: was ordered and showed a heart rate of 80s-100s bpm in normal sinus rhythm to sinus tachycardia Patient's laboratory studies and imaging reviewed. Differential includes Viral syndrome, otitis, pharyngitis, pneumonia, influenza, meningitis, urinary tract infection, sepsis, bacteremia, as well as other pathologies. IMPRESSION/MEDICAL DECISION MAKING: Patient without fever here. Denies recent illness. The shaking seems to approximate almost rigors. Blood work will be sent as well as cultures and viral panel testing. Denies any significant symptoms to lead to an obvious source. Given some IV fluids as his urine is a bit concentrated. Again denies pain. Does not seem consistent with seizure. Blood work here with a mildly elevated lactate as well as a leukocytosis of 14. Urinalysis not impressive for infection. Procalcitonin 0.34. No evidence of renal dysfunction today or severe electrolyte abnormality. Anaplasmosis smear was negative. Right ALT and alkaline phosphatase elevation is a bilirubin of 1.[address] scan of the abdomen pelvis completed to exclude intra-abdominal pathology. CT scan showed some biliary duct dilation with stranding questioning a cholangitis. Patient is incidentally positive for COVID. Given recent endoscopic procedure unsure why now but is possible. Discussed with him and his . Recommend that he stay for further GI evaluation and given a dose of Zosyn for antibiotic coverage as well as Tylenol although still no fever. They are in agreement and the hospitalist was contacted. DIAGNOSIS: Cholangitis, rigors, COVID-19 DISPOSTION: Hospitalist will evaluate Patient was agreeable with this plan. Past Med/Surg History Medical History (Updated 04/13/22 @ 23:33 by Irineo Schmitz M.D.) Aortic valve stenosis Mild per 09/2021 echo Atrial flutter 06/2020 (per cardio consult, felt likely r/t response of acute illness- sepsis/PNA/parapneumonic effusion with respiratory failure) Broken ribs s/p fall 10/01/21, denies current issues Carotid artery stenosis <50% ICA stenosis Celiac disease biopsy proven on EGD CLL (chronic lymphocytic leukemia) History of COVID-19 10/2021- asymptomatic History of kidney stones Hx of skin cancer, basal cell BCC (nose)- removed Hyperlipidemia IDDM (insulin dependent diabetes mellitus) Freestyle yolie monitoring Malignant melanoma of skin Osteoarthritis Sleep apnea CPAP Surgical History History of cataract surgery R/L History of cholecystectomy History of colonoscopy History of esophagogastroduodenoscopy (EGD) History of herniorrhaphy Umbilical History of lithotripsy History of placement of chest tube 2020 ([facility]) d/t pleural effusion History of tonsillectomy History of tooth extraction Family History Brother Prostate cancer Family history of diabetes mellitus Father Family hx of colon cancer Family history of diabetes mellitus Other No family history of adverse response to anesthesia Denies family history of Ovarian cancer Myocardial infarction Breast cancer Lung cancer Colorectal cancer Social History Smoking Status: Never smoker Second Hand Exposure: No; Hx Alcohol Use: No Hx Substance Use: No Preferred Language: Grenadian Communication Ability: Effective Gardening Instructor Required: No Beliefs That Will Affect Care: None Current Living Situation: Spouse Feels Safe at Home: Yes Seatbelt Use: always Assistive Devices: CPAP and Glasses Allergies Allergies Allergy/AdvReac Type Severity Reaction Status Date / Time gluten Allergy Severe celiac's Verified 04/13/22 20:06 disease wheat Allergy Severe celiac's Verified 04/13/22 20:06 disease exenatide [From Janesetta] AdvReac Mild Vomiting Verified 04/13/22 20:06 Home Meds Home Medications Medication Instructions Recorded Confirmed cholecalciferol (vitamin D3) 50 50 mcg PO QAM 09/07/19 04/13/22 mcg (2,000 unit) capsule aspirin 81 mg tablet,delayed 81 mg PO QAM 07/16/20 04/13/22 release (Adult Low Dose Aspirin) linagliptin 5 mg tablet (Tradjenta) 5 mg PO QAM 07/16/20 04/13/22 insulin glargine 100 unit/mL (3 18 unit subcut QAM 02/18/22 04/13/22 mL) subcutaneous pen (Lantus Solostar U-100 Insulin) Previous Rx's Medication Instructions Recorded naproxen 500 mg tablet 500 mg PO BID PRN Pain #180 tabs 01/19/20 blood glucose control, normal #1 ea 07/19/20 (Easymax 15 Level 2 solution) blood-glucose meter #1 ea 07/19/20 lancets 30 gauge (Twist Lancets) #300 ea 07/19/20 metoprolol tartrate 50 mg tablet 50 mg PO BID #20 tabs 08/03/20 sildenafil 50 mg tablet 50 mg PO DAILY PRN sexual activity 08/20/20 #5 tabs pen needle, diabetic 31 gauge x #900 ea 12/11/2009/23" (BD Ultra-Fine Short Pen Needle) pantoprazole 40 mg tablet,delayed 40 mg PO QAM #90 tabs 01/02/21 release blood sugar diagnostic (EasyMax #300 ea 02/08/21 strips) simvastatin 20 mg tablet 20 mg PO HS #90 tabs 04/15/21 metformin 1,000 mg tablet 1,000 mg PO BID #180 tabs 05/16/21 Results & Data (ED) Vital Signs Vital Signs - 24 hr 04/13/22 16:41 04/13/22 18:05 04/13/22 17:04 Temperature 36.8 C Temperature Source Temporal Artery Scan Pulse Rate 92 H 109 H Pulse Rate [Finger] 105 H Pulse Rate from SpO2 Sensor Pulse Rhythm [Finger] Regular Pulse Strength [Finger] Normal Respiratory Rate 20 20 25 H Respiratory Effort / Characteristics Non-Labored Non-Labored Respiratory Depth Normal Normal Respiratory Pattern Regular Blood Pressure 176/87 H Blood Pressure [Left Arm] 109/70 Blood Pressure Mean 116 Blood Pressure Mean [Left Arm] 83 Blood Pressure Position [Left Arm] Sitting Pulse Oximetry 98 94 Oxygen Delivery Method Room Air Room Air Sepsis Recent Fever Within 48 Hours No Sepsis New/Unexplained Change in Mental Status No Sepsis Action Taken by Nursing No Action Required 04/13/22 17:30 04/13/22 17:30 04/13/22 18:00 Temperature Temperature Source Pulse Rate 109 H 107 H Pulse Rate [Finger] Pulse Rate from SpO2 Sensor Pulse Rhythm [Finger] Pulse Strength [Finger] Respiratory Rate 22 15 Respiratory Effort / Characteristics Respiratory Depth Respiratory Pattern Blood Pressure 123/77 Blood Pressure [Left Arm] Blood Pressure Mean 92 Blood Pressure Mean [Left Arm] Blood Pressure Position [Left Arm] Pulse Oximetry Oxygen Delivery Method Sepsis Recent Fever Within 48 Hours Sepsis New/Unexplained Change in Mental Status Sepsis Action Taken by Nursing 04/13/22 18:02 04/13/22 18:02 04/13/22 18:30 Temperature Temperature Source Pulse Rate 106 H Pulse Rate [Finger] Pulse Rate from SpO2 Sensor 106 H Pulse Rhythm [Finger] Pulse Strength [Finger] Respiratory Rate 26 H Respiratory Effort / Characteristics Respiratory Depth Respiratory Pattern Blood Pressure 109/70 105/63 Blood Pressure [Left Arm] Blood Pressure Mean 83 77 Blood Pressure Mean [Left Arm] Blood Pressure Position [Left Arm] Pulse Oximetry 94 Oxygen Delivery Method Sepsis Recent Fever Within 48 Hours Sepsis New/Unexplained Change in Mental Status Sepsis Action Taken by Nursing 04/13/22 18:30 04/13/22 19:06 04/13/22 19:08 Temperature Temperature Source Pulse Rate 99 H 102 H Pulse Rate [Finger] Pulse Rate from SpO2 Sensor 99 H Pulse Rhythm [Finger] Pulse Strength [Finger] Respiratory Rate 21 25 H Respiratory Effort / Characteristics Respiratory Depth Respiratory Pattern Blood Pressure 140/79 Blood Pressure [Left Arm] Blood Pressure Mean 99 Blood Pressure Mean [Left Arm] Blood Pressure Position [Left Arm] Pulse Oximetry 95 Oxygen Delivery Method Sepsis Recent Fever Within 48 Hours Sepsis New/Unexplained Change in Mental Status Sepsis Action Taken by Nursing 04/13/22 19:08 04/13/22 19:30 04/13/22 19:30 Temperature Temperature Source Pulse Rate 103 H 96 H Pulse Rate [Finger] Pulse Rate from SpO2 Sensor 102 H 96 H Pulse Rhythm [Finger] Pulse Strength [Finger] Respiratory Rate 20 19 Respiratory Effort / Characteristics Respiratory Depth Respiratory Pattern Blood Pressure 160/80 H Blood Pressure [Left Arm] Blood Pressure Mean 106 Blood Pressure Mean [Left Arm] Blood Pressure Position [Left Arm] Pulse Oximetry 96 97 Oxygen Delivery Method Sepsis Recent Fever Within 48 Hours Sepsis New/Unexplained Change in Mental Status Sepsis Action Taken by Nursing 04/13/22 20:00 04/13/22 20:00 04/13/22 20:30 Temperature Temperature Source Pulse Rate 119 H Pulse Rate [Finger] Pulse Rate from SpO2 Sensor 119 H Pulse Rhythm [Finger] Pulse Strength [Finger] Respiratory Rate 21 Respiratory Effort / Characteristics Respiratory Depth Respiratory Pattern Blood Pressure 175/81 H 117/78 Blood Pressure [Left Arm] Blood Pressure Mean 112 91 Blood Pressure Mean [Left Arm] Blood Pressure Position [Left Arm] Pulse Oximetry 95 Oxygen Delivery Method Sepsis Recent Fever Within 48 Hours Sepsis New/Unexplained Change in Mental Status Sepsis Action Taken by Nursing 04/13/22 20:30 04/13/22 21:00 04/13/22 21:00 Temperature Temperature Source Pulse Rate 111 H 111 H Pulse Rate [Finger] Pulse Rate from SpO2 Sensor 111 H 111 H Pulse Rhythm [Finger] Pulse Strength [Finger] Respiratory Rate 25 H 24 Respiratory Effort / Characteristics Respiratory Depth Respiratory Pattern Blood Pressure 111/66 Blood Pressure [Left Arm] Blood Pressure Mean 81 Blood Pressure Mean [Left Arm] Blood Pressure Position [Left Arm] Pulse Oximetry 94 93 Oxygen Delivery Method Sepsis Recent Fever Within 48 Hours Sepsis New/Unexplained Change in Mental Status Sepsis Action Taken by Nursing 04/13/22 21:30 04/13/22 21:30 04/13/22 22:00 Temperature Temperature Source Pulse Rate 100 H Pulse Rate [Finger] Pulse Rate from SpO2 Sensor 100 H Pulse Rhythm [Finger] Pulse Strength [Finger] Respiratory Rate 22 Respiratory Effort / Characteristics Respiratory Depth Respiratory Pattern Blood Pressure 99/62 L 95/58 L Blood Pressure [Left Arm] Blood Pressure Mean 74 70 Blood Pressure Mean [Left Arm] Blood Pressure Position [Left Arm] Pulse Oximetry 94 Oxygen Delivery Method Sepsis Recent Fever Within 48 Hours Sepsis New/Unexplained Change in Mental Status Sepsis Action Taken by Nursing 04/13/22 22:00 Temperature Temperature Source Pulse Rate 93 H Pulse Rate [Finger] Pulse Rate from SpO2 Sensor 93 H Pulse Rhythm [Finger] Pulse Strength [Finger] Respiratory Rate 21 Respiratory Effort / Characteristics Respiratory Depth Respiratory Pattern Blood Pressure Blood Pressure [Left Arm] Blood Pressure Mean Blood Pressure Mean [Left Arm] Blood Pressure Position [Left Arm] Pulse Oximetry 94 Oxygen Delivery Method Sepsis Recent Fever Within 48 Hours Sepsis New/Unexplained Change in Mental Status Sepsis Action Taken by Nursing Laboratory Data Result diagrams: 04/13/22 17:25 04/13/22 18:15 Lab Results 04/13/22 04/13/22 04/13/22 Range/Units 16:44 17:25 17:25 WBC 14.08 H (4.8-10.8) K/ul RBC 4.36 L (4.63-6.08) M/uL Hgb 12.4 L (14.0-18.0) g/dl Hct 37.7 L (40.1-51.0) % MCV 86.5 (80.0-100.0) fL MCH 28.4 (25.0-34.0) pg MCHC 32.9 (32.0-36.0) g/dL RDW Std Deviation 45.1 (36.4-46.3) fL RDW Coeff of [place] 14.2 (11.5-14.5) % Plt Count 335 (130-400) K/uL MPV 9.2 L (9.4-12.4) fL Immature Gran % (Auto) 0.2 % Neut % (Auto) 56.3 % Lymph % (Auto) 42.3 % [place] % (Auto) 0.9 % Eos % (Auto) 0.2 % Baso % (Auto) 0.1 % Neut # (Auto) 7.92 H (1.4-6.5) K/uL Lymph # (Auto) 5.95 H (1.2-3.4) K/uL [place] # (Auto) 0.13 L (0.24-0.82) K/uL Eos # (Auto) 0.03 (0-0.50) K/uL Baso # (Auto) 0.02 (0-0.2) K/uL Immature Gran # (Auto) 0.03 H (0.00-0.02) K/uL Sodium 136 (136-145) mmol/L Potassium TNP Chloride 101 (98-107) mmol/L Carbon Dioxide 25 (21-32) mmol/L Anion Gap 10 (3-11) BUN 23 (6-23) mg/dl Creatinine 1.23 (0.6-1.4) mg/dl Est Cr Clr Drug Dosing 46.8 ml/min Est GFR ( Amer) 66.1 ml/min Est GFR (Non-Af Amer) 57.1 ml/min BUN/Creatinine Ratio 18.7 (10-20) Glucose 196 H (70-99(Fasting)) mg/dl POC Glucose 179 H (70-99) mg/dl Lactate (0.4-2.0) mmol/L Calcium 8.9 (8.5-10.1) mg/dl Magnesium (1.7-2.4) mg/dl Total Bilirubin 1.6 H (0.2-1.0) mg/dl AST TNP ALT 173 H (7-52) U/L Alkaline Phosphatase 337 H (34-104) U/L Troponin I High Sens 9.7 (0-20) pg/ml Total Protein 6.8 (6.0-8.3) gm/dl Albumin 3.6 (3.4-5.0) gm/dl Globulin 3.2 (2.5-4.0) gm/dl Albumin/Globulin Ratio 1.1 (0.9-2) Procalcitonin (0-0.5) ng/ml Urine Color Urine Appearance (Clear) Urine pH (4.5-7.5) Ur Specific [place] (1.000-1.030) Urine Protein (Negative) Urine Glucose (UA) (Negative) Urine Ketones (Negative) Urine Blood (Negative) Urine Nitrite (Negative) Urine Bilirubin (Negative) Urine Urobilinogen (Negative) Ur Leukocyte Esterase (Negative) Urine WBC (Auto) (0-5) /hpf Urine RBC (Auto) (0-4) /hpf U Hyaline Cast (Auto) (0-5) /lpf U Epithel Cells (Auto) (0-5) /lpf Urine Bacteria (Auto) (Negative) Anaplasma Smear See Comment Lyme Disease IgG Ab (Negative) Lyme Disease IgM Ab (Negative) SARS-CoV-2 (PCR) (Negative) Influenza Type A (PCR) (Neg) Influenza Type B (PCR) (Neg) RSV (RT-PCR) (Neg) 04/13/22 04/13/22 04/13/22 Range/Units 17:25 17:25 17:37 WBC (4.8-10.8) K/ul RBC (4.63-6.08) M/uL Hgb (14.0-18.0) g/dl Hct (40.1-51.0) % MCV (80.0-100.0) fL MCH (25.0-34.0) pg MCHC (32.0-36.0) g/dL RDW Std Deviation (36.4-46.3) fL RDW Coeff of [place] (11.5-14.5) % Plt Count (130-400) K/uL MPV (9.4-12.4) fL Immature Gran % (Auto) % Neut % (Auto) % Lymph % (Auto) % [place] % (Auto) % Eos % (Auto) % Baso % (Auto) % Neut # (Auto) (1.4-6.5) K/uL Lymph # (Auto) (1.2-3.4) K/uL [place] # (Auto) (0.24-0.82) K/uL Eos # (Auto) (0-0.50) K/uL Baso # (Auto) (0-0.2) K/uL Immature Gran # (Auto) (0.00-0.02) K/uL Sodium (136-145) mmol/L Potassium Chloride (98-107) mmol/L Carbon Dioxide (21-32) mmol/L Anion Gap (3-11) BUN (6-23) mg/dl Creatinine (0.6-1.4) mg/dl Est Cr Clr Drug Dosing ml/min Est GFR ( Amer) ml/min Est GFR (Non-Af Amer) ml/min BUN/Creatinine Ratio (10-20) Glucose (70-99(Fasting)) mg/dl POC Glucose (70-99) mg/dl Lactate 2.9 H* (0.4-2.0) mmol/L Calcium (8.5-10.1) mg/dl Magnesium (1.7-2.4) mg/dl Total Bilirubin (0.2-1.0) mg/dl AST ALT (7-52) U/L Alkaline Phosphatase (34-104) U/L Troponin I High Sens (0-20) pg/ml Total Protein (6.0-8.3) gm/dl Albumin (3.4-5.0) gm/dl Globulin (2.5-4.0) gm/dl Albumin/Globulin Ratio (0.9-2) Procalcitonin 0.34 (0-0.5) ng/ml Urine Color Dark Yellow Urine Appearance Clear (Clear) Urine pH 6.0 (4.5-7.5) Ur Specific [place] 1.024 (1.000-1.030) Urine Protein 1+ H (Negative) Urine Glucose (UA) 2+ H (Negative) Urine Ketones Trace H (Negative) Urine Blood Negative (Negative) Urine Nitrite Negative (Negative) Urine Bilirubin Negative (Negative) Urine Urobilinogen Negative (Negative) Ur Leukocyte Esterase Negative (Negative) Urine WBC (Auto) 0 (0-5) /hpf Urine RBC (Auto) 0-4 (0-4) /hpf U Hyaline Cast (Auto) 0 (0-5) /lpf U Epithel Cells (Auto) 0-5 (0-5) /lpf Urine Bacteria (Auto) Negative (Negative) Anaplasma Smear Lyme Disease IgG Ab Negative (Negative) Lyme Disease IgM Ab Negative (Negative) SARS-CoV-2 (PCR) (Negative) Influenza Type A (PCR) (Neg) Influenza Type B (PCR) (Neg) RSV (RT-PCR) (Neg) 04/13/22 04/13/22 04/13/22 Range/Units 17:38 18:15 18:15 WBC (4.8-10.8) K/ul RBC (4.63-6.08) M/uL Hgb (14.0-18.0) g/dl Hct (40.1-51.0) % MCV (80.0-100.0) fL MCH (25.0-34.0) pg MCHC (32.0-36.0) g/dL RDW Std Deviation (36.4-46.3) fL RDW Coeff of [place] (11.5-14.5) % Plt Count (130-400) K/uL MPV (9.4-12.4) fL Immature Gran % (Auto) % Neut % (Auto) % Lymph % (Auto) % [place] % (Auto) % Eos % (Auto) % Baso % (Auto) % Neut # (Auto) (1.4-6.5) K/uL Lymph # (Auto) (1.2-3.4) K/uL [place] # (Auto) (0.24-0.82) K/uL Eos # (Auto) (0-0.50) K/uL Baso # (Auto) (0-0.2) K/uL Immature Gran # (Auto) (0.00-0.02) K/uL Sodium (136-145) mmol/L Potassium 4.5 Chloride (98-107) mmol/L Carbon Dioxide (21-32) mmol/L Anion Gap (3-11) BUN (6-23) mg/dl Creatinine (0.6-1.4) mg/dl Est Cr Clr Drug Dosing ml/min Est GFR ( Amer) ml/min Est GFR (Non-Af Amer) ml/min BUN/Creatinine Ratio (10-20) Glucose (70-99(Fasting)) mg/dl POC Glucose (70-99) mg/dl Lactate (0.4-2.0) mmol/L Calcium (8.5-10.1) mg/dl Magnesium 1.0 L (1.7-2.4) mg/dl Total Bilirubin (0.2-1.0) mg/dl AST 503 H ALT (7-52) U/L Alkaline Phosphatase (34-104) U/L Troponin I High Sens (0-20) pg/ml Total Protein (6.0-8.3) gm/dl Albumin (3.4-5.0) gm/dl Globulin (2.5-4.0) gm/dl Albumin/Globulin Ratio (0.9-2) Procalcitonin (0-0.5) ng/ml Urine Color Urine Appearance (Clear) Urine pH (4.5-7.5) Ur Specific [place] (1.000-1.030) Urine Protein (Negative) Urine Glucose (UA) (Negative) Urine Ketones (Negative) Urine Blood (Negative) Urine Nitrite (Negative) Urine Bilirubin (Negative) Urine Urobilinogen (Negative) Ur Leukocyte Esterase (Negative) Urine WBC (Auto) (0-5) /hpf Urine RBC (Auto) (0-4) /hpf U Hyaline Cast (Auto) (0-5) /lpf U Epithel Cells (Auto) (0-5) /lpf Urine Bacteria (Auto) (Negative) Anaplasma Smear Lyme Disease IgG Ab (Negative) Lyme Disease IgM Ab (Negative) SARS-CoV-2 (PCR) POSITIVE A* (Negative) Influenza Type A (PCR) Negative (Neg) Influenza Type B (PCR) Negative (Neg) RSV (RT-PCR) Negative (Neg) 04/13/22 Range/Units 19:37 WBC (4.8-10.8) K/ul RBC (4.63-6.08) M/uL Hgb (14.0-18.0) g/dl Hct (40.1-51.0) % MCV (80.0-100.0) fL MCH (25.0-34.0) pg MCHC (32.0-36.0) g/dL RDW Std Deviation (36.4-46.3) fL RDW Coeff of [place] (11.5-14.5) % Plt Count (130-400) K/uL MPV (9.4-12.4) fL Immature Gran % (Auto) % Neut % (Auto) % Lymph % (Auto) % [place] % (Auto) % Eos % (Auto) % Baso % (Auto) % Neut # (Auto) (1.4-6.5) K/uL Lymph # (Auto) (1.2-3.4) K/uL [place] # (Auto) (0.24-0.82) K/uL Eos # (Auto) (0-0.50) K/uL Baso # (Auto) (0-0.2) K/uL Immature Gran # (Auto) (0.00-0.02) K/uL Sodium (136-145) mmol/L Potassium Chloride (98-107) mmol/L Carbon Dioxide (21-32) mmol/L Anion Gap (3-11) BUN (6-23) mg/dl Creatinine (0.6-1.4) mg/dl Est Cr Clr Drug Dosing ml/min Est GFR ( Amer) ml/min Est GFR (Non-Af Amer) ml/min BUN/Creatinine Ratio (10-20) Glucose (70-99(Fasting)) mg/dl POC Glucose (70-99) mg/dl Lactate 2.0 (0.4-2.0) mmol/L Calcium (8.5-10.1) mg/dl Magnesium (1.7-2.4) mg/dl Total Bilirubin (0.2-1.0) mg/dl AST ALT (7-52) U/L Alkaline Phosphatase (34-104) U/L Troponin I High Sens (0-20) pg/ml Total Protein (6.0-8.3) gm/dl Albumin (3.4-5.0) gm/dl Globulin (2.5-4.0) gm/dl Albumin/Globulin Ratio (0.9-2) Procalcitonin (0-0.5) ng/ml Urine Color Urine Appearance (Clear) Urine pH (4.5-7.5) Ur Specific [place] (1.000-1.030) Urine Protein (Negative) Urine Glucose (UA) (Negative) Urine Ketones (Negative) Urine Blood (Negative) Urine Nitrite (Negative) Urine Bilirubin (Negative) Urine Urobilinogen (Negative) Ur Leukocyte Esterase (Negative) Urine WBC (Auto) (0-5) /hpf Urine RBC (Auto) (0-4) /hpf U Hyaline Cast (Auto) (0-5) /lpf U Epithel Cells (Auto) (0-5) /lpf Urine Bacteria (Auto) (Negative) Anaplasma Smear Lyme Disease IgG Ab (Negative) Lyme Disease IgM Ab (Negative) SARS-CoV-2 (PCR) (Negative) Influenza Type A (PCR) (Neg) Influenza Type B (PCR) (Neg) RSV (RT-PCR) (Neg) Administered Medications Sodium Chloride (Nss 1000ml) 1,000 mls @ 100 mls/hr IV .Q10H ONE Stop: 04/14/22 06:32 Last Admin: 04/13/22 21:40 Dose: 100 mls/hr Documented By: GENESIS Magnesium Sulfate/Dextrose (Magnesium Sulfate / D5w) 1 gm in 100 mls @ 50 mls/hr IV Q2H RICHARD Stop: 04/14/22 05:29 Last Admin: 04/13/22 21:42 Dose: 50 mls/hr Documented By: GENESIS Discontinued Medications Acetaminophen (Acetaminophen 500 Mg Tab) 1,000 mg PO NOW STA Stop: 04/13/22 19:43 Last Admin: 04/13/22 20:00 Dose: 1,000 mg Documented By: GENESIS Sodium Chloride (Nss 1000ml) 1,000 mls @ 999 mls/hr IV .Q1H1M STA Stop: 04/13/22 18:08 Last Infusion: 04/13/22 21:59 Dose: 0 mls/hr Documented By: Admin: 04/13/22 18:04 Dose: 999 mls/hr Documented By: GENESIS Piperacillin Sod/Tazobactam Sod (Zosyn) 4.5 gm in 120 mls @ 240 mls/hr IV NOW ONE Stop: 04/13/22 20:11 Last Infusion: 04/13/22 21:58 Dose: 0 mls/hr Documented By: Admin: 04/13/22 20:01 Dose: 240 mls/hr Documented By: GENESIS Sodium Chloride (Nss 1000ml) 1,000 mls @ 999 mls/hr IV .Q1H1M ONE Stop: 04/13/22 20:42 Last Infusion: 04/13/22 21:59 Dose: 0 mls/hr Documented By: Admin: 04/13/22 20:01 Dose: 999 mls/hr Documented By: GENESIS Ioversol (Optiray 350 100ml) 85 ml IV ONCE ONE Stop: 04/13/22 19:04 Last Admin: 04/13/22 19:03 Dose: 85 ml Documented By: THANH Metoprolol Tartrate (Metoprolol Tartrate 50 Mg Tab) 50 mg PO NOW STA Stop: 04/13/22 20:34 Last Admin: 04/13/22 21:16 Dose: 50 mg Documented By: GENESIS Imaging Data Radiologist's Impression: Chest X-Ray 04/13/22 17:08 XR chest 1V portable HISTORY: rigors COMPARISON: Chest 10/01/2021. FINDINGS: Left basilar linear densities favor subsegmental atelectasis or scarring. Otherwise, the lungs are clear. The heart is normal in size. No pleural effusions. No pneumothorax. There are old, healed right-sided rib fractures. IMPRESSION: No acute process. ACT 112: Negative or not required by law. Electronically signed by: Myron Torres M.D. 04/13/2022 7:08 PM Abdomen/Pelvis CT 04/13/22 18:[address] WITH IV CONTRAST CT DOSE: 353.74 mGy.cm HISTORY: rigors, elev bili, transaminitis TECHNIQUE: Multiaxial CT images of the abdomen and pelvis were performed following the use of intravenous contrast. A dose lowering technique was utilized adhering to the principles of ALARA. COMPARISON STUDY: Abdomen and pelvis CT 06/23/2020. FINDINGS: Bibasilar linear densities consistent with subsegmental atelectasis or scarring. This has improved. No pneumoperitoneum. No pneumatosis. Bilateral L5 spondylolysis again noted. There are old, healed left-sided rib fractures. The heart is normal in size. Prior cholecystectomy. No hepatic or splenic masses. The main portal vein is patent. The pancreas, adrenal glands, and right kidney are unremarkable. There is a punctate stone within the left kidney. There is a 9 mm hypodense lesion within the left kidney which is too small to characterize but statistically represents a cyst. No ureteral stones. No hydronephrosis. Normal caliber abdominal aorta. No retroperitoneal or pelvic lymphadenopathy. The bladder is unremarkable. The prostate gland remains mildly enlarged. There is mild ileocolic lymphadenopathy. This is similar to the prior study. Mild intra and extra hepatic bile duct dilatation which has progressed in the interval. There is also mild enhancement and adjacent fat stranding at the commo n bile duct/common hepatic duct. Findings are concerning for an ascending cholangitis. The common bile duct measures up to 8 mm. Multiple jejunal diverticula. There are scattered colonic diverticula. No evidence for an acute diverticulitis. Moderate fecal retention again noted. No bowel wall thickening or obstruction. Normal appendix. IMPRESSION: 1. Mild intra and extra hepatic bile duct dilatation which has progressed in the interval. There is also mild enhancement and adjacent fat stranding at the common bile duct/common hepatic duct. Findings are concerning for an ascending cholangitis. GI consultation recommended. 2. Mild ileocolic lymphadenopathy. This is similar to the prior study. 3. Colonic and jejunal diverticulosis. No evidence for acute diverticulitis. 4. No bowel wall thickening or obstruction. 5. Left-sided nephrolithiasis. No hydronephrosis. 6. Additional findings as described above. ACT 112: Negative or not required by law. Electronically signed by: Myron Torres M.D. 04/13/2022 7:26 PM Discharge Plan Visit Data Chief Complaint: Illness Stated Complaint: SHAKING, COLD ED Provider: Irineo Schmitz Discharge Problem: Rigors, Cholangitis, COVID-19 Patient Disposition: Admitted As Inpatient Forms Stand Alone Forms: [facility] Prescriptions Prescriptions: No Action naproxen 500 mg tablet 500 mg PO BID PRN (Reason: Pain) Qty: 180 1RF (DME) blood-glucose meter Misc See Rx Instructions .ROUTE .MEDSUPPLY Qty: 1 0RF Rx Instructions: EASY MAX V METER E11.65 Z79.4 (DME) blood glucose control, normal [Easymax 15 Level 2] Solution See Rx Instructions .ROUTE .MEDSUPPLY Qty: 1 0RF Rx Instructions: As directed PER METER INSTRUCTIONS E11.65 (DME) lancets [Twist Lancets] 30 gauge misc See Rx Instructions .ROUTE .MEDSUPPLY Qty: 300 3RF Rx Instructions: USE THREE TIMES DAILY E11.65 metoprolol tartrate 50 mg tablet 50 mg PO BID Qty: 20 0RF (DME) pen needle, diabetic [BD Ultra-Fine Short Pen Needle] 31 gauge x 5/16" needle See Rx Instructions .ROUTE .MEDSUPPLY Qty: 900 3RF Rx Instructions: Test up to three times daily. DX: E11.65 pantoprazole 40 mg tablet,delayed release (DR/EC) 40 mg PO QAM Qty: 90 3RF (DME) EasyMax Strip See Rx Instructions .ROUTE .MEDSUPPLY Qty: 300 3RF Rx Instructions: EASY MAX TEST STRIPS CHECK BLOOD SUGARS TID E11.65 simvastatin 20 mg tablet 20 mg PO HS Qty: 90 3RF metformin 1,000 mg tablet 1,000 mg PO BID Qty: 180 3RF sildenafil 50 mg tablet 50 mg PO DAILY PRN (Reason: sexual activity) Qty: 5 5RF Rx Instructions: administer 30 minutes to 4 hours before activity cholecalciferol (vitamin D3) 50 mcg (2,000 unit) capsule 50 mcg PO QAM aspirin [Adult Low Dose Aspirin] 81 mg tablet,delayed release (DR/EC) 81 mg PO QAM Label Comments: on hold since broke ribs 4 weeks ago Tradjenta 5 mg tablet 5 mg PO QAM insulin glargine [Lantus Solostar U-100 Insulin] 100 unit/mL (3 mL) insulin pen 18 unit SUBCUT QAM Referrals Referrals: Corrine Amor DO [Primary Care Provider] -
[2022-04-13 17:42] LABS: Hematocrit (blood only) 37.7 % (40.1-51.0); Hemoglobin 12.4 g/dl (14.0-18.0); Mean Corpuscular Hemoglobin 28.4 pg (25.0-34.0); Mean Corpuscular Hgb Conc 32.9 g/dL (32.0-36.0); Mean Corpuscular Volume 86.5 fL (80.0-100.0); Mean Platelet Volume 9.2 fL (9.4-12.4); Platelet Count 335 K/uL (130-400); RDW Coefficient of Variation 14.2 % (11.5-14.5); RDW Standard Deviation 45.1 fL (36.4-46.3); Red Blood Count 4.36 M/uL (4.63-6.08); White Blood Count 14.08 K/ul (4.8-10.8)
[2022-04-13 18:08] LABS: Appearance Urine Clear (Clear); Bacteria Urine Automated Negative (Negative); Bilirubin Urine Negative (Negative); Blood Urine Negative (Negative); Cast Urine Automated 0 /lpf (0-5); Color Urine Dark Yellow; Epithelial Cell Urine Auto 0-5 /lpf (0-5); Glucose Urine UA 2+ (Negative); Ketones Urine Trace (Negative); Leukocyte Esterase Urine Negative (Negative); Nitrite Urine Negative (Negative); Protein Urine 1+ (Negative); RBC Urine Automated 0-4 /hpf (0-4); Specific Gravity Urine 1.024 (1.000-1.030); Urobilinogen Urine Negative (Negative); WBC Urine Automated 0 /hpf (0-5)
[2022-04-13 18:11] LABS: Alanine Aminotransferase 173 U/L (7-52); Albumin Globulin Ratio 1.1 (0.9-2); Albumin Level 3.6 gm/dl (3.4-5.0); Alkaline Phosphatase 337 U/L (34-104); Anion Gap 10 (3-11); BUN Creatinine Ratio 18.7 (10-20); Bilirubin,Total 1.6 mg/dl (0.2-1.0); Blood Urea Nitrogen 23 mg/dl (6-23); Calcium 8.9 mg/dl (8.5-10.1); Carbon Dioxide 25 mmol/L (21-32); Chloride 101 mmol/L (98-107); Creatinine Clr Calc Pharmacy 46.8 ml/min; Est GFR (African American) 66.1 ml/min; Est GFR (Non-African American) 57.1 ml/min; Globulin 3.2 gm/dl (2.5-4.0); Glucose 196 mg/dl (70-99(Fasting)); Sodium 136 mmol/L (136-145); Total Protein 6.8 gm/dl (6.0-8.3); Troponin I High Sensitivity 9.7 pg/ml (0-20)
[2022-04-13 18:19] LABS: Basophils # (auto) 0.02 K/uL (0-0.2); Basophils % (auto) 0.1 %; Eosinophils # (auto) 0.03 K/uL (0-0.50); Eosinophils % (auto) 0.2 %; Immature Granulocytes # (auto) 0.03 K/uL (0.00-0.02); Immature Granulocytes % (auto) 0.2 %; Lymphocytes # (auto) 5.95 K/uL (1.2-3.4); Lymphocytes % (auto) 42.3 %; Monocytes # (auto) 0.13 K/uL (0.24-0.82); Monocytes % (auto) 0.9 %; Neutrophils # (auto) 7.92 K/uL (1.4-6.5); Neutrophils % (auto) 56.3 %
[2022-04-13 18:19] LABS: Influenza A virus by PCR Negative (Neg); Influenza B virus by PCR Negative (Neg); RSV by PCR Negative (Neg)
[2022-04-13 18:27] LABS: Procalcitonin 0.34 ng/ml (0-0.5)
[2022-04-13 18:33] LABS: Lyme Ab IgG w/WB Rflx Negative (Negative); Lyme Ab IgM w/WB Rflx Negative (Negative)
[2022-04-13 18:43] LABS: SARS CoV2 RNA(COVID-19) Ceph POSITIVE (Negative)
[2022-04-13] MEDS ORDERED: OPTIRAY 350 100ml IV ONE (19:03)
--- NOTE | 2022-04-13 19:09 | XRay Report ---
XR chest 1V portable HISTORY: rigors COMPARISON: Chest 10/01/2021. FINDINGS: Left basilar linear densities favor subsegmental atelectasis or scarring. Otherwise, the kaveh ngs are clear. The heart is normal in size. No pleural effusions. No pneumothorax. There are old, hea led right-sided rib fractures. IMPRESSION: No acute process. ACT 112: Negative or not required by law. Electronically signed by: Myron Torres M.D. 04/13/2022 7:08 PM
[2022-04-13 19:22] LABS: Potassium 4.5 mmol/L (3.5-5.1)
--- NOTE | 2022-04-13 19:28 | CT Scan Report ---
ABDOMEN AND PELVIS CT WITH IV CONTRAST CT DOSE: 353.74 mGy.cm HISTORY: rigors, elev bili, transaminitis TECHNIQUE: Multiaxial CT images of the abdomen and pelvis were performed following the use of intrave nous contrast. A dose lowering technique was utilized adhering to the principles of ALARA. COMPARISON STUDY: Abdomen and pelvis CT 06/23/2020. FINDINGS: Bibasilar linear densities consistent with subsegmental atelectasis or scarring. This has i mproved. No pneumoperitoneum. No pneumatosis. Bilateral L5 spondylolysis again noted. There are old, healed left-sided rib fractures. The heart is normal in size. Prior cholecystectomy. No hepatic or sp lenic masses. The main portal vein is patent. The pancreas, adrenal glands, and right kidney are unre markable. There is a punctate stone within the left kidney. There is a 9 mm hypodense lesion within t he left kidney which is too small to characterize but statistically represents a cyst. No ureteral st ones. No hydronephrosis. Normal caliber abdominal aorta. No retroperitoneal or pelvic lymphadenopathy . The bladder is unremarkable. The prostate gland remains mildly enlarged. There is mild ileocolic ly mphadenopathy. This is similar to the prior study. Mild intra and extra hepatic bile duct dilatation which has progressed in the interval. There is also mild enhancement and adjacent fat stranding at th e common bile duct/common hepatic duct. Findings are concerning for an ascending cholangitis. The com mon bile duct measures up to 8 mm. Multiple jejunal diverticula. There are scattered colonic divertic lilia. No evidence for an acute diverticulitis. Moderate fecal retention again noted. No bowel wall thi ckening or obstruction. Normal appendix. IMPRESSION: 1. Mild intra and extra hepatic bile duct dilatation which has progressed in the interval. There is a lso mild enhancement and adjacent fat stranding at the common bile duct/common hepatic duct. Findings are concerning for an ascending cholangitis. GI consultation recommended. 2. Mild ileocolic lymphadenopathy. This is similar to the prior study. 3. Colonic and jejunal diverticulosis. No evidence for acute diverticulitis. 4. No bowel wall thickening or obstruction. 5. Left-sided nephrolithiasis. No hydronephrosis. 6. Additional findings as described above. ACT 112: Negative or not required by law. Electronically signed by: Myron Torres M.D. 04/13/2022 7:26 PM
[2022-04-13] MEDS ORDERED: PIPERACILLIN/TAZOBACTAM 4.5 GM/120 ML BAG IV ONE (19:42)
[2022-04-13] MEDS ORDERED: ACETAMINOPHEN 500 MG TAB PO STA (19:42)
[2022-04-13] MEDS ORDERED: SODIUM CHLORIDE 0.9% 1000ML 1,000 ML IV ONE ×2 (19:42→20:33)
[2022-04-13] MEDS ORDERED: METOPROLOL TARTRATE 50 MG TAB PO STA (20:33)
--- NOTE | 2022-04-13 21:18 | History & Physical Report ---
Date of Service April 13, 2022 Assessment & Plan (1) Severe sepsis: Plan: SIRS plus lactic acidosis Secondary to cholangitis hx periampullary tumor COVID-19 illness without respiratory symptoms hypertension, BP on the lower side hx paroxysmal atrial flutter on aspirin prophylaxis mild aortic stenosis/ascending thoracic aorta enlargement DM2 insulin requiring, reasonable control as of recent hemoglobin A1c of 7.2 last December 2021 chronic anemia, hemoglobin at baseline Medical telemetry CS, Zosyn Follow LFTs GI consult Re: Cholangitis N.p.o. until patient seen by GI in anticipation of procedural intervention COVID-19 precautions Decrease maintenance beta-george dose for now given borderline BP Basal bolus insulin adjusted for n.p.o. status, ISS BG goal 1 10-1 40 DVT prophylaxis per Lovenox subcu Full code Text document was generated using [employer] voice recognition software. It may contain grammatical or spelling errors. Kindly contact undersigned for clarification of any documentation item in question. History of Present Illness Chief Complaint: Shaking, weakness Primary Care Provider: Corrine Amor DO History obtained from patient, family, and records. 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 Last confinement June 2020 left parapneumonic effusion/empyema. Paroxysmal atrial flutter during confinement. Patient transferred to [facility]. Patient EGD deferred last October 2021 to positive preprocedural COVID-19 swab. Patient asymptomatic at time of test. Patient was at the [employer] today when he suddenly started shaking noted to be weak. Abdominal discomfort described as gas. No chest pain, no shortness of breath. No cough symptoms. Headache from being hungry as per patient. No recent COVID-19 contacts. Patient completed COVID-19 vaccination. Patient brought to the ER by . Zosyn administered for cholangitis on CT. 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 Allergies Allergy/AdvReac Type Severity Reaction Status Date / Time gluten Allergy Severe celiac's Verified 04/13/22 20:06 disease wheat Allergy Severe celiac's Verified 04/13/22 20:06 disease exenatide [From [facility]] AdvReac Mild Vomiting Verified 04/13/22 20:06 Home Medications Medication Instructions Recorded Confirmed Type cholecalciferol (vitamin D3) 50 50 mcg PO QAM 09/07/19 04/13/22 History mcg (2,000 unit) capsule naproxen 500 mg tablet 500 mg PO BID PRN Pain #180 tabs 01/19/20 04/13/22 Rx aspirin 81 mg tablet,delayed 81 mg PO QAM 07/16/20 04/13/22 History release (Adult Low Dose Aspirin) linagliptin 5 mg tablet (Tradjenta) 5 mg PO QAM 07/16/20 04/13/22 History blood glucose control, normal #1 ea 07/19/20 03/18/22 Rx (Easymax 15 Level 2 solution) blood-glucose meter #1 ea 07/19/20 03/18/22 Rx lancets 30 gauge (Twist Lancets) #300 ea 07/19/20 03/18/22 Rx metoprolol tartrate 50 mg tablet 50 mg PO BID #20 tabs 08/03/20 04/13/22 Rx sildenafil 50 mg tablet 50 mg PO DAILY PRN sexual activity 08/20/20 04/13/22 Rx #5 tabs pen needle, diabetic 31 gauge x #900 ea 12/11/20 03/18/22 Rx 5/16" (BD Ultra-Fine Short Pen Needle) pantoprazole 40 mg tablet,delayed 40 mg PO QAM #90 tabs 01/02/21 04/13/22 Rx release blood sugar diagnostic (EasyMax #300 ea 02/08/21 03/18/22 Rx strips) simvastatin 20 mg tablet 20 mg PO HS #90 tabs 04/15/21 04/13/22 Rx metformin 1,000 mg tablet 1,000 mg PO BID #180 tabs 05/16/21 04/13/22 Rx insulin glargine 100 unit/mL (3 18 unit subcut QAM 02/18/22 04/13/22 History mL) subcutaneous pen (Lantus Solostar U-100 Insulin) Past Med/Surg History Medical History (Updated 04/14/22 @ 08:08 by Robbi Abbott MD) Aortic valve stenosis Mild per 09/2021 echo Atrial flutter 06/2020 (per cardio consult, felt likely r/t response of acute illness- sepsis/PNA/parapneumonic effusion with respiratory failure) Broken ribs s/p fall 10/01/21, denies current issues Carotid artery stenosis <50% ICA stenosis Celiac disease biopsy proven on EGD CLL (chronic lymphocytic leukemia) History of COVID-19 10/2021- asymptomatic History of kidney stones Hx of skin cancer, basal cell BCC (nose)- removed Hyperlipidemia IDDM (insulin dependent diabetes mellitus) Freestyle yolie monitoring Malignant melanoma of skin Osteoarthritis Sleep apnea CPAP Surgical History History of cataract surgery R/L History of cholecystectomy History of colonoscopy History of esophagogastroduodenoscopy (EGD) History of herniorrhaphy Umbilical History of lithotripsy History of placement of chest tube 2020 ([facility]) d/t pleural effusion History of tonsillectomy History of tooth extraction Family History Brother Prostate cancer Family history of diabetes mellitus Father Family hx of colon cancer Family history of diabetes mellitus Other No family history of adverse response to anesthesia Denies family history of Ovarian cancer Myocardial infarction Breast cancer Lung cancer Colorectal cancer Social History Smoking Status: Never smoker Second Hand Exposure: No; Hx Alcohol Use: Yes Alcohol type: beer Hx Substance Use: No Preferred Language: Azeri Communication Ability: Effective Sugar Sampler Required: No Beliefs That Will Affect Care: None Current Living Situation: Spouse Feels Safe at Home: Yes Seatbelt Use: always Assistive Devices: Glasses Review of Systems Review of Systems: As per HPI, all other systems reviewed and negative Physical Exam Physical Exam: GENERAL: Slightly uncomfortable, pleasant, no respiratory distress SKIN: Pallor, warm HEENT: Partial alopecia, bespectacled, pale palpebral conjunctivae, no ptosis, dry buccal mucosa NECK : Supple, no tenderness CHEST : CTA, no tenderness HEART : Tachycardic, systolic murmur ABDOMEN: Some distention, minimal epigastric tenderness EXTREMITIES : No LE swelling/tenderness, no other conspicuous deformities noted NEUROLOGIC : Coherent, no facial asymmetry, no other gross focality Results & Data Results & Data ([facility]) Vital Signs (Past 12 Hours) Vital Signs Temp Pulse Pulse Resp BP BP Pulse Ox 04/13/22 20:00 119 H 21 95 04/13/22 20:00 175/81 H 04/13/22 19:30 96 H 19 97 04/13/22 19:30 160/80 H 04/13/22 19:08 103 H 20 96 04/13/22 19:08 140/79 04/13/22 19:06 102 H 25 H 04/13/22 18:30 99 H 21 95 04/13/22 18:30 105/63 04/13/22 18:02 109/70 04/13/22 18:02 106 H 26 H 94 04/13/22 18:00 107 H 15 04/13/22 17:30 109 H 22 04/13/22 17:30 123/77 04/13/22 17:04 109 H 25 H 04/13/22 18:05 105 H 20 109/70 94 04/13/22 16:41 36.8 C 92 H 20 176/87 H 98 O2 Del Method 04/13/22 20:00 04/13/22 20:00 04/13/22 19:30 04/13/22 19:30 04/13/22 19:08 04/13/22 19:08 04/13/22 19:06 04/13/22 18:30 04/13/22 18:30 04/13/22 18:02 04/13/22 18:02 04/13/22 18:00 04/13/22 17:30 04/13/22 17:30 04/13/22 17:04 04/13/22 18:05 Room Air 04/13/22 16:41 Room Air Laboratory Results Laboratory Results WBC 14.08 K/ul (4.8-10.8) H 04/13/22 17:25 RBC 4.36 M/uL (4.63-6.08) L 04/13/22 17:25 Hgb 12.4 g/dl (14.0-18.0) L 04/13/22 17:25 Hct 37.7 % (40.1-51.0) L 04/13/22 17:25 MCV 86.5 fL (80.0-100.0) 04/13/22 17:25 MCH 28.4 pg (25.0-34.0) 04/13/22 17:25 MCHC 32.9 g/dL (32.0-36.0) 04/13/22 17:25 RDW Std Deviation 45.1 fL (36.4-46.3) 04/13/22 17: RDW Coeff of [place] 14.2 % (11.5-14.5) 04/13/22 17: Plt Count 335 K/uL (130-400) 04/13/22 17:25 MPV 9.2 fL (9.4-12.4) L 04/13/22 17:25 Immature Gran % (Auto) 0.2 % 04/13/22 17:25 Neut % (Auto) 56.3 % 04/13/22 17:25 Lymph % (Auto) 42.3 % 04/13/22 17: [place] % (Auto) 0.9 % 04/13/22 17: Eos % (Auto) 0.2 % 04/13/22 17:25 Baso % (Auto) 0.1 % 04/13/22 17:25 Neut # (Auto) 7.92 K/uL (1.4-6.5) H 04/13/22 17:25 Lymph # (Auto) 5.95 K/uL (1.2-3.4) H 04/13/22 17:25 [place] # (Auto) 0.13 K/uL (0.24-0.82) L 04/13/22 17:25 Eos # (Auto) 0.03 K/uL (0-0.50) 04/13/22 17:25 Baso # (Auto) 0.02 K/uL (0-0.2) 04/13/22 17:25 Immature Gran # (Auto) 0.03 K/uL (0.00-0.02) H 04/13/22 17:25 Sodium 136 mmol/L (136-145) 04/13/22 17:25 Potassium 4.5 mmol/L (3.5-5.1) 04/13/22 18:15 Chloride 101 mmol/L (98-107) 04/13/22 17:25 Carbon Dioxide 25 mmol/L (21-32) 04/13/22 17:25 Anion Gap 10 (3-11) 04/13/22 17:25 BUN 23 mg/dl (6-23) 04/13/22 17:25 Creatinine 1.23 mg/dl (0.6-1.4) 04/13/22 17:25 Est Cr Clr Drug Dosing 46.8 ml/min 04/13/22 17:25 Est GFR ( Amer) 66.1 ml/min 04/13/22 17:25 Est GFR (Non-Af Amer) 57.1 ml/min 04/13/22 17:25 BUN/Creatinine Ratio 18.7 (10-20) 04/13/22 17:25 Glucose 196 mg/dl (70-99(Fasting)) H 04/13/22 17:25 POC Glucose 179 mg/dl (70-99) H 04/13/22 16:44 Lactate 2.0 mmol/L (0.4-2.0) 04/13/22 19:37 Calcium 8.9 mg/dl (8.5-10.1) 04/13/22 17:25 Magnesium 1.0 mg/dl (1.7-2.4) L 04/13/22 18:15 Total Bilirubin 1.6 mg/dl (0.2-1.0) H 04/13/22 17:25 AST 503 U/L (13-39) H 04/13/22 18:15 ALT 173 U/L (7-52) H 04/13/22 17:25 Alkaline Phosphatase 337 U/L (34-104) H 04/13/22 17:25 Troponin I High Sens 9.7 pg/ml (0-20) 04/13/22 17:25 Total Protein 6.8 gm/dl (6.0-8.3) 04/13/22 17:25 Albumin 3.6 gm/dl (3.4-5.0) 04/13/22 17:25 Globulin 3.2 gm/dl (2.5-4.0) 04/13/22 17:25 Albumin/Globulin Ratio 1.1 (0.9-2) 04/13/22 17:25 Procalcitonin 0.34 ng/ml (0-0.5) 04/13/22 17:25 Urine Color Dark Yellow 04/13/22 17:37 Urine Appearance Clear (Clear) 04/13/22 17:37 Urine pH 6.0 (4.5-7.5) 04/13/22 17:37 Ur Specific [place] 1.024 (1.000-1.030) 04/13/22 17:37 Urine Protein 1+ (Negative) H 04/13/22 17:37 Urine Glucose (UA) 2+ (Negative) H 04/13/22 17:37 Urine Ketones Trace (Negative) H 04/13/22 17:37 Urine Blood Negative (Negative) 04/13/22 17:37 Urine Nitrite Negative (Negative) 04/13/22 17:37 Urine Bilirubin Negative (Negative) 04/13/22 17:37 Urine Urobilinogen Negative (Negative) 04/13/22 17:37 Ur Leukocyte Esterase Negative (Negative) 04/13/22 17:37 Urine WBC (Auto) 0 /hpf (0-5) 04/13/22 17:37 Urine RBC (Auto) 0-4 /hpf (0-4) 04/13/22 17:37 U Hyaline Cast (Auto) 0 /lpf (0-5) 04/13/22 17:37 U Epithel Cells (Auto) 0-5 /lpf (0-5) 04/13/22 17:37 Urine Bacteria (Auto) Negative (Negative) 04/13/22 17:37 Anaplasma Smear See Comment 04/13/22 17:25 Lyme Disease IgG Ab Negative (Negative) 04/13/22 17:25 Lyme Disease IgM Ab Negative (Negative) 04/13/22 17:25 SARS-CoV-2 (PCR) POSITIVE (Negative) A* 04/13/22 17:38 Influenza Type A (PCR) Negative (Neg) 04/13/22 17:38 Influenza Type B (PCR) Negative (Neg) 04/13/22 17:38 RSV (RT-PCR) Negative (Neg) 04/13/22 17:38 Impressions Chest X-Ray 04/13/22 17:08 XR chest 1V portable HISTORY: rigors COMPARISON: Chest 10/01/2021. FINDINGS: Left basilar linear densities favor subsegmental atelectasis or scarring. Otherwise, the lungs are clear. The heart is normal in size. No pleural effusions. No pneumothorax. There are old, healed right-sided rib fractures. IMPRESSION: No acute process. ACT 112: Negative or not required by law. Electronically signed by: Myron Torres M.D. 04/13/2022 7:08 PM Abdomen/Pelvis CT 04/13/22 18:[address] WITH IV CONTRAST CT DOSE: 353.74 mGy.cm HISTORY: rigors, elev bili, transaminitis TECHNIQUE: Multiaxial CT images of the abdomen and pelvis were performed following the use of intravenous contrast. A dose lowering technique was utilized adhering to the principles of ALARA. COMPARISON STUDY: Abdomen and pelvis CT 06/23/2020. FINDINGS: Bibasilar linear densities consistent with subsegmental atelectasis or scarring. This has improved. No pneumoperitoneum. No pneumatosis. Bilateral L5 spondylolysis again noted. There are old, healed left-sided rib fractures. The heart is normal in size. Prior cholecystectomy. No hepatic or splenic masses. The main portal vein is patent. The pancreas, adrenal glands, and right kidney are unremarkable. There is a punctate stone within the left kidney. There is a 9 mm hypodense lesion within the left kidney which is too small to characterize but statistically represents a cyst. No ureteral stones. No hydronephrosis. Normal caliber abdominal aorta. No retroperitoneal or pelvic lymphadenopathy. The bladder is unremarkable. The prostate gland remains mildly enlarged. There is mild ileocolic lymphadenopathy. This is similar to the prior study. Mild intra and extra hepatic bile duct dilatation which has progressed in the interval. There is also mild enhancement and adjacent fat stranding at the common bile duct/common hepatic duct. Findings are concerning for an ascending cholangitis. The common bile duct measures up to 8 mm. Multiple jejunal diverticula. There are scattered colonic diverticula. No evidence for an acute diverticulitis. Moderate fecal retention again noted. No bowel wall thickening or obstruction. Normal appendix. IMPRESSION: 1. Mild intra and extra hepatic bile duct dilatation which has progressed in the interval. There is also mild enhancement and adjacent fat stranding at the common bile duct/common hepatic duct. Findings are concerning for an ascending cholangitis. GI consultation recommended. 2. Mild ileocolic lymphadenopathy. This is similar to the prior study. 3. Colonic and jejunal diverticulosis. No evidence for acute diverticulitis. 4. No bowel wall thickening or obstruction. 5. Left-sided nephrolithiasis. No hydronephrosis. 6. Additional findings as described above. ACT 112: Negative or not required by law. Electronically signed by: Myron Torres M.D. 04/13/2022 7:26 PM Diagnostic Findings EKG as per my interpretation :Rate 110, sinus tachycardia, normal axis, no ischemia, PVCs
[2022-04-13] MEDS: MAGNESIUM SULFATE / D5W 1 GM/100 ML BAG IV SCH (21:42)
[2022-04-13] MEDS ORDERED: ACETAMINOPHEN 500 MG TAB PO PRN (22:24)
[2022-04-14] MEDS ORDERED: GLUCOSE 10 TAB/TUBE PO PRN (00:12)
[2022-04-14] MEDS ORDERED: GLUCAGON FOR INJ 1 MG VIAL SQ PRN (00:12)
[2022-04-14] MEDS ORDERED: GLUCOSE 40% GEL 15 GM TUBE PO PRN (00:12)
[2022-04-14] MEDS ORDERED: CARBOHYDRATES FOR HYPOGLYCEMIA PO PRN (00:12)
[2022-04-14] MEDS ORDERED: traMADol HCL 50 MG TABLET PO PRN (00:12)
[2022-04-14] MEDS ORDERED: PROMETHAZINE HCL 12.5 MG in SODIUM CHLORIDE 0.9% 50 ML IV PRN (00:12)
[2022-04-14] MEDS ORDERED: DEXTROSE 50% 50 ML SYRINGE IV PRN (00:12)
[2022-04-14] MEDS: MAGNESIUM SULFATE / D5W 1 GM/100 ML BAG IV SCH ×3 (00:18→03:55)
[2022-04-14] MEDS: INSULIN ASPART PER UNIT SC SCH ×5 (01:38→21:19)
[2022-04-14] MEDS: PIPERACILLIN/TAZOBACTAM 3.375 GM in DEXTROSE 5% 100 ML IV SCH ×3 (01:42→16:59)
[2022-04-14 08:00] LABS: Basophils # (auto) 0.03 K/uL (0-0.2); Basophils % (auto) 0.3 %; Eosinophils # (auto) 0.05 K/uL (0-0.50); Eosinophils % (auto) 0.5 %; Hematocrit (blood only) 32.5 % (40.1-51.0); Hemoglobin 10.7 g/dl (14.0-18.0); Immature Granulocytes # (auto) 0.02 K/uL (0.00-0.02); Immature Granulocytes % (auto) 0.2 %; Lymphocytes % (auto) 49.2 %; Mean Corpuscular Hemoglobin 27.9 pg (25.0-34.0); Mean Corpuscular Hgb Conc 32.9 g/dL (32.0-36.0); Mean Corpuscular Volume 84.6 fL (80.0-100.0); Monocytes # (auto) 0.78 K/uL (0.24-0.82); Monocytes % (auto) 8.5 %; Neutrophils # (auto) 3.77 K/uL (1.4-6.5); Neutrophils % (auto) 41.3 %; Platelet Count 285 K/uL (130-400); RDW Coefficient of Variation 14.4 % (11.5-14.5); RDW Standard Deviation 44.1 fL (36.4-46.3); Red Blood Count 3.84 M/uL (4.63-6.08); White Blood Count 9.15 K/ul (4.8-10.8)
[2022-04-14] MEDS: METOPROLOL TARTRATE 25 MG TAB PO SCH ×2 (08:18→21:24)
--- NOTE | 2022-04-14 08:23 | Gastrointestinal Consultation ---
Date of Consultation April 14, 2022 Assessment & Plan (1) Severe sepsis: (2) Cholangitis: (3) COVID-19: (4) Elevated LFTs: Plan This a 76-year-old male who underwent ERCP last month with resection of a benign appearing biliary lesion, admitted with labs and concerning for sepsis, question cholangitis, with elevated LFTs, WBC, lactate LFTs are tending down, WBC and lactate have normalized; blood cultures are positive for gram-negative bacilli. Today he is feeling better though he is having some low normal blood pressure today. On exam, abd soft, nontender. - We will plan for ERCP tomorrow to evaluate his biliary tree for obstructive/infectious etiology - Diet as tolerated today; NPO after midnight - Hold Lovenox prior to procedure - IV ABX as per primary team - Continue supportive care including IVF - Further recommendations to follow procedure Thank you for allowing us to participate in the care of this patient. Please call with any acute changes, questions or concerns. Please see addendum below with additional recommendation from my supervising physician. Supervising Physician Co-Signing Physician Notes I performed a history and physical examination of the patient today, including specifically on physical exam - soft abdomen. I have discussed the patient's management with the advanced practitioner. Please refer to the nurse practitioner's note for the documented findings and plan of care. Possibly post ampullectomy stenosis, ERCP tomorrow. History of Present Illness Reason for Consultation: abnormal LFTS Requesting Physician: Dr. Abbott Attending Physician: Ashli Orellana MD History of Present Illness This is a 76 y/o male with PMhx HTN PAFlutter, mild , T2DM, insulin requiring, chronic anemia (baseline hemoglobin 12), who recently had EGD for dysphagia in February; found to have periampullary lesion; had subsequent ERCP in March with resection of this lesion (large juvenile polyp). He was shopping yesterday when he had the sudden onset of chills/rigors and could not get warm. He was taken to the ER and upon arrival found to be COVID positive, with elevated lactate, WBC, elevated LFTs, tbili of 1.6. Imaging including CTAP w/ biliary duct dilation with stranding at the CBD, ? a cholangitis. Concern was for sepsis/cholangitis. Pt started on IV ABX and IVF. CXR nonacute; he's asymptomatic from COVID; satting well on room air. Today has had some low normal BP. LFTs trending down but still elevated. WBC and lactate normalized. BC showing gram negative bacilli. He states he feels totally fine at present; asking for food and to even to go home. He had a BM today; states it was "normal." Making good urine. Denies abd pain, jaundice, icterus, n/v, hematemesis, hematochezia, melena, fever, further chills/rigors, dysphagia, syncope, dizziness, CP, SOB, dark urine or hidalgo stools. Takes baby ASA at home (is getting Lovenox here). Allergies Allergy/AdvReac Type Severity Reaction Status Date / Time gluten Allergy Severe celiac's Verified 04/13/22 20:06 disease wheat Allergy Severe celiac's Verified 04/13/22 20:06 disease exenatide [From Procurify] AdvReac Mild Vomiting Verified 04/13/22 20:06 Home Medications Medication Instructions Recorded Confirmed Type cholecalciferol (vitamin D3) 50 50 mcg PO QAM 09/07/19 04/13/22 History mcg (2,000 unit) capsule naproxen 500 mg tablet 500 mg PO BID PRN Pain #180 tabs 01/19/20 04/13/22 Rx aspirin 81 mg tablet,delayed 81 mg PO QAM 07/16/20 04/13/22 History release (Adult Low Dose Aspirin) linagliptin 5 mg tablet (Tradjenta) 5 mg PO QAM 07/16/20 04/13/22 History blood glucose control, normal #1 ea 07/19/20 03/18/22 Rx (Easymax 15 Level 2 solution) blood-glucose meter #1 ea 07/19/20 03/18/22 Rx lancets 30 gauge (Twist Lancets) #300 ea 07/19/20 03/18/22 Rx metoprolol tartrate 50 mg tablet 50 mg PO BID #20 tabs 08/03/20 04/13/22 Rx sildenafil 50 mg tablet 50 mg PO DAILY PRN sexual activity 08/20/20 04/13/22 Rx #5 tabs pen needle, diabetic 31 gauge x #900 ea 12/11/20 03/18/22 Rx 5/16" (BD Ultra-Fine Short Pen Needle) pantoprazole 40 mg tablet,delayed 40 mg PO QAM #90 tabs 01/02/21 04/13/22 Rx release blood sugar diagnostic (EasyMax #300 ea 02/08/21 03/18/22 Rx strips) simvastatin 20 mg tablet 20 mg PO HS #90 tabs 04/15/21 04/13/22 Rx metformin 1,000 mg tablet 1,000 mg PO BID #180 tabs 05/16/21 04/13/22 Rx insulin glargine 100 unit/mL (3 18 unit subcut QAM 02/18/22 04/13/22 History mL) subcutaneous pen (Lantus Solostar U-100 Insulin) Patient History Medical History (Updated 04/14/22 @ 12:06 by Serena Plasencia PA-C) Aortic valve stenosis Mild per 09/2021 echo Atrial flutter 06/2020 (per cardio consult, felt likely r/t response of acute illness- sepsis/PNA/parapneumonic effusion with respiratory failure) Broken ribs s/p fall 10/01/21, denies current issues Carotid artery stenosis <50% ICA stenosis Celiac disease biopsy proven on EGD CLL (chronic lymphocytic leukemia) History of COVID-19 10/2021- asymptomatic History of kidney stones Hx of skin cancer, basal cell BCC (nose)- removed Hyperlipidemia IDDM (insulin dependent diabetes mellitus) Freestyle yolie monitoring Malignant melanoma of skin Osteoarthritis Sleep apnea CPAP Surgical History History of cataract surgery R/L History of cholecystectomy History of colonoscopy History of esophagogastroduodenoscopy (EGD) History of herniorrhaphy Umbilical History of lithotripsy History of placement of chest tube 2020 ([facility]) d/t pleural effusion History of tonsillectomy History of tooth extraction Family History Brother Prostate cancer Family history of diabetes mellitus Father Family hx of colon cancer Family history of diabetes mellitus Other No family history of adverse response to anesthesia Denies family history of Ovarian cancer Myocardial infarction Breast cancer Lung cancer Colorectal cancer Social History Smoking Status: Never smoker Second Hand Exposure: No; Hx Alcohol Use: Yes Alcohol type: beer Hx Substance Use: No Preferred Language: Hungarian Communication Ability: Effective Ceo And Founder Required: No Beliefs That Will Affect Care: None Current Living Situation: Spouse Feels Safe at Home: Yes Seatbelt Use: always Assistive Devices: None Review of Systems Review of Systems: All systems reviewed & are unremarkable except as noted in HPI & below Physical Exam Constitutional: WD/WN, vitals as above Eyes: PERRL, conjunctivae normal, anicteric sclerae ENMT: external ear and nose normal, oropharynx normal Respiratory: normal respiratory effort, lungs clear to auscultation Cardiovascular: Rate/Rhythm: regular rate and regular rhythm Gastrointestinal (Abdomen): normal bowel sounds, soft, nontender, no hepatosplenomegaly Skin: no rashes, warm and dry Psychiatric: A+Ox3, euthymic affect Results & Data ([facility]) Vital Signs (Past 12 Hours) Vital Signs Temp Pulse Pulse Resp BP BP Pulse Ox 04/14/22 03:40 36.3 C L 67 16 100/55 L 97 04/14/22 00:27 79 04/14/22 00:05 36.6 C 74 14 86/47 L 95 04/14/22 00:05 04/13/22 23:30 75 19 94 04/13/22 23:30 104/57 L 04/13/22 23:00 83 20 94 04/13/22 23:00 101/58 L 04/13/22 22:30 84 19 96 04/13/22 22:30 99/59 L 04/13/22 22:00 93 H 21 94 04/13/22 22:00 95/58 L 04/13/22 21:30 100 H 22 94 04/13/22 21:30 99/62 L 04/13/22 21:00 111 H 24 93 04/13/22 21:00 111/66 04/13/22 20:30 111 H 25 H 94 04/13/22 20:30 117/78 Pulse Ox O2 Del Method O2 Del Method 04/14/22 03:40 Room Air 04/14/22 00:27 04/14/22 00:05 04/14/22 00:05 95 Room Air 04/13/22 23:30 04/13/22 23:30 04/13/22 23:00 04/13/22 23:00 04/13/22 22:30 04/13/22 22:30 04/13/22 22:00 04/13/22 22:00 04/13/22 21:30 04/13/22 21:30 04/13/22 21:00 04/13/22 21:00 04/13/22 20:30 04/13/22 20:30 Laboratory Results 04/14/22 04/14/22 04/14/22 Range/Units 07:22 07:22 05:49 WBC 9.15 (4.8-10.8) K/ul RBC 3.84 L (4.63-6.08) M/uL Hgb 10.7 L (14.0-18.0) g/dl Hct 32.5 L (40.1-51.0) % MCV 84.6 (80.0-100.0) fL MCH 27.9 (25.0-34.0) pg MCHC 32.9 (32.0-36.0) g/dL RDW Std Deviation 44.1 (36.4-46.3) fL RDW Coeff of [place] 14.4 (11.5-14.5) % Plt Count 285 (130-400) K/uL MPV 9.0 L (9.4-12.4) fL Immature Gran % (Auto) 0.2 % Neut % (Auto) 41.3 % Lymph % (Auto) 49.2 % [place] % (Auto) 8.5 % Eos % (Auto) 0.5 % Baso % (Auto) 0.3 % Neut # (Auto) 3.77 (1.4-6.5) K/uL Lymph # (Auto) 4.50 H (1.2-3.4) K/uL [place] # (Auto) 0.78 (0.24-0.82) K/uL Eos # (Auto) 0.05 (0-0.50) K/uL Baso # (Auto) 0.03 (0-0.2) K/uL Immature Gran # (Auto) 0.02 (0.00-0.02) K/uL Sodium 137 (136-145) mmol/L Potassium 4.3 Chloride 108 H (98-107) mmol/L Carbon Dioxide 27 (21-32) mmol/L Anion Gap 2 L (3-11) BUN 17 (6-23) mg/dl Creatinine 1.04 (0.6-1.4) mg/dl Est Cr Clr Drug Dosing 55.4 ml/min Est GFR ( Amer) 81.0 ml/min Est GFR (Non-Af Amer) 69.9 ml/min BUN/Creatinine Ratio 16.3 (10-20) Glucose 134 H (70-99(Fasting)) mg/dl POC Glucose 145 H (70-99) mg/dl Lactate (0.4-2.0) mmol/L Calcium 8.0 L (8.5-10.1) mg/dl Magnesium 2.1 (1.7-2.4) mg/dl Total Bilirubin 1.4 H (0.2-1.0) mg/dl AST 207 H ALT 182 H (7-52) U/L Alkaline Phosphatase 244 H (34-104) U/L Troponin I High Sens (0-20) pg/ml Total Protein 5.5 L (6.0-8.3) gm/dl Albumin 2.9 L (3.4-5.0) gm/dl Globulin 2.6 (2.5-4.0) gm/dl Albumin/Globulin Ratio 1.1 (0.9-2) Procalcitonin (0-0.5) ng/ml Urine Color Urine Appearance (Clear) Urine pH (4.5-7.5) Ur Specific [place] (1.000-1.030) Urine Protein (Negative) Urine Glucose (UA) (Negative) Urine Ketones (Negative) Urine Blood (Negative) Urine Nitrite (Negative) Urine Bilirubin (Negative) Urine Urobilinogen (Negative) Ur Leukocyte Esterase (Negative) Urine WBC (Auto) (0-5) /hpf Urine RBC (Auto) (0-4) /hpf U Hyaline Cast (Auto) (0-5) /lpf U Epithel Cells (Auto) (0-5) /lpf Urine Bacteria (Auto) (Negative) Anaplasma Smear Lyme Disease IgG Ab (Negative) Lyme Disease IgM Ab (Negative) SARS-CoV-2 (PCR) (Negative) Enterobacterales (PCR) (NotDetected) E. coli (PCR) (NotDetected) Influenza Type A (PCR) (Neg) Influenza Type B (PCR) (Neg) RSV (RT-PCR) (Neg) mcr-1 Colistin Res Gene PCR (NotDetected) blaIMP Car res Gene PCR (NotDetected) KPC-Carbap Res Gene PCR (NotDetected) blaNDM Car Res Gene PCR (NotDetected) OXA-48 Carbapenem Resis Gene (PCR) (NotDetected) blaVIM Car Res Gene PCR (NotDetected) CTX-M Gene Resistance (PCR) (NotDetected) Bld Cult ID Panel PCR (NotDetected) 04/14/22 04/13/22 04/13/22 Range/Units 01:09 19:37 18:15 WBC (4.8-10.8) K/ul RBC (4.63-6.08) M/uL Hgb (14.0-18.0) g/dl Hct (40.1-51.0) % MCV (80.0-100.0) fL MCH (25.0-34.0) pg MCHC (32.0-36.0) g/dL RDW Std Deviation (36.4-46.3) fL RDW Coeff of [place] (11.5-14.5) % Plt Count (130-400) K/uL MPV (9.4-12.4) fL Immature Gran % (Auto) % Neut % (Auto) % Lymph % (Auto) % [place] % (Auto) % Eos % (Auto) % Baso % (Auto) % Neut # (Auto) (1.4-6.5) K/uL Lymph # (Auto) (1.2-3.4) K/uL [place] # (Auto) (0.24-0.82) K/uL Eos # (Auto) (0-0.50) K/uL Baso # (Auto) (0-0.2) K/uL Immature Gran # (Auto) (0.00-0.02) K/uL Sodium (136-145) mmol/L Potassium Chloride (98-107) mmol/L Carbon Dioxide (21-32) mmol/L Anion Gap (3-11) BUN (6-23) mg/dl Creatinine (0.6-1.4) mg/dl Est Cr Clr Drug Dosing ml/min Est GFR ( Amer) ml/min Est GFR (Non-Af Amer) ml/min BUN/Creatinine Ratio (10-20) Glucose (70-99(Fasting)) mg/dl POC Glucose 219 H (70-99) mg/dl Lactate 2.0 (0.4-2.0) mmol/L Calcium (8.5-10.1) mg/dl Magnesium 1.0 L (1.7-2.4) mg/dl Total Bilirubin (0.2-1.0) mg/dl AST ALT (7-52) U/L Alkaline Phosphatase (34-104) U/L Troponin I High Sens (0-20) pg/ml Total Protein (6.0-8.3) gm/dl Albumin (3.4-5.0) gm/dl Globulin (2.5-4.0) gm/dl Albumin/Globulin Ratio (0.9-2) Procalcitonin (0-0.5) ng/ml Urine Color Urine Appearance (Clear) Urine pH (4.5-7.5) Ur Specific [place] (1.000-1.030) Urine Protein (Negative) Urine Glucose (UA) (Negative) Urine Ketones (Negative) Urine Blood (Negative) Urine Nitrite (Negative) Urine Bilirubin (Negative) Urine Urobilinogen (Negative) Ur Leukocyte Esterase (Negative) Urine WBC (Auto) (0-5) /hpf Urine RBC (Auto) (0-4) /hpf U Hyaline Cast (Auto) (0-5) /lpf U Epithel Cells (Auto) (0-5) /lpf Urine Bacteria (Auto) (Negative) Anaplasma Smear Lyme Disease IgG Ab (Negative) Lyme Disease IgM Ab (Negative) SARS-CoV-2 (PCR) (Negative) Enterobacterales (PCR) (NotDetected) E. coli (PCR) (NotDetected) Influenza Type A (PCR) (Neg) Influenza Type B (PCR) (Neg) RSV (RT-PCR) (Neg) mcr-1 Colistin Res Gene PCR (NotDetected) blaIMP Car res Gene PCR (NotDetected) KPC-Carbap Res Gene PCR (NotDetected) blaNDM Car Res Gene PCR (NotDetected) OXA-48 Carbapenem Resis Gene (PCR) (NotDetected) blaVIM Car Res Gene PCR (NotDetected) CTX-M Gene Resistance (PCR) (NotDetected) Bld Cult ID Panel PCR (NotDetected) 04/13/22 04/13/22 04/13/22 Range/Units 18:15 17:38 17:37 WBC (4.8-10.8) K/ul RBC (4.63-6.08) M/uL Hgb (14.0-18.0) g/dl Hct (40.1-51.0) % MCV (80.0-100.0) fL MCH (25.0-34.0) pg MCHC (32.0-36.0) g/dL RDW Std Deviation (36.4-46.3) fL RDW Coeff of [place] (11.5-14.5) % Plt Count (130-400) K/uL MPV (9.4-12.4) fL Immature Gran % (Auto) % Neut % (Auto) % Lymph % (Auto) % [place] % (Auto) % Eos % (Auto) % Baso % (Auto) % Neut # (Auto) (1.4-6.5) K/uL Lymph # (Auto) (1.2-3.4) K/uL [place] # (Auto) (0.24-0.82) K/uL Eos # (Auto) (0-0.50) K/uL Baso # (Auto) (0-0.2) K/uL Immature Gran # (Auto) (0.00-0.02) K/uL Sodium (136-145) mmol/L Potassium 4.5 Chloride (98-107) mmol/L Carbon Dioxide (21-32) mmol/L Anion Gap (3-11) BUN (6-23) mg/dl Creatinine (0.6-1.4) mg/dl Est Cr Clr Drug Dosing ml/min Est GFR ( Amer) ml/min Est GFR (Non-Af Amer) ml/min BUN/Creatinine Ratio (10-20) Glucose (70-99(Fasting)) mg/dl POC Glucose (70-99) mg/dl Lactate (0.4-2.0) mmol/L Calcium (8.5-10.1) mg/dl Magnesium (1.7-2.4) mg/dl Total Bilirubin (0.2-1.0) mg/dl AST 503 H ALT (7-52) U/L Alkaline Phosphatase (34-104) U/L Troponin I High Sens (0-20) pg/ml Total Protein (6.0-8.3) gm/dl Albumin (3.4-5.0) gm/dl Globulin (2.5-4.0) gm/dl Albumin/Globulin Ratio (0.9-2) Procalcitonin (0-0.5) ng/ml Urine Color Dark Yellow Urine Appearance Clear (Clear) Urine pH 6.0 (4.5-7.5) Ur Specific [place] 1.024 (1.000-1.030) Urine Protein 1+ H (Negative) Urine Glucose (UA) 2+ H (Negative) Urine Ketones Trace H (Negative) Urine Blood Negative (Negative) Urine Nitrite Negative (Negative) Urine Bilirubin Negative (Negative) Urine Urobilinogen Negative (Negative) Ur Leukocyte Esterase Negative (Negative) Urine WBC (Auto) 0 (0-5) /hpf Urine RBC (Auto) 0-4 (0-4) /hpf U Hyaline Cast (Auto) 0 (0-5) /lpf U Epithel Cells (Auto) 0-5 (0-5) /lpf Urine Bacteria (Auto) Negative (Negative) Anaplasma Smear Lyme Disease IgG Ab (Negative) Lyme Disease IgM Ab (Negative) SARS-CoV-2 (PCR) POSITIVE A* (Negative) Enterobacterales (PCR) (NotDetected) E. coli (PCR) (NotDetected) Influenza Type A (PCR) Negative (Neg) Influenza Type B (PCR) Negative (Neg) RSV (RT-PCR) Negative (Neg) mcr-1 Colistin Res Gene PCR (NotDetected) blaIMP Car res Gene PCR (NotDetected) KPC-Carbap Res Gene PCR (NotDetected) blaNDM Car Res Gene PCR (NotDetected) OXA-48 Carbapenem Resis Gene (PCR) (NotDetected) blaVIM Car Res Gene PCR (NotDetected) CTX-M Gene Resistance (PCR) (NotDetected) Bld Cult ID Panel PCR (NotDetected) 04/13/22 04/13/22 04/13/22 Range/Units 17:25 17:25 17:25 WBC (4.8-10.8) K/ul RBC (4.63-6.08) M/uL Hgb (14.0-18.0) g/dl Hct (40.1-51.0) % MCV (80.0-100.0) fL MCH (25.0-34.0) pg MCHC (32.0-36.0) g/dL RDW Std Deviation (36.4-46.3) fL RDW Coeff of [place] (11.5-14.5) % Plt Count (130-400) K/uL MPV (9.4-12.4) fL Immature Gran % (Auto) % Neut % (Auto) % Lymph % (Auto) % [place] % (Auto) % Eos % (Auto) % Baso % (Auto) % Neut # (Auto) (1.4-6.5) K/uL Lymph # (Auto) (1.2-3.4) K/uL [place] # (Auto) (0.24-0.82) K/uL Eos # (Auto) (0-0.50) K/uL Baso # (Auto) (0-0.2) K/uL Immature Gran # (Auto) (0.00-0.02) K/uL Sodium (136-145) mmol/L Potassium Chloride (98-107) mmol/L Carbon Dioxide (21-32) mmol/L Anion Gap (3-11) BUN (6-23) mg/dl Creatinine (0.6-1.4) mg/dl Est Cr Clr Drug Dosing ml/min Est GFR ( Amer) ml/min Est GFR (Non-Af Amer) ml/min BUN/Creatinine Ratio (10-20) Glucose (70-99(Fasting)) mg/dl POC Glucose (70-99) mg/dl Lactate 2.9 H* (0.4-2.0) mmol/L Calcium (8.5-10.1) mg/dl Magnesium (1.7-2.4) mg/dl Total Bilirubin (0.2-1.0) mg/dl AST ALT (7-52) U/L Alkaline Phosphatase (34-104) U/L Troponin I High Sens (0-20) pg/ml Total Protein (6.0-8.3) gm/dl Albumin (3.4-5.0) gm/dl Globulin (2.5-4.0) gm/dl Albumin/Globulin Ratio (0.9-2) Procalcitonin 0.34 (0-0.5) ng/ml Urine Color Urine Appearance (Clear) Urine pH (4.5-7.5) Ur Specific [place] (1.000-1.030) Urine Protein (Negative) Urine Glucose (UA) (Negative) Urine Ketones (Negative) Urine Blood (Negative) Urine Nitrite (Negative) Urine Bilirubin (Negative) Urine Urobilinogen (Negative) Ur Leukocyte Esterase (Negative) Urine WBC (Auto) (0-5) /hpf Urine RBC (Auto) (0-4) /hpf U Hyaline Cast (Auto) (0-5) /lpf U Epithel Cells (Auto) (0-5) /lpf Urine Bacteria (Auto) (Negative) Anaplasma Smear Lyme Disease IgG Ab Negative (Negative) Lyme Disease IgM Ab Negative (Negative) SARS-CoV-2 (PCR) (Negative) Enterobacterales (PCR) DETECTED A (NotDetected) E. coli (PCR) DETECTED A (NotDetected) Influenza Type A (PCR) (Neg) Influenza Type B (PCR) (Neg) RSV (RT-PCR) (Neg) mcr-1 Colistin Res Gene PCR Not Detected (NotDetected) blaIMP Car res Gene PCR Not Detected (NotDetected) KPC-Carbap Res Gene PCR Not Detected (NotDetected) blaNDM Car Res Gene PCR Not Detected (NotDetected) OXA-48 Carbapenem Resis Gene (PCR) Not Detected (NotDetected) blaVIM Car Res Gene PCR Not Detected (NotDetected) CTX-M Gene Resistance (PCR) Not Detected (NotDetected) Bld Cult ID Panel PCR See PCR Comment (NotDetected) 04/13/22 04/13/22 04/13/22 Range/Units 17:25 17:25 16:44 WBC 14.08 H (4.8-10.8) K/ul RBC 4.36 L (4.63-6.08) M/uL Hgb 12.4 L (14.0-18.0) g/dl Hct 37.7 L (40.1-51.0) % MCV 86.5 (80.0-100.0) fL MCH 28.4 (25.0-34.0) pg MCHC 32.9 (32.0-36.0) g/dL RDW Std Deviation 45.1 (36.4-46.3) fL RDW Coeff of [place] 14.2 (11.5-14.5) % Plt Count 335 (130-400) K/uL MPV 9.2 L (9.4-12.4) fL Immature Gran % (Auto) 0.2 % Neut % (Auto) 56.3 % Lymph % (Auto) 42.3 % [place] % (Auto) 0.9 % Eos % (Auto) 0.2 % Baso % (Auto) 0.1 % Neut # (Auto) 7.92 H (1.4-6.5) K/uL Lymph # (Auto) 5.95 H (1.2-3.4) K/uL [place] # (Auto) 0.13 L (0.24-0.82) K/uL Eos # (Auto) 0.03 (0-0.50) K/uL Baso # (Auto) 0.02 (0-0.2) K/uL Immature Gran # (Auto) 0.03 H (0.00-0.02) K/uL Sodium 136 (136-145) mmol/L Potassium TNP Chloride 101 (98-107) mmol/L Carbon Dioxide 25 (21-32) mmol/L Anion Gap 10 (3-11) BUN 23 (6-23) mg/dl Creatinine 1.23 (0.6-1.4) mg/dl Est Cr Clr Drug Dosing 46.8 ml/min Est GFR ( Amer) 66.1 ml/min Est GFR (Non-Af Amer) 57.1 ml/min BUN/Creatinine Ratio 18.7 (10-20) Glucose 196 H (70-99(Fasting)) mg/dl POC Glucose 179 H (70-99) mg/dl Lactate (0.4-2.0) mmol/L Calcium 8.9 (8.5-10.1) mg/dl Magnesium (1.7-2.4) mg/dl Total Bilirubin 1.6 H (0.2-1.0) mg/dl AST TNP ALT 173 H (7-52) U/L Alkaline Phosphatase 337 H (34-104) U/L Troponin I High Sens 9.7 (0-20) pg/ml Total Protein 6.8 (6.0-8.3) gm/dl Albumin 3.6 (3.4-5.0) gm/dl Globulin 3.2 (2.5-4.0) gm/dl Albumin/Globulin Ratio 1.1 (0.9-2) Procalcitonin (0-0.5) ng/ml Urine Color Urine Appearance (Clear) Urine pH (4.5-7.5) Ur Specific [place] (1.000-1.030) Urine Protein (Negative) Urine Glucose (UA) (Negative) Urine Ketones (Negative) Urine Blood (Negative) Urine Nitrite (Negative) Urine Bilirubin (Negative) Urine Urobilinogen (Negative) Ur Leukocyte Esterase (Negative) Urine WBC (Auto) (0-5) /hpf Urine RBC (Auto) (0-4) /hpf U Hyaline Cast (Auto) (0-5) /lpf U Epithel Cells (Auto) (0-5) /lpf Urine Bacteria (Auto) (Negative) Anaplasma Smear See Comment Lyme Disease IgG Ab (Negative) Lyme Disease IgM Ab (Negative) SARS-CoV-2 (PCR) (Negative) Enterobacterales (PCR) (NotDetected) E. coli (PCR) (NotDetected) Influenza Type A (PCR) (Neg) Influenza Type B (PCR) (Neg) RSV (RT-PCR) (Neg) mcr-1 Colistin Res Gene PCR (NotDetected) blaIMP Car res Gene PCR (NotDetected) KPC-Carbap Res Gene PCR (NotDetected) blaNDM Car Res Gene PCR (NotDetected) OXA-48 Carbapenem Resis Gene (PCR) (NotDetected) blaVIM Car Res Gene PCR (NotDetected) CTX-M Gene Resistance (PCR) (NotDetected) Bld Cult ID Panel PCR (NotDetected) Diagnostic Findings CTAP: FINDINGS: Bibasilar linear densities consistent with subsegmental atelectasis or scarring. This has improved. No pneumoperitoneum. No pneumatosis. Bilateral L5 spondylolysis again noted. There are old, healed left-sided rib fractures. The heart is normal in size. Prior cholecystectomy. No hepatic or splenic masses. The main portal vein is patent. The pancreas, adrenal glands, and right kidney are unremarkable. There is a punctate stone within the left kidney. There is a 9 mm hypodense lesion within the left kidney which is too small to characterize but statistically represents a cyst. No ureteral stones. No hydronephrosis. Normal caliber abdominal aorta. No retroperitoneal or pelvic lymphadenopathy. The bladder is unremarkable. The prostate gland remains mildly enlarged. There is mild ileocolic lymphadenopathy. This is similar to the prior study. Mild intra and extra hepatic bile duct dilatation which has progressed in the interval. There is also mild enhancement and adjacent fat stranding at the common bile duct/common hepatic duct. Findings are concerning for an ascending cholangitis. The common bile duct measures up to 8 mm. Multiple jejunal diverticula. There are scattered colonic diverticula. No evidence for an acute diverticulitis. Moderate fecal retention again noted. No bowel wall thickening or obstruction. Normal appendix. IMPRESSION: 1. Mild intra and extra hepatic bile duct dilatation which has progressed in the interval. There is also mild enhancement and adjacent fat stranding at the common bile duct/common hepatic duct. Findings are concerning for an ascending cholangitis. GI consultation recommended. 2. Mild ileocolic lymphadenopathy. This is similar to the prior study. 3. Colonic and jejunal diverticulosis. No evidence for acute diverticulitis. 4. No bowel wall thickening or obstruction. 5. Left-sided nephrolithiasis. No hydronephrosis. 6. Additional findings as described above. CXR: FINDINGS: Left basilar linear densities favor subsegmental atelectasis or scarring. Otherwise, the lungs are clear. The heart is normal in size. No pleural effusions. No pneumothorax. There are old, healed right-sided rib fractures. IMPRESSION: No acute process.
[2022-04-14 08:26] LABS: Albumin Globulin Ratio 1.1 (0.9-2); Albumin Level 2.9 gm/dl (3.4-5.0); BUN Creatinine Ratio 16.3 (10-20); Bilirubin,Total 1.4 mg/dl (0.2-1.0); Creatinine Clr Calc Pharmacy 55.4 ml/min; Est GFR (Non-African American) 69.9 ml/min; Globulin 2.6 gm/dl (2.5-4.0); Magnesium 2.1 mg/dl (1.7-2.4); Potassium 4.3 mmol/L (3.5-5.1); Total Protein 5.5 gm/dl (6.0-8.3)
[2022-04-14] MEDS: SODIUM CHLORIDE 0.9% 1000ML 1,000 ML IV SCH ×2 (08:26→21:24)
[2022-04-14] MEDS: PANTOprazole 40 MG TAB PO SCH (08:26)
[2022-04-14] MEDS ORDERED: METOPROLOL TARTRATE 25 MG TAB PO SCH (09:00)
[2022-04-14] MEDS ORDERED: ENOXAPARIN INJ 40 MG/0.4 ML SYR SQ SCH (09:00)
[2022-04-14] MEDS ORDERED: METOPROLOL TARTRATE 50 MG TAB PO SCH (09:00)
[2022-04-14 09:11] LABS: A calco-baum cmplx NotReported Not Detected (NotDetected); Bact fragilis Not Reported Not Detected (NotDetected); C auris Not Reported Not Detected (NotDetected); CTX-M Resistant Gene Not Detected (NotDetected); Calbicans Not Reported Not Detected (NotDetected); Candida glabrata Not Reported Not Detected (NotDetected); Candida krusei Not Reported Not Detected (NotDetected); Cneoformans/gatti Not Reported Not Detected (NotDetected); Cparapsilosis Not Reported Not Detected (NotDetected); Ctropicalis Not Reported Not Detected (NotDetected); E cloacae compx Not Reported Not Detected (NotDetected); Efaecalis Not Reported Not Detected (NotDetected); Efaecium Not Reported Not Detected (NotDetected); Enterobacterales DETECTED (NotDetected); Enterobacterales Not Reported DETECTED (NotDetected); Escherichia coli Not Reported DETECTED (NotDetected); H influenzae Not Reported Not Detected (NotDetected); IMP Resistant Gene Not Detected (NotDetected); K aerogenes Not Reported Not Detected (NotDetected); KPC Resistant Gene Not Detected (NotDetected); Koxytoca Not Reported Not Detected (NotDetected); Kpneumoniae grp Not Reported Not Detected (NotDetected); Lmonocyt Not Reported Not Detected (NotDetected); N meningitidis Not Reported Not Detected (NotDetected); NDM Resistant Gene Not Detected (NotDetected); OXA 48 Like Resistant Gene Not Detected (NotDetected); P aeruginosa Not Reported Not Detected (NotDetected); Proteus spp Not Reported Not Detected (NotDetected); Salmonella spp Not Reported Not Detected (NotDetected); Smarcescens Not Reported Not Detected (NotDetected); Staph lugdunensis Not Reported Not Detected (NotDetected); Staph spp. Not Reported Not Detected (NotDetected); Staphaureus Not Reported Not Detected (NotDetected); Staphepi Not Reported Not Detected (NotDetected); Stenmaltophilia Not Reported Not Detected (NotDetected); Strep agal(GrpB) Not Reported Not Detected (NotDetected); Strep pneum Not Reported Not Detected (NotDetected); Strep pyog (GrpA) Not Reported Not Detected (NotDetected); Strep spp Not Reported Not Detected (NotDetected); VIM Resistant Gene Not Detected (NotDetected); mcr-1 Colistin Resistant Gene Not Detected (NotDetected)
--- NOTE | 2022-04-14 13:57 | Hospitalist Progress Note ---
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 Patient completed COVID-19 vaccination. He is being managed for the following: Severe sepsis POA: SIRS positive at presentation, lactic acidosis at presentation. Cholangitis Patient presented with abdominal discomfort and shaking [see above] At admission WBC elevated, lactic acid elevated Admitting CTAP: Findings concerning for an ascending cholangitis. Admitting blood culture: Gram-negative bacilli, follow final results Repeat blood culture 04/14 evening. Patient started on Zosyn 04/13, continue with same, ID consult Discussed with GI, likely ERCP tomorrow, n.p.o. midnight Patient with no pain, no nausea or vomiting, on diet until midnight today. Follow labs in AM. COVID-19 infection: Asymptomatic, patient vaccinated, admitting CXR with no acute process, continue to monitor. Isolation. Incentive spirometer. Other chronic medical conditions: HTN, paroxysmal a flutter on aspirin, mild aortic stenosis/ascending thoracic aorta enlargement, DM 2 insulin requiring, chronic anemia -->> continue home meds as able. DVT prophylaxis: Lovenox subcu, hold breanne AM for ERCP. Full code Admission and Anticipated Discharge Date Admission Date: April 13, 2022 Subjective Patient seen and examined at bedside as a follow-up of severe sepsis secondary to cholangitis on the background of history of periampullary tumor, COVID-19 illness without respiratory symptoms, gram-negative bacteremia. Patient was lying in bed, on room air, NAD, reports feeling better, denies any abdominal pain, was n.p.o. but after GI evaluation we will be starting him on diet, n.p.o. midnight for possible ERCP tomorrow, discussed with GI, denies any fever/chills/headache/chest pain/sore throat/dizziness/other review of symptoms. Physical Exam Physical Exam: GENERAL: Alert and oriented x3. NAD, on RA. HEENT: No pallor, no icterus. Pupils equal, round and reactive to light. Oral mucosa moist. NECK: No JVD, no neck masses. HEART: S1 and S2 heard. Regular rate and rhythm. No murmur, no gallop. RESPIRATORY SYSTEM: Normal AP diameter. No accessory muscle use. No wheezing, no crackles. ABDOMEN: Soft, bowel sounds present, nontender, no distention. CENTRAL NERVOUS SYSTEM: No facial droop. Speech is clear. Obeys simple commands. Moves extremities. EXTREMITIES: No edema, no erythema seen. Results & Data Results & Data ([facility]) Vital Signs (Past 12 Hours) Vital Signs Temp Pulse Pulse Resp BP Pulse Ox O2 Del Method 04/14/22 12:20 36.6 C 61 18 137/63 97 Room Air 04/14/22 07:00 36.6 C 63 18 114/68 95 Room Air 04/14/22 08:00 55 L 04/14/22 03:40 36.3 C L 67 16 100/55 L 97 Room Air
--- NOTE | 2022-04-14 16:52 | Electrocardiogram Report ---
Test Reason : Blood Pressure : / mmHG Vent. Rate : 107 BPM Atrial Rate : 107 BPM P-R Int : 142 ms QRS Dur : 080 ms QT Int : 300 ms P-R-T Axes : -07 019 006 degrees QTc Int : 400 ms Sinus tachycardia with occasional Premature ventricular complexes Anterior infarct , age undetermined Abnormal ECG When compared with ECG of 21-MAR-2022 07:28, Premature ventricular complexes are now Present Vent. rate has increased BY 40 BPM Anterior infarct is now Present Confirmed by Rubén Walsh ([id number]) on 04/14/2022 4:51:33 PM Referred By: REFERRED SELF Confirmed By:Rubén Walsh
[2022-04-14] MEDS: LANTUS PER UNIT CHARGE SQ SCH (21:19)
[2022-04-15] MEDS: PIPERACILLIN/TAZOBACTAM 3.375 GM in DEXTROSE 5% 100 ML IV SCH ×3 (01:17→20:40)
[2022-04-15 07:37] LABS: Hematocrit (blood only) 31.8 % (40.1-51.0); Hemoglobin 10.5 g/dl (14.0-18.0); Mean Corpuscular Hemoglobin 27.7 pg (25.0-34.0); Mean Corpuscular Volume 83.9 fL (80.0-100.0); Mean Platelet Volume 9.1 fL (9.4-12.4); Platelet Count 293 K/uL (130-400); RDW Coefficient of Variation 14.2 % (11.5-14.5); RDW Standard Deviation 43.2 fL (36.4-46.3); Red Blood Count 3.79 M/uL (4.63-6.08); White Blood Count 7.25 K/ul (4.8-10.8)
[2022-04-15] MEDS ORDERED: LIDOCAINE 2% MPF LOCAL 5 ML VIAL INFIL ONE (08:13)
[2022-04-15] MEDS ORDERED: PROPOFOL IV EMULSION 10 MG/ML 20 ML VIAL IV ONE (08:13)
[2022-04-15] MEDS ORDERED: MIDAZOLAM HCL 1 MG/ML 2ML VIAL ONE (08:14)
[2022-04-15] MEDS ORDERED: fentaNYL citrate 100 MCG/2 ML VIAL ONE (08:14)
[2022-04-15 08:19] LABS: Albumin Globulin Ratio 1.1 (0.9-2); Albumin Level 2.9 gm/dl (3.4-5.0); BUN Creatinine Ratio 12.6 (10-20); Bilirubin,Total 1.4 mg/dl (0.2-1.0); Calcium 7.8 mg/dl (8.5-10.1); Creatinine Clr Calc Pharmacy 42.7 ml/min; Est GFR (African American) 59.1 ml/min; Globulin 2.6 gm/dl (2.5-4.0); Magnesium 1.5 mg/dl (1.7-2.4); Phosphorus 2.5 mg/dl (2.5-4.9); Potassium 4.2 mmol/L (3.5-5.1); Total Protein 5.5 gm/dl (6.0-8.3)
--- NOTE | 2022-04-15 08:44 | History & Physical Bridge Note ---
Date of Service April 15, 2022 History & Physical Bridge Note I have examined the patient, reviewed the History & Physical and in the interval since the performance of the History & Physical I have noted the following changes of clinical significance: no changes noted ERCP Patient was explained in detail regarding risks, benefits, limitations and alternatives of the above endoscopic procedure. Risks of intravenous sedation used for procedure were also explained. Risks include, but not limited to perforation, bleeding, infection, respiratory distress, cardiac arrest and . Patient is also aware about the possibility of missed lesion. Patient's questions were answered. The patient verbalized understanding the information and agreed to undergo the procedure.
[2022-04-15] MEDS ORDERED: INDOMETHACIN 50 MG SUPP PR ONE (09:00)
[2022-04-15] MEDS ORDERED: DEXAMETHASONE SOD INJ 4 MG/ML VIAL ONE (10:52)
[2022-04-15] MEDS ORDERED: ONDANSETRON INJ 2 MG/ML 2 ML VIAL ONE (10:52)
[2022-04-15] MEDS ORDERED: SUCCINYLCHOLINE CHLORIDE 20 MG/ML 10 ML VIAL IV ONE (10:52)
--- NOTE | 2022-04-15 11:35 | Operative Report ---
Post Operative Report Pre & Post Diagnosis Operation Date: 04/15/22 08:45 Pre-Op Diagnosis: SEPSIS, CHOLOANGITIS, COVID Post-Op Diagnosis: Biliary stent placement I identified the patient and participated in the time-out.: Yes Procedure Operation Date: 04/15/22 08:45 Actual Procedures p Endoscopic Retrograde Cholangiopancreato, EUS, Stent placement - Brad Gomez MD Surgeon Brad Gomez MD Promotions Associate None Estimated Blood Loss 0 Findings See Below (Complete papillary stenosis post recent Ampullectomy, EUS guided biliary access done and CBD stent placed.) Specimens None Description of Procedure EUS/ERCP I attest to the content of the Intraoperative Record and any orders documented therein. Any exceptions are noted below.
--- NOTE | 2022-04-15 11:37 | Gastroenterology Progress Note ---
Date of Service April 15, 2022 Assessment & Plan Admission and Anticipated Discharge Date Admission Date: April 13, 2022 Subjective Patient underwent ERCP however biliary access could not be gained with a s phincterotome with complete papillary stenosis and in view of Cholangitis, EUS guided biliary access deemed necessary and urgent and in the patient's best interest hence was performed and access was gained and a stent was placed. Results & Data ([facility]) Vital Signs (Past 12 Hours) Vital Signs Temp Pulse Pulse Resp BP BP Pulse Ox 04/15/22 08:12 36.3 C L 70 20 163/75 H 98 04/15/22 07:58 36.8 C 70 18 149/80 H 96 04/15/22 03:57 36.8 C 73 18 153/82 H 97 04/15/22 03:20 63 04/15/22 00:12 O2 Del Method O2 Del Method 04/15/22 08:12 Room Air 04/15/22 07:58 Room Air 04/15/22 03:57 Room Air 04/15/22 03:20 04/15/22 00:12 Room Air
--- NOTE | 2022-04-15 11:47 | GI REPORT ---
Patient Name: Vj Dumas Procedure Date: 04/15/2022 8:52 AM Date of : 1945 Admit Type: Inpatient Age: 76 Gender: Male Attending MD: Brad Gomez MD, Procedure: ERCP Providers: Brad Gomez MD Referring MD: Ashli Orellana Md Indications: Biliary dilation on Computed Tomogram Scan, For therapy of ascending cholangitis Medicines: General Anesthesia Complications: No immediate complications. Estimated Blood Loss: Estimated blood loss: none. Procedure: Pre-Anesthesia Assessment: - Prior to the procedure, a History and Physical was performed, and patient medications, allergies and sensitivities were reviewed. The patient's tolerance of previous anesthesia was reviewed. - The risks and benefits of the procedure and the sedation options and risks were discussed with the patient. All questions were answered and informed consent was obtained. - Patient identification and proposed procedure were verified prior to the procedure by the physician and the nurse. The procedure was verified in the procedure room. - Pre-procedure physical examination revealed no contraindications to sedation. After obtaining informed consent, the scope was passed under direct vision. Throughout the procedure, the patient's blood pressure, pulse, and oxygen saturations were monitored continuously. The Duodenoscope was introduced through the mouth, and advanced to the duodenum and used to inject contrast into the bile duct. The ERCP was accomplished without difficulty. The patient tolerated the procedure well. Findings: A clay pigeon loader film of the abdomen was obtained. Surgical clips, consistent with a previous cholecystectomy, were seen in the area of the right upper quadrant of the abdomen. The esophagus was successfully intubated under direct vision. The scope was advanced to the major papilla in the descending duodenum/ D3 area without detailed examination of the pharynx, larynx and associated structures, and upper GI tract. The upper GI tract was grossly normal. The major papilla contained a benign appearing stenosis post recent Papillectomy. The bile duct could not be cannulated with the short-nosed traction sphincterotome. Because deep cannulation of the bile duct was attempted but not achieved, preparations were made for a rendezvous maneuver. The duodenoscope was removed and exchanged for a therapeutic echoendoscope, which was inserted. The extrahepatic bile duct was punctured using a 19 gauge needle under endosonographic and radiologic guidance through a transduodenal approach. Bile was aspirated. Next, the bile duct was injected with contrast, and a cholangiogram was obtained under fluoroscopy. Contrast extended to the extrahepatic bile duct. A 0.025 inch x 450 cm angled Visiglide wire was passed anterograde through the needle and used successfully to traverse the obstruction. The end of the guidewire was passed into the duodenum. The echoendoscope was exchanged back for the duodenoscope. The duodenoscope was reinserted next to the guidewire. The guidewire was grabbed using a regular forceps. Over the guidewire, the bile duct was deeply cannulated with the short nose sphincterotome. The guidewire was removed. Preparations were then made for stent placement. The biliary orifice was stenotic. This appeared benign. The main bile duct was dilated. The largest diameter was 10 mm. Biliary sphincterotomy was made with a monofilament traction (standard) sphincterotome using ERBE electrocautery. There was no post-sphincterotomy bleeding. Dilation of the common bile duct with an 8 mm balloon dilator was successful. One 10 mm by 8 cm covered metal biliary stent was placed into the common bile duct. Bile flowed through the stent. The stent was in good position. Indomethacin 100 mg was given via suppository to decrease the risk of post-ERCP pancreatitis (PEP). Impression: - The major papilla appeared to be stenotic post recent papillectomy. - Difficult biliary access requiring biliary rendezvous access. - A biliary sphincterotomy was performed followed by balloon dilation sphincteroplasty. - One covered metal biliary stent was placed into the common bile duct. Recommendation: - [facility]. - Repeat ERCP in 3 months to remove stent. - Complete a 5 days course of ABx. Brad Gomez MD 04/15/2022 11:46:52 AM This report has been signed electronically. Note Initiated On: 04/15/2022 8:52 AM Number of Addenda: 0 I attest to the content of the Intraoperative Record and orders documented therein, exceptions below {[id number]}
--- NOTE | 2022-04-15 11:56 | GI REPORT ---
Patient Name: Vj uDmas Procedure Date: 04/15/2022 11:46 AM Date of : 1945 Admit Type: Inpatient Age: 76 Gender: Male Attending MD: Brad Gomez MD, Procedure: Upper EUS Providers: Brad Gomez MD Referring MD: Ashli Orellana Md Indications: Common bile duct dilation (acquired) seen on CT scan Medicines: General Anesthesia Complications: No immediate complications. Estimated Blood Loss: Estimated blood loss: none. Procedure: Pre-Anesthesia Assessment: - Prior to the procedure, a History and Physical was performed, and patient medications, allergies and sensitivities were reviewed. The patient's tolerance of previous anesthesia was reviewed. - The risks and benefits of the procedure and the sedation options and risks were discussed with the patient. All questions were answered and informed consent was obtained. - Patient identification and proposed procedure were verified prior to the procedure by the physician and the nurse. The procedure was verified in the procedure room. - Pre-procedure physical examination revealed no contraindications to sedation. After obtaining informed consent, the endoscope was passed under direct vision. Throughout the procedure, the patient's blood pressure, pulse, and oxygen saturations were monitored continuously. The Endosonoscope was introduced through the mouth, and advanced to the second part of duodenum. The upper EUS was accomplished without difficulty. The patient tolerated the procedure well. Findings: ENDOSONOGRAPHIC FINDING: : There was dilation in the common bile duct which measured up to 10 mm. Sludge seen in the duct. Inflammatory nodes seen in the juan carlos hepatis consistent with cholangitis. Because deep cannulation of the bile duct was attempted but not achieved, preparations were made for a rendezvous maneuver. The duodenoscope was removed and exchanged for a therapeutic echoendoscope, which was inserted. The extrahepatic bile duct was punctured using a 19 gauge needle under endosonographic and radiologic guidance through a transduodenal approach. Bile was aspirated. Next, the bile duct was injected with contrast, and a cholangiogram was obtained under fluoroscopy. Contrast extended to the extrahepatic bile duct. A 0.025 inch x 450 cm angled Visiglide wire was passed anterograde through the needle and used successfully to traverse the obstruction. The end of the guidewire was passed into the duodenum. The echoendoscope was removed. Impression: - Biliary rendezvous performed. Recommendation: - Perform an ERCP. Brad Gomez MD 04/15/2022 11:55:43 AM This report has been signed electronically. Note Initiated On: 04/15/2022 11:46 AM Number of Addenda: 0 I attest to the content of the Intraoperative Record and orders documented therein, exceptions below {[id number]}
--- NOTE | 2022-04-15 12:52 | Fluoroscopy Report ---
FL ERCP biliary ductal CLINICAL HISTORY: CHECK DUCTS TECHNIQUE: 7 views were obtained with the C-arm in the OR with the above procedure. Total fluoroscopy time was 9 minutes 17 seconds. Comparison: None available at the time of this dictation. FINDINGS/IMPRESSION: Intraoperative images were obtained of ERCP and biliary stent placement. Please correlate with intraoperative fluoroscopy and operative report. ACT 112: Negative or not required by law. Electronically signed by: Dante Land M.D. 04/15/2022 12:51 PM
[2022-04-15] MEDS: INSULIN ASPART PER UNIT SC SCH ×4 (13:41→20:52)
[2022-04-15] MEDS: SODIUM CHLORIDE 0.9% 1000ML 1,000 ML IV SCH (13:49)
[2022-04-15] MEDS: PANTOprazole 40 MG TAB PO SCH (13:49)
[2022-04-15] MEDS: METOPROLOL TARTRATE 25 MG TAB PO SCH ×2 (13:49→20:42)
[2022-04-15] MEDS: MAGNESIUM SULFATE / D5W 1 GM/100 ML BAG IV SCH ×2 (13:51→16:13)
[2022-04-15] MEDS ORDERED: hydrALAZINE HCL 20 MG/ML VIAL IV PRN (16:00)
--- NOTE | 2022-04-15 16:05 | Hospitalist Progress Note ---
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 Patient completed COVID-19 vaccination. He is being managed for the following: Severe sepsis POA: SIRS positive at presentation, lactic acidosis at presentation. Cholangitis Patient presented with abdominal discomfort and shaking [see above] At admission WBC elevated, lactic acid elevated Admitting CTAP: Findings concerning for an ascending cholangitis. Admitting blood culture: Gram-negative bacilli, follow final results Repeat blood culture 04/14 evening --> Pending Patient started on Zosyn 04/13, continue with same, ID consult 04/15 ERCP: The major papilla appeared to be stenotic post recent papillectomy. Difficult biliary access requiring biliary rendezvous access. A biliary sphincterotomy was performed followed by balloon dilation sphincteroplasty. 1 covered metal biliary stent was placed into the common bile duct. Repeat ERCP in 3 months to remove the stent. Patient with no pain, no nausea or vomiting, full liquid diet, advance as tolerated. Follow labs in AM. COVID-19 infection: Asymptomatic, patient vaccinated, admitting CXR with no acute process, continue to monitor. Isolation. Incentive spirometer. Other chronic medical conditions: HTN, paroxysmal a flutter on aspirin, mild aortic stenosis/ascending thoracic aorta enlargement, DM 2 insulin requiring, chronic anemia -->> continue home meds as able. Prn BP meds. DVT prophylaxis: Lovenox subcu. Full code Admission and Anticipated Discharge Date Admission Date: April 13, 2022 Subjective Patient seen and examined at bedside as a follow-up of severe sepsis secondary to cholangitis on the background of history of periampullary tumor, COVID-19 illness without respiratory symptoms, gram-negative bacteremia. Patient was lying in bed, on room air, NAD, appears drowsy likely anesthesia effect, patient came from ERCP, denies any abdominal pain, was n.p.o., will resume diet postop ERCP, updated patient's in person, patient reports some sore throat/likely secondary to scope, patient denies any fever/chills/headache/chest pain/dizziness/other review of symptoms. Physical Exam Physical Exam: GENERAL: Alert and oriented x3. NAD, on RA. HEENT: No pallor, no icterus. Pupils equal, round and reactive to light. Oral mucosa moist. NECK: No JVD, no neck masses. HEART: S1 and S2 heard. Regular rate and rhythm. No murmur, no gallop. RESPIRATORY SYSTEM: Normal AP diameter. No accessory muscle use. No wheezing, no crackles. ABDOMEN: Soft, bowel sounds present, nontender, no distention. CENTRAL NERVOUS SYSTEM: No facial droop. Speech is clear. Obeys simple commands. Moves extremities. EXTREMITIES: No edema, no erythema seen. Results & Data Results & Data ([facility]) Vital Signs (Past 12 Hours) Vital Signs Temp Pulse Resp BP BP Pulse Ox O2 Del Method 04/15/22 14:03 36.6 C 71 14 182/75 H 97 Room Air 04/15/22 12:40 36.7 C 68 16 150/77 H 99 Room Air 04/15/22 12:10 36.2 C L 72 18 158/62 H 97 Room Air 04/15/22 12:00 71 18 158/61 H 97 Room Air 04/15/22 11:50 69 18 161/70 H 98 Room Air 04/15/22 11:44 36.2 C L 69 20 162/89 H 98 Room Air 04/15/22 08:12 36.3 C L 70 20 163/75 H 98 Room Air 04/15/22 07:58 36.8 C 70 18 149/80 H 96 Room Air
[2022-04-15] MEDS: LANTUS PER UNIT CHARGE SQ SCH (20:52)
[2022-04-16] MEDS: PIPERACILLIN/TAZOBACTAM 3.375 GM in DEXTROSE 5% 100 ML IV SCH ×2 (04:35→12:37)
[2022-04-16 07:50] LABS: Hematocrit (blood only) 32.6 % (40.1-51.0); Hemoglobin 10.9 g/dl (14.0-18.0); Mean Corpuscular Hgb Conc 33.4 g/dL (32.0-36.0); Mean Corpuscular Volume 83.8 fL (80.0-100.0); Mean Platelet Volume 9.1 fL (9.4-12.4); Platelet Count 284 K/uL (130-400); RDW Coefficient of Variation 14.1 % (11.5-14.5); RDW Standard Deviation 43.2 fL (36.4-46.3); Red Blood Count 3.89 M/uL (4.63-6.08); White Blood Count 8.27 K/ul (4.8-10.8)
[2022-04-16 08:37] LABS: Albumin Globulin Ratio 1.1 (0.9-2); Albumin Level 2.9 gm/dl (3.4-5.0); BUN Creatinine Ratio 11.3 (10-20); Bilirubin,Total 0.9 mg/dl (0.2-1.0); Calcium 8.1 mg/dl (8.5-10.1); Creatinine Clr Calc Pharmacy 54.3 ml/min; Est GFR (African American) 79.2 ml/min; Est GFR (Non-African American) 68.3 ml/min; Globulin 2.7 gm/dl (2.5-4.0); Magnesium 1.7 mg/dl (1.7-2.4); Phosphorus 3.3 mg/dl (2.5-4.9); Potassium 4.5 mmol/L (3.5-5.1); Total Protein 5.6 gm/dl (6.0-8.3)
[2022-04-16] MEDS: METOPROLOL TARTRATE 25 MG TAB PO SCH (08:47)
[2022-04-16] MEDS: PANTOprazole 40 MG TAB PO SCH (08:48)
[2022-04-16] MEDS: INSULIN ASPART PER UNIT SC SCH ×2 (08:52→12:34)
[2022-04-16] MEDS ORDERED: ENOXAPARIN INJ 40 MG/0.4 ML SYR SQ SCH (12:00)
--- NOTE | 2022-04-16 12:27 | Gastroenterology Progress Note ---
Date of Service April 16, 2022 Assessment & Plan (1) Severe sepsis: (2) Cholangitis: (3) COVID-19: (4) Elevated LFTs: Plan This a 76-year-old male who underwent ERCP last month with resection of a benign biliary lesion, admitted with labs and concerning for sepsis, ? cholangitis, with elevated LFTs, WBC, lactate, BCx positive for gram-negative bacilli. Underwent EUS/ERCP yesterday as above, had post-papillectomy stenosis and difficulty biliary access requiring biliary rendezvous procedure; one covered CBD stent was then able to be placed. Today, LFTs trending down; no leukocytosis. On exam, soft abd; he is HD stable. - Advance diet as tolerated - Continue ABX; pt awaiting consult by ID to determine course based on history of positive BCx and cholangitis - We will arrange for ERCP repeat CT in 3 months for stent removal - Continue supportive care with hydration Thank you for allowing us to participate in the care of this patient. Please call with any acute changes, questions or concerns. Please see addendum below with additional recommendation from my supervising physician. Admission and Anticipated Discharge Date Admission Date: April 13, 2022 Supervising Physician Co-Signing Physician Notes I have discussed the patient's management with the advanced practitioner. Please refer to the nurse practitioner's note for the documented findings and plan of care. Repeat ERCP as OP in 3 months. Recall GI if needed. Subjective Patient seen and examined, chart reviewed. No acute events overnight. Pt feeling well; asking to go home. Tolerating liquid diet; wants to eat more. Denies abd pain, n/v, melena, hematochezia, fever, chills, CP, SOB, Review of Systems Review of Systems: All systems reviewed & are unremarkable except as noted in HPI & below Physical Exam Constitutional: WD/WN, vitals as above Eyes: PERRL, conjunctivae normal, anicteric sclerae ENMT: external ear and nose normal, oropharynx normal Respiratory: normal respiratory effort, lungs clear to auscultation Cardiovascular: Rate/Rhythm: regular rate and regular rhythm Gastrointestinal (Abdomen): normal bowel sounds, soft, nontender, no hepatos plenomegaly Skin: no rashes, warm and dry Psychiatric: A+Ox3, euthymic affect Results & Data ([facility]) Vital Signs (Past 12 Hours) Vital Signs Temp Pulse Pulse Resp BP Pulse Ox O2 Del Method 04/16/22 11:56 36.6 C 56 L 20 164/78 H 98 Room Air 04/16/22 07:53 36.6 C 61 20 152/78 H 96 Room Air 04/16/22 06:55 56 L 04/16/22 03:00 36.7 C 60 20 155/82 H 96 Room Air Laboratory Results 04/16/22 04/16/22 04/16/22 Range/Units 11:49 07:30 07:23 WBC 8.27 (4.8-10.8) K/ul RBC 3.89 L (4.63-6.08) M/uL Hgb 10.9 L (14.0-18.0) g/dl Hct 32.6 L (40.1-51.0) % MCV 83.8 (80.0-100.0) fL MCH 28.0 (25.0-34.0) pg MCHC 33.4 (32.0-36.0) g/dL RDW Std Deviation 43.2 (36.4-46.3) fL RDW Coeff of [place] 14.1 (11.5-14.5) % Plt Count 284 (130-400) K/uL MPV 9.1 L (9.4-12.4) fL Sodium (136-145) mmol/L Potassium (3.5-5.1) mmol/L Chloride (98-107) mmol/L Carbon Dioxide (21-32) mmol/L Anion Gap (3-11) BUN (6-23) mg/dl Creatinine (0.6-1.4) mg/dl Est Cr Clr Drug Dosing ml/min Est GFR ( Amer) ml/min Est GFR (Non-Af Amer) ml/min BUN/Creatinine Ratio (10-20) Glucose (70-99(Fasting)) mg/dl POC Glucose 176 H 167 H (70-99) mg/dl Calcium (8.5-10.1) mg/dl Phosphorus (2.5-4.9) mg/dl Magnesium (1.7-2.4) mg/dl Total Bilirubin (0.2-1.0) mg/dl AST (13-39) U/L ALT (7-52) U/L Alkaline Phosphatase (34-104) U/L Total Protein (6.0-8.3) gm/dl Albumin (3.4-5.0) gm/dl Globulin (2.5-4.0) gm/dl Albumin/Globulin Ratio (0.9-2) 04/16/22 04/15/22 04/15/22 Range/Units 07:23 20:20 16:12 WBC (4.8-10.8) K/ul RBC (4.63-6.08) M/uL Hgb (14.0-18.0) g/dl Hct (40.1-51.0) % MCV (80.0-100.0) fL MCH (25.0-34.0) pg MCHC (32.0-36.0) g/dL RDW Std Deviation (36.4-46.3) fL RDW Coeff of [place] (11.5-14.5) % Plt Count (130-400) K/uL MPV (9.4-12.4) fL Sodium 134 L (136-145) mmol/L Potassium 4.5 (3.5-5.1) mmol/L Chloride 105 (98-107) mmol/L Carbon Dioxide 24 (21-32) mmol/L Anion Gap 5 (3-11) BUN 12 (6-23) mg/dl Creatinine 1.06 (0.6-1.4) mg/dl Est Cr Clr Drug Dosing 54.3 ml/min Est GFR ( Amer) 79.2 ml/min Est GFR (Non-Af Amer) 68.3 ml/min BUN/Creatinine Ratio 11.3 (10-20) Glucose 167 H (70-99(Fasting)) mg/dl POC Glucose 290 H 262 H (70-99) mg/dl Calcium 8.1 L (8.5-10.1) mg/dl Phosphorus 3.3 (2.5-4.9) mg/dl Magnesium 1.7 (1.7-2.4) mg/dl Total Bilirubin 0.9 D (0.2-1.0) mg/dl AST 44 H (13-39) U/L ALT 96 H (7-52) U/L Alkaline Phosphatase 172 H (34-104) U/L Total Protein 5.6 L (6.0-8.3) gm/dl Albumin 2.9 L (3.4-5.0) gm/dl Globulin 2.7 (2.5-4.0) gm/dl Albumin/Globulin Ratio 1.1 (0.9-2) 04/15/22 Range/Units 12:50 WBC (4.8-10.8) K/ul RBC (4.63-6.08) M/uL Hgb (14.0-18.0) g/dl Hct (40.1-51.0) % MCV (80.0-100.0) fL MCH (25.0-34.0) pg MCHC (32.0-36.0) g/dL RDW Std Deviation (36.4-46.3) fL RDW Coeff of [place] (11.5-14.5) % Plt Count (130-400) K/uL MPV (9.4-12.4) fL Sodium (136-145) mmol/L Potassium (3.5-5.1) mmol/L Chloride (98-107) mmol/L Carbon Dioxide (21-32) mmol/L Anion Gap (3-11) BUN (6-23) mg/dl Creatinine (0.6-1.4) mg/dl Est Cr Clr Drug Dosing ml/min Est GFR ( Amer) ml/min Est GFR (Non-Af Amer) ml/min BUN/Creatinine Ratio (10-20) Glucose (70-99(Fasting)) mg/dl POC Glucose 232 H (70-99) mg/dl Calcium (8.5-10.1) mg/dl Phosphorus (2.5-4.9) mg/dl Magnesium (1.7-2.4) mg/dl Total Bilirubin (0.2-1.0) mg/dl AST (13-39) U/L ALT (7-52) U/L Alkaline Phosphatase (34-104) U/L Total Protein (6.0-8.3) gm/dl Albumin (3.4-5.0) gm/dl Globulin (2.5-4.0) gm/dl Albumin/Globulin Ratio (0.9-2) Diagnostic Findings ERCP 04/15/22: Impression: - The major papilla appeared to be stenotic post recent papillectomy. - Difficult biliary access requiring biliary rendezvous access. - A biliary sphincterotomy was performed followed by balloon dilation sphincteroplasty. - One covered metal biliary stent was placed into the common bile duct. EUS 04/15/22: Impression: - Biliary rendezvous performed.
--- NOTE | 2022-04-16 15:55 | Discharge Summary ---
Date of Service April 16, 2022 Admission HPI Per Admitting Provider History obtained from patient, family, and records. 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 Last confinement June 2020 left parapneumonic effusion/empyema. Paroxysmal atrial flutter during confinement. Patient transferred to [facility] [place]. Patient EGD deferred last October 2021 to positive preprocedural COVID-19 swab. Patient asymptomatic at time of test. Patient was at the [employer] today when he suddenly started shaking noted to be weak. Abdominal discomfort described as gas. No chest pain, no shortness of breath. No cough symptoms. Headache from being hungry as per patient. No recent COVID-19 contacts. Patient completed COVID-19 vaccination. Patient brought to the ER by . Zosyn administered for cholangitis on CT. 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 coli Discharge Exam GENERAL: Alert and oriented x3. NAD, on RA. HEENT: No pallor, no icterus. Pupils equal, round and reactive to light. Oral mucosa moist. NECK: No JVD, no neck masses. HEART: S1 and S2 heard. Regular rate and rhythm. No murmur, no gallop. RESPIRATORY SYSTEM: Normal AP diameter. No accessory muscle use. No wheezing, no crackles. ABDOMEN: Soft, bowel sounds present, nontender, no distention. CENTRAL NERVOUS SYSTEM: No facial droop. Speech is clear. Obeys simple commands. Moves extremities. EXTREMITIES: No edema, no erythema seen. Discharge Data Allergies Allergy/AdvReac Type Severity Reaction Status Date / Time gluten Allergy Severe celiac's Verified 04/13/22 20:06 disease wheat Allergy Severe celiac's Verified 04/13/22 20:06 disease exenatide [From [place]] AdvReac Mild Vomiting Verified 04/13/22 20:06 Consultations 04/13/22 20:07 ED Decision to Admit Stat 04/14/22 00:12 Consult Gastroenterology Routine 04/14/22 13:52 Consult Infectious Diseases Routine Procedures Performed Operation Date: 04/15/22 08:45 Actual Procedures p Endoscopic Retrograde Cholangiopancreatogram, Stent placement - Brad Gomez MD s EUS - Brad Gomez MD Ordered Studies 04/13/22 18:38 CT abd pelvis IV con only Stat 04/15/22 08:45 FL ERCP biliary ductal Routine 04/15/22 10:21 US upper EUS PACS images Routine Hospital Course (1) Severe sepsis: Plan 76-year-old male with PMH of HTN, paroxysmal a flutter, mild aortic stenosis, ascending thoracic aorta enlargement, DM 2 insulin requiring, chronic anemia [baseline hemoglobin 12], periampullary neoplasm [benign polyp negative for malignancy 04/01 biopsy] presented to our ED 04/13 with complaint of abrupt onset shaking associated with abdominal discomfort. Patient completed COVID-19 vaccination. He was managed for the following: Severe sepsis POA: SIRS positive at presentation, lactic acidosis at presentation. Cholangitis E coli bacteremia Patient presented with abdominal discomfort and shaking [see above] At admission WBC elevated, lactic acid elevated Admitting CTAP: Findings concerning for an ascending cholangitis. Admitting blood culture: Gram-negative bacilli,E coli Repeat blood culture 04/14 evening --> no growth so far Patient started on Zosyn 04/13, --> augmentin on DC, probiotics added, pt to f/u w/ pcp in a week of discharge. 04/15 ERCP: The major papilla appeared to be stenotic post recent papillectomy. Difficult biliary access requiring biliary rendezvous access. A biliary sphincterotomy was performed followed by balloon dilation sphincteroplasty. 1 covered metal biliary stent was placed into the common bile duct. Repeat ERCP in 3 months to remove the stent. Patient with no pain, no nausea or vomiting, tolerating diet, afebrile and feel significantly better Pt to f/u w/ GI as OP for ERCP/biliary stent removal. COVID-19 infection: Asymptomatic, patient vaccinated, admitting CXR with no acute process, continue to monitor. Isolation. Incentive spirometer. Self isolation for 5 days from diagnosis f/b masks around people for next 5 days. Other chronic medical conditions: HTN, paroxysmal a flutter on aspirin, mild aortic stenosis/ascending thoracic aorta enlargement, DM 2 insulin requiring, chronic anemia -->> continue home meds as able. Prn BP meds. Full code Patient being discharged home with following instruction at the point of discharge: Follow-up with your primary care physician within a week time and likely you will need blood test CBC/CMP/magnesium level. You are being discharged on antibiotic Augmentin twice a day for 14 days, your course will be completed by 04/29/2022. Probiotics has been added for the same duration. Follow-up with your GI doctor as an outpatient, you will need ERCP/your biliary stent removal in 3 months. Take your medications as prescribed. Maintain self-isolation for 5 days from the date of diagnosis of COVID-19 infection [04/13/2022], and then use face mask when around people for next 5 days. Please make sure that you are able to get your medications today by calling your pharmacy before you leave the hospital so that your treatment continuity is not broken. Home Health Attestation I certify that this patient is under my care and that I, or a physicians assistant director of security working with me, had a face to-face encounter that meets the home health [id number] encounter requirements with this patient. The encounter with the patient was in whole, or in part, for the following medical condition, which is the primary reason for home health care (list medical condition): I certify that, based on my findings, the following services are medically necessary home health services: My clinical findings support the need for the above services because: Further, I certify that my clinical findings support that this patient is homebound (i.e. absences from home require considerable and taxing effort and are for medical reasons or advent services or infrequently or of short duration when for other reasons) because: Certification for Home Health Services: Based on the above findings, I certify that this patient is confined to the home and needs intermittent custodial care, physical therapy and/or speech therapy or continues to need occupational therapy. The patient is under my care, and I have initiated the establishment of the plan of care. This patient will be followed by a physician who will periodically review the plan of care. Total Time Total Time Spent Total Time Spent (In Minutes): 40 Discharge Plan Discharge Items Patient Disposition: Home - Self-Care Reason For Visit: SEPSIS, CHOLOANGITIS, COVID Discharge Diagnosis: Severe sepsis POA Cholangitis Gram-negative bacteremia, E. coli Activity: Resume your previous activity Non-emergency contact: Primary Care Provider Call non-emergency contact if: you have any medication questions, your symptoms worsen, your pain is not controlled and your temperature is above 101 Follow-up/Referrals: Corrine Amor DO [Primary Care Provider] - (Date & Time 04/22/2022 8:20 AM Provider Cody Tang MD [facility] ) Diet: Carb Consistent or DM2 Addtl Attending Provider Instructions: Follow-up with your primary care physician within a week time and likely you will need blood test CBC/CMP/magnesium level. You are being discharged on antibiotic Augmentin twice a day for 14 days, your course will be completed by 04/29/2022. Probiotics has been added for the same duration. Follow-up with your GI doctor as an outpatient, you will need ERCP/your biliary stent removal in 3 months. Take your medications as prescribed. Maintain self-isolation for 5 days from the date of diagnosis of COVID-19 infection [04/13/2022], and then use face mask when around people for next 5 days. Please make sure that you are able to get your medications today by calling your pharmacy before you leave the hospital so that your treatment continuity is not broken. Pending Studies at Discharge: Yes (Repeat blood culture final results.) Stand-Alone Forms: [employer], Smoking Cessation Medications and DC Order Prescriptions: New amoxicillin-pot clavulanate 875-125 mg Tablet 1 tab PO BIDM 13 Days Qty: 26 0RF Probiotic 3 billion cell capsule 3,000 mmu cells PO DAILY 14 Days Qty: 14 0RF Rx Instructions: administer with a meal Continued naproxen 500 mg tablet 500 mg PO BID PRN (Reason: Pain) Qty: 180 1RF (DME) blood-glucose meter Misc See Rx Instructions .ROUTE .MEDSUPPLY Qty: 1 0RF Rx Instructions: EASY MAX V METER E11.65 Z79.4 (DME) blood glucose control, normal [Easymax 15 Level 2] Solution See Rx Instructions .ROUTE .MEDSUPPLY Qty: 1 0RF Rx Instructions: As directed PER METER INSTRUCTIONS E11.65 (DME) lancets [Twist Lancets] 30 gauge misc See Rx Instructions .ROUTE .MEDSUPPLY Qty: 300 3RF Rx Instructions: USE THREE TIMES DAILY E11.65 metoprolol tartrate 50 mg tablet 50 mg PO BID Qty: 20 0RF (DME) pen needle, diabetic [BD Ultra-Fine Short Pen Needle] 31 gauge x 5/16" needle See Rx Instructions .ROUTE .MEDSUPPLY Qty: 900 3RF Rx Instructions: Test up to three times daily. DX: E11.65 pantoprazole 40 mg tablet,delayed release (DR/EC) 40 mg PO QAM Qty: 90 3RF (DME) EasyMax Strip See Rx Instructions .ROUTE .MEDSUPPLY Qty: 300 3RF Rx Instructions: EASY MAX TEST STRIPS CHECK BLOOD SUGARS TID E11.65 simvastatin 20 mg tablet 20 mg PO HS Qty: 90 3RF metformin 1,000 mg tablet 1,000 mg PO BID Qty: 180 3RF sildenafil 50 mg tablet 50 mg PO DAILY PRN (Reason: sexual activity) Qty: 5 5RF Rx Instructions: administer 30 minutes to 4 hours before activity cholecalciferol (vitamin D3) 50 mcg (2,000 unit) capsule 50 mcg PO QAM aspirin [Adult Low Dose Aspirin] 81 mg tablet,delayed release (DR/EC) 81 mg PO QAM Label Comments: on hold since broke ribs 4 weeks ago Tradjenta 5 mg tablet 5 mg PO QAM insulin glargine [Lantus Solostar U-100 Insulin] 100 unit/mL (3 mL) insulin pen 18 unit SUBCUT QAM Discharge Orders: Discharge Order (Routine); Ordered 04/16/22 Ordered By: Ashli Perdomo/Other Patient Handouts: Managing Type 2 Diabetes Admission Data Admit Date/Time: 04/13/22 21:20 Attending Provider: Ashli Orellana Admit Provider: Robbi Abbott Primary Care Provider: Corrine Amor Other Providers: Robbi Abbott ; Lexy Waldrop ; Robe Milton ; Ivroy Linn ; Serena Plsaencia ; Madyson Peña ; Margie Forbes ; Greg Epperson ; Cori Wagner ; Edmundo Reyes ; Yaritza Tapia ; Alondra Vanegas ; Mamadou Arroyo ; Karo Yee ; Glenny Coronel ; Nallely Wang ; Guerita Ventura ; Brad Gomez ; German Vidales ; Manuel Whitt ; Delisa Anand ; Gabo Noland Jr ; Brian Kerr ; Lavonne Locke ; Jonny Prather I. ; Jorge Luis Ames II ; Laurence Aguilar ; Xander Willson ; Garcia Hill ; Michael Denton
[2022-04-16] MEDS ORDERED: AMOXICILLIN/CLAVULANATE 875 MG TAB PO SCH (17:00)
== END 2022-04-16 17:32 | disposition home or self-care (01) | DRG 871 ==
LOC: ED 16:40 → 2S 21:20 → INTOOBSV 21:20 → 2S 23:55 → 2N 04-15 09:32

== ENCOUNTER 2022-05-08 18:51 | Observation (INO) ==
--- NOTE | 2022-05-08 18:59 | ED Triage Note ---
Date of Service May 08, 2022 History of Present Illness This patient was briefly evaluated while in triage. An abbreviated physical exam was performed. This patient is a 76-year-old Male with recent hospitalization for ascending cholangitis who presents to the ED for evaluation of shaking. Patient states that he felt the same way recently when he was admitted for sepsis. Physical Exam VITALS: Vitals are noted on the nurse's note and reviewed by myself. GENERAL: This is a 76-year-old male, in no acute distress, well-developed well- nourished. SKIN: The skin was without rashes. EYES: Pupils equal round and reactive to light and accommodation. MOUTH: Mucous membranes moist. NECK: Supple without nuchal rigidity. HEART: Regular rate and rhythm without murmurs gallops or rubs. LUNGS: Clear to auscultation bilaterally without wheezes, rales or rhonchi. NEURO: Patient was alert and oriented to person place and time. Initial orders for labs and / or imaging were placed and patient was placed in the waiting area until a bed is available. Please see further documentation for the full ED course.
--- NOTE | 2022-05-08 20:00 | XRay Report ---
SINGLE VIEW CHEST CLINICAL HISTORY: Fever. FINDINGS: An AP, portable, upright chest radiograph is compared to study dated 04/13/2022 and correlat ed with chest CT dated 06/26/2020. The cardiomediastinal silhouette is unremarkable. There is mild bib asilar scarring/atelectasis. The lungs and pleural spaces are otherwise clear. No pneumothorax is see n. The skeletal structures are osteopenic. There are healed bilateral rib fractures. IMPRESSION: No active disease in the chest. ACT 112: Negative or not required by law. Electronically signed by: Erik Breaux M.D. 05/08/2022 7:58 PM
[2022-05-08 20:12] LABS: Basophils # (auto) 0.01 K/uL (0-0.2); Basophils % (auto) 0.1 %; Eosinophils # (auto) 0.02 K/uL (0-0.50); Eosinophils % (auto) 0.2 %; Hematocrit (blood only) 36.1 % (40.1-51.0); Hemoglobin 11.9 g/dl (14.0-18.0); Immature Granulocytes # (auto) 0.02 K/uL (0.00-0.02); Immature Granulocytes % (auto) 0.2 %; Lymphocytes # (auto) 4.81 K/uL (1.2-3.4); Lymphocytes % (auto) 47.1 %; Mean Corpuscular Hemoglobin 27.7 pg (25.0-34.0); Mean Platelet Volume 9.2 fL (9.4-12.4); Monocytes # (auto) 0.86 K/uL (0.24-0.82); Monocytes % (auto) 8.4 %; Neutrophils # (auto) 4.49 K/uL (1.4-6.5); Platelet Count 291 K/uL (130-400); RDW Coefficient of Variation 14.3 % (11.5-14.5); RDW Standard Deviation 43.9 fL (36.4-46.3); White Blood Count 10.21 K/ul (4.8-10.8)
[2022-05-08 20:31] LABS: Albumin Globulin Ratio 1.1 (0.9-2); Albumin Level 3.5 gm/dl (3.4-5.0); BUN Creatinine Ratio 23.1 (10-20); Bilirubin,Total 1.7 mg/dl (0.2-1.0); Calcium 8.4 mg/dl (8.5-10.1); Creatinine Clr Calc Pharmacy 55.4 ml/min; Est GFR (Non-African American) 69.9 ml/min; Globulin 3.2 gm/dl (2.5-4.0); Potassium 4.6 mmol/L (3.5-5.1); Total Protein 6.7 gm/dl (6.0-8.3)
[2022-05-08] MEDS ORDERED: SODIUM CHLORIDE 0.9% 1000ML 1,000 ML IV ONE (21:32)
--- NOTE | 2022-05-08 21:33 | Emergency Department Note ---
Impression & Plan Transaminitis ADMIT ED Provider Note HPI: The patient is a 76-year-old male with history of recent biliary stent placement, presents the emergency department with a chief complaint of acute epigastric pain that began earlier today. Patient states he also had a sensati on of fever/chills. Denies any vomiting. Patient was recently admitted to the hospital or cholangitis related to scar tissue formation and biliary stricture from polyp removal, patient was subsequently discharged home earlier this month. Patient states that earlier today he developed a sensation of epigastric discomfort, states that he felt some subjective fever/chills and therefore came to the ED as this did feel similar to episode he had in the past leading to his presentation/admission earlier this month. On arrival here to the ED the patient is febrile at 38.1, he is otherwise hemodynamically stable and saturating well on room air on my initial assessment. He states his epigastric discomfort is improved from previous. ROS: -GI: Abdominal pain *10 point review systems was conducted and is otherwise negative unless stated above *Outpatient medications and allergy history reviewed PE: General: Alert HEENT: Normocephalic, trachea midline Eyes: Extraocular eye movement is intact, no scleral erythema Pulmonary: Clear to auscultation bilaterally, no wheezing Cardio: Regular rate and rhythm GI: Abdomen is soft, moderate tenderness over the mid abdomen to palpation without guarding or rigidity : No suprapubic tenderness MSK: No evidence of trauma or malformation of the extremities, no edema Skin: No evidence of rash Neuro: Alert, no focal deficits Psychiatric: Cooperative security monitor: - An order was placed for continuous cardiac monitoring - Patient was noted to be in sinus rhythm with a rate of 75 Interventions provided in ED: -Normal saline bolus CT ABDOMEN & PELVIS With Contrast: The biliary stents or in good position. There is mild pneumobilia. Cholecystectomy. Minimal dilation of the intrahepatic biliary ducts. The remaini ng solid organs are within normal limits. No bowel obstruction. Normal appendix. Diverticulosis. No fracture. Radiologist: Nora Johnson MD Medical Decision Making: Patient presented to the emergency department with mid and epigastric abdominal pain that he stated felt similar to pain he had when he was admitted for cholangitis. On arrival here to the ED the patient is hemodynamically stable, CT imaging of the abdomen pelvis was performed with IV contrast that shows biliary stent in good position, mild pneumobilia, minimal dilation of the intrahepatic biliary ducts is noted. Otherwise no evidence of any surgical pathology. Patient's lab work unfortunately shows a worsening transaminitis, AST and ALT elevated in the 300s which are markedly worse than his discharge labs on April 16. In addition alk phos is elevated in the 700s, total bilirubin at 1.7. On reassessment patient states that he feels well, I did discuss imaging and lab work results with on-call gastroenterology, Dr. Payne, who recommends admission for observation overnight and gastroenterology consultation tomorrow morning. Following this discussion we will obtain ultrasound imaging of the right upper quadrant for further diagnostic value. Patient was discussed with the on-call hospitalist [facility], Dr. Orellana, and the patient was pl aced for admission in stable condition for further care and gastroenterology consultation given abdominal pain today and worsening transaminitis. Diagnosis: 1. Abdominal pain, acute 2. Transaminitis, acute 3. Elevated bilirubin 4. History of biliary stent Disposition: Admission Xander Haley DO Emergency Medicine Past Med/Surg History Medical History (Updated 05/09/22 @ 02:34 by Xander Haley DO) Aortic valve stenosis Mild per 09/2021 echo Atrial flutter 06/2020 (per cardio consult, felt likely r/t response of acute illness- sepsis/PNA/parapneumonic effusion with respiratory failure) Broken ribs s/p fall 10/01/21, denies current issues Carotid artery stenosis <50% ICA stenosis Celiac disease biopsy proven on EGD CLL (chronic lymphocytic leukemia) History of COVID-19 10/2021- asymptomatic History of kidney stones Hx of skin cancer, basal cell BCC (nose)- removed Hyperlipidemia IDDM (insulin dependent diabetes mellitus) Freestyle yolie monitoring Malignant melanoma of skin Osteoarthritis Sleep apnea CPAP Surgical History History of cataract surgery R/L History of cholecystectomy History of colonoscopy History of esophagogastroduodenoscopy (EGD) History of herniorrhaphy Umbilical History of lithotripsy History of placement of chest tube 2020 ([facility]) d/t pleural effusion History of tonsillectomy History of tooth extraction Family History Brother Prostate cancer Family history of diabetes mellitus Father Family hx of colon cancer Family history of diabetes mellitus Other No family history of adverse response to anesthesia Denies family history of Ovarian cancer Myocardial infarction Breast cancer Lung cancer Colorectal cancer Social History Smoking Status: Never smoker Second Hand Exposure: No; Hx Alcohol Use: Yes Alcohol type: beer Hx Substance Use: No Preferred Language: Danish Communication Ability: Effective Wheel And Axle Inspector Required: No Beliefs That Will Affect Care: None Current Living Situation: Spouse Feels Safe at Home: Yes Seatbelt Use: always Assistive Devices: None Allergies Allergies Allergy/AdvReac Type Severity Reaction Status Date / Time gluten Allergy Severe celiac's Verified 05/08/22 22:03 disease wheat Allergy Severe celiac's Verified 05/08/22 22:03 disease exenatide [From [place]] AdvReac Mild Vomiting Verified 05/08/22 22:03 Home Meds Home Medications Medication Instructions Recorded Confirmed cholecalciferol (vitamin D3) 50 50 mcg PO QAM 09/07/19 05/08/22 mcg (2,000 unit) capsule aspirin 81 mg tablet,delayed 81 mg PO QAM 07/16/20 05/08/22 release (Adult Low Dose Aspirin) linagliptin 5 mg tablet (Tradjenta) 5 mg PO QAM 07/16/20 05/08/22 insulin glargine 100 unit/mL (3 18 unit subcut QAM 02/18/22 05/08/22 mL) subcutaneous pen (Lantus Solostar U-100 Insulin) Previous Rx's Medication Instructions Recorded naproxen 500 mg tablet 500 mg PO BID PRN Pain #180 tabs 01/19/20 blood glucose control, normal #1 ea 07/19/20 (Easymax 15 Level 2 solution) blood-glucose meter #1 ea 07/19/20 lancets 30 gauge (Twist Lancets) #300 ea 07/19/20 metoprolol tartrate 50 mg tablet 50 mg PO BID #20 tabs 08/03/20 sildenafil 50 mg tablet 50 mg PO DAILY PRN sexual activity 08/20/20 #5 tabs pen needle, diabetic 31 gauge x #900 ea 12/11/20 5/16" (BD Ultra-Fine Short Pen Needle) pantoprazole 40 mg tablet,delayed 40 mg PO QAM #90 tabs 01/02/21 release blood sugar diagnostic (EasyMax #300 ea 02/08/21 strips) simvastatin 20 mg tablet 20 mg PO HS #90 tabs 04/15/21 metformin 1,000 mg tablet 1,000 mg PO BID #180 tabs 05/16/21 Results & Data (ED) Vital Signs Vital Signs - 24 hr 05/08/22 18:54 05/08/22 23:00 05/09/22 01:00 Temperature 38.1 C H 36.6 C Temperature Source Oral Oral Pulse Rate 98 H Pulse Rate [Apical] 75 71 Respiratory Rate 18 18 22 Respiratory Effort / Characteristics Non-Labored Spontaneous Non-Labored Spontaneous Respiratory Depth Normal Normal Respiratory Pattern Regular Regular Blood Pressure 123/71 Blood Pressure [Right Arm] 115/64 97/60 L Blood Pressure Mean 88 Blood Pressure Mean [Right Arm] 81 72 Blood Pressure Position Sitting Blood Pressure Position [Right Arm] Semi-fowlers Semi-fowlers Pulse Oximetry 97 96 95 Oxygen Delivery Method Room Air Room Air Room Air Sepsis Recent Fever Within 48 Hours Yes Sepsis New/Unexplained Change in Mental Status N/A Sepsis Action Taken by Nursing No Action Required Laboratory Data Result diagrams: 05/08/22 19:51 05/08/22 19:51 Lab Results 05/08/22 05/08/22 05/08/22 Range/Units 19:51 19:51 19:51 WBC 10.21 (4.8-10.8) K/ul RBC 4.30 L (4.63-6.08) M/uL Hgb 11.9 L (14.0-18.0) g/dl Hct 36.1 L (40.1-51.0) % MCV 84.0 (80.0-100.0) fL MCH 27.7 (25.0-34.0) pg MCHC 33.0 (32.0-36.0) g/dL RDW Std Deviation 43.9 (36.4-46.3) fL RDW Coeff of [place] 14.3 (11.5-14.5) % Plt Count 291 (130-400) K/uL MPV 9.2 L (9.4-12.4) fL Immature Gran % (Auto) 0.2 % Neut % (Auto) 44.0 % Lymph % (Auto) 47.1 % [place] % (Auto) 8.4 % Eos % (Auto) 0.2 % Baso % (Auto) 0.1 % Neut # (Auto) 4.49 (1.4-6.5) K/uL Lymph # (Auto) 4.81 H (1.2-3.4) K/uL [place] # (Auto) 0.86 H (0.24-0.82) K/uL Eos # (Auto) 0.02 (0-0.50) K/uL Baso # (Auto) 0.01 (0-0.2) K/uL Immature Gran # (Auto) 0.02 (0.00-0.02) K/uL Sodium 130 L (136-145) mmol/L Potassium 4.6 (3.5-5.1) mmol/L Chloride 99 (98-107) mmol/L Carbon Dioxide 24 (21-32) mmol/L Anion Gap 7 (3-11) BUN 24 H (6-23) mg/dl Creatinine 1.04 (0.6-1.4) mg/dl Est Cr Clr Drug Dosing 55.4 ml/min Est GFR ( Amer) 81.0 ml/min Est GFR (Non-Af Amer) 69.9 ml/min BUN/Creatinine Ratio 23.1 H (10-20) Glucose 131 H (70-99(Fasting)) mg/dl POC Glucose (70-99) mg/dl Lactate 0.7 (0.4-2.0) mmol/L Calcium 8.4 L (8.5-10.1) mg/dl Total Bilirubin 1.7 H (0.2-1.0) mg/dl AST 391 H (13-39) U/L ALT 322 H (7-52) U/L Alkaline Phosphatase 732 H (34-104) U/L Total Protein 6.7 (6.0-8.3) gm/dl Albumin 3.5 (3.4-5.0) gm/dl Globulin 3.2 (2.5-4.0) gm/dl Albumin/Globulin Ratio 1.1 (0.9-2) Lipase 69 (11-82) U/L Urine Color Urine Appearance (Clear) Urine pH (4.5-7.5) Ur Specific [place] (1.000-1.030) Urine Protein (Negative) Urine Glucose (UA) (Negative) Urine Ketones (Negative) Urine Blood (Negative) Urine Nitrite (Negative) Urine Bilirubin (Negative) Urine Urobilinogen (Negative) Ur Leukocyte Esterase (Negative) SARS-CoV-2 (PCR) (Negative) Influenza Type A (PCR) (Neg) Influenza Type B (PCR) (Neg) RSV (RT-PCR) (Neg) 05/08/22 05/08/22 05/09/22 Range/Units 21:30 22:40 00:16 WBC (4.8-10.8) K/ul RBC (4.63-6.08) M/uL Hgb (14.0-18.0) g/dl Hct (40.1-51.0) % MCV (80.0-100.0) fL MCH (25.0-34.0) pg MCHC (32.0-36.0) g/dL RDW Std Deviation (36.4-46.3) fL RDW Coeff of [place] (11.5-14.5) % Plt Count (130-400) K/uL MPV (9.4-12.4) fL Immature Gran % (Auto) % Neut % (Auto) % Lymph % (Auto) % [place] % (Auto) % Eos % (Auto) % Baso % (Auto) % Neut # (Auto) (1.4-6.5) K/uL Lymph # (Auto) (1.2-3.4) K/uL [place] # (Auto) (0.24-0.82) K/uL Eos # (Auto) (0-0.50) K/uL Baso # (Auto) (0-0.2) K/uL Immature Gran # (Auto) (0.00-0.02) K/uL Sodium (136-145) mmol/L Potassium (3.5-5.1) mmol/L Chloride (98-107) mmol/L Carbon Dioxide (21-32) mmol/L Anion Gap (3-11) BUN (6-23) mg/dl Creatinine (0.6-1.4) mg/dl Est Cr Clr Drug Dosing ml/min Est GFR ( Amer) ml/min Est GFR (Non-Af Amer) ml/min BUN/Creatinine Ratio (10-20) Glucose (70-99(Fasting)) mg/dl POC Glucose 66 L* (70-99) mg/dl Lactate (0.4-2.0) mmol/L Calcium (8.5-10.1) mg/dl Total Bilirubin (0.2-1.0) mg/dl AST (13-39) U/L ALT (7-52) U/L Alkaline Phosphatase (34-104) U/L Total Protein (6.0-8.3) gm/dl Albumin (3.4-5.0) gm/dl Globulin (2.5-4.0) gm/dl Albumin/Globulin Ratio (0.9-2) Lipase (11-82) U/L Urine Color Yellow Urine Appearance Clear (Clear) Urine pH 5.5 (4.5-7.5) Ur Specific [place] 1.013 (1.000-1.030) Urine Protein Negative (Negative) Urine Glucose (UA) Negative (Negative) Urine Ketones Trace H (Negative) Urine Blood Negative (Negative) Urine Nitrite Negative (Negative) Urine Bilirubin Negative (Negative) Urine Urobilinogen Negative (Negative) Ur Leukocyte Esterase Negative (Negative) SARS-CoV-2 (PCR) NEGATIVE (Negative) Influenza Type A (PCR) Negative (Neg) Influenza Type B (PCR) Negative (Neg) RSV (RT-PCR) Negative (Neg) 05/09/22 Range/Units 00:43 WBC (4.8-10.8) K/ul RBC (4.63-6.08) M/uL Hgb (14.0-18.0) g/dl Hct (40.1-51.0) % MCV (80.0-100.0) fL MCH (25.0-34.0) pg MCHC (32.0-36.0) g/dL RDW Std Deviation (36.4-46.3) fL RDW Coeff of [place] (11.5-14.5) % Plt Count (130-400) K/uL MPV (9.4-12.4) fL Immature Gran % (Auto) % Neut % (Auto) % Lymph % (Auto) % [place] % (Auto) % Eos % (Auto) % Baso % (Auto) % Neut # (Auto) (1.4-6.5) K/uL Lymph # (Auto) (1.2-3.4) K/uL [place] # (Auto) (0.24-0.82) K/uL Eos # (Auto) (0-0.50) K/uL Baso # (Auto) (0-0.2) K/uL Immature Gran # (Auto) (0.00-0.02) K/uL Sodium (136-145) mmol/L Potassium (3.5-5.1) mmol/L Chloride (98-107) mmol/L Carbon Dioxide (21-32) mmol/L Anion Gap (3-11) BUN (6-23) mg/dl Creatinine (0.6-1.4) mg/dl Est Cr Clr Drug Dosing ml/min Est GFR ( Amer) ml/min Est GFR (Non-Af Amer) ml/min BUN/Creatinine Ratio (10-20) Glucose (70-99(Fasting)) mg/dl POC Glucose 202 H (70-99) mg/dl Lactate (0.4-2.0) mmol/L Calcium (8.5-10.1) mg/dl Total Bilirubin (0.2-1.0) mg/dl AST (13-39) U/L ALT (7-52) U/L Alkaline Phosphatase (34-104) U/L Total Protein (6.0-8.3) gm/dl Albumin (3.4-5.0) gm/dl Globulin (2.5-4.0) gm/dl Albumin/Globulin Ratio (0.9-2) Lipase (11-82) U/L Urine Color Urine Appearance (Clear) Urine pH (4.5-7.5) Ur Specific [place] (1.000-1.030) Urine Protein (Negative) Urine Glucose (UA) (Negative) Urine Ketones (Negative) Urine Blood (Negative) Urine Nitrite (Negative) Urine Bilirubin (Negative) Urine Urobilinogen (Negative) Ur Leukocyte Esterase (Negative) SARS-CoV-2 (PCR) (Negative) Influenza Type A (PCR) (Neg) Influenza Type B (PCR) (Neg) RSV (RT-PCR) (Neg) Administered Medications Discontinued Medications Dextrose (Dextrose 50% 50 Ml Syringe) 50 ml IV NOW ONE Stop: 05/09/22 00:18 Last Admin: 05/09/22 00:20 Dose: 50 ml Documented By: JT Sodium Chloride (Nss 1000ml) 1,000 mls @ 999 mls/hr IV .Q1H1M ONE Stop: 05/08/22 22:32 Last Infusion: 05/08/22 22:35 Dose: 0 mls/hr Documented By: Admin: 05/08/22 21:37 Dose: 999 mls/hr Documented By: DIANN Ioversol (Optiray 350 100ml) 100 ml IV ONCE ONE Stop: 05/08/22 23:08 Last Admin: 05/08/22 23:08 Dose: 87 ml Documented By: SUNDAR Imaging Data Radiologist's Impression: Chest X-Ray 05/08/22 19:00 SINGLE VIEW CHEST CLINICAL HISTORY: Fever. FINDINGS: An AP, portable, upright chest radiograph is compared to study dated 04/13/2022 and correlated with chest CT dated 06/26/2020. The cardiomediastinal silhouette is unremarkable. There is mild bibasilar scarring/atelectasis. The lungs and pleural spaces are otherwise clear. No pneumothorax is seen. The skeletal structures are osteopenic. There are healed bilateral rib fractures. IMPRESSION: No active disease in the chest. ACT 112: Negative or not required by law. Electronically signed by: Erik Breaux M.D. 05/08/2022 7:58 PM Discharge Plan Visit Data Chief Complaint: Illness Stated Complaint: SHAKINESS TO BODY ED Provider: Xander Haley Discharge Problem: Transaminitis Patient Disposition: Admitted As Inpatient Forms Stand Alone Forms: [facility] Prescriptions Prescriptions: No Action naproxen 500 mg tablet 500 mg PO BID PRN (Reason: Pain) Qty: 180 1RF (DME) blood-glucose meter Misc See Rx Instructions .ROUTE .MEDSUPPLY Qty: 1 0RF Rx Instructions: EASY MAX V METER E11.65 Z79.4 (DME) blood glucose control, normal [Easymax 15 Level 2] Solution See Rx Instructions .ROUTE .MEDSUPPLY Qty: 1 0RF Rx Instructions: As directed PER METER INSTRUCTIONS E11.65 (DME) lancets [Twist Lancets] 30 gauge misc See Rx Instructions .ROUTE .MEDSUPPLY Qty: 300 3RF Rx Instructions: USE THREE TIMES DAILY E11.65 metoprolol tartrate 50 mg tablet 50 mg PO BID Qty: 20 0RF (DME) pen needle, diabetic [BD Ultra-Fine Short Pen Needle] 31 gauge x 5/16" needle See Rx Instructions .ROUTE .MEDSUPPLY Qty: 900 3RF Rx Instructions: Test up to three times daily. DX: E11.65 pantoprazole 40 mg tablet,delayed release (DR/EC) 40 mg PO QAM Qty: 90 3RF (DME) EasyMax Strip See Rx Instructions .ROUTE .MEDSUPPLY Qty: 300 3RF Rx Instructions: EASY MAX TEST STRIPS CHECK BLOOD SUGARS TID E11.65 simvastatin 20 mg tablet 20 mg PO HS Qty: 90 3RF metformin 1,000 mg tablet 1,000 mg PO BID Qty: 180 3RF sildenafil 50 mg tablet 50 mg PO DAILY PRN (Reason: sexual activity) Qty: 5 5RF Rx Instructions: administer 30 minutes to 4 hours before activity cholecalciferol (vitamin D3) 50 mcg (2,000 unit) capsule 50 mcg PO QAM aspirin [Adult Low Dose Aspirin] 81 mg tablet,delayed release (DR/EC) 81 mg PO QAM Label Comments: on hold since broke ribs 4 weeks ago Tradjenta 5 mg tablet 5 mg PO QAM insulin glargine [Lantus Solostar U-100 Insulin] 100 unit/mL (3 mL) insulin pen 18 unit SUBCUT QAM Referrals Referrals: Corrine Amor DO [Primary Care Provider] -
[2022-05-08 22:49] LABS: Influenza A virus by PCR Negative (Neg); Influenza B virus by PCR Negative (Neg); RSV by PCR Negative (Neg); SARS CoV2 RNA(COVID-19) Ceph NEGATIVE (Negative)
[2022-05-08] MEDS ORDERED: OPTIRAY 350 100ml IV ONE (23:07)
[2022-05-08 23:10] LABS: Appearance Urine Clear (Clear); Bilirubin Urine Negative (Negative); Blood Urine Negative (Negative); Color Urine Yellow; Glucose Urine UA Negative (Negative); Ketones Urine Trace (Negative); Leukocyte Esterase Urine Negative (Negative); Nitrite Urine Negative (Negative); Protein Urine Negative (Negative); Specific Gravity Urine 1.013 (1.000-1.030); Urobilinogen Urine Negative (Negative); pH Urine 5.5 (4.5-7.5)
[2022-05-09] MEDS ORDERED: DEXTROSE 50% 50 ML SYRINGE IV ONE (00:17)
--- NOTE | 2022-05-09 02:56 | History & Physical Report ---
Date of Service May 09, 2022 Assessment & Plan (1) Transaminitis: Plan Shaking/Chills Fever x1 at ED Upper belly discomfort/?? indigestion: will hold home naproxen, continue home pantoprazole. Patient was recently treated for cholangitis/E. coli bacteremia status post antibiotic course completed on 04/29/2022, presented this time with shaking and chills which he likens to the symptoms prior to his cholangitis episode last month. Normal temperature measured at home per pt's . Patient with one-time temperature of 38.1C at ED, follow-up temperature WNL, no antibiotics received in the ED. Hemodynamically stable, WBC WNL. Will order procalcitonin, will continue to monitor off of antibiotic. Follow-up admitting blood culture. Recent history of cholangitis: s/p Augmentin course completed on 04/29/22 Transaminitis Admitting T bili and other liver enzymes elevated. Respiratory viral panel negative. Recent history of ERCP on 04/15 status post metal biliary stent placement in the CBD. Emergency DrNunu Discussed with GI, plan to observe and evaluate in the morning CTAP and liver ultrasound sent, formal read pending. Could likely be due to recent Augmentin use, follow LFT in AM. GI to evaluate in a.m. We will send hepatitis panel. Mild hyponatremia: Appears chronic, follow labs. Other chronic medical conditions:HTN, paroxysmal a flutter on aspirin, mild aortic stenosis/ascending thoracic aorta enlargement, DM 2 insulin requiring, chronic anemia -->> continue home meds as able. 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 Pt complaints of on/off upper belly discomfort ongoing for last few days. Per patient, he had similar shaking and chills prior to the episode of cholangitis last month which made him worried and hence presented to the hospital. At home the temperature measured was in afebrile range per patient's but patient was found to have elevated temperature of 38.1C at ED presentation but follow-up temperature is WNL. Patient has not received any antibiotic. Patient reports improvement in his upper belly discomfort. Patient reports decreased appetite since last 2 years. Patient denies headache or dizziness or sore throat or cough or chest pain or palpitation or acute changes in his bowel or bladder habits. 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 Family history positive for DM, heart disease, stroke. Medications reviewed with the patient. Patient's Patricia at bedside who was updated as well. Full code Allergies Allergy/AdvReac Type Severity Reaction Status Date / Time gluten Allergy Severe celiac's Verified 05/08/22 22:03 disease wheat Allergy Severe celiac's Verified 05/08/22 22:03 disease exenatide [From [place]] AdvReac Mild Vomiting Verified 05/08/22 22:03 Home Medications Medication Instructions Recorded Confirmed Type cholecalciferol (vitamin D3) 50 50 mcg PO QAM 09/07/19 05/08/22 History mcg (2,000 unit) capsule naproxen 500 mg tablet 500 mg PO BID PRN Pain #180 tabs 01/19/20 05/08/22 Rx aspirin 81 mg tablet,delayed 81 mg PO QAM 07/16/20 05/08/22 History release (Adult Low Dose Aspirin) linagliptin 5 mg tablet (Tradjenta) 5 mg PO QAM 07/16/20 05/08/22 History blood glucose control, normal #1 ea 07/19/20 03/18/22 Rx (Easymax 15 Level 2 solution) blood-glucose meter #1 ea 07/19/20 03/18/22 Rx lancets 30 gauge (Twist Lancets) #300 ea 07/19/20 03/18/22 Rx metoprolol tartrate 50 mg tablet 50 mg PO BID #20 tabs 08/03/20 05/08/22 Rx sildenafil 50 mg tablet 50 mg PO DAILY PRN sexual activity 08/20/20 05/08/22 Rx #5 tabs pen needle, diabetic 31 gauge x #900 ea 12/11/20 03/18/22 Rx 5/16" (BD Ultra-Fine Short Pen Needle) pantoprazole 40 mg tablet,delayed 40 mg PO QAM #90 tabs 01/02/21 05/08/22 Rx release blood sugar diagnostic (EasyMax #300 ea 02/08/21 03/18/22 Rx strips) simvastatin 20 mg tablet 20 mg PO HS #90 tabs 04/15/21 05/08/22 Rx metformin 1,000 mg tablet 1,000 mg PO BID #180 tabs 05/16/21 05/08/22 Rx insulin glargine 100 unit/mL (3 18 unit subcut QAM 02/18/22 05/08/22 History mL) subcutaneous pen (Lantus Solostar U-100 Insulin) Past Med/Surg History Medical History (Updated 05/09/22 @ 02:34 by Xander Haley, ) Aortic valve stenosis Mild per 09/2021 echo Atrial flutter 06/2020 (per cardio consult, felt likely r/t response of acute illness- sepsis/PNA/parapneumonic effusion with respiratory failure) Broken ribs s/p fall 10/01/21, denies current issues Carotid artery stenosis <50% ICA stenosis Celiac disease biopsy proven on EGD CLL (chronic lymphocytic leukemia) History of COVID-19 10/2021- asymptomatic History of kidney stones Hx of skin cancer, basal cell BCC (nose)- removed Hyperlipidemia IDDM (insulin dependent diabetes mellitus) Freestyle yolie monitoring Malignant melanoma of skin Osteoarthritis Sleep apnea CPAP Surgical History History of cataract surgery R/L History of cholecystectomy History of colonoscopy History of esophagogastroduodenoscopy (EGD) History of herniorrhaphy Umbilical History of lithotripsy History of placement of chest tube 2020 ([facility]) d/t pleural effusion History of tonsillectomy History of tooth extraction Family History Brother Prostate cancer Family history of diabetes mellitus Father Family hx of colon cancer Family history of diabetes mellitus Other No family history of adverse response to anesthesia Denies family history of Ovarian cancer Myocardial infarction Breast cancer Lung cancer Colorectal cancer Social History Smoking Status: Never smoker Second Hand Exposure: No; Hx Alcohol Use: Yes Alcohol type: beer Hx Substance Use: No Preferred Language: Romanian Communication Ability: Effective Ceramics Teacher Required: No Beliefs That Will Affect Care: None Current Living Situation: Spouse Feels Safe at Home: Yes Seatbelt Use: always Assistive Devices: None Review of Systems Review of Systems: Negative otherwise mentioned in HPI. Physical Exam Physical Exam: GENERAL: Alert and oriented x3. NAD, on RA. HEENT: No pallor, no icterus. Pupils equal, round and reactive to light. Oral mucosa moist. NECK: No JVD, no neck masses. HEART: S1 and S2 heard. Regular rate and rhythm. No murmur, no gallop. RESPIRATORY SYSTEM: Normal AP diameter. No accessory muscle use. No wheezing, no crackles. ABDOMEN: Soft, bowel sounds present, nontender, no distention. CENTRAL NERVOUS SYSTEM: No facial droop. Speech is clear. Obeys simple commands. Moves extremities. EXTREMITIES: No edema, no erythema seen. Results & Data Results & Data ([facility]) Vital Signs (Past 12 Hours) Vital Signs Temp Pulse Pulse Resp BP BP Pulse Ox 05/09/22 01:00 71 22 97/60 L 95 05/08/22 23:00 36.6 C 75 18 115/64 96 05/08/22 18:54 38.1 C H 98 H 18 123/71 97 O2 Del Method 05/09/22 01:00 Room Air 05/08/22 23:00 Room Air 05/08/22 18:54 Room Air
[2022-05-09] MEDS ORDERED: MAGNESIUM HYDROXIDE SUSP 30 ML UDC PO PRN (03:03)
[2022-05-09] MEDS ORDERED: ONDANSETRON INJ 2 MG/ML 2 ML VIAL IV PRN (03:03)
[2022-05-09] MEDS ORDERED: ACETAMINOPHEN 325 MG TAB PO PRN (03:03)
[2022-05-09] MEDS ORDERED: GLUCAGON FOR INJ 1 MG VIAL SQ PRN (03:05)
[2022-05-09] MEDS ORDERED: DEXTROSE 50% 50 ML SYRINGE IV PRN (03:05)
[2022-05-09] MEDS ORDERED: GLUCOSE 40% GEL 15 GM TUBE PO PRN (03:05)
[2022-05-09] MEDS ORDERED: CARBOHYDRATES FOR HYPOGLYCEMIA PO PRN (03:05)
[2022-05-09] MEDS ORDERED: GLUCOSE 10 TAB/TUBE PO PRN (03:05)
[2022-05-09] MEDS ORDERED: SODIUM CHLORIDE 0.9% 1000ML 1,000 ML IV SCH (03:15)
[2022-05-09 04:48] LABS: Hematocrit (blood only) 32.4 % (40.1-51.0); Hemoglobin 10.8 g/dl (14.0-18.0); Mean Corpuscular Hemoglobin 27.8 pg (25.0-34.0); Mean Corpuscular Hgb Conc 33.3 g/dL (32.0-36.0); Mean Corpuscular Volume 83.5 fL (80.0-100.0); Mean Platelet Volume 9.2 fL (9.4-12.4); Nucleated RBC # (auto) 0.02 K/uL (0-0); Nucleated RBC % (auto) 0.3 %; Platelet Count 258 K/uL (130-400); RDW Coefficient of Variation 14.4 % (11.5-14.5); RDW Standard Deviation 43.8 fL (36.4-46.3); Red Blood Count 3.88 M/uL (4.63-6.08); White Blood Count 7.62 K/ul (4.8-10.8)
[2022-05-09 05:09] LABS: Albumin Globulin Ratio 1.1 (0.9-2); Albumin Level 2.9 gm/dl (3.4-5.0); BUN Creatinine Ratio 22.2 (10-20); Bilirubin,Total 1.3 mg/dl (0.2-1.0); Calcium 7.8 mg/dl (8.5-10.1); Est GFR (African American) 96.5 ml/min; Est GFR (Non-African American) 83.3 ml/min; Globulin 2.7 gm/dl (2.5-4.0); Magnesium 1.3 mg/dl (1.7-2.4); Phosphorus 3.4 mg/dl (2.5-4.9); Total Protein 5.6 gm/dl (6.0-8.3)
[2022-05-09] MEDS ORDERED: PIPERACILLIN/TAZOBACTAM 3.375 GM in DEXTROSE 5% 100 ML IV ONE (05:30)
[2022-05-09] MEDS: MAGNESIUM SULFATE / D5W 1 GM/100 ML BAG IV SCH ×3 (05:44→09:35)
[2022-05-09] MEDS: INSULIN ASPART PER UNIT SC SCH ×4 (07:54→20:52)
--- NOTE | 2022-05-09 08:02 | CT Scan Report ---
CT SCAN OF THE ABDOMEN AND PELVIS WITH IV CONTRAST CLINICAL HISTORY: Epigastric abdominal pain. Recent biliary stent. COMPARISON STUDY: Abdominal CT dated 04/13/2022. TECHNIQUE: Following the IV administration of 87 cc of Optiray 350, CT scan of the abdomen and pelvi s is performed from the lung bases to the proximal femora. Images are reviewed in the axial, sagittal , and coronal planes. IV contrast was administered without complication. A dose lowering technique wa s utilized adhering to the principles of ALARA. CT DOSE: 333.18 mGy.cm FINDINGS: Lung bases: The heart is moderately enlarged and without pericardial effusion. The coronary arteries and aortic valve leaflets are densely calcified. The lung bases are clear noting bibasilar scarring/a telectasis. A small hiatal hernia is noted. Liver: The contrast-enhanced liver is normal in size, contour, and attenuation. There is minimal intr ahepatic biliary ductal dilatation. Pneumobilia is observed. The hepatic veins and portal veins are p atent. Gallbladder: Surgically absent noting clips in the gallbladder fossa. A common bile duct stent is in place. Pneumobilia suggests patency of the stent. There is nonspecific wall thickening of the common bile duct with mild surrounding infiltration. Spleen: Normal in size and attenuation. Pancreas: Unremarkable. Adrenal glands: Unremarkable. Kidneys: The contrast enhanced kidneys demonstrate cortical atrophy and are without hydronephrosis. T he kidneys enhance symmetrically. A 1.4 cm cyst is noted on the left. Abdominal vasculature: The abdominal aorta is normal in course and caliber noting moderate atheroscle rotic calcification. Bowel: There is mild to moderate colonic diverticulosis without CT evidence of acute diverticulitis. There are also diverticula of the small bowel. No bowel obstruction is seen. There is moderate consti pation. The appendix is well-visualized and normal. Peritoneum: There is no intraperitoneal free air or abdominal ascites. Lymphadenopathy: There are numerous mildly enlarged mesenteric lymph nodes which measure up to 12 mm short axis. Pelvic viscera: The prostate gland is enlarged and heterogeneous. The bladder is distended, and the w all appears thickened/trabeculated indicating chronic outlet obstruction. Skeletal structures: The skeletal structures are osteopenic. There is mild lumbosacral spondylosis. B ilateral pars defects are noted at L5. No lytic or blastic lesions are seen. There are healed left-si ded rib fractures. IMPRESSION: 1. A common bile duct stent has been placed. Pneumobilia suggests patency of the stent and there is o nly minimal intrahepatic biliary duct dilatation. 2. There is nonspecific wall thickening of the common bile duct with mild surrounding infiltration. C linical correlation will be required. 3. Mildly enlarged mesenteric lymph nodes are nonspecific and similar to previous. 4. Diverticulosis of the small bowel and colon without CT evidence of acute diverticulitis. 5. Cardiomegaly. 6. Additional findings as above. ACT 112: Negative or not required by law. Electronically signed by: Erik Breaux M.D. 05/09/2022 7:59 AM
--- NOTE | 2022-05-09 08:25 | Ultrasound Report ---
US liver CLINICAL HISTORY: Transaminitis, eval bile ducts TECHNIQUE: Multiple real-time sonographic images of the right upper quadrant were obtained. Comparison: Comparison is made to right upper quadrant ultrasound 04/08/[address] abdomen pelvis FINDINGS: The liver is diffusely homogenous with normal contour and echogenicity. No focal mass lesions are see n. No intrahepatic ductal dilatation is seen. Patient is status post cholecystectomy. Echogenic f oci are seen in the common bile duct likely representing pneumobilia. The common bile duct stent is n ot visualized due to overlying bowel gas. The common duct measures 0.5 cm in diameter at the level of the hepatic artery. The visualized portions of the pancreas appear normal. The right kidney shows normal echogenicity, cortical thickness and renal contour. The right kidney sh ows no evidence of hydronephrosis or mass. No ascites or free fluid is seen in Carias's pouch. IMPRESSION: Pneumobilia is seen without biliary ductal dilation. The common bile duct stent is not visualized due to overlying bowel gas. ACT 112: Negative or not required by law. Electronically signed by: Dante Land M.D. 05/09/2022 8:24 AM
[2022-05-09] MEDS ORDERED: LANTUS PER UNIT CHARGE SQ SCH (09:00)
[2022-05-09] MEDS: ASPIRIN 81 MG ECTAB PO SCH (09:12)
[2022-05-09] MEDS: METOPROLOL TARTRATE 50 MG TAB PO SCH ×2 (09:12→20:53)
[2022-05-09] MEDS: PANTOprazole 40 MG TAB PO SCH (09:12)
[2022-05-09] MEDS: CHOLECALCIFEROL 1,000 UNITS 25 MCG TAB PO SCH (09:12)
[2022-05-09] MEDS: PIPERACILLIN/TAZOBACTAM 3.375 GM in DEXTROSE 5% 100 ML IV SCH ×2 (12:09→20:51)
--- NOTE | 2022-05-09 12:26 | Gastrointestinal Consultation ---
Date of Consultation May 09, 2022 Assessment & Plan (1) Transaminitis: (2) Rigors: Pt is a 76 yo male w hx of benign biliary lesion, sepsis, cholangitis s/p ERCP w biliary rendezvous procedure & metal CBD stent placement on 04/15/2022. He presented overnight w fever, chills, post prandial abd pain, noted to have elevated LFTs. Abd imaging studies wo acute findings such as large fluid collection or abscess, biliary stent appear in place and patent. ? 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 - CL diet - Continue Zosyn IV - F/U blood ct results - Monitor clinical presentation and trend LFTs. If fever, chills, abd pain recur and LFTs increased again; will re-evaluate for possible repeat endoscopic intervention. Supervising Physician Co-Signing Physician Notes Attg add: I interviewed and examined pt, reviewed chart and labs. 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 On exam, pt is much improved. Cont abx for empric 7 day course. Clears today, then if LFTs improving, diet as tolerated. Please follow LFT"s daily. If LFT's improved and pt is asymptomatic, and cultures OK, then anticipate discharge in 1-[address] Epperson covering over the weekend. History of Present Illness Reason for Consultation: Abdominal pain, transaminitis Requesting Physician: Dr. Beni Ni Attending Physician: Dr. 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 He also has intermittent abdominal discomfort and had a worsening symptom of this after eating lunch. He was afebrile via home thermometer however found to have temperature of 38.1 Celsius in the ED on presentation. Lab work-up did not show any signs of leukocytosis, however his LFTs are increased from prior: Total bilirubin 1.3, AST 183, ALT 223, alkaline phosphatase 551. Chest x-ray was unremarkable. Abdomen and pelvis CT scan with contrast showed signs of biliary stent in place with pneumobilia, and minimal intrahepatic biliary ductal dilatation and nonspecific wall thickening of the CBD with surrounding infiltration. Per my exam today, he appears comfortably laying down on hospital bed, not having any chills or rigors noted, abdomen soft, nontender to palpation, bowel sounds present, he feels hungry Allergies Allergy/AdvReac Type Severity Reaction Status Date / Time gluten Allergy Severe celiac's Verified 05/08/22 22:03 disease wheat Allergy Severe celiac's Verified 05/08/22 22:03 disease exenatide [From Aeromot] AdvReac Mild Vomiting Verified 05/08/22 22:03 Home Medications Medication Instructions Recorded Confirmed Type cholecalciferol (vitamin D3) 50 50 mcg PO QAM 09/07/19 05/08/22 History mcg (2,000 unit) capsule naproxen 500 mg tablet 500 mg PO BID PRN Pain #180 tabs 01/19/20 05/08/22 Rx aspirin 81 mg tablet,delayed 81 mg PO QAM 07/16/20 05/08/22 History release (Adult Low Dose Aspirin) linagliptin 5 mg tablet (Tradjenta) 5 mg PO QAM 07/16/20 05/08/22 History blood glucose control, normal #1 ea 07/19/20 03/18/22 Rx (Easymax 15 Level 2 solution) blood-glucose meter #1 ea 07/19/20 03/18/22 Rx lancets 30 gauge (Twist Lancets) #300 ea 07/19/20 03/18/22 Rx metoprolol tartrate 50 mg tablet 50 mg PO BID #20 tabs 08/03/20 05/08/22 Rx sildenafil 50 mg tablet 50 mg PO DAILY PRN sexual activity 08/20/20 05/08/22 Rx #5 tabs pen needle, diabetic 31 gauge x #900 ea 12/11/20 03/18/22 Rx 5/16" (BD Ultra-Fine Short Pen Needle) pantoprazole 40 mg tablet,delayed 40 mg PO QAM #90 tabs 01/02/21 05/08/22 Rx release blood sugar diagnostic (EasyMax #300 ea 02/08/21 03/18/22 Rx strips) simvastatin 20 mg tablet 20 mg PO HS #90 tabs 04/15/21 05/08/22 Rx metformin 1,000 mg tablet 1,000 mg PO BID #180 tabs 05/16/21 05/08/22 Rx insulin glargine 100 unit/mL (3 18 unit subcut QAM 02/18/22 05/08/22 History mL) subcutaneous pen (Lantus Solostar U-100 Insulin) Patient History Medical History Aortic valve stenosis Mild per 09/2021 echo Atrial flutter 06/2020 (per cardio consult, felt likely r/t response of acute illness- sepsis/PNA/parapneumonic effusion with respiratory failure) Broken ribs s/p fall 10/01/21, denies current issues Carotid artery stenosis <50% ICA stenosis Celiac disease biopsy proven on EGD CLL (chronic lymphocytic leukemia) History of COVID-19 10/2021- asymptomatic History of kidney stones Hx of skin cancer, basal cell BCC (nose)- removed Hyperlipidemia IDDM (insulin dependent diabetes mellitus) Freestyle yolie monitoring Malignant melanoma of skin Osteoarthritis Sleep apnea CPAP Surgical History History of cataract surgery R/L History of cholecystectomy History of colonoscopy History of esophagogastroduodenoscopy (EGD) History of herniorrhaphy Umbilical History of lithotripsy History of placement of chest tube 2020 ([facility]) d/t pleural effusion History of tonsillectomy History of tooth extraction Family History Brother Prostate cancer Family history of diabetes mellitus Father Family hx of colon cancer Family history of diabetes mellitus Other No family history of adverse response to anesthesia Denies family history of Ovarian cancer Myocardial infarction Breast cancer Lung cancer Colorectal cancer Social History Smoking Status: Never smoker Second Hand Exposure: No; Do You Dip or Chew Tobacco: No; Tobacco Cessation Education Requested by Patient: No Hx Alcohol Use: No Hx Substance Use: No Preferred Language: Vietnamese Communication Ability: Effective Director Of First Impressions Required: No Beliefs That Will Affect Care: None Current Living Situation: Spouse Other Information That Helps Us Care for You: No Feels Safe at Home: Yes Safety Concerns: Feels Safe At This Time Seatbelt Use: always Assistive Devices: None Review of Systems Review of Systems: All systems reviewed & are unremarkable except as noted in HPI & below Physical Exam Constitutional: WD/WN, vitals as above well groomed, cooperative and comfortable Eyes: PERRL, conjunctivae normal, anicteric sclerae ENMT: external ear and nose normal, oropharynx normal Respiratory: normal respiratory effort, lungs clear to auscultation Cardiovascular: RRR, no murmur, no edema Gastrointestinal (Abdomen): normal bowel sounds, soft, nontender, no hepatosplenomegaly Skin: no rashes, warm and dry no jaundice Psychiatric: A+Ox3, euthymic affect Lymphatic: no lymphedema Results & Data ([facility]) Vital Signs (Past 12 Hours) Vital Signs Temp Pulse Resp BP Pulse Ox Pulse Ox O2 Del Method 05/09/22 11:35 59 L 18 123/72 97 Room Air 05/09/22 08:28 68 16 131/63 97 Room Air 05/09/22 06:37 36.6 C 70 18 126/68 98 Room Air 05/09/22 03:03 37.1 C 63 18 127/70 98 Room Air 05/09/22 03:03 98 05/09/22 01:00 71 22 97/60 L 95 Room Air O2 Del Method 05/09/22 11:35 05/09/22 08:28 05/09/22 06:37 05/09/22 03:03 05/09/22 03:03 Room Air 05/09/22 01:00
--- NOTE | 2022-05-09 12:55 | Electrocardiogram Report ---
Test Reason : Blood Pressure : / mmHG Vent. Rate : 084 BPM Atrial Rate : 326 BPM P-R Int : 000 ms QRS Dur : 082 ms QT Int : 342 ms P-R-T Axes : 000 016 033 degrees QTc Int : 404 ms Poor data quality, interpretation may be adversely affected Sinus rhythm Nonspecific ST abnormality Abnormal ECG When compared with ECG of 13-APR-2022 17:49, Criteria for Anterior infarct are no longer Present Confirmed by Nghia Galeana ([id number]) on 05/09/2022 12:55:23 PM Referred By: REFERRED SELF Confirmed By:Eugene Galeana
--- NOTE | 2022-05-09 14:54 | Hospitalist Progress Note ---
Date of Service May 09, 2022 Assessment & Plan (1) Transaminitis: Plan Transaminitis Possible Sump syndrome H/O cholangitis S/P ERCP with biliary rendezvous procedure & metal CBD stent placement on 04/15/2022 Completed Augmentin course on 04/29/22 -CT ABD: A common bile duct stent has been placed. Pneumobilia suggests patency of the stent and there is only minimal intrahepatic biliary duct dilatation. There is nonspecific wall thickening of the common bile duct with mild surrounding infiltration. Clinical correlation will be required. Mildly enlarged mesenteric lymph nodes are nonspecific and similar to previous. Diverticulosis of the small bowel and colon without CT evidence of acute diverticulitis. Cardiomegaly. -Liver USD:Pneumobilia is seen without biliary ductal dilation. The common bile duct stent is not visualized due to overlying bowel gas. -- Blood cultures pending -Continue IV Zosyn, fluids Monitor LFTs Hepatitis panel pending Appreciate GI input Continue PPI Hypomagnesemia Replace as needed Monitor Chronic Hyponatremia: Monitor Sodium levels DM II HbA1c 6.7 Continue insulin while hospitalized HTN P.atrial flutter Mild aortic stenosis Ascending thoracic aorta enlargement Chronic anemia continue home meds DVT Px: Heparin SQ Code Status Full code Admission and Anticipated Discharge Date Admission Date: May 09, 2022 Subjective Patient is seen and examined at bedside States feeling much better today Abdominal pain resolved Denies any chest pain, shortness breath, dizziness, nausea Discussed with patient's family at bedside No other complaints Review of Systems Review of Systems: All systems reviewed & are unremarkable except as noted in Subjective Physical Exam Physical Exam: Physical Exam: Vitals signs as noted above General Appearance:Moderately built and nourished, no apparent distress Head: normocephalic, Atraumatic Eyes: normal inspection, EOMI Neck: supple, Trachea midline Respiratory/Chest: Normal breath sounds, CTA, No accessory muscle use Cardiovascular: S1, S2, + murmur Abdomen/GI:Soft, Non tender, Bowel sounds present Extremities/Musculoskeletal:normal inspection, 1+ Pedal edema Neurologic/Psych:AAOX3, grossly no focal neurological deficits Skin: normal color, warm Results & Data Results & Data ([facility]) Vital Signs (Past 12 Hours) Vital Signs Temp Pulse Resp BP Pulse Ox Pulse Ox O2 Del Method 05/09/22 14:34 65 16 125/68 97 Room Air 05/09/22 11:35 59 L 18 123/72 97 Room Air 05/09/22 08:28 68 16 131/63 97 Room Air 05/09/22 06:37 36.6 C 70 18 126/68 98 Room Air 05/09/22 03:03 37.1 C 63 18 127/70 98 Room Air 05/09/22 03:03 98 O2 Del Method 05/09/22 14:34 05/09/22 11:35 05/09/22 08:28 05/09/22 06:37 05/09/22 03:03 05/09/22 03:03 Room Air Laboratory Results Short CBC 05/08/22 05/09/22 Range/Units 19:51 04:34 WBC 10.21 7.62 (4.8-10.8) K/ul Hgb 11.9 L 10.8 L (14.0-18.0) g/dl Hct 36.1 L 32.4 L (40.1-51.0) % Plt Count 291 258 (130-400) K/uL BMP 05/08/22 05/09/22 19:51 04:34 Sodium 130 L 135 L Potassium 4.6 4.0 Chloride 99 106 Carbon Dioxide 24 24 BUN 24 H 20 Creatinine 1.04 0.90 Glucose 131 H 101 H Calcium 8.4 L 7.8 L Liver Function 05/08/22 05/09/22 Range/Units 19:51 04:34 Total Bilirubin 1.7 H 1.3 H (0.2-1.0) mg/dl AST 391 H 183 H (13-39) U/L ALT 322 H 223 H (7-52) U/L Alkaline Phosphatase 732 H 551 H (34-104) U/L Albumin 3.5 2.9 L (3.4-5.0) gm/dl Urine 05/08/22 Range/Units 22:40 Urine Color Yellow Urine Appearance Clear (Clear) Urine pH 5.5 (4.5-7.5) Ur Specific [place] 1.013 (1.000-1.030) Urine Protein Negative (Negative) Urine Glucose (UA) Negative (Negative)
[2022-05-09] MEDS: LANTUS PER UNIT CHARGE SQ SCH (20:52)
[2022-05-09] MEDS: HEPARIN SOD 5,000 UNIT/0.5 ML VIAL SQ SCH (20:53)
[2022-05-09] MEDS: SIMVASTATIN 20 MG TAB PO SCH (20:53)
[2022-05-10] MEDS: PIPERACILLIN/TAZOBACTAM 3.375 GM in DEXTROSE 5% 100 ML IV SCH ×3 (04:51→21:11)
[2022-05-10 05:07] LABS: Hematocrit (blood only) 31.9 % (40.1-51.0); Hemoglobin 10.7 g/dl (14.0-18.0); Mean Corpuscular Hemoglobin 27.9 pg (25.0-34.0); Mean Corpuscular Hgb Conc 33.5 g/dL (32.0-36.0); Mean Corpuscular Volume 83.3 fL (80.0-100.0); Mean Platelet Volume 8.8 fL (9.4-12.4); Platelet Count 242 K/uL (130-400); RDW Coefficient of Variation 14.3 % (11.5-14.5); RDW Standard Deviation 43.5 fL (36.4-46.3); Red Blood Count 3.83 M/uL (4.63-6.08); White Blood Count 7.62 K/ul (4.8-10.8)
[2022-05-10 05:28] LABS: Albumin Level 2.7 gm/dl (3.4-5.0); BUN Creatinine Ratio 13.3 (10-20); Bilirubin,Total 1.2 mg/dl (0.2-1.0); Calcium 8.1 mg/dl (8.5-10.1); Creatinine Clr Calc Pharmacy 58.8 ml/min; Est GFR (African American) 87.1 ml/min; Est GFR (Non-African American) 75.1 ml/min; Globulin 2.7 gm/dl (2.5-4.0); Magnesium 1.6 mg/dl (1.7-2.4); Phosphorus 3.1 mg/dl (2.5-4.9); Potassium 4.3 mmol/L (3.5-5.1); Total Protein 5.4 gm/dl (6.0-8.3)
[2022-05-10] MEDS: ASPIRIN 81 MG ECTAB PO SCH (07:23)
[2022-05-10] MEDS: CHOLECALCIFEROL 1,000 UNITS 25 MCG TAB PO SCH (07:23)
[2022-05-10] MEDS: PANTOprazole 40 MG TAB PO SCH (07:23)
[2022-05-10] MEDS: METOPROLOL TARTRATE 50 MG TAB PO SCH ×2 (07:23→22:21)
[2022-05-10] MEDS: HEPARIN SOD 5,000 UNIT/0.5 ML VIAL SQ SCH ×2 (07:24→21:11)
[2022-05-10] MEDS: LANTUS PER UNIT CHARGE SQ SCH ×2 (08:26→21:21)
[2022-05-10] MEDS: INSULIN ASPART PER UNIT SC SCH ×4 (08:26→21:13)
[2022-05-10] MEDS: MAGNESIUM SULFATE / D5W 1 GM/100 ML BAG IV SCH ×2 (08:50→10:17)
[2022-05-10 10:38] LABS: HBSAG NON-REACTIVE (NON-REACTIVE); Hepatitis A Antibody IgM NON-REACTIVE (NON-REACTIVE); Hepatitis B Core Antibody IgM NON-REACTIVE (NON-REACTIVE)
--- NOTE | 2022-05-10 12:36 | Communication Note ---
Date of Service: May 10, 2022 GI brief note LFTs improving, afebrile. suspecting Sump syndrome, continue current management. Greg Epperson MD Gastroenterology
--- NOTE | 2022-05-10 14:53 | Hospitalist Progress Note ---
Date of Service May 10, 2022 Assessment & Plan (1) Transaminitis: Plan Transaminitis Possible Sump syndrome H/O cholangitis S/P ERCP with biliary rendezvous procedure & metal CBD stent placement on 04/15/2022 Completed Augmentin course on 04/29/22 -CT ABD: A common bile duct stent has been placed. Pneumobilia suggests patency of the stent and there is only minimal intrahepatic biliary duct dilatation. There is nonspecific wall thickening of the common bile duct with mild surrounding infiltration. Clinical correlation will be required. Mildly enlarged mesenteric lymph nodes are nonspecific and similar to previous. Diverticulosis of the small bowel and colon without CT evidence of acute diverticulitis. Cardiomegaly. -Liver USD:Pneumobilia is seen without biliary ductal dilation. The common bile duct stent is not visualized due to overlying bowel gas. -Hepatitis panel: Non reactive -- Blood cultures pending -Continue IV Zosyn, fluids Monitor LFTs--Improving Appreciate GI input Continue PPI Continue current management Hypomagnesemia Replace as needed Monitor Chronic Hyponatremia: Monitor Sodium levels Sodium 132 today DM II HbA1c 6.7 Continue insulin while hospitalized HTN P.atrial flutter Mild aortic stenosis Ascending thoracic aorta enlargement Chronic anemia continue home meds DVT Px: Heparin SQ Code Status Full code Admission and Anticipated Discharge Date Admission Date: May 09, 2022 Subjective Patient is seen and examined at bedside Offers no complaints Feels well Denies any chest pain, shortness breath, dizziness, nausea Discussed with patient's family at bedside Blood cultures pending Review of Systems Review of Systems: All systems reviewed & are unremarkable except as noted in Subjective Physical Exam Physical Exam: Physical Exam: Vitals signs as noted above General Appearance:Moderately built and nourished, no apparent distress Head: normocephalic, Atraumatic Eyes: normal inspection, EOMI Neck: supple, Trachea midline Respiratory/Chest: Normal breath sounds, CTA, No accessory muscle use Cardiovascular: S1, S2, + murmur Abdomen/GI:Soft, Non tender, Bowel sounds present Extremities/Musculoskeletal:normal inspection, 1+ Pedal edema Neurologic/Psych:AAOX3, grossly no focal neurological deficits Skin: normal color, warm Results & Data Results & Data ([facility]) Vital Signs (Past 12 Hours) Vital Signs Temp Pulse Pulse Resp BP Pulse Ox O2 Del Method 05/10/22 11:27 36.7 C 59 L 16 106/64 96 Room Air 05/10/22 07:45 36.4 C L 16 118/70 94 Room Air 05/10/22 07:16 65 Laboratory Results Short CBC 05/10/22 Range/Units 04:57 WBC 7.62 (4.8-10.8) K/ul Hgb 10.7 L (14.0-18.0) g/dl Hct 31.9 L (40.1-51.0) % Plt Count 242 (130-400) K/uL BMP 05/10/22 04:57 Sodium 132 L Potassium 4.3 Chloride 103 Carbon Dioxide 25 BUN 13 Creatinine 0.98 Glucose 112 H Calcium 8.1 L Liver Function 05/10/22 Range/Units 04:57 Total Bilirubin 1.2 H (0.2-1.0) mg/dl AST 60 H (13-39) U/L ALT 142 H (7-52) U/L Alkaline Phosphatase 395 H (34-104) U/L Albumin 2.7 L (3.4-5.0) gm/dl
[2022-05-10] MEDS: SIMVASTATIN 20 MG TAB PO SCH (22:21)
[2022-05-11] MEDS: PIPERACILLIN/TAZOBACTAM 3.375 GM in DEXTROSE 5% 100 ML IV SCH ×2 (03:32→11:28)
[2022-05-11] MEDS: METOPROLOL TARTRATE 50 MG TAB PO SCH (07:26)
[2022-05-11] MEDS: CHOLECALCIFEROL 1,000 UNITS 25 MCG TAB PO SCH (07:27)
[2022-05-11] MEDS: PANTOprazole 40 MG TAB PO SCH (07:27)
[2022-05-11] MEDS: ASPIRIN 81 MG ECTAB PO SCH (07:27)
[2022-05-11] MEDS: HEPARIN SOD 5,000 UNIT/0.5 ML VIAL SQ SCH (07:27)
[2022-05-11 07:45] LABS: Hematocrit (blood only) 33.6 % (40.1-51.0); Hemoglobin 11.3 g/dl (14.0-18.0); Mean Corpuscular Hemoglobin 27.6 pg (25.0-34.0); Mean Corpuscular Hgb Conc 33.6 g/dL (32.0-36.0); Mean Corpuscular Volume 82.2 fL (80.0-100.0); Platelet Count 259 K/uL (130-400); RDW Standard Deviation 41.6 fL (36.4-46.3); Red Blood Count 4.09 M/uL (4.63-6.08); White Blood Count 6.16 K/ul (4.8-10.8)
[2022-05-11 08:07] LABS: BUN Creatinine Ratio 11.5 (10-20); Calcium 8.1 mg/dl (8.5-10.1); Creatinine Clr Calc Pharmacy 44.3 ml/min; Est GFR (African American) 61.9 ml/min; Est GFR (Non-African American) 53.4 ml/min; Globulin 2.9 gm/dl (2.5-4.0); Magnesium 1.7 mg/dl (1.7-2.4); Potassium 4.4 mmol/L (3.5-5.1); Total Protein 5.9 gm/dl (6.0-8.3)
[2022-05-11] MEDS: INSULIN ASPART PER UNIT SC SCH ×2 (08:14→11:39)
[2022-05-11] MEDS: LANTUS PER UNIT CHARGE SQ SCH (08:15)
[2022-05-11] MEDS ORDERED: MAGNESIUM CHLORIDE W/CALCIUM 64MG DELAYED REL TAB PO SCH (09:00)
--- NOTE | 2022-05-11 11:53 | Hospitalist Progress Note ---
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 Pneumobilia suggests patency of the stent and there is only minimal intrahepatic biliary duct dilatation. There is nonspecific wall thickening of the common bile duct with mild surrounding infiltration. Clinical correlation will be required. Mildly enlarged mesenteric lymph nodes are nonspecific and similar to previous. Diverticulosis of the small bowel and colon without CT evidence of acute diverticulitis. Cardiomegaly. -Liver USD:Pneumobilia is seen without biliary ductal dilation. The common bile duct stent is not visualized due to overlying bowel gas. -Hepatitis panel: Non reactive -- Blood cultures: No growth to date -Continue IV Zosyn, fluids Monitor LFTs--Improving Appreciate GI input Continue PPI Discussed with GI 05/11/22: Advised to complete 7-10 day course of antibiotics in total and follow up with GI as outpatient Hypomagnesemia Replace as needed Monitor Chronic Hyponatremia: Monitor Sodium levels Sodium 134 today DM II HbA1c 6.7 Continue insulin while hospitalized HTN P.atrial flutter Mild aortic stenosis Ascending thoracic aorta enlargement Chronic anemia continue home meds DVT Px: Heparin SQ Code Status Full code Admission and Anticipated Discharge Date Admission Date: May 09, 2022 Subjective Patient is seen and examined at bedside Doing well today Eager to get discharged No recurrence of abdominal pain Tolerated diet Denies any chest pain, shortness breath, dizziness, nausea Discussed with GI today Review of Systems Review of Systems: All systems reviewed & are unremarkable except as noted in Subjective Physical Exam Physical Exam: Physical Exam: Vitals signs as noted above General Appearance:Moderately built and nourished, no apparent distress Head: normocephalic, Atraumatic Eyes: normal inspection, EOMI Neck: supple, Trachea midline Respiratory/Chest: Normal breath sounds, CTA, No accessory muscle use Cardiovascular: S1, S2, + murmur Abdomen/GI:Soft, Non tender, Bowel sounds present Extremities/Musculoskeletal:normal inspection, 1+ Pedal edema Neurologic/Psych:AAOX3, grossly no focal neurological deficits Skin: normal color, warm Results & Data Results & Data ([facility]) Vital Signs (Past 12 Hours) Vital Signs Temp Pulse Pulse Resp BP Pulse Ox O2 Del Method 05/11/22 11:17 36.5 C 62 20 105/64 97 Room Air 05/11/22 07:41 36.3 C L 56 L 20 124/80 96 Room Air 05/11/22 07:15 54 L 05/11/22 03:31 36.5 C 58 L 16 114/70 94 Room Air Laboratory Results Short CBC 05/11/22 Range/Units 07:24 WBC 6.16 (4.8-10.8) K/ul Hgb 11.3 L (14.0-18.0) g/dl Hct 33.6 L (40.1-51.0) % Plt Count 259 (130-400) K/uL BMP 05/11/22 07:24 Sodium 134 L Potassium 4.4 Chloride 103 Carbon Dioxide 27 BUN 15 Creatinine 1.30 D Glucose 166 H Calcium 8.1 L Liver Function 05/11/22 Range/Units 07:24 Total Bilirubin 1.0 (0.2-1.0) mg/dl AST 26 (13-39) U/L ALT 96 H (7-52) U/L Alkaline Phosphatase 378 H (34-104) U/L Albumin 3.0 L (3.4-5.0) gm/dl
--- NOTE | 2022-05-11 12:03 | Discharge Summary ---
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 Pt complaints of on/off upper belly discomfort ongoing for last few days. Per patient, he had similar shaking and chills prior to the episode of cholangitis last month which made him worried and hence presented to the hospital. At home the temperature measured was in afebrile range per patient's but patient was found to have elevated temperature of 38.1C at ED presentation but follow-up temperature is WNL. Patient has not received any antibiotic. Patient reports improvement in his upper belly discomfort. Patient reports decreased appetite since last 2 years. Patient denies headache or dizziness or sore throat or cough or chest pain or palpitation or acute changes in his bowel or bladder habits. 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 Family history positive for DM, heart disease, stroke. Medications reviewed with the patient. Patient's Patricia at bedside who was updated as well. Full code Admission Exam Per Admitting Provider Physical Exam Physical Exam: GENERAL: Alert and oriented x3. NAD, on RA. HEENT: No pallor, no icterus. Pupils equal, round and reactive to light. Oral mucosa moist. NECK: No JVD, no neck masses. HEART: S1 and S2 heard. Regular rate and rhythm. No murmur, no gallop. RESPIRATORY SYSTEM: Normal AP diameter. No accessory muscle use. No wheezing, no crackles. ABDOMEN: Soft, bowel sounds present,nontender, no distention. CENTRAL NERVOUS SYSTEM: No facial droop. Speech is clear. Obeys simple commands. Moves extremities. EXTREMITIES: No edema, no erythema seen. Principal Diagnosis Transaminitis Possible Sump syndrome Hypomagnesemia Discharge Data Allergies Allergy/AdvReac Type Severity Reaction Status Date / Time gluten Allergy Severe celiac's Verified 05/08/22 22:03 disease wheat Allergy Severe celiac's Verified 05/08/22 22:03 disease exenatide [From [place]restes] AdvReac Mild Vomiting Verified 05/08/22 22:03 Consultations 05/09/22 02:02 ED Decision to Admit Stat 05/09/22 02:03 Consult Gastroenterology Routine Procedures Performed Laboratory Results WBC 6.16 K/ul (4.8-10.8) 05/11/22 07:24 RBC 4.09 M/uL (4.63-6.08) L 05/11/22 07:24 Hgb 11.3 g/dl (14.0-18.0) L 05/11/22 07:24 Hct 33.6 % (40.1-51.0) L 05/11/22 07:24 MCV 82.2 fL (80.0-100.0) 05/11/22 07:24 MCH 27.6 pg (25.0-34.0) 05/11/22 07:24 MCHC 33.6 g/dL (32.0-36.0) 05/11/22 07:24 RDW Std Deviation 41.6 fL (36.4-46.3) 05/11/22 07:24 RDW Coeff of [place] 14.0 % (11.5-14.5) 05/11/22 07:24 Plt Count 259 K/uL (130-400) 05/11/22 07:24 MPV 9.0 fL (9.4-12.4) L 05/11/22 07:24 Immature Gran % (Auto) 0.2 % 05/08/22 19:51 Neut % (Auto) 44.0 % 05/08/22 19:51 Lymph % (Auto) 47.1 % 05/08/22 19:51 [place] % (Auto) 8.4 % 05/08/22 19:51 Eos % (Auto) 0.2 % 05/08/22 19:51 Baso % (Auto) 0.1 % 05/08/22 19:51 Neut # (Auto) 4.49 K/uL (1.4-6.5) 05/08/22 19:51 Lymph # (Auto) 4.81 K/uL (1.2-3.4) H 05/08/22 19:51 [place] # (Auto) 0.86 K/uL (0.24-0.82) H 05/08/22 19:51 Eos # (Auto) 0.02 K/uL (0-0.50) 05/08/22 19:51 Baso # (Auto) 0.01 K/uL (0-0.2) 05/08/22 19:51 Immature Gran # (Auto) 0.02 K/uL (0.00-0.02) 05/08/22 19:51 Absolute Nucleated RBC 0.02 K/uL (0-0) H 05/09/22 04:34 Nucleated RBC % (auto) 0.3 % 05/09/22 04:34 Sodium 134 mmol/L (136-145) L 05/11/22 07:24 Potassium 4.4 mmol/L (3.5-5.1) 05/11/22 07:24 Chloride 103 mmol/L (98-107) 05/11/22 07:24 Carbon Dioxide 27 mmol/L (21-32) 05/11/22 07:24 Anion Gap 4 (3-11) 05/11/22 07:24 BUN 15 mg/dl (6-23) 05/11/22 07:24 Creatinine 1.30 mg/dl (0.6-1.4) D 05/11/22 07:24 Est Cr Clr Drug Dosing 44.3 ml/min 05/11/22 07:24 Est GFR ( Amer) 61.9 ml/min 05/11/22 07:24 Est GFR (Non-Af Amer) 53.4 ml/min 05/11/22 07:24 BUN/Creatinine Ratio 11.5 (10-20) 05/11/22 07:24 Glucose 166 mg/dl (70-99(Fasting)) H 05/11/22 07:24 POC Glucose 197 mg/dl (70-99) H 05/11/22 11:28 Lactate 0.7 mmol/L (0.4-2.0) 05/08/22 19:51 Calcium 8.1 mg/dl (8.5-10.1) L 05/11/22 07:24 Phosphorus 3.1 mg/dl (2.5-4.9) 05/10/22 04:57 Magnesium 1.7 mg/dl (1.7-2.4) 05/11/22 07:24 Total Bilirubin 1.0 mg/dl (0.2-1.0) 05/11/22 07:24 AST 26 U/L (13-39) 05/11/22 07:24 ALT 96 U/L (7-52) H 05/11/22 07:24 Alkaline Phosphatase 378 U/L (34-104) H 05/11/22 07:24 Total Protein 5.9 gm/dl (6.0-8.3) L 05/11/22 07:24 Albumin 3.0 gm/dl (3.4-5.0) L 05/11/22 07:24 Globulin 2.9 gm/dl (2.5-4.0) 05/11/22 07:24 Albumin/Globulin Ratio 1.0 (0.9-2) 05/11/22 07:24 Lipase 69 U/L (11-82) 05/08/22 19:51 Procalcitonin 0.28 ng/ml (0-0.5) 05/10/22 04:57 Urine Color Yellow 05/08/22 22:40 Urine Appearance Clear (Clear) 05/08/22 22:40 Urine pH 5.5 (4.5-7.5) 05/08/22 22:40 Ur Specific [place] 1.013 (1.000-1.030) 05/08/22 22:40 Urine Protein Negative (Negative) 05/08/22 22:40 Urine Glucose (UA) Negative (Negative) 05/08/22 22:40 Urine Ketones Trace (Negative) H 05/08/22 22:40 Urine Blood Negative (Negative) 05/08/22 22:40 Urine Nitrite Negative (Negative) 05/08/22 22:40 Urine Bilirubin Negative (Negative) 05/08/22 22:40 Urine Urobilinogen Negative (Negative) 05/08/22 22:40 Ur Leukocyte Esterase Negative (Negative) 05/08/22 22:40 Nasal Screen MRSA (PCR) Negative (Negative) 05/09/22 18:41 SARS-CoV-2 (PCR) NEGATIVE (Negative) 05/08/22 21:30 Hepatitis A IgM Ab NON-REACTIVE (NON-REACTIVE) 05/09/22 04:34 Hep Bs Antigen NON-REACTIVE (NON-REACTIVE) 05/09/22 04:34 Hep Bs Ag Confirmation TNP 05/09/22 04:34 Hep B Core IgM Ab NON-REACTIVE (NON-REACTIVE) 05/09/22 04:34 Hepatitis C Ab (EIA) NON-REACTIVE (NON-REACTIVE) 05/09/22 04:34 Hep C Ab Signal/Cutoff 0.06 (<1.00) 05/09/22 04:34 Influenza Type A (PCR) Negative (Neg) 05/08/22 21:30 Influenza Type B (PCR) Negative (Neg) 05/08/22 21:30 RSV (RT-PCR) Negative (Neg) 05/08/22 21:30 Impressions Chest X-Ray 05/08/22 19:00 SINGLE VIEW CHEST CLINICAL HISTORY: Fever. FINDINGS: An AP, portable, upright chest radiograph is compared to study dated 04/13/2022 and correlated with chest CT dated 06/26/2020. The cardiomediastinal silhouette is unremarkable. There is mild bibasilar scarring/atelectasis. The lungs and pleural spaces are otherwise clear. No pneumothorax is seen. The skeletal structures are osteopenic. There are healed bilateral rib fractures. IMPRESSION: No active disease in the chest. ACT 112: Negative or not required by law. Electronically signed by: Erik Breaux M.D. 05/08/2022 7:58 PM Abdomen/Pelvis CT 05/08/22 21:31 CT SCAN OF THE ABDOMEN AND PELVIS WITH IV CONTRAST CLINICAL HISTORY: Epigastric abdominal pain. Recent biliary stent. COMPARISON STUDY: Abdominal CT dated 04/13/2022. TECHNIQUE: Following the IV administration of 87 cc of Optiray 350, CT scan of the abdomen and pelvis is performed from the lung bases to the proximal femora. Images are reviewed in the axial, sagittal, and coronal planes. IV contrast was administered without complication. A dose lowering technique was utilized adhering to the principles of ALARA. CT DOSE: 333.18 mGy.cm FINDINGS: Lung bases: The heart is moderately enlarged and without pericardial effusion. The coronary arteries and aortic valve leaflets are densely calcified. The lung bases are clear noting bibasilar scarring/atelectasis. A small hiatal hernia is noted. Liver: The contrast-enhanced liver is normal in size, contour, and attenuation. There is minimal intrahepatic biliary ductal dilatation. Pneumobilia is observed. The hepatic veins and portal veins are patent. Gallbladder: Surgically absent noting clips in the gallbladder fossa. A common bile duct stent is in place. Pneumobilia suggests patency of the stent. There is nonspecific wall thickening of the common bile duct with mild surrounding infiltration. Spleen: Normal in size and attenuation. Pancreas: Unremarkable. Adrenal glands: Unremarkable. Kidneys: The contrast enhanced kidneys demonstrate cortical atrophy and are without hydronephrosis. The kidneys enhance symmetrically. A 1.4 cm cyst is noted on the left. Abdominal vasculature: The abdominal aorta is normal in course and caliber noting moderate atherosclerotic calcification. Bowel: There is mild to moderate colonic diverticulosis without CT evidence of acute diverticulitis. There are also diverticula of the small bowel. No bowel obstruction is seen. There is moderate constipation. The appendix is well- visualized and normal. Peritoneum: There is no intraperitoneal free air or abdominal ascites. Lymphadenopathy: There are numerous mildly enlarged mesenteric lymph nodes which measure up to 12 mm short axis. Pelvic viscera: The prostate gland is enlarged and heterogeneous. The bladder is distended, and the wall appears thickened/trabeculated indicating chronic outlet obstruction. Skeletal structures: The skeletal structures are osteopenic. There is mild lumbosacral spondylosis. Bilateral pars defects are noted at L5. No lytic or blastic lesions are seen. There are healed left-sided rib fractures. IMPRESSION: 1. A common bile duct stent has been placed. Pneumobilia suggests patency of the stent and there is only minimal intrahepatic biliary duct dilatation. 2. There is nonspecific wall thickening of the common bile duct with mild surrounding infiltration. Clinical correlation will be required. 3. Mildly enlarged mesenteric lymph nodes are nonspecific and similar to previous. 4. Diverticulosis of the small bowel and colon without CT evidence of acute diverticulitis. 5. Cardiomegaly. 6. Additional findings as above. ACT 112: Negative or not required by law. Electronically signed by: Erik Breaux M.D. 05/09/2022 7:59 AM Liver Ultrasound 05/09/22 01:45 US liver CLINICAL HISTORY: Transaminitis, eval bile ducts TECHNIQUE: Multiple real-time sonographic images of the right upper quadrant were obtained. Comparison: Comparison is made to right upper quadrant ultrasound 04/08/[address] abdomen pelvis 05/08/2022 FINDINGS: The liver is diffusely homogenous with normal contour and echogenicity. No focal mass lesions are seen. No intrahepatic ductal dilatation is seen. Patient is status post cholecystectomy. Echogenic foci are seen in the common bile duct likely representing pneumobilia. The common bile duct stent is not visualized due to overlying bowel gas. The common duct measures 0.5 cm in diameter at the level of the hepatic artery. The visualized portions of the pancreas appear normal. The right kidney shows normal echogenicity, cortical thickness and renal contour. The right kidney shows no evidence of hydronephrosis or mass. No ascites or free fluid is seen in Carias's pouch. IMPRESSION: Pneumobilia is seen without biliary ductal dilation. The common bile duct stent is not visualized due to overlying bowel gas. ACT 112: Negative or not required by law. Electronically signed by: Dante Land M.D. 05/09/2022 8:24 AM Ordered Studies 05/08/22 21:31 CT abd pelvis IV con only Urgent 05/09/22 01:45 liver Urgent Hospital Course (1) Transaminitis: Plan Transaminitis Possible Sump syndrome H/O cholangitis S/P ERCP with biliary rendezvous procedure & metal CBD stent placement on 04/15/2022 Completed Augmentin course on 04/29/22 -CT ABD: A common bile duct stent has been placed. Pneumobilia suggests patency of the stent and there is only minimal intrahepatic biliary duct dilatation. There is nonspecific wall thickening of the common bile duct with mild surrounding infiltration. Clinical correlation will be required. Mildly enlarged mesenteric lymph nodes are nonspecific and similar to previous. Diverticulosis of the small bowel and colon without CT evidence of acute diverticulitis. Cardiomegaly. -Liver USD:Pneumobilia is seen without biliary ductal dilation. The common bile duct stent is not visualized due to overlying bowel gas. -Hepatitis panel: Non reactive -- Blood cultures: No growth to date -Continue IV Zosyn, fluids Monitor LFTs--Improving Appreciate GI input Continue PPI Discussed with GI 05/11/22: Advised to complete 7-10 day course of antibiotics in total and follow up with GI as outpatient Hypomagnesemia Replace as needed Monitor Chronic Hyponatremia: Monitor Sodium levels Sodium 134 today DM II HbA1c 6.7 Continue insulin while hospitalized HTN P.atrial flutter Mild aortic stenosis Ascending thoracic aorta enlargement Chronic anemia continue home meds DVT Px: Heparin SQ Code Status Full code Total Time Total Time Spent Total Time Spent (In Minutes): 49 minutes Discharge Plan Discharge Items Patient Disposition: Home - Self-Care Reason For Visit: UPPER BELLY PAIN Discharge Diagnosis: Transaminitis Possible Sump syndrome Hypomagnesemia Activity: Per Instructions section Exercise/Sports: Gradually increase as tolerated Non-emergency contact: Primary Care Provider and [employer] Call non-emergency contact if: you have any medication questions, your symptoms worsen, your pain is concerning for you and you have a fever Follow-up/Referrals: Corrine Amor DO [Primary Care Provider] - Diet: Carb Consistent or DM2 and Gluten Free Addtl Attending Provider Instructions: Follow-up with your primary care physician in 1 week. Please call for appointment Follow-up with your retail assistant store manager in 2 weeks as advised ---Your final blood cultures are pending at the time of discharge. Follow-up with your physician for results. --- Complete antibiotic course Augmentin as prescribed, per recommendations from your retail assistant store manager. Seek immediate medical attention if your symptoms reoccur or worsen Please take all medications as instructed on discharge list below. Please call if you have any questions or problems. You can reach a [facility] hospitalist on duty at [facility] 24 hours a day by calling [phone] Pending Studies at Discharge: Yes Studies:: Blood Cultures Stand-Alone Forms: My [facility], Smoking Cessation Medications and DC Order Prescriptions: New Mag 64 64 mg Tablet,Delayed Release (Dr/Ec) 64 mg PO BID Qty: 60 0RF amoxicillin-pot clavulanate [Augmentin] 500-125 mg tablet 1 tab PO BID Qty: 8 0RF Continued (DME) blood-glucose meter Misc See Rx Instructions .ROUTE .MEDSUPPLY Qty: 1 0RF Rx Instructions: EASY MAX V METER E11.65 Z79.4 (DME) blood glucose control, normal [Easymax 15 Level 2] Solution See Rx Instructions .ROUTE .MEDSUPPLY Qty: 1 0RF Rx Instructions: As directed PER METER INSTRUCTIONS E11.65 (DME) lancets [Twist Lancets] 30 gauge misc See Rx Instructions .ROUTE .MEDSUPPLY Qty: 300 3RF Rx Instructions: USE THREE TIMES DAILY E11.65 metoprolol tartrate 50 mg tablet 50 mg PO BID Qty: 20 0RF (DME) pen needle, diabetic [BD Ultra-Fine Short Pen Needle] 31 gauge x 5/16" needle See Rx Instructions .ROUTE .MEDSUPPLY Qty: 900 3RF Rx Instructions: Test up to three times daily. DX: E11.65 pantoprazole 40 mg tablet,delayed release (DR/EC) 40 mg PO QAM Qty: 90 3RF (DME) EasyMax Strip See Rx Instructions .ROUTE .MEDSUPPLY Qty: 300 3RF Rx Instructions: EASY MAX TEST STRIPS CHECK BLOOD SUGARS TID E11.65 simvastatin 20 mg tablet 20 mg PO HS Qty: 90 3RF metformin 1,000 mg tablet 1,000 mg PO BID Qty: 180 3RF sildenafil 50 mg tablet 50 mg PO DAILY PRN (Reason: sexual activity) Qty: 5 5RF Rx Instructions: administer 30 minutes to 4 hours before activity cholecalciferol (vitamin D3) 50 mcg (2,000 unit) capsule 50 mcg PO QAM aspirin [Adult Low Dose Aspirin] 81 mg tablet,delayed release (DR/EC) 81 mg PO QAM Label Comments: on hold since broke ribs 4 weeks ago Tradjenta 5 mg tablet 5 mg PO QAM insulin glargine [Lantus Solostar U-100 Insulin] 100 unit/mL (3 mL) insulin pen 18 unit SUBCUT QAM Discontinued naproxen 500 mg tablet 500 mg PO BID PRN (Reason: Pain) Qty: 180 1RF Discharge Orders: Discharge Order (Routine); Ordered 05/11/22 Ordered By: Beni Ni Admission Data Admit Date/Time: 05/09/22 02:09 Attending Provider: Beni Ni Admit Provider: Ashli Orellana Primary Care Provider: Corrine Amor Other Providers: Ahsli Orellana ; Glenny Croonel
== END 2022-05-11 13:58 | disposition home or self-care (01) ==
LOC: ED 18:51 → EDINP 05-09 02:09 → INTOOBSV 05-09 02:09 → SUATTDRO 05-09 02:09 → 1E 05-09 03:02 → 2N 05-10 06:13

== ENCOUNTER 2023-12-20 17:03 | Observation (INO) ==
--- OUTSIDE RECORDS SUMMARY | 2023-12-20 17:10 | External Medical Summary | Summary of Care ---
Author Name Unknown Organization [facility] Address [address] [facility] [place] [address] Phone [phone] Care Team Providers Care Consulting Analyst Name Role Phone Corrine Amor DO Primary Care Provider Reason for Visit * Reason Onset Date Comments Test Results 12/09/2023 Encounter Details Date Type Department Care Team (Late st Contact Info) Description 12/09/2023 Telephone Cardiology, [facility] [address] [place] [address] Benjie Amor DO [address] [place] [address] Test Results Allergies Active Allergy Reactions Criticality Noted Date Comments Exenatide 11/20/2020 Gluten Meal Abdominal pain High 02/19/2022 Wheat Abdominal pain High 02/19/2022 documented as of this encounter (statuses as of 12/09/2023) Medications Medication Sig Dispensed Refills Start Date End Date Status VIAGRA 100 MG Tablet 0 05/23/2016 Acti ve Vitamin D3 50 MCG (1999 UT) Oral Capsule Take 1 Capsule by mouth in the morning. Active Naproxen 500 MG Oral Tablet (Naprosyn) Take 1 Tablet by mouth 2 times a day with morning and evening meals. Active Aspirin 81 MG Oral Tablet Chewable Take 1 Tablet by mouth in the morning. Active Zoster Vac Recomb Adjuvanted 50 MCG/0.5ML Intramuscular Suspension Reconstituted (Shingrix)Indications :Need for shingles vaccine Inject 0.5 mL into a large muscle now and repeat dose in 60 to 180 days 1 Each 1 07/02/2021 Active Glucose Blood In Vitro Strip Easy Max test strip - use to test blood sugar twice daily E11.9 180 Strip 3 08/13/2021 Active FreeStyle Junie 14 Day [place] Device Use as directed . 1 Each 01/10/2022 Active Probiotic Acidophilus Oral Capsule Take 1 Capsule by mouth in the morning. 04/16/2022 Active BD Pen Needle Short U/F 31G X 8 MM Using with Lantus Solostar injector Pen daily E9.11 100 Each 3 02/23/2023 Active Lantus SoloStar 100 UNIT/ML Subcutaneous Solution Pen-injector INJECT 18 UNITS UNDER THE SKIN IN THE MORNING 45 mL 2 03/05/2023 Active Triamcinolone Acetonide 0.5 % External Cream (Aristocort)Indicatio ns:Rash and nonspecific skin eruption Apply topically to affected area 2 times a day. To affected area. 20 g 5 03/19/2023 Active Simvastatin 20 MG Oral Tablet (Zocor) TAKE 1 TABLET EVERY EVENING 90 Tablet 3 04/27/2023 Active Metoprolol Tartrate 50 MG Oral Tablet (Lopressor) TAKE 1 TABLET IN THE MORNING AND 1 TABLET BEFORE BEDTIME 180 Tablet 3 06/22/2023 Active Pantoprazole Sodium 40 MG Oral Tablet Delayed Release (Protonix) Take 1 Tablet by mouth in the morning. 90 Tablet 1 08/04/2023 Active B-12 1000 MCG Sublingual Tablet SublingualIndications :B12 deficiency DISSOLVE 1 TABLET BY MOUTH EVERY MORNING 30 Tablet 08/06/2023 Active metFORMIN HCl ER (MOD) 1000 MG Oral Tablet Extended Release 24 Hour Take 1 Tablet by mouth in the morning and 1 Tablet before bedtime. 180 Tablet 1 08/19/2023 Active Tradjenta 5 MG Oral Tablet (linaGLIPtin) TAKE 1 TABLET IN THE MORNING 90 Tablet 1 09/08/2023 Active Alendronate Sodium 70 MG Oral Tablet (Fosamax)Indications: Age-related osteoporosis without current pathological fracture Take 1 Tablet by mouth once a week. with 8 oz. water 30 minutes before first meal of the day. Remain upright for 30 min after taking tablet. 15 Tablet 3 09/22/2023 Active FreeStyle Junie 14 Day Sensor Use as directed. Change Sensor every 2 weeks. 2 Each 10/01/2023 Active Magnesium Chloride 64 MG Oral Tablet Delayed Release (MagDelay)Indications :Hypomagnesemia Take 1 Tablet by mouth in the morning. 180 Tablet 10/12/2023 Active predniSONE 10 MG Oral Tablet (Deltasone)Indication s:Erythema multiforme Take 5 tabs for 2 days, 4 tabs for 2 days, 3 tabs for 2 days, 2 tabs for 2 days 1 tab for 2 days 30 Tablet 11/17/2023 Active documented as of this encounter (statuses as of 12/09/2023) Active Problems Problem Noted Date Diagnosed Date CLL (chronic lymphocytic leukemia) 06/16/2022 Paroxysmal atrial fibrillation 04/22/2022 Protein-calorie malnutrition 04/22/2022 Celiac disease 03/13/2021 Type 2 diabetes mellitus wit h hemoglobin A1c goal of less than 7.0% Overview: ICD-10 update of inactive term Umbilical hernia OTHER AND UNSPECIFIED SLEEP APNEA Pain in limb Calculus of kidney BENIGN NEOPLASM LG BOWEL Other psoriasis documented as of this encounter (statuses as of 12/09/2023) Resolved Problems Problem Noted Date Diagnosed Date Resolved Date Psoriatic arthropathy 05/19/20222022 documented as of this encounter (statuses as of 12/09/2023) Immunizations Name Administration Dates Next Due COVID-19 mRNA, LNP-s, No Pre serve, 2-Dose Series (Moderna) 07/12/2020,05/31/2020 COVID-19, mRNA, LNP-s, PF, B ooster, 100mcg/0.5mg (Moderna) 09/23/2021,03/09/2021 DTaP Dipth/Tet/Acell Pertussis (Infanrix), Peds 09/12/2015 Diptheria/Tetanus (Adult) 12/09/1994,07/09/1985 Pneumococcal Conjugate Vacc, 13 Valent (Prevnar) 01/01/2015 Pneumococcal Conjugate Vacci ne, 7 Valent 03/31/2002 Pneumococcal Polysaccharide PPV23 (Pneumovax) 03/11/2002 Seasonal Influenza Virus Vac cine, Unspecified Formulation 03/11/2002,03/11/1992,03/11/1990,02/08,03/11/1988,02/08/1986,02/08/1985 Seasonal Influenza, Quadriva lent Hd (Fluzone Hd) 03/05/2023,02/12/2022 Seasonal Influenza, Split, I IV3, With Preserve, Inj 04/24/2001 TD, Preservative Free 12/09/1994,07/09/1985 Zoster Vaccine Recombinant (Shingrix) 01/22/2009 documented as of this encounter Social History Tobacco Use Types Packs/Day Years Used Date Smoking Tobacco: Never Passive Smoke Exposure: Never Smokeless Tobacco: Former Chew Alcohol Use Standard Drinks/Week Comments No 0 (1 standard drink = 0.6 oz pur e alcohol) RARE PHQ-2 Answer Date Recorded PHQ Adult Total Score 0 10/21/2023 Hunger Vital Sign Answer Date Recorded Within the past 12 months, y ou worried that your food would run out before you got the money to buy more. Patient declined Within the past 12 months, t he food you bought just didn't last and you didn't have money to get more. Patient declined 04/2024 Childcare Answer Date Recorded Do you feel overwhelmed with taking care of a child, family member or friend? No 10/21/2023 Does your family need help f inding childcare? (Household - for ages 0-17 years) Not on file 10/21/2023 Clothing Answer Date Recorded Have you been unable to get clothing when it was really needed? No 10/21/2023 Is your family able to get c lothes or diapers when needed? (Household - for ages 0-17 years) Not on file 10/21/2023 Personal Safety Answer Date Recorded Do you feel unsafe or have concerns for your saf ety? No 10/21/2023 Do you have concerns for you r family's safety? (Household - for ages 0-17 years) Not on file 10/21/2023 Utilities Answer Date Recorded Do you have trouble paying y our heating, water, or electric bill? No 10/21/2023 Is your family able to pay t he heat, water, or electric bill? (Household - for ages 0-17 years) Not on file 10/21/2023 Does your family have access to good internet? (Household - for ages 0-17 years) Not on file 10/21/2023 Employment Status Answer Date Recorded Are you unemployed or without regular income? No 10/21/2023 Does the household have a re gular source of income? (Household - for ages 0-17 years) Not on file 10/21/2023 Social Connections Answer Date Recorded How often do you feel lonely or isolated from th ose around you? Never 10/21/2023 Financial Resource Strain Answer Date R ecorded Do you have any trouble payi ng for your medications, or do you think you might in the future? No 10/21/2023 Does your family have troubl e paying for medicine? (Household - for ages 0-17 years) Not on file 10/21/2023 Transportation Needs Answer Date Record ed READ ONLY Do you have troubl e getting a ride to medical visits or work? Never True 10/21/2023 Does your family have a hard time getting a ride to doctors visits? (Household - for ages 0-17 years) Not on file 10/21/2023 Has lack of transportation k ept you from medical appointments, meetings, work, or from getting things needed for daily living? Check all that apply. (Adult - for ages 18 years and over) Not on file 10/21/2023 Do you (or your family) have trouble finding or paying for a ride (transportation)? (Household - for ages 0-17 years) Not on file 10/21/2023 Housing Stability Answer Date Recorded Do you currently live in a s helter or have no steady place to sleep at night? No 10/21/2023 READ ONLY Do you think you a re at risk of becoming homeless? No 10/21/2023 Does your family worry about paying for your home or becoming homeless? (Household - for ages 0-17 years) Not on file 0 10/21/2023 Are you homeless or worried that you might be in the future? (Adult - for ages 18 years and over) Not on file Are you (or your family) chip eless or worried that you might be in the future? (Household - for ages 0-17 years) Not on file Food Insecurity Answer Date Recorded Do you need food for this week? No 10/21/2023 Are you able to get enough f ood for your family? (Household - for ages 0-17 years) Not on file 10/21/2023 Does your family need food t his week? (Household - for ages 0-17 years) Not on file 10/21/2023 Do you always have enough fo od for your family? (Household - for ages 0-17 years) Not on file 10/21/2023 Sex and Gender Information Value Date Recorded Sex Assigned at Male 12/18/2021 8:18 AM EDT Gender Identity Male 12/18/2021 8:18 AM EDT Sexual Orientation Straight 12/18/2021 8: 18 AM EDT Job Start Date Occupation Industry Not on file Not on file Not on file documented as of this encounter Miscellaneous Notes * Telephone Encounter - Myron Cat OSA - 12/09/2023 1:57 PM EDT LM for patient to call back to schedule. * Telephone Encounter - Brown Rader LPN - 12/09/2023 1:49 PM EDT Called and informed patient's spouse who verbalized understanding. Scheduling please assist with a routine follow up appointment. ----- Message from Benjie Amor DO sent at 12/07/2023 1:48 PM EDT ----- Echocardiogram demonstrates mild to borderline moderate aortic valve stenosis. This is a mild progression compared to echocardiogram of 1 year ago. Patient is due for cardiology follow-up. Please schedule. documented in this encounter Plan of Treatment Upcoming Encounters Date Type Department Care Team (Late st Contact Info) Description 01/15/2024 10:00 AM EDT Office Visit Neurology [facility] [place] [address] [place] [address] Aniceto Plummer DO [address] [place] [address] 03/09/2024 10:20 AM EDT Office Visit Endocrinology [address] [place] [address] Jerardo Romano MD [address] [place], [place] [address] 03/25/2024 9:10 AM EST Office Visit [facility] [address] [place] [address] Corrine Amor, [address], [place] [id number] 06/22/2024 11:40 AM EST Office Visit Nephrology, [facility] [address] [place] [address] Darius Lomeli MD [address] [place] [address] Health Maintenance Due Date Last Done Comments Zoster Vaccines (2 of 2) 03/19/2009 01/22/2009 Pneumococcal Vaccine: 65+ Years (3 of 3 - PPSV23 or PCV20) 02/26/2015 01/01/2015, 03/11/2002 Diabetic Eye Exam 06/21/2022 06/21/2021 COVID-19 Vaccine ( season) 2023 09/23/2021, 03/09/2021, 07/12/2020, Additional history exists DXA Scan 07/22/2023 07/21/2022 Albumin/Creatinine Ratio 12/18/2023 023, 08/08/2021, 12/08/2011, Additional history exists Influenza Vaccine (FLU shot) (#1) 2024 03/05/2023, 02/12/2022, 02/23/2019, Additional history exists HbA1c 03/02/2024 09/01/2023, 02/09, 08/27/2022, Additional history exists Diabetic Foot Exam 03/05/2024 03/05/2023, 12/18/2021 GFR 09/22/2024 09/23/2023, 09/08, 09/10/2023, Additional history exists Depression Screening 10/20/2024 10/21/2023 DTaP,Tdap,and Td Vaccines (2 - Tdap) 09/11/2025 09/12/2015, 09/12/2015 (Done elsewhere), 12/09/1994, Additional history exists Colonoscopy Discontinued 07/12/2001 Colorectal Cancer Screening Discontinued Cologuard Discontinued Fecal Occult Blood Test Discontinued HPV (Gardasil) Vaccine Aged Out No lo nger eligible based on patient's age to complete this topic Hepatitis B Vaccine Aged Out No longe r eligible based on patient's age to complete this topic Hepatitis C Screening Discontinued MENINGOCOCCAL (MENACTRA/MENVEO) Aged Out No longer eligible based on patient's age to complete this topic Sigmoidoscopy Discontinued documented as of this encounter Medical Devices Not on filedocumented as of this encounter Care Teams Consulting Analyst Relationship Specialty Start Date End Date Corrine Amor DO [address] [place] [address] PCP - General Family Medicine 04/28/22 documented as of this encounter
--- OUTSIDE RECORDS SUMMARY | 2023-12-20 17:10 | External Medical Summary | Summary of Care ---
Author Name Unknown Organization [facility] Address [address] [facility] [place] [address] Phone [phone] Care Team Providers Care Yard General Car Supervisor Name Role Phone Corrine Amor DO Primary Care Provider Reason for Visit * Reason Onset Date Comments Advice 11/16/2023 Med Request Encounter Details Date Type Department Care Team (Late st Contact Info) Description 11/16/2023 Telephone [facility] [address] [place] [address] Corrine Amor DO [address] [place] [address] Advice (Med Request) Allergies Active Allergy Reactions Criticality Noted Date Comments Exenatide 11/20/2020 Gluten Meal Abdominal pain High 02/19/2022 Wheat Abdominal pain High 02/19/2022 documented as of this encounter (statuses as of 11/18/2023) Medications Medication Sig Dispensed Refills Start Date End Date Status VIAGRA 100 MG Tablet 0 05/23/2016 Active Vitamin D3 50 MCG (1999 UT) Oral Capsule Take 1 Capsule by mouth in the morning. Active Naproxen 500 MG Oral Tablet (Naprosyn) Take 1 Tablet by mouth 2 times a day with morning and evening meals. Active Aspirin 81 MG Oral Tablet Chewable Take 1 Tablet by mouth in the morning. Active Zoster Vac Recomb Adjuvanted 50 MCG/0.5ML Intramuscular Suspension Reconstituted (Shingrix)Indicatio ns:Need for shingles vaccine Inject 0.5 mL into a large muscle now and repeat dose in 60 to 180 days 1 Each 1 07/02/2021 Active Glucose Blood In Vitro Strip Easy Max test strip - use to test blood sugar twice daily E11.9 180 Strip 3 08/13/2021 Active FreeStyle Junie 14 Day [place] Device Use as directed . 1 Each [...] Active Triamcinolone Acetonide 0.5 % External Cream (Aristocort)Indicat ions:Rash and nonspecific skin eruption Apply topically to [...] 08/04/2023 Active B-12 1000 MCG Sublingual Tablet SublingualIndicatio ns:B12 deficiency DISSOLVE 1 TABLET BY MOUTH EVERY [...] Active Alendronate Sodium 70 MG Oral Tablet (Fosamax)Indication s:Age-related osteoporosis without current pathological fracture Take 1 Tablet by mouth once a week. with 8 oz. water 30 minutes before first meal of the day. Remain upright for 30 min after taking tablet. 15 Tablet 3 09/22/2023 Active FreeStyle Junie 14 Day Sensor Use as directed. Change Sensor every 2 weeks. 2 Each 10/01/2023 Active Magnesium Chloride 64 MG Oral Tablet Delayed Release (MagDelay)Indicatio ns:Hypomagnesemia Take 1 Tablet by mouth in the morning. 180 Tablet 10/12/2023 Active predniSONE 10 MG Oral Tablet (Deltasone)Indicati ons:Erythema multiforme Take 5 tabs for 2 days, 4 tabs for 2 days, 3 tabs for 2 days, 2 tabs for 2 days 1 tab for 2 days 30 Tablet 11/17/2023 Active predniSONE 10 MG Oral Tablet (Deltasone)Indicati ons:Erythema multiforme Take 5 tabs for 2 days, 4 tabs for 2 days, 3 tabs for 2 days, 2 tabs for 2 days 1 tab for 2 days 30 Tablet 09/10/2023 4 Discontinue d(Refill) documented as of this encounter (statuses as of 11/18/2023) Active Problems Problem Noted Date Diagnosed Date [...] as of this encounter (statuses as of 11/18/2023) Resolved Problems Problem Noted Date Diagnosed Date Resolved Date Psoriatic arthropathy 05/19/20222022 documented as of this encounter (statuses as of 11/18/2023) Immunizations Name Administration Dates Next Due COVID-19 mRNA, LNP-s, No Pre serve, 2-Dose Series (Moderna) 07/12/2020,05/31/2020 COVID-19, mRNA, LNP-s, PF, B ooster, 100mcg/0.5mg (Moderna) 09/23/2021,03/09/2021 DTaP Dipth/Tet/Acell Pertussis (Infanrix), Peds 09/12/2015 Pneumococcal Conjugate Vacc, 13 Valent (Prevnar) 01/01/2015 Pneumococcal Polysaccharide PPV23 (Pneumovax) Seasonal Influenza, Quadrivalent Hd (Fluzone Hd) 03/05/2023,02/12/2022 TD, Preservative Free 12/09/1994,07/09/1985 Zoster Vaccine Recombinant [...] encounter Miscellaneous Notes * Telephone Encounter - Patricia Anglin LPN - 11/18/2023 10:17 AM EDT Patient(s) returned call. Informed of message. Verbalized understanding. Will comply. Will call dermatology when they get back. * Telephone Encounter - Varsha Garcia OSA - 11/18/2023 10:14 AM EDT Reason for patient's call: Returning Call Caller was transferred to [facility] at the nurse line. * Telephone Encounter - Ofelia Ricardo LPN - 11/18/2023 9:48 AM EDT Left message for pt to call back. * Telephone Encounter - Joseph Ellis MD - 11/17/2023 7:14 PM EDT Course of prednisone has been sent to selected pharmacy. I would advise that he talk to his engraver machine about the best course of action. I would minimize sun exposure. Needs eval (urgent care or [place] the area) if progressively worsening. * Telephone Encounter - Karen Montaño bus info consultant - 11/17/2023 2:25 PM EDT Pt's ec calling to check on status of rx. Caller can be reached at [phone] . Thank you, [facility] First Line Production Supervisor [facility] 11/17/2023, 2:25 PM * Telephone Encounter - Loreto Weeks bus info consultant - 11/17/2023 10:42 AM EDT Pt calling to check on status of requested Rx for sores on body. Caller can be reached at [phone] would like to be called when a script is sent to [id number] . Thank you, Loreto Weeks Chips Screen Tender I [facility] 11/17/2023,10:42 AM * Telephone Encounter - Vera Andarde OSA - 11/16/2023 3:19 PM EDT Patient calling in to check on the status of previous message. Patient Called within 48 hour timeframe. Reminded patient of 48 hour turn-around time. * Telephone Encounter - Jose Lowery MED ASSIST - 11/16/2023 9:57 AM EDT Please advise * Telephone Encounter - Julieta Aviles OSA - 11/16/2023 9:23 AM EDT Pts called stating that they are on vacation in [place] and the pt is having a break out of the reoccurring sores again. Pt just saw Dr. Ellis on 10/20 and discussed this then and the pt also sees derm. They are requesting the medications that get prescribed for this issue. Please advise. documented in this encounter Plan of Treatment Upcoming Encounters Date Type Department Care Team (Late st Contact Info) Description 12/07/2023 9:30 AM EDT Cardiac Studies Cardiac Studies, [facility] [address] [place] [address] 01/15/2024 10:00 AM EDT Office Visit Neurology Leslee Agu[facility] [place] [address] [place] [address] Aniceto Plummer DO [address] [place] [address] 03/09/2024 10:20 AM EDT Office Visit Endocrinology [address] [place] [address] Jerardo Romano MD [address] [facility] [place] [address] 03/25/2024 9:10 AM EST Office Visit [address] [phone] Corrine Amor [address] [place] [address] 06/22/2024 11:40 AM EST Office Visit Nephrology, [facility] [address] [place] [address] Darius Lomeli MD [address] [place] [address] Health Maintenance Due Date Last Done Comments [...] Not on filedocumented as of this encounter Visit Diagnoses Diagnosis Erythema multiforme Erythema multiforme, unspecified documented in this encounter Care Teams Yard General Car Supervisor Relationship Specialty Start Date End Date Corrine Amor DO [address] [place] [address] PCP - General Family Medicine 04/28/22 documented as of this encounter
--- OUTSIDE RECORDS SUMMARY | 2023-12-20 17:10 | External Medical Summary | Summary of Care ---
Author Name Unknown Organization [facility] Address [address] [facility] [place] [address] Phone [phone] Care Team Providers Care Hotshot Superintendent Name Role Phone Corrine Amor DO Primary Care Provider Reason for Visit * Reason Onset Date Comments Test Results 12/09/2023 Encounter Details Date Type Department Care Team (Late st Contact Info) Description 12/09/2023 Telephone Cardiology, [facility] [address] [place] [address] Benjie Amor DO [address] [place] [address] Test Results Allergies Active Allergy Reactions Criticality Noted Date Comments Exenatide 11/20/2020 Gluten Meal Abdominal pain High 02/19/2022 Wheat Abdominal pain High 02/19/2022 documented as of this encounter (statuses as of 12/16/2023) Medications Medication Sig Dispensed Refills Start Date [...] 3 08/13/2021 Active FreeStyle Junie 14 Day [place] Device Use as directed . 1 Each [...] as of this encounter (statuses as of 12/16/2023) Active Problems Problem Noted Date Diagnosed Date [...] as of this encounter (statuses as of 12/16/2023) Resolved Problems Problem Noted Date Diagnosed Date Resolved Date Psoriatic arthropathy 05/19/20222022 documented as of this encounter (statuses as of 12/16/2023) Immunizations Name Administration Dates Next Due COVID-19 [...] encounter Miscellaneous Notes * Telephone Encounter - Melisa Burciaga OSA - 12/16/2023 11:02 AM EDT Called pt and LM * Telephone Encounter - Myron Cat OSA - 12/14/2023 10:53 AM EDT LM for patient to call back to schedule appt. * Telephone Encounter - Myron Cat OSA [...] 01/15/2024 10:00 AM EDT Office Visit [facility] [place] [address] [facility] [place] [address] Aniceto Plummer, DO [address] [facility] [place] [address] 03/09/2024 10:20 AM EDT Office Visit Endocrinology [address] [place] [address] Jerardo Romano MD [address] [facility] [place] [address] 03/25/2024 9:10 AM EST Office Visit Family [place] [address] [place] [address] Corrine Amor, [address] [place] [address] 06/22/2024 11:40 AM EST Office Visit Nephrology, [facility] [address] [facility] [place] [address] Darius Lomeli MD [address] [facility] [place] [address] Health Maintenance Due Date Last Done Comments [...] filedocumented as of this encounter Care Teams Hotshot Superintendent Relationship Specialty Start Date End Date Corrine Amor DO [address] [place] [address] PCP - General Family Medicine 04/28/22 documented as of this encounter
--- OUTSIDE RECORDS SUMMARY | 2023-12-20 17:10 | External Medical Summary | Summary of Care ---
Author Name Unknown Organization [facility] Address [address] [facility] [place] [address] Phone [phone] Care Team Providers Care Vulcanizer Rubber Plate Name Role Phone Corrine Amor Primary Care Provider Reason for Visit * Reason Onset Date Comments Follow Up 10/21/2023 Encounter Details Date Type Department Care Team (Late st Contact Info) Description 10/21/2023 Telephone [facility] [address] [place] [address] Joseph Ellis MD [address] [place] [address] Follow Up Allergies Active Allergy Reactions Criticality Noted Date Comments Exenatide 11/20/2020 Gluten Meal Abdominal pain High 02/19/2022 Wheat Abdominal pain High 02/19/2022 documented as of this encounter (statuses as of 10/28/2023) Medications Medication Sig Dispensed Refills Start Date [...] 3 08/13/2021 Active FreeStyle Junie 14 Day [place] Device Use as directed . 1 Each [...] THE MORNING 90 Tablet 1 09/08/2023 Active predniSONE 10 MG Oral Tablet (Deltasone)Indication s:Erythema multiforme Take 5 tabs for 2 days, 4 tabs for 2 days, 3 tabs for 2 days, 2 tabs for 2 days 1 tab for 2 days 30 Tablet 09/10/2023 Active Alendronate Sodium 70 MG Oral Tablet [...] in the morning. 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 Both intend to follow up with the patient. * Telephone Encounter - Julieta [place] LPN - 10/27/2023 11:07 AM EDT Ok to close encounter? * Telephone Encounter - Patricia Anglin LPN - 10/23/2023 12:27 PM EDT Karissa Pickett PA calling from [facility] to speak to Dr. Ellis. Called [facility]. Spoke to Tatiana. Transferred call to Dr. Ellis. * Telephone Encounter - Maryuri Ruth LPN - 10/23/2023 8:39 AM EDT Left a message with Dr. Pickett to return our call. I was able to get ahold of Dr. Pedro which was transferred to Dr. Arambula. * Telephone Encounter - Joseph Ellis MD - 10/21/2023 2:22 PM EDT I would like to review this case with Karissa Pickett - she is a PA with [facility]. Want to make sure that she is aware that pt has had recurrent bouts of the erythema multiforme. Please see if she is available to talk on the phone Th or Thu. Would also like to make Dr Pedro ([facility]) aware. Please see if she is able to talk on the phone or Thursday as well. documented in this encounter Plan of Treatment Upcoming Encounters Date Type Department Care Team (Late st Contact Info) Description 12/07/2023 9:30 AM EDT Cardiac Studies Cardiac Studies, [facility] [address] [facility] [place] [address] 01/15/2024 10:00 AM EDT Office Visit Neurology Leslee Aguilar [place] [address] [place] [address] Aniceto Plummer DO [address] [facility] [place] [address] 03/09/2024 10:20 AM EDT Office Visit Endocrinology [place] [address] [place] [address] Jerardo Romano MD [address] [place] [facility] [address] 03/25/2024 9:10 AM EST Office Visit [facility] [address] [place] [phone] Corrine Amor [address] [place] [address] 06/22/2024 11:40 AM EST Office Visit Nephrology, [facility] [address] [place] [address] Darius Lomeli MD [address] [facility] [place] [address] Health Maintenance Due Date Last Done Comments Zoster Vaccines (2 of 2) 03/19/2009 01/22/2009 Pneumococcal Vaccine: 65+ Years (3 of 3 - PPSV23 or PCV20) 02/26/2015 01/01/2015, 03/11/2002 Diabetic Eye Exam 06/21/2022 06/21/2021 COVID-19 Vaccine ( - season) 2023 09/23/2021, 03/09/2021, 07/12/2020, Additional history exists DXA Scan 07/22/2023 07/21/2022 Albumin/Creatinine Ratio 12/18/2023 023, 08/08/2021, 12/08/2011, Additional history exists HbA1c 03/02/2024 09/01/2023, 02/09, 08/27/2022, Additional history exists Diabetic Foot Exam 03/05/2024 03/05/2023, 12/18/2021 GFR 09/22/2024 09/23/2023, 09/08, 09/10/2023, Additional history exists Depression Screening 10/20/2024 10/21/2023 DTaP,Tdap,and Td Vaccines (2 - Tdap) 09/11/2025 09/12/2015, 09/12/2015 (Done elsewhere), 12/09/1994, Additional history exists Colonoscopy Discontinued 07/12/2001 Colorectal Cancer Screening Discontinued Influenza Vaccine (FLU shot) Completed 03/05/2023, 02/12/2022, 02/23/2019, Additional history exists Cologuard Discontinued Fecal Occult Blood Test Discontinued GARDASIL-HPV IMMUNIZATION SERIES Aged Out No longer eligible based on patient's age to complete this topic Hepatitis B Aged Out No longer eligi ble based on patient's age to complete this topic Hepatitis C Screening Discontinued MENINGOCOCCAL (MENACTRA/MENVEO) Aged Out No longer eligible based on patient's age to complete this topic Sigmoidoscopy Discontinued documented as of this encounter Medical Devices Not on filedocumented as of this encounter Care Teams Vulcanizer Rubber Plate Relationship Specialty Start Date End Date Corrine Amor DO [address] [place] [address] PCP - General Family Medicine 04/28/22 documented as of this encounter
--- OUTSIDE RECORDS SUMMARY | 2023-12-20 17:10 | External Medical Summary | Summary of Care ---
Author Name Unknown Organization [facility] Address [address] [facility] [place] [address] Phone [phone] Care Team Providers Care Jewelry Drill Operator Name Role Phone Corrine Amor DO Primary Care Provider Reason for Visit * Reason Onset Date Comments Test Results 12/09/2023 Encounter Details Date Type Department Care Team (Late st Contact Info) Description 12/09/2023 Telephone Cardiology, [facility] [address] [place] [address] Benjie Amor DO [address] [place] [address] Test Results Allergies Active Allergy Reactions Criticality [...] 3 08/13/2021 Active FreeStyle Junie 14 Day [place] Device Use as directed . 1 Each [...] tablet. 15 Tablet 3 09/22/2023 Active FreeStyle Jnuie 14 Day Sensor Use as directed. Change [...] AM EDT Office Visit Neurology Leslee Aguilar [place] [address] [place] [address] Aniceto Plummer DO [address] [place] [address] 03/09/2024 10:20 AM EDT Office Visit Endocrinology [place] [address] [place] [address] Jerardo Romano MD [address] [place], [place] [address] 03/25/2024 9:10 AM EST Office Visit [facility] [address] [place] [address] Corrine Amor, [address] [place], [place] [phone] 06/22/2024 11:40 AM EST Office Visit Nephrology, [facility] [address] [facility] [address] Darius Lomeli MD [address] [facility] [address] Health Maintenance Due Date Last Done Comments [...] filedocumented as of this encounter Care Teams Jewelry Drill Operator Relationship Specialty Start Date End Date Corrine Amor DO [address] [place] [address] PCP - General Family Medicine 04/28/22 documented as of this encounter
--- OUTSIDE RECORDS SUMMARY | 2023-12-20 17:10 | External Medical Summary | Summary of Care ---
Author Name Unknown Organization [facility] Address [address] [facility] [place] [address] Phone [phone] Care Team Providers Care Teachers Aide Name Role Phone Corrine Amor DO Primary Care Provider Reason for Visit * Reason Onset Date Comments Test Results 12/09/2023 Encounter Details Date Type Department Care Team (Late st Contact Info) Description 12/09/2023 Telephone Cardiology, [facility] [address] [place] [address] Benjie Amor DO [address] [place] [address] Test Results Allergies Active Allergy Reactions Criticality Noted Date Comments Exenatide 11/20/2020 Gluten Meal Abdominal pain High 02/19/2022 Wheat Abdominal pain High 02/19/2022 documented as of this encounter (statuses as of 12/17/2023) Medications Medication Sig Dispensed Refills Start Date [...] 3 08/13/2021 Active FreeStyle Junie 14 Day [place] Device Use as directed . 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 Sending a letter on 12/17/23 * Telephone Encounter - Melisa Burciaga OSA [...] 01/15/2024 10:00 AM EDT Office Visit Neurology [facility] [address] [place] [address] [address] Aniceto Plummer DO [address] [place] [address] 03/09/2024 10:20 AM EDT Office Visit Endocrinology [place] [address] [place] [phone] Jerardo Romano MD [address] [place] [address] 03/25/2024 9:10 AM EST Office Visit [address] [phone] Corrine Amor DO [address] [place] [address] 06/22/2024 11:40 AM EST Office Visit Nephrology, [facility] [address] [place] [address] Darius Lomeli MD [address] [place] [address] Health Maintenance Due Date Last Done Comments Zoster Vaccines (2 of 2) 03/19/2009 01/22/2009 Adult Wellness Visit 2012 Pneumococcal Vaccine: 65+ Years (3 of 3 - PPSV23 or PCV20) 02/26/2015 01/01/2015, 03/11/2002 Diabetic Eye Exam 06/21/2022 06/21/2021 COVID-19 Vaccine (5 - 2022- season) 2023 09/23/2021, 03/09/2021, 07/12/2020, Additional history [...] filedocumented as of this encounter Care Teams Teachers Aide Relationship Specialty Start Date End Date Corrine Amor DO [address] [place] [address] PCP - General Family Medicine 04/28/22 documented as of this encounter
--- OUTSIDE RECORDS SUMMARY | 2023-12-20 17:10 | External Medical Summary | Summary of Care ---
Author Name Unknown Organization [facility] Address [address] [facility] [place] [address] Phone [phone] Care Team Providers Care Stock Manager Name Role Phone Zuleyma Corrine Pepe LEVY Primary Care Provider Encounter Details Date Type Department Care Team (Late st Contact Info) Description 10/24/2023 Orders Only PATIENT PORTAL DO NOT DELETE THIS DEPT USED BY [place] [id number] Allergies Active Allergy Reactions Criticality Noted Date Comments Exenatide 11/20/2020 Gluten Meal Abdominal pain High 02/19/2022 Wheat Abdominal pain High 02/19/2022 documented as of this encounter (statuses as of 10/24/2023) Medications Medication Sig Dispensed Refills Start Date [...] 3 08/13/2021 Active FreeStyle Junie 14 Day [place] Device Use as directed . 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 Patient declined 04/2024 Sex and Gender Information Value Date Recorded Sex Assigned at Male 12/18/2021 8:18 AM EDT Gender Identity Male 12/18/2021 8:18 AM EDT Sexual Orientation Straight 12/18/2021 8: 18 AM EDT Job Start Date Occupation Industry Not on file Not on file Not on file documented as of this encounter Plan of Treatment Upcoming Encounters Date Type Department Care Team (Late st Contact Info) Description 12/07/2023 9:30 AM EDT Cardiac Studies Cardiac Studies, [facility] [address] [facility] [place] [address] 01/15/2024 10:00 AM EDT Office Visit Neurology [facility] [address] [place] [address] Aniceto Plummer DO [address] [place] [address] 03/09/2024 10:20 AM EDT Office Visit Endocrinology [place] [address] [place] [phone] Jerardo Romano MD [address] [facility] [place] [id number] 03/25/2024 9:10 AM EST Office Visit [facility] [address] [place] [address] Corrine Amor [address] [place] [address] 06/22/2024 11:40 AM EST Office Visit Nephrology, [facility] [address] [place] [address] Darius Lomeli MD [address] [place] [address] [place] [address] Health Maintenance Due Date Last Done Comments [...] filedocumented as of this encounter Care Teams Stock Manager Relationship Specialty Start Date End Date Corrine Amor DO [address] [place] [address] PCP - General Family Medicine 04/28/22 documented as of this encounter
--- OUTSIDE RECORDS SUMMARY | 2023-12-20 17:10 | External Medical Summary | Summary of Care ---
Author Name Unknown Organization [facility] Address [address] [facility] [place] [address] Phone [phone] Care Team Providers Care Whiskey Proof Reader Name Role Phone Corrine Amor Primary Care Provider [phone] Reason for Visit * Reason Comments Acute Pt here due to dannielle sorto having cellulitis (spots on his body all over) Encounter Details Date Type Department Care Team (Late st Contact Info) Description 10/21/2023 12:00 PM EDT Office Visit [facility] [address] [place] [address] Joseph Ellis MD [address] [place] [address] Erythema multiforme*; Type 2 diabetes mellitus with hemoglobin A1c goal of less than 7.0% ([facility]) Allergies Active Allergy Reactions Criticality Noted Date Comments Exenatide 11/20/2020 Gluten Meal Abdominal pain High 02/19/2022 Wheat Abdominal pain High 02/19/2022 documented as of this encounter (statuses as of 10/23/2023) Medications Medication Sig Dispensed Refills Start Date [...] 3 08/13/2021 Active FreeStyle Junie 14 Day [place] Device Use as directed . 1 Each [...] as of this encounter (statuses as of 10/23/2023) Active Problems Problem Noted Date Diagnosed Date [...] as of this encounter (statuses as of 10/23/2023) Resolved Problems Problem Noted Date Diagnosed Date Resolved Date Psoriatic arthropathy 05/19/20222022 documented as of this encounter (statuses as of 10/23/2023) Immunizations Name Administration Dates Next Due COVID-19 [...] on file documented as of this encounter Last Filed Vital Signs Vital Sign Reading Time Taken Comments Blood Pressure 112/62 10/21/2023 11:58 AM EDT Pulse 54 10/21/2023 11:58 AM EDT Temperature 36.2 C (97.1 F) 10/21/2023 1 1:58 AM EDT Respiratory Rate 16 10/21/2023 11:5 8 AM EDT Oxygen Saturation 96% 10/21/2023 11: 58 AM EDT Inhaled Oxygen Concentration - - Weight 59.8 kg (131 lb 12.8 oz) 024 11:58 AM EDT Height - - Body Mass Index 21.27 09/18/2023 3:36 PM EDT documented in this encounter Patient Instructions * Patient Instructions* Malinda Mckee LPN - 10/21/2023 12:01 PM EDT Osteoporosis: Screening for Bone Loss The strength of bones is measured by their density (thickness). High bone density means bones are less likely to fracture. If you are at risk for bone loss, your healthcare provider may refer you forbone density testing. Bone Density Testing Bone density testing is safe, quick, easy, and painless. Testing can detect osteoporosis before a fracture happens. It can also predict the risk of future fractures. And testing can measure the response to treatment. There are two types of tests that you may have: Peripheral tests are used for screening. They measure density in the finger, wrist, knee, bullock, or heel. A common peripheral test is the quantitative ultrasound (QUS). Central tests are used for diagnosis. They measure density in the hip or spine. The main centraltest is the dual energy x-ray absorptiometry (DXA). The DXA is the standard bone density test. Who Should Be Tested? All postmenopausal women under age 65, with one or more risk factors in addition to menopause. All women age 65 and older. Postmenopausal women with fractures. Women who are thinking about treatment for osteoporosis. Women who have been on hormone therapy for a long time. Men or women with certain medical conditions or who are taking certain medications (such as glucocorticoids or prednisone) for a long period. Common Testing Sites Any bone can fracture, but with osteoporosis some bones fracture more easily. These include bones in the spine, wrist, shoulder, and hip. Thats why bone density testing may be done at one or more of these sites. Understanding Your Results The results of your test may seem confusing at first. Dont be afraid to ask your provider to explain. Your bone mineral density (BMD) describes the thickness of the bone that was scanned. Your healthcare provider will compare your BMD with the BMD of young, healthy bone. The result is called a T-score. Bones remodel at different rates. So, a healthy T-score in the wrist doesnt mean the spine is also healthy. Thats why more than one site may be scanned. [id number] [facility], [address] [place] [address], [place] [address]. All rights reserved. This information is not intended as a substitute for professional medical care. Always follow your healthcare professional's instructions documented in this encounter Progress Notes * Joseph Ellis MD - 10/21/2023 12:06 PM EDT Subjective: Vj Dumas is a 78 year old male here today for Chief Complaint Patient presents with Acute Pt here due to possibly having cellulitis (spots on his body all over) Patient presents for an acute visit for evaluation of rash. Patient states he had been out in the sun about a week and a half ago. The day after noticed bright red rash on both shins although this rash extended below the line of the socks that he was wearing the day before. He felt it might relate to sunburn. He was seen by his physical therapist who suggested he make an office visit for possiblecellulitis. Patient did not have any fever or systemic symptoms. He made a visit for today but developed other erythematous lesions on his body in the interim. Went to the emergency department 4 daysago. Etiology was not clear but he was given an antibiotic and a course of steroids. He is taking both and is seeing improvement in his rash. Patient and report that he had developed similar lesions in March of 2023 and did see Dermatology. Did have a biopsy done. Review of those records does not have the actual biopsy report but does indicate that they thought he may have erythema multiforme. Patient had a recurrent episode in August of 2023 and was again Treated with steroids and antibiotics. The current rash is his 3rd episode. States he has a baseline level of tiredness and fatiguebut has had no other signs of illness. Does have a complex past medical history which includes CLL.Sees Dr Pedro. For dermatology, sees Karissa Pickett and Dr Kendall. States he has had multiple lab evaluations for these symptoms. Denies any involvement of mucous membranes. No oral lesions. Past Medical History: Diagnosis Date Benign neoplasm of colon Calculus of kidney DM type 2, goal A1c below 7 Other psoriasis Pain in limb LEFT KNEE Psoriatic arthropathy (HCC) Sleep apnea Umbilical hernia Past Surgical History: Procedure Laterality Date CATARACT SURGERY,COMPLEX CHOLECYSTOTOMY OR CHOLECYSTOSTOMY, OPEN COLONOSCOPY/REMOVE LESION 05/11/1998 ascending colon - inflamed tubular adenoma COLONOSCOPY/REMOVE LESION 05/11/1998 colon,70 cm: tubular adenoma with severe cautery artifact COLONOSCOPY/REMOVE LESION 05/11/1998 Rectum: Inflamed Hyperplastic Polyp COLORECTAL CANCER SCREEN; COLON 11/08/2001 colonoscopy no lesions, repeat 3 yrs EGD, FLEXIBLE, DIAGNOSTIC N/A 02/19/2022 biopsies juvenile polyp/repeat 6 months/EGD/MN EGD, FLEXIBLE,W/ENDOSCOPIC US 03/21/2022 Ampullary lesion, repeat EGD 6 mo / [facility] ERCP 03/21/2022 snare papillectomy of the lesion at the major papilla - Juvenile polyp / [facility] ERCP W/ STENT EXCHANGE N/A 06/17/2022 one stent removed from CBD/biliary tree swept and large amount of food and debris found/ENDOSCOPIC RETROGRADE CHOLANGIOPANCREATOGRAPHY (ERCP) W/STENT REMOVAL AND EXCHANGE; INC DILATION, GUIDE WIRE AND SPHINCTEROTOMY performed by Brad Gomez MD at [facility] ERCP, DIAGNOSTIC, SPECIMEN COLLECTION N/A 04/15/2022 difficult biliary access requiring biliary rendezvous access/biliary sphincterotomy and ballood dilation sphincteroplasty performed/one covered metal biliary stent placed CBD/repeat 3 months/ERCP/MN REMOVAL OF TONSILS, UNDER AGE 12 age 5-6 Tonsils Removal,<12 Y/O US ENDOSCOPIC N/A 04/15/2022 biliary rendezvous performed/EUS/MN XR IVP WITH KUB 06/03/1998 Left high grade ureteral obstruction secondary to 2 mm ureterovesicle junction calculus. Review of patient's allergies indicates: Allergen Reactions Gluten Meal Abdominal pain Wheat Abdominal pain Exenatide Current Outpatient Medications Medication Sig Dispense Refill Vitamin D3 50 MCG (1999 UT) Oral Capsule Take 1 Capsule by mouth in the morning. Naproxen 500 MG Oral Tablet (Naprosyn) Take 1 Tablet by mouth 2 times a day with morning and evening meals. Zoster Vac Recomb Adjuvanted 50 MCG/0.5ML Intramuscular Suspension Reconstituted (Shingrix) Inject 0.5 mL into a large muscle now and repeat dose in 60 to 180 days 1 Each 1 Glucose Blood In Vitro Strip Easy Max test strip - use to test blood sugar twice daily E11.9 180 Strip 3 OpenRent Junie 14 Day [place] Device Use as directed . 1 Each 0 Probiotic Acidophilus Oral Capsule Take 1 Capsule by mouth in the morning. BD Pen Needle Short U/F 31G X 8 MM Using with Lantus Solostar injector Pen daily E9.11 100 Each 3 Lantus SoloStar 100 UNIT/ML Subcutaneous Solution Pen-injector INJECT 18 UNITS UNDER THE SKIN IN THE MORNING 45 mL 2 Triamcinolone Acetonide 0.5 % External Cream (Aristocort) Apply topically to affected area 2 times a day. To affected area. 20 g 5 Simvastatin 20 MG Oral Tablet (Zocor) TAKE 1 TABLET EVERY EVENING 90 Tablet 3 Metoprolol Tartrate 50 MG Oral Tablet (Lopressor) TAKE 1 TABLET IN THE MORNING AND 1 TABLET BEFORE BEDTIME 180 Tablet 3 Pantoprazole Sodium 40 MG Oral Tablet Delayed Release (Protonix) Take 1 Tablet by mouth in the morning. 90 Tablet 1 B-12 1000 MCG Sublingual Tablet Sublingual DISSOLVE 1 TABLET BY MOUTH EVERY MORNING 30 Tablet 0 metFORMIN HCl ER (MOD) 1000 MG Oral Tablet Extended Release 24 Hour Take 1 Tablet by mouth in the morning and 1 Tablet before bedtime. 180 Tablet 1 Tradjenta 5 MG Oral Tablet (linaGLIPtin) TAKE 1 TABLET IN THE MORNING 90 Tablet 1 predniSONE 10 MG Oral Tablet (Deltasone) Take 5 tabs for 2 days, 4 tabs for 2 days, 3 tabs for 2 days, 2 tabs for 2 days 1 tab for 2 days 30 Tablet 0 Alendronate Sodium 70 MG Oral Tablet (Fosamax) Take 1 Tablet by mouth once a week. with 8 oz. water30 minutes before first meal of the day. Remain upright for 30 min after taking tablet. 15 Tablet 3 FreeStyle Junie 14 Day Sensor Use as directed. Change Sensor every 2 weeks. 2 Each 0 Magnesium Chloride 64 MG Oral Tablet Delayed Release (MagDelay) Take 1 Tablet by mouth in the morning. 180 Tablet 0 VIAGRA 100 MG Tablet (Patient not taking: Reported on 09/18/2023) 0 Aspirin 81 MG Oral Tablet Chewable Take 1 Tablet by mouth in the morning. (Patient not taking: Reported on 10/21/2023) No current facility-administered medications for this visit. Objective: BP 112/62 | Pulse 54 | Temp 36.2 C (97.1 F) (Infrared ) | Resp 16 | Wt 59.8 kg (131 lb 12.8 oz) | SpO2 96% | BMI 21.27 kg/m | BSA 1.67 m GEN: NAD HEENT: Benign NECK: Supple with no LAD, TM, JVD CHEST: CTA B CV: RRR EXT: No c,c,e Skin: mild erythema to anterior shins bilaterally. No open areas or drainage. Lesions on legs and back that are various sizes, erythematous. Assessment and Plan: Erythema multiforme (Primary) - recurrent - Suggest that he complete course of steroids and antibiotics that have been given. Will try to obtain pathology results from previous biopsy. Will make sure chute loader and oncologist are aware that he has had 2 recurrent episodes since his initial in March of 2023. If patient has a return ofworsening symptoms after he has off the steroids, he will let us know. Will also call for any symptoms suggestive of infection or mucocutaneous involvement Type 2 diabetes mellitus with hemoglobin A1c goal of less than 7.0% ([facility]) 42 min spent with pt, chart review, documentation, communication with specialists. Joseph Ellis MD * Malinda Mckee LPN - 10/21/2023 12:01 PM EDT Images from the original note were not included. The importance of having a yearly diabetic eye exam has been discussed with patient. Order and/or Referral placed along with patient instructions. Provider made aware. Malinda Mckee LPN Diabetic Retinopathy: Evaluating Your Eyes Diabetic retinopathy is a condition that happens when diabetes damages blood vessels in the rear ofthe eye. It can lead to vision loss. To help catch it early, have a complete dilated eye exam at least once a year. During the exam, the eye healthcare provider will review your medical history, examine your eyes, and check your vision. Women who are and have pre-existing type 1 or type 2 diabetes have an increased risk of retinopathy. Women with diabetes should have an eye exam before or in the first trimester. They should continue to be monitored every trimester and for 1 year after delivery, depending on the severity of the retinopathy. The retina is the light-sensitive part of the eye that allows you to see. High blood sugar can damage blood vessels of the retina and cause them to leak or bleed. This damage can lead to abnormal blood vessel growth. This condition is called diabetic retinopathy. You may not have symptoms early in the disease. Later, there may be floaters, blurred vision, or poor night vision. There may also be partial or complete vision loss. Early cases of diabetic retinopathy can be treated by carefully controlling blood sugar, blood pressure, and cholesterol. Surgery or laser treatments may help restore lost vision. Laser surgery can shrink abnormal blood vessels or close ones that are leaking. Medicines injected in the eye can help decrease swelling of the retina. Home care Take all medicines, including insulin or oral diabetic medicine, exactly as prescribed. Follow the diet advised by your healthcare provider. If you have high cholesterol, follow a low-fat, low-cholesterol diet. Monitor blood sugars as advised. Try to achieve your ideal weight. If you smoke, quit smoking. Tobacco use worsens the effect of diabetes on your blood vessels. If you have high blood pressure, consider buying an automatic blood pressure machine. These are available at most pharmacies. Use this to monitor your blood pressure. Report your blood pressure readings to your healthcare provider. Exercise regularly. Follow-up care Follow up with your healthcare provider, or as advised. You must have a complete eye exam at least once a year, more often if needed. Untreated diabetic retinopathy can lead to complete loss of vision. Occupational therapists can help you adapt to any vision loss you have, including learning techniques to safely administer insulin. When to seek medical advice Call your healthcare provider right away if any of these occur. Increasing blurriness or any sudden changes in your vision Sudden flashes of light inside your eye New floaters (small dots or strings that seem to be moving across your field of vision) Eye pain, redness, or discharge from your eyelid New dark spots appearing in your field of vision Halos around lights Dimness of vision Partial or complete loss of vision Women with diabetes should have a complete eye exam before becoming , or as soon as possible when they find out they are . Retinopathy sometimes worsens during . Your eye exam Your eye healthcare provider uses an eye chart and other tools to check your vision. Then he or sheexamines your eyes for signs of disease. You are given eye drops to widen (dilate) your pupils. Youmay have one or more of the following tests: Tonometry to measure fluid pressure inside the eye. Slit lamp exam to allow the healthcare provider to view the structures of your eye. Ultrasound to create an image of the eye using sound waves. Ultrasound may be used if blood is found in the clear gel that fills the eye (vitreous). Ocular coherence tomography (OCT) to create an image of the retina using light waves. This shows ifthere is fluid leaking into certain parts of the eye. It can also measure the thickness of the retina. Fluorescein angiography This test may be done to check the health of the inside lining of the eye (retina). It also checks the tiny blood vessels (capillaries) that carry blood to the retina. During the test: Photographs are taken of the retina. A dye is then injected into the bloodstream through the arm or hand. The dye travels to the capillaries in the eye. More photographs are taken of the retina. The dye causes the capillaries to stand out on the photographs. You may feel brief nausea during the procedure. For a few hours after the test, your skin, eyes, and urine may appear yellow. Talk with your healthcare provider for more information about this test. Date Last Reviewed: 10/10/201519997516-9422 [employer]. [address] [place] [address]. All rights reserved. This information is not intended as a substitute for professional medical care. Always follow your healthcare professional's instructions. Dexa scan ordered today. Provider aware. Malinda Mckee LPN Urine albumin/creatinine ratio ordered today. Provider aware. documented in this encounter Nursing Notes * Malinda Mckee LPN - 10/21/2023 11:55 AM EDT Chief Complaint Patient presents with Acute Pt here due to possibly having cellulitis (spots on his body all over) documented in this encounter Miscellaneous Notes * Addendum Note - Loli Nina OSA - 10/22/2023 4:13 PM EDTAddended by: LOLI NINA on: 10/22/2023 04:13 PM Modules accepted: Orders documented in this encounter Plan of Treatment Upcoming Encounters Date Type Department Care Team (Late st Contact Info) Description 12/07/2023 9:30 AM EDT Cardiac Studies Cardiac Studies, [facility] [address] [place] [address] 01/15/2024 10:00 AM EDT Office Visit Neurology Leslee [facility] [address] [facility] [place] [address] Aniceto Plummer, DO [address] [facility] [place] [address] 03/09/2024 10:20 AM EDT Office Visit Endocrinology [address] [place] [address] Jerardo Romano MD [address] [facility] [address] [place] [id number] 03/25/2024 9:10 AM EST Office Visit [facility] [address] [place] [id number] Corrine Amor, DO [address] [place] [address] 06/22/2024 11:40 AM EST Office Visit Nephrology, [facility] [address] [facility] [place] [address] Darius Lomeli MD [address] [facility] [place] [address] Scheduled Orders Name Type Priority Associated Diagnoses Orde r Schedule ALBUMIN / CREATININE RATIO, URINE Lab Routine Type 2 diabetes mellitus with hemoglobin A1c goal of less than 7.0% (HCC) Expected: 10/21/2023, Expires: 10/20/2024 Health Maintenance Due Date Last Done Comments [...] of this encounter Visit Diagnoses Diagnosis Erythema multiforme- Primary Erythema multiforme, unspecified Type 2 diabetes mellitus with hemoglobin A1c goal of less than 7.0% (HCC) documented in this encounter Care Teams Whiskey Proof Reader Relationship Specialty Start Date End Date Corrine Amor DO [address] [facility] [address] PCP - General Family Medicine 04/28/22 documented as of this encounter"
--- OUTSIDE RECORDS SUMMARY | 2023-12-20 17:10 | External Medical Summary | Summary of Care ---
Author Name Unknown Organization [facility] Address [address] [facility] [place] [address] Phone [phone] Care Team Providers Care Hedis Abstractor Name Role Phone Corrine Amor DO Primary Care Provider Reason for Visit * Reason Onset Date Comments Test Results 12/09/2023 Encounter Details Date Type Department Care Team (Late st Contact Info) Description 12/09/2023 Telephone Cardiology, [facility] [address] [place] [address] Benjie Amor DO [address] [place] [address] Test Results Allergies Active Allergy Reactions Criticality Noted Date Comments Exenatide 11/20/2020 Gluten Meal Abdominal pain High 02/19/2022 Wheat Abdominal pain High 02/19/2022 documented as of this encounter (statuses as of 12/14/2023) Medications Medication Sig Dispensed Refills Start Date [...] 3 08/13/2021 Active FreeStyle Junie 14 Day [place] Device Use as directed . 1 Each [...] as of this encounter (statuses as of 12/14/2023) Active Problems Problem Noted Date Diagnosed Date [...] as of this encounter (statuses as of 12/14/2023) Resolved Problems Problem Noted Date Diagnosed Date Resolved Date Psoriatic arthropathy 05/19/20222022 documented as of this encounter (statuses as of 12/14/2023) Immunizations Name Administration Dates Next Due COVID-19 [...] 01/15/2024 10:00 AM EDT Office Visit Neurology [address] [place] [address] Aniceto Plummer, DO [address] [facility] [place], [place] [address] 03/09/2024 10:20 AM EDT Office Visit Endocrinology Patrice [address]to [place] [address] [place], [place] [phone] Jerardo Romano MD [address] [facility] [place], [place] [address] 03/25/2024 9:10 AM EST Office Visit [facility] [address] [place] [id number] Corrine Amor [address] [place] [address] 06/22/2024 11:40 AM EST Office Visit Nephrology, [facility] [address] [facility] [place], [place] [address] Darius Lomeli MD [address] [place], [place] [address] Health Maintenance Due Date Last Done Comments [...] filedocumented as of this encounter Care Teams Hedis Abstractor Relationship Specialty Start Date End Date Corrine Amor DO [address] [place] [address] PCP - General Family Medicine 04/28/22 documented as of this encounter
--- NOTE | 2023-12-20 17:27 | Emergency Department Note ---
Impression & Plan Cellulitis, Abnormal LFTs, Acute hypotension, Hypomagnesemia ED Provider Note NAME: FRED FALCON AGE: 78 SEX: M : 1945 ARRIVES VIA: Walk-In INFORMANT: Patient, the patient's ED PROVIDER(S): Rubén Rodriugez DO CHIEF COMPLAINT: Chills HPI: The patient is a 78-year-old male who does have a history of Parkinson but also has a history of sepsis and gallbladder sludge who presented to the emergency department for an evaluation of chills. The patient states that around 2 PM this afternoon he started having chills. He did not check his temperature. He denies having any chest pain or difficulty breathing. He denies having any signs of cellulitis such as leg swelling or redness in his lower extremities. He denies having any abdominal pain nausea or vomiting. He has had a few loose bowel movements over the last few days but it seems to be getting better over the last 24 hours. He denies having any cough. He does have some rhinorrhea. He is not been seen by his family doctor for the symptoms but because it is the weekend he came to the emergency department for further evaluation. ROS: See above HPI for pertinent positives & negatives. A total of 10 systems reviewed and were otherwise negative. PAST MEDICAL HISTORY: See Below PAST SURGICAL HISTORY: See Below FAMILY HISTORY: See Below SOCIAL HISTORY: See Below HOME MEDICATIONS: See Below ALLERGIES: See Below VITALS: See Below PHYSICAL EXAMINATION: GENERAL: Patient is awake alert in no acute distress patient is resting comfortably and showing no signs of anxiety EYES: The conjunctivae are clear. The pupils are round and reactive. EARS, NOSE, MOUTH AND THROAT: The nose is without any evidence of any deformity. Mucous membranes are moist. Amount of clear rhinorrhea was noted. NECK: The neck is nontender and supple. RESPIRATORY: Normal respiratory effort is noted there is no evidence of wheezing rhonchi or rales CARDIOVASCULAR: Regular rate and rhythm noted there no murmurs rubs or gallops normal S1 normal S2. GASTROINTESTINAL: The abdomen is soft. Abdomen is nontender. MUSCULOSKELETAL/EXTREMITIES: There is no evidence of gross deformity full range of motion is noted in the hips and shoulders. SKIN: Skin was warm and dry. There was no significant pedal edema. There is no signs of cellulitis. There was signs of small sores on the patient's back but do not have any obvious signs of infection. NEUROLOGIC: Patient is awake alert and oriented x3 MEDICAL DECISION MAKING: The patient is a 78-year-old male who presented to the emergency department for an evaluation of chills and rigors. The patient has a history of gallbladder sludge. He thought that this could be the problem. He does not have a gallbladder anymore. I discussed patient's laboratory and radiographic studies with him. Laboratory studies showed inflammation with an elevated procalcitonin and elevated white blood cell count. Even though there is no definite source the patient was treated with IV fluids and IV antibiotics. He was reevaluated multiple times. Ultimately a CT of the abdomen pelvis was obtained but no definite cause for his infectious source could be found. I discussed the patient's condition with the on-call [facility]. They have agreed to evaluate the patient in the emergency department for further management and disposition Triage Nursing notes reviewed. Prior medical records reviewed Vital Signs: reviewed and remarkable for intermittent hypotension. Differential diagnosis: Viral syndrome, otitis, pharyngitis, pneumonia, influenza, meningitis, urinary tract infection, sepsis, bacteremia, as well as other pathologies. ER treatment provided: See below Diagnostics interpreted by me: ECG: EKG was obtained in the emergency department. My interpretation is sinus rhythm at [address] segment abnormalities are noted. There was no PVCs noted. This was compared to a tracing from May 08, 2022. No changes were noted. Cardiac Monitoring: An order was placed for continuous cardiac monitoring. The monitor shows a rate of 82 bpm with sinus rhythm.. Laboratory studies: As stated above and show below. Imaging studies: See below. Radiographic imaging was reviewed by myself Consultation(s): I discussed this case with Dr. Leach who is on-call for the [facility] group. He is agreed to evaluate the patient in the emergency department for further management and disposition. Past Med/Surg History Problem List (Updated 12/20/23 @ 23:24 by Rubén Rodriguez DO) Hypomagnesemia (Acute) Acute hypotension (Acute) Abnormal LFTs (Acute) Cellulitis (Acute) Transaminitis (Acute) Elevated LFTs Severe sepsis Rigors (Acute) Cholangitis (Acute) COVID-19 (Acute) Encounter for pre-operative examination Hyperlipidemia (Chronic) Uncontrolled type 2 diabetes mellitus with insulin therapy (Chronic) Diverticulitis (Acute) Medicare annual wellness visit, subsequent Screening for malignant neoplasm of prostate Acute left flank pain (Acute) Pneumonia DVT prophylaxis MARISSA (acute kidney injury) Pneumonia (Acute) Loculated pleural effusion (Acute) Left-sided chest pain (Acute) Hydropneumothorax Parapneumonic effusion Acute hypoxemic respiratory failure Atrial tachycardia Diabetes mellitus type 2, uncontrolled Dysphagia Odynophagia 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) Controlled type 2 diabetes mellitus with insulin therapy Encounter for pre-operative examination Diarrhea Dysphagia History of adenomatous polyp of colon Family history of colon cancer Multiple fractures of ribs of left side (Acute) Encounter for pre-operative examination Celiac disease biopsy proven on EGD Atrial flutter with rapid ventricular response started during admission for pneumonia/pleural effusion (06/25/20)--tx to ICU at [facility] and then tx to [facility]--started on metoprolol Aortic valve stenosis (Chronic) Mild per 09/2021 echo Carotid artery stenosis (Chronic) <50% ICA stenosis Medical History Atrial flutter 06/2020 (per cardio consult, felt likely r/t response of acute illness- sepsis/PNA/parapneumonic effusion with respiratory failure) History of COVID-19 10/2021- asymptomatic IDDM (insulin dependent diabetes mellitus) Freestyle yolie monitoring History of kidney stones Broken ribs s/p fall 10/01/21, denies current issues Hx of skin cancer, basal cell BCC (nose)- removed CLL (chronic lymphocytic leukemia) Malignant melanoma of skin Osteoarthritis Sleep apnea CPAP Hyperlipidemia Surgical History History of esophagogastroduodenoscopy (EGD) History of placement of chest tube 2020 ([facility]) d/t pleural effusion History of cataract surgery R/L History of tooth extraction History of tonsillectomy History of lithotripsy History of herniorrhaphy Umbilical History of cholecystectomy History of colonoscopy Family History Brother Prostate cancer Family history of diabetes mellitus Father Family hx of colon cancer Family history of diabetes mellitus Other No family history of adverse response to anesthesia Denies family history of Ovarian cancer Myocardial infarction Breast cancer Lung cancer Colorectal cancer Social History Smoking Status: Never smoker Second Hand Exposure: No; Do You Dip or Chew Tobacco: No; Hx Alcohol Use: No Hx Substance Use: No Preferred Language: Arabic Communication Ability: Effective [employer] Technician Required: No Beliefs That Will Affect Care: [employer] Current Living Situation: Spouse Feels Safe at Home: Yes Seatbelt Use: always Assistive Devices: None Allergies Allergies Allergy/AdvReac Type Severity Reaction Status Date / Time gluten Allergy Severe celiac's Verified 12/20/23 18:02 disease wheat Allergy Severe celiac's Verified 12/20/23 18:02 disease exenatide [From [place]] AdvReac Mild Vomiting Verified 12/20/23 18:02 Home Meds Home Medications Medication Instructions Recorded Confirmed cholecalciferol (vitamin D3) 50 50 mcg PO QAM 09/07/19 12/20/23 mcg (2,000 unit) capsule linagliptin 5 mg tablet (Tradjenta) 5 mg PO QAM 07/16/20 12/20/23 insulin glargine 100 unit/mL (3 18 - 20 unit subcut QAM 02/18/22 12/20/23 mL) subcutaneous pen (Lantus Solostar U-100 Insulin) alendronate 70 mg tablet 70 mg PO WK 12/20/23 12/20/23 metformin 500 mg tablet,extended 1,000 mg PO BID 12/20/23 12/20/23 release 24 hr Previous Rx's Medication Instructions Recorded blood glucose control, normal #1 ea 07/19/20 (Easymax 15 Level 2 solution) blood-glucose meter #1 ea 07/19/20 lancets 30 gauge (Twist Lancets) #300 ea 07/19/20 metoprolol tartrate 50 mg tablet 50 mg PO BID #20 tabs 08/03/20 pen needle, diabetic 31 gauge x #900 ea 12/11/20/16" (BD Ultra-Fine Short Pen Needle) pantoprazole 40 mg tablet,delayed 40 mg PO QAM #90 tabs 01/02/21 release blood sugar diagnostic (EasyMax #300 ea 02/08/21 strips) simvastatin 20 mg tablet 20 mg PO HS #90 tabs 04/15/21 magnesium chloride 64 mg 64 mg PO BID #60 tabs 05/11/22 (magnesium chloride) tablet,delayed release (Mag 64) Results & Data (ED) Vital Signs Vital Signs - 24 hr 12/20/23 17:07 12/20/23 17:17 12/20/23 17:21 Temperature 37.2 C 37.2 C Temperature Source Skin Oral Pulse Rate 98 H Pulse Rate [Apical] 78 96 H Pulse Rate from SpO2 Sensor Respiratory Rate 20 16 16 Respiratory Effort / Characteristics Non-Labored Spontaneous Non-Labored Spontaneous Non-Labored Spontaneous Respiratory Depth Normal Normal Normal Respiratory Pattern Regular Regular Regular Blood Pressure 111/72 Blood Pressure [Right Arm] 110/77 Blood Pressure Mean 85 Blood Pressure Mean [Right Arm] 88 Blood Pressure Position [Right Arm] Semi-fowlers Pulse Oximetry 99 96 97 Oxygen Delivery Method Room Air Room Air Room Air Sepsis Recent Fever Within 48 Hours No Sepsis New/Unexplained Change in Mental Status N/A Sepsis Action Taken by Nursing No Action Required 12/20/23 17:34 12/20/23 17:43 12/20/23 17:46 Temperature Temperature Source Pulse Rate 96 H 97 H Pulse Rate [Apical] Pulse Rate from SpO2 Sensor Respiratory Rate 20 Respiratory Effort / Characteristics Respiratory Depth Respiratory Pattern Blood Pressure 97/60 L Blood Pressure [Right Arm] Blood Pressure Mean 75 Blood Pressure Mean [Right Arm] Blood Pressure Position [Right Arm] Pulse Oximetry 98 Oxygen Delivery Method Room Air Sepsis Recent Fever Within 48 Hours Sepsis New/Unexplained Change in Mental Status Sepsis Action Taken by Nursing 12/20/23 17:51 12/20/23 17:55 12/20/23 18:00 Temperature Temperature Source Pulse Rate 95 H Pulse Rate [Apical] 94 H Pulse Rate from SpO2 Sensor 95 H Respiratory Rate 23 28 H Respiratory Effort / Characteristics Non-Labored Spontaneous Respiratory Depth Normal Respiratory Pattern Regular Blood Pressure 111/73 99/65 L Blood Pressure [Right Arm] 111/73 Blood Pressure Mean 85 76 Blood Pressure Mean [Right Arm] 85 Blood Pressure Position [Right Arm] Semi-fowlers Pulse Oximetry 97 97 Oxygen Delivery Method Room Air Room Air Sepsis Recent Fever Within 48 Hours Sepsis New/Unexplained Change in Mental Status Sepsis Action Taken by Nursing 12/20/23 18:06 12/20/23 18:21 12/20/23 18:30 Temperature Temperature Source Pulse Rate Pulse Rate [Apical] Pulse Rate from SpO2 Sensor Respiratory Rate 18 Respiratory Effort / Characteristics Non-Labored Spontaneous Spontaneous Non-Labored Respiratory Depth Normal Normal Normal Respiratory Pattern Regular Blood Pressure Blood Pressure [Right Arm] Blood Pressure Mean Blood Pressure Mean [Right Arm] Blood Pressure Position [Right Arm] Pulse Oximetry 98 Oxygen Delivery Method Room Air Room Air Room Air Sepsis Recent Fever Within 48 Hours Sepsis New/Unexplained Change in Mental Status Sepsis Action Taken by Nursing 12/20/23 18:45 12/20/23 18:51 12/20/23 18:53 Temperature Temperature Source Pulse Rate 84 Pulse Rate [Apical] Pulse Rate from SpO2 Sensor 83 Respiratory Rate 19 21 Respiratory Effort / Characteristics Non-Labored Spontaneous Respiratory Depth Normal Respiratory Pattern Blood Pressure 93/62 L Blood Pressure [Right Arm] Blood Pressure Mean 66 Blood Pressure Mean [Right Arm] Blood Pressure Position [Right Arm] Pulse Oximetry 95 Oxygen Delivery Method Room Air Sepsis Recent Fever Within 48 Hours Sepsis New/Unexplained Change in Mental Status Sepsis Action Taken by Nursing 12/20/23 19:00 12/20/23 19:00 12/20/23 19:04 Temperature Temperature Source Pulse Rate Pulse Rate [Apical] Pulse Rate from SpO2 Sensor Respiratory Rate Respiratory Effort / Characteristics Non-Labored Spontaneous Non-Labored Spontaneous Respiratory Depth Normal Normal Respiratory Pattern Blood Pressure 94/59 L Blood Pressure [Right Arm] Blood Pressure Mean 72 Blood Pressure Mean [Right Arm] Blood Pressure Position [Right Arm] Pulse Oximetry Oxygen Delivery Method Room Air Room Air Sepsis Recent Fever Within 48 Hours Sepsis New/Unexplained Change in Mental Status Sepsis Action Taken by Nursing 12/20/23 19:15 12/20/23 19:15 12/20/23 19:30 Temperature Temperature Source Pulse Rate 83 Pulse Rate [Apical] Pulse Rate from SpO2 Sensor 83 Respiratory Rate 20 Respiratory Effort / Characteristics Non-Labored Spontaneous Respiratory Depth Normal Respiratory Pattern Blood Pressure 95/60 L 95/60 L Blood Pressure [Right Arm] Blood Pressure Mean 66 71 Blood Pressure Mean [Right Arm] Blood Pressure Position [Right Arm] Pulse Oximetry 96 Oxygen Delivery Method Room Air Room Air Sepsis Recent Fever Within 48 Hours Sepsis New/Unexplained Change in Mental Status Sepsis Action Taken by Nursing 12/20/23 20:18 12/20/23 20:30 12/20/23 20:45 Temperature Temperature Source Pulse Rate 82 81 77 Pulse Rate [Apical] Pulse Rate from SpO2 Sensor 82 81 77 Respiratory Rate 20 22 18 Respiratory Effort / Characteristics Respiratory Depth Respiratory Pattern Blood Pressure 107/57 L 87/49 L 86/58 L Blood Pressure [Right Arm] Blood Pressure Mean 73 61 67 Blood Pressure Mean [Right Arm] Blood Pressure Position [Right Arm] Pulse Oximetry 96 96 96 Oxygen Delivery Method Room Air Room Air Room Air Sepsis Recent Fever Within 48 Hours Sepsis New/Unexplained Change in Mental Status Sepsis Action Taken by Nursing 12/20/23 22:42 12/20/23 22:43 Temperature Temperature Source Pulse Rate 81 73 Pulse Rate [Apical] Pulse Rate from SpO2 Sensor 80 Respiratory Rate 14 Respiratory Effort / Characteristics Respiratory Depth Respiratory Pattern Blood Pressure 87/52 L Blood Pressure [Right Arm] Blood Pressure Mean 63 Blood Pressure Mean [Right Arm] Blood Pressure Position [Right Arm] Pulse Oximetry 99 Oxygen Delivery Method Room Air Sepsis Recent Fever Within 48 Hours Sepsis New/Unexplained Change in Mental Status Sepsis Action Taken by Residential Medications Current Medication List: was personally reviewed by me Laboratory Data Attestation: I reviewed the patient's lab results. 12/20/23 17:43 12/20/23 17:43 Lab Results 12/20/23 12/20/23 12/20/23 Range/Units 17:27 17:43 17:55 WBC 12.06 H (4.8-10.8) K/ul RBC 4.15 L (4.70-6.10) M/uL Hgb 12.7 L (14.0-18.0) g/dl Hct 37.1 L (42.0-52.0) % MCV 89.4 (80.0-100.0) fL MCH 30.6 (25.0-34.0) pg MCHC 34.2 (32.0-36.0) g/dL RDW Std Deviation 47.9 H (36.4-46.3) fL RDW Coeff of [place] 14.7 H (11.5-14.5) % Plt Count 273 (130-400) K/uL MPV 9.5 (9.4-12.4) fL Immature Gran % (Auto) 0.2 % Neut % (Auto) 52.7 % Lymph % (Auto) 46.2 % Cassia % (Auto) 0.7 % Eos % (Auto) 0.1 % Baso % (Auto) 0.1 % Neut # (Auto) 6.36 (1.40-6.50) K/uL Lymph # (Auto) 5.57 H (1.20-3.40) K/uL Cassia # (Auto) 0.08 L (0.11-0.59) K/uL Eos # (Auto) 0.01 (0.00-0.50) K/uL Baso # (Auto) 0.01 (0.00-0.20) K/uL Immature Gran # (Auto) 0.03 (0.01-0.20) K/uL Absolute Nucleated RBC 0.02 (0.00-0.12) K/uL Nucleated RBC % (auto) 0.2 % PT 10.8 (9.0-12.0) Seconds INR 1.0 (0.9-1.1) APTT 24 (21-31) Seconds PTT Ratio 0.9 Sodium 132 L (136-145) mmol/L Potassium 4.6 (3.5-5.1) mmol/L Chloride 100 (98-107) mmol/L Carbon Dioxide 24 (21-32) mmol/L Anion Gap 8 (3-11) BUN 29 H (6-23) mg/dl Creatinine 1.01 (0.6-1.4) mg/dl Est Cr Clr Drug Dosing 54.1 ml/min Est GFR ( Amer) 82.8 ml/min Est GFR (Non-Af Amer) 71.4 ml/min BUN/Creatinine Ratio 28.7 H (10-20) Glucose 206 H (70-99(Fasting)) mg/dl Lactate 2.2 H* (0.4-2.0) mmol/L Calcium 8.4 L (8.6-10.3) mg/dl Magnesium 1.1 L (1.7-2.4) mg/dl Total Bilirubin 1.1 H (0.2-1.0) mg/dl Direct Bilirubin 0.2 (0-0.2) mg/dl AST 120 H (13-39) U/L ALT 62 H (7-52) U/L Alkaline Phosphatase 121 H (34-104) U/L Troponin I High Sens 6.9 (0-20) pg/ml Total Protein 6.1 (6.0-8.3) gm/dl Albumin 3.3 L (3.4-5.0) gm/dl Procalcitonin Cancelled Urine Color Yellow Urine Appearance Clear (Clear) Urine pH 5.5 (4.5-7.5) Ur Specific [place] 1.019 (1.000-1.030) Urine Protein Negative (Negative) Urine Glucose (UA) 2+ H (Negative) Urine Ketones Trace H (Negative) Urine Blood Negative (Negative) Urine Nitrite Negative (Negative) Urine Bilirubin Negative (Negative) Urine Urobilinogen Negative (Negative) Ur Leukocyte Esterase Negative (Negative) SARS-CoV-2 (PCR) NEGATIVE (Negative) Influenza Type A (PCR) Negative (Neg) Influenza Type B (PCR) Negative (Neg) RSV (RT-PCR) Negative (Neg) 12/20/23 12/20/23 Range/Units 19:03 20:27 WBC (4.8-10.8) K/ul RBC (4.70-6.10) M/uL Hgb (14.0-18.0) g/dl Hct (42.0-52.0) % MCV (80.0-100.0) fL MCH (25.0-34.0) pg MCHC (32.0-36.0) g/dL RDW Std Deviation (36.4-46.3) fL RDW Coeff of [place] (11.5-14.5) % Plt Count (130-400) K/uL MPV (9.4-12.4) fL Immature Gran % (Auto) % Neut % (Auto) % Lymph % (Auto) % Cassia % (Auto) % Eos % (Auto) % Baso % (Auto) % Neut # (Auto) (1.40-6.50) K/uL Lymph # (Auto) (1.20-3.40) K/uL Cassia # (Auto) (0.11-0.59) K/uL Eos # (Auto) (0.00-0.50) K/uL Baso # (Auto) (0.00-0.20) K/uL Immature Gran # (Auto) (0.01-0.20) K/uL Absolute Nucleated RBC (0.00-0.12) K/uL Nucleated RBC % (auto) % PT (9.0-12.0) Seconds INR (0.9-1.1) APTT (21-31) Seconds PTT Ratio Sodium (136-145) mmol/L Potassium (3.5-5.1) mmol/L Chloride (98-107) mmol/L Carbon Dioxide (21-32) mmol/L Anion Gap (3-11) BUN (6-23) mg/dl Creatinine (0.6-1.4) mg/dl Est Cr Clr Drug Dosing ml/min Est GFR ( Amer) ml/min Est GFR (Non-Af Amer) ml/min BUN/Creatinine Ratio (10-20) Glucose (70-99(Fasting)) mg/dl Lactate 1.1 (0.4-2.0) mmol/L Calcium (8.6-10.3) mg/dl Magnesium (1.7-2.4) mg/dl Total Bilirubin (0.2-1.0) mg/dl Direct Bilirubin (0-0.2) mg/dl AST (13-39) U/L ALT (7-52) U/L Alkaline Phosphatase (34-104) U/L Troponin I High Sens (0-20) pg/ml Total Protein (6.0-8.3) gm/dl Albumin (3.4-5.0) gm/dl Procalcitonin 2.06 H Urine Color Urine Appearance (Clear) Urine pH (4.5-7.5) Ur Specific [place] (1.000-1.030) Urine Protein (Negative) Urine Glucose (UA) (Negative) Urine Ketones (Negative) Urine Blood (Negative) Urine Nitrite (Negative) Urine Bilirubin (Negative) Urine Urobilinogen (Negative) Ur Leukocyte Esterase (Negative) SARS-CoV-2 (PCR) (Negative) Influenza Type A (PCR) (Neg) Influenza Type B (PCR) (Neg) RSV (RT-PCR) (Neg) Administered Medications Discontinued Medications Acetaminophen (Acetaminophen 325 Mg Tab) 650 mg PO NOW STA Stop: 12/20/23 17:22 Last Admin: 12/20/23 18:08 Dose: 650 mg Documented By: SISSY Sodium Chloride (Nss) 500 mls @ 999 mls/hr IV .Q31M ONE Stop: 12/20/23 17:51 Last Infusion: 12/20/23 19:07 Dose: Infused Documented By: Admin: 12/20/23 18:09 Dose: 999 mls/hr Documented By: SISSY Sodium Chloride (Nss) 500 mls @ 999 mls/hr IV .Q31M ONE Stop: 12/20/23 18:44 Last Infusion: 12/20/23 20:07 Dose: Infused Documented By: [facility] Admin: 12/20/23 19:07 Dose: 999 mls/hr Documented By: SISSY Magnesium Sulfate/Dextrose (Magnesium Sulfate / D5w) 1 gm in 100 mls @ 100 mls/hr IV Q1H RICHARD Stop: 12/20/23 20:44 Last Infusion: 12/20/23 21:29 Dose: Infused Documented By: Admin: 12/20/23 20:16 Dose: 100 mls/hr Documented By: [facility] Infusion: 12/20/23 20:06 Dose: Infused Documented By: [facility] Admin: 12/20/23 19:06 Dose: 100 mls/hr Documented By: SISSY Sodium Chloride (Nss) 500 mls @ 999 mls/hr IV .Q31M ONE Stop: 12/20/23 20:20 Last Infusion: 12/20/23 22:14 Dose: Infused Documented By: [facility] Admin: 12/20/23 20:16 Dose: 999 mls/hr Documented By: [facility] Ceftriaxone Sodium (Rocephin) 2,000 mg in 50 mls @ 100 mls/hr IV NOW STA Stop: 12/20/23 22:16 Last Infusion: 12/20/23 22:44 Dose: Infused Documented By: [facility] Admin: 12/20/23 22:12 Dose: 100 mls/hr Documented By: [facility] Ioversol (Optiray 320 100ml) 93 ml IV ONCE ONE Stop: 12/20/23 22:03 Last Admin: 12/20/23 22:03 Dose: 93 ml Documented By: KEATON Imaging Data Attestation: I personally reviewed and interpreted this imaging study as follows: My Impression: 1 view chest x-ray was obtained in the emergency department. My interpretation is left-sided atelectasis, there is no free air, final report below. CT of the abdomen and pelvis was obtained in the emergency department. My interpretation is no free air or definite signs of bowel obstruction, final report below. Radiologist's Impression: Chest X-Ray 12/20/23 17:21 XR chest 1V portable CLINICAL HISTORY: Sepsis. COMPARISON STUDY: Chest CT April 25, 2021. Chest radiograph April 30, 2023. FINDINGS: Mild elevation of the left hemidiaphragm is unchanged. Minimal left basilar opacity favors atelectasis. Cardiomediastinal silhouette is unremarkable. Pulmonary vascularity is normal. Old right-sided rib fractures are incidentally noted. IMPRESSION: No acute cardiopulmonary findings. No significant change in appearance of the chest. ACT 112: Negative or not required by law. Electronically signed by: Dario Call M.D. 12/20/2023 6:13 PM Gallbladder Ultrasound 12/20/23 17:21 Exam(s): US GALLBLADDER EXAM: US Abdomen Limited, Gallbladder CLINICAL HISTORY: Reason for exam: hx of ANICETO and biliary sludge. TECHNIQUE: Real-time ultrasound of the right upper quadrant with image documentation. COMPARISON: No relevant prior studies available. FINDINGS: No focal hepatic lesion. Gallbladder: Cholecystectomy. Common bile duct: CBD caliber measures 3 mm in diameter. No stones. No dilation. Pancreas: Pancreas not seen due to bowel gas. Right kidney: Trace right perinephric fluid. IMPRESSION: 1. Status post cholecystectomy. 2. Suspected trace right perinephric fluid Electronically signed by: Shaheen Fernandez MD 12/20/23 22:51 PM KUB X-Ray 12/20/23 17:21 KUB CLINICAL HISTORY: chills COMPARISON STUDY: CT of the abdomen and pelvis May 08, 2022. FINDINGS: There are cholecystectomy clips. There is gas throughout small and large bowel. The bowel gas pattern is within normal limits. No urinary calculi are identified. Pelvic calcifications represent phleboliths. The amount of stool is within normal limits. IMPRESSION: No evidence for a bowel obstruction. ACT 112: Negative or not required by law. Electronically signed by: Dario Call M.D. 12/20/2023 6:14 PM Abdomen/Pelvis CT 12/20/23 21:44 Exam(s): CT ABDOMEN + PELVIS With Contrast IV Amt: 92ml EXAM: CT Abdomen and Pelvis With Intravenous Contrast CLINICAL HISTORY: Reason for exam: rigors. TECHNIQUE: Axial computed tomography images of the abdomen and pelvis with intravenous contrast. CTDI is 11 mGy and DLP is 656 mGy-cm. Automated exposure control was utilized for the study. A dose lowering technique was utilized adhering to the principles of ALARA. CONTRAST: Patient received 92ml of IV contrast COMPARISON: No relevant prior studies available. FINDINGS: Lung bases: Unremarkable. No mass. No consolidation. Heart: Moderate coronary vascular calcifications are seen. ABDOMEN: Liver: Unremarkable. No mass. Gallbladder and bile ducts: Cholecystectomy. Pneumobilia. No ductal dilation. Pancreas: Unremarkable. No mass. No ductal dilation. Spleen: Unremarkable. No splenomegaly. Adrenals: Unremarkable. No mass. Kidneys and ureters: 3 mm nonobstructing left nephrolithiasis. No hydronephrosis. Stomach and bowel: There is diffuse gastric wall thickening, suggestive of gastritis. Sigmoid colonic diverticulosis. No obstruction. PELVIS: Appendix: Normal appendix. Bladder: Unremarkable. No mass. Reproductive: Unremarkable as visualized. ABDOMEN and PELVIS: Intraperitoneal space: Unremarkable. No free air. No significant fluid collection. Bones/joints: Grade 1 L5/S1 spondylolisthesis with bilateral L5 spondylolysis. No acute fracture. No dislocation. Lymph nodes: Unremarkable. No enlarged lymph nodes. Other findings: Left dome of the diaphragm is elevated. IMPRESSION: Diffuse gastric wall thickening which could be from gastritis. Cholecystectomy Sigmoid colonic diverticulosis. Electronically signed by: Shaheen Fernandez MD 12/20/23 22:54 PM Discharge Plan Visit Data Chief Complaint: Illness Stated Complaint: SHAKING, SLODGE BUILD UPS INTESTINES ED Provider: Rubén Rodriguez Discharge Problem: Cellulitis, Abnormal LFTs, Acute hypotension, Hypomagnesemia Patient Disposition: Being Evaluated by Hospitalist Forms Stand Alone Forms: [facility] Prescriptions Prescriptions: No Action (DME) blood-glucose meter Misc See Rx Instructions .ROUTE .MEDSUPPLY Qty: 1 0RF Rx Instructions: EASY MAX V METER E11.65 Z79.4 (DME) blood glucose control, normal [Easymax 15 Level 2] Solution See Rx Instructions .ROUTE .MEDSUPPLY Qty: 1 0RF Rx Instructions: As directed PER METER INSTRUCTIONS E11.65 (DME) lancets [Twist Lancets] 30 gauge misc See Rx Instructions .ROUTE .MEDSUPPLY Qty: 300 3RF Rx Instructions: USE THREE TIMES DAILY E11.65 metoprolol tartrate 50 mg tablet 50 mg PO BID Qty: 20 0RF (DME) pen needle, diabetic [BD Ultra-Fine Short Pen Needle] 31 gauge x 5/16" needle See Rx Instructions .ROUTE .MEDSUPPLY Qty: 900 3RF Rx Instructions: Test up to three times daily. DX: E11.65 pantoprazole 40 mg tablet,delayed release (DR/EC) 40 mg PO QAM Qty: 90 3RF (DME) EasyMax Strip See Rx Instructions .ROUTE .MEDSUPPLY Qty: 300 3RF Rx Instructions: EASY MAX TEST STRIPS CHECK BLOOD SUGARS TID E11.65 simvastatin 20 mg tablet 20 mg PO HS Qty: 90 3RF cholecalciferol (vitamin D3) 50 mcg (2,000 unit) capsule 50 mcg PO QAM Tradjenta 5 mg tablet 5 mg PO QAM magnesium chloride [Mag 64] 64 mg Tablet,Delayed Release (Dr/Ec) 64 mg PO BID Qty: 60 0RF insulin glargine [Lantus Solostar U-100 Insulin] 100 unit/mL (3 mL) insulin pen 18 - 20 unit SUBCUT QAM alendronate 70 mg tablet 70 mg PO WK Rx Instructions: Thursday metformin 500 mg tablet extended release 24 hr 1,000 mg PO BID Referrals Referrals: Corrine Amor DO [Primary Care Provider] - Discharge Problem: Cellulitis Qualifiers: Site of cellulitis: unspecified site Qualified Code(s): L03.90 - Cellulitis, unspecified
[2023-12-20 18:05] LABS: Appearance Urine Clear (Clear); Bilirubin Urine Negative (Negative); Blood Urine Negative (Negative); Color Urine Yellow; Glucose Urine UA 2+ (Negative); Ketones Urine Trace (Negative); Leukocyte Esterase Urine Negative (Negative); Nitrite Urine Negative (Negative); Protein Urine Negative (Negative); Specific Gravity Urine 1.019 (1.000-1.030); Urobilinogen Urine Negative (Negative); pH Urine 5.5 (4.5-7.5)
[2023-12-20] MEDS: ACETAMINOPHEN 325 MG TAB PO STA (18:08)
[2023-12-20] MEDS: SODIUM CHLORIDE 0.9% 500 ML IV ONE ×3 (18:09→20:16)
--- NOTE | 2023-12-20 18:15 | XRay Report ---
KUB CLINICAL HISTORY: chills COMPARISON STUDY: CT of the abdomen and pelvis May 08, 2022. FINDINGS: There are cholecystectomy clips. There is gas throughout small and large bowel. The bowel g as pattern is within normal limits. No urinary calculi are identified. Pelvic calcifications represen t phleboliths. The amount of stool is within normal limits. IMPRESSION: No evidence for a bowel obstruction. ACT 112: Negative or not required by law. Electronically signed by: Dario Call M.D. 12/20/2023 6:14 PM
--- NOTE | 2023-12-20 18:15 | XRay Report ---
XR chest 1V portable CLINICAL HISTORY: Sepsis. COMPARISON STUDY: Chest CT April 25, 2021. Chest radiograph April 30, 2023. FINDINGS: Mild elevation of the left hemidiaphragm is unchanged. Minimal left basilar opacity favors atelectasis. Cardiomediastinal silhouette is unremarkable. Pulmonary vascularity is normal. Old right -sided rib fractures are incidentally noted. IMPRESSION: No acute cardiopulmonary findings. No significant change in appearance of the chest. ACT 112: Negative or not required by law. Electronically signed by: Dario Call M.D. 12/20/2023 6:13 PM
[2023-12-20 18:16] LABS: Influenza A virus by PCR Negative (Neg); Influenza B virus by PCR Negative (Neg); RSV by PCR Negative (Neg); SARS CoV2 RNA(COVID-19) Ceph NEGATIVE (Negative)
[2023-12-20 18:19] LABS: Hematocrit (blood only) 37.1 % (42.0-52.0); Hemoglobin 12.7 g/dl (14.0-18.0); Mean Corpuscular Hemoglobin 30.6 pg (25.0-34.0); Mean Corpuscular Hgb Conc 34.2 g/dL (32.0-36.0); Mean Corpuscular Volume 89.4 fL (80.0-100.0); Mean Platelet Volume 9.5 fL (9.4-12.4); Nucleated RBC # (auto) 0.02 K/uL (0.00-0.12); Nucleated RBC % (auto) 0.2 %; Platelet Count 273 K/uL (130-400); RDW Coefficient of Variation 14.7 % (11.5-14.5); RDW Standard Deviation 47.9 fL (36.4-46.3); Red Blood Count 4.15 M/uL (4.70-6.10); White Blood Count 12.06 K/ul (4.8-10.8)
[2023-12-20 18:26] LABS: Albumin Level 3.3 gm/dl (3.4-5.0); BUN Creatinine Ratio 28.7 (10-20); Bilirubin Direct 0.2 mg/dl (0-0.2); Bilirubin,Total 1.1 mg/dl (0.2-1.0); Calcium 8.4 mg/dl (8.6-10.3); Creatinine Clr Calc Pharmacy 54.1 ml/min; Est GFR (African American) 82.8 ml/min; Est GFR (Non-African American) 71.4 ml/min; Magnesium 1.1 mg/dl (1.7-2.4); Potassium 4.6 mmol/L (3.5-5.1); Total Protein 6.1 gm/dl (6.0-8.3)
[2023-12-20 18:32] LABS: Troponin I High Sensitivity 6.9 pg/ml (0-20)
[2023-12-20 18:36] LABS: Partial Thromboplastin Ratio 0.9; Partial Thromboplastin Time 24 Seconds (21-31); Prothrombin Time 10.8 Seconds (9.0-12.0)
[2023-12-20 18:59] LABS: Basophils # (auto) 0.01 K/uL (0.00-0.20); Basophils % (auto) 0.1 %; Eosinophils # (auto) 0.01 K/uL (0.00-0.50); Eosinophils % (auto) 0.1 %; Immature Granulocytes # (auto) 0.03 K/uL (0.01-0.20); Immature Granulocytes % (auto) 0.2 %; Lymphocytes # (auto) 5.57 K/uL (1.20-3.40); Lymphocytes % (auto) 46.2 %; Monocytes # (auto) 0.08 K/uL (0.11-0.59); Monocytes % (auto) 0.7 %; Neutrophils # (auto) 6.36 K/uL (1.40-6.50); Neutrophils % (auto) 52.7 %
[2023-12-20] MEDS: MAGNESIUM SULFATE / D5W 1 GM/100 ML BAG IV SCH (19:06)
[2023-12-20] MEDS: OPTIRAY 320 100ml IV ONE (22:03)
[2023-12-20] MEDS: cefTRIAXone SODIUM 2,000 MG/50 ML BAG IV STA (22:12)
--- NOTE | 2023-12-20 22:52 | Ultrasound Report ---
Exam(s): US GALLBLADDER EXAM: US Abdomen Limited, Gallbladder CLINICAL HISTORY: Reason for exam: hx of ANICETO and biliary sludge. TECHNIQUE: Real-time ultrasound of the right upper quadrant with image documentation. COMPARISON: No relevant prior studies available. FINDINGS: No focal hepatic lesion. Gallbladder: Cholecystectomy. Common bile duct: CBD caliber measures 3 mm in diameter. No stones. No dilation. Pancreas: Pancreas not seen due to bowel gas. Right kidney: Trace right perinephric fluid. IMPRESSION: 1. Status post cholecystectomy. 2. Suspected trace right perinephric fluid Electronically signed by: Shaheen Fernandez MD 12/20/23 22:51 PM
--- NOTE | 2023-12-20 22:55 | CT Scan Report ---
Exam(s): CT ABDOMEN + PELVIS With Contrast IV Amt: 92ml EXAM: CT Abdomen and Pelvis With Intravenous Contrast CLINICAL HISTORY: Reason for exam: rigors. TECHNIQUE: Axial computed tomography images of the abdomen and pelvis with intravenous contrast. CTDI is 11 mGy and DLP is 656 mGy-cm. Automated exposure control was utilized for the study. A dose lowering technique was utilized adhering to the principles of ALARA. CONTRAST: Patient received 92ml of IV contrast COMPARISON: No relevant prior studies available. FINDINGS: Lung bases: Unremarkable. No mass. No consolidation. Heart: Moderate coronary vascular calcifications are seen. ABDOMEN: Liver: Unremarkable. No mass. Gallbladder and bile ducts: Cholecystectomy. Pneumobilia. No ductal dilation. Pancreas: Unremarkable. No mass. No ductal dilation. Spleen: Unremarkable. No splenomegaly. Adrenals: Unremarkable. No mass. Kidneys and ureters: 3 mm nonobstructing left nephrolithiasis. No hydronephrosis. Stomach and bowel: There is diffuse gastric wall thickening, suggestive of gastritis. Sigmoid colonic diverticulosis. No obstruction. PELVIS: Appendix: Normal appendix. Bladder: Unremarkable. No mass. Reproductive: Unremarkable as visualized. ABDOMEN and PELVIS: Intraperitoneal space: Unremarkable. No free air. No significant fluid collection. Bones/joints: Grade 1 L5/S1 spondylolisthesis with bilateral L5 spondylolysis. No acute fracture. No dislocation. Lymph nodes: Unremarkable. No enlarged lymph nodes. Other findings: Left dome of the diaphragm is elevated. IMPRESSION: Diffuse gastric wall thickening which could be from gastritis. Cholecystectomy Sigmoid colonic diverticulosis. Electronically signed by: Shaheen Fernandez MD 12/20/23 22:54 PM
--- NOTE | 2023-12-21 03:34 | History & Physical Report ---
Date of Service December 21, 2023 Assessment & Plan (1) Rigors: Plan: 78-year-old male with past medical history significant for type 2 diabetes, celiac disease, history of calculus of kidney, psoriasis, CLL under observation, history of paroxysmal atrial fibrillation in the setting of empyema, borderline moderate aortic stenosis, ascending thoracic aortic enlargement, chronic anemia baseline hemoglobin 12, periampullary neoplasm negative for malignancy of biopsy 04/01, history of cholangitis status post ERCP with biliary rendezvous procedure and metal CBD stent placement on 04/15/2022, and on 05/09/2022 presented with rigors and chills and fevers and elevated LFTs at the time thought to be sump syndrome with passage of biliary debris's and was treated with antibiotics comes again tonight because of chills and rigors and was feeling very cold and could not keep himself warm and was worried about the similar episode with biliary ductal obstruction and came to the ER. Received antibiotics and fluids in the ER. Currently feeling much better. Currently no chills or rigors or fevers. No abdominal pain. Normal bowel and bladder movements. No chest pain or shortness of breath. No cough. No headache. No runny nose or sore throat. Appetite is okay. Ambulating okay. Patient also recently had an rash on both of his shins and treated with steroids and antibiotics with improvement of rash. As per PCP notes patient had similar lesions in March of 2023 and saw dermatology and a biopsy was done and actual biopsy results not available but does indicate that they thought he might have erythema multiforme. He had a recurrent episode in August 2023 and again treated with steroids and antibiotics. Current episode is third episode. Patient's rash on the left lower bullock/ankle region resolved. Seems an active rash on the right posterior shoulder which patient thinks might have flared up today. Chills and rigors Currently improved Hemodynamics okay Afebrile WBC 12 Procalcitonin 2.06 UA is okay Lyme screen negative Anaplasma and Babesia smear negative COVID-negative and flu negative and RSV negative Q fever and typhus fever and Rickettsia pending CT abdomen pelvis showed showing possible gastritis but otherwise unremarkable KUB okay Gallbladder ultrasound suspected trace right perinephric fluid ,no gallbladder stones or CBD dilatation Chest x-ray okay Patient has similar presentation after ERCP for cholangitis and CBD stent pl acement and at the that time thought to be sump syndrome with passage of biliary debris's. Currently imaging studies are okay Blood cultures obtained in the ER Received Rocephin and fluids and symptoms resolved Will continue with Zosyn Follow the cultures Observe in the hospital Possible erythema multiforme Recently treated for possible erythema multiforme with steroids and antibiotics Currently rash on the back of his right shoulder Patient thinks it flared up again today Getting antibiotics Can consider steroids Follow-up with PCP and dermatology Type 2 diabetes Long-acting insulin Sliding scale Will follow blood sugars and HbA1c levels History of CLL Under observation Borderline moderate aortic stenosis Follow-up with cardiology Monitor for volume overload History of 1 episode of A-fib in setting of empyema On metoprolol History of chronic hyponatremia and hyperkalemia Sodium usually in low 130s and potassium in mid 5's Follows with nephrology Sodium 132 and potassium 4.6 today Nephrology recommended to eat more protein and do not drink more than 1500 mL fluids per day. To keep blood sugars under control. Hypomagnesia On magnesium supplements GERD On Protonix Hyperlipidemia On statin DVT prophylaxis Lovenox Disposition Medical floor Full code. History of Present Illness Chief Complaint: Chills and rigors Primary Care Provider: Corrine Amor DO 78-year-old male with past medical history significant for type 2 diabetes, celiac disease, history of calculus of kidney, psoriasis, CLL under observation, history of paroxysmal atrial fibrillation in the setting of empyema, borderline moderate aortic stenosis, ascending thoracic aortic enlargement, chronic anemia baseline hemoglobin 12, periampullary neoplasm negative for malignancy of biopsy 04/01, history of cholangitis status post ERCP with biliary rendezvous procedure and metal CBD stent placement on 04/15/2022, and on 05/09/2022 presented with rigors and chills and fevers and elevated LFTs at the time thought to be sump syndrome with passage of biliary debris's and was treated with antibiotics comes again tonight because of chills and rigors and was feeling very cold and could not keep himself warm and was worried about the similar episode with biliary ductal obstruction and came to the ER. Received antibiotics and fluids in the ER. Currently feeling much better. Currently no chills or rigors or fevers. No abdominal pain. Normal bowel and bladder movements. No chest pain or shortness of breath. No cough. No headache. No runny nose or sore throat. Appetite is okay. Ambulating okay. Patient also recently had an rash on both of his shins and treated with steroids and antibiotics with improvement of rash. As per PCP notes patient had similar lesions in March of 2023 and saw dermatology and a biopsy was done and actual biopsy results not available but does indicate that they thought he might have erythema multiforme. He had a recurrent episode in August 2023 and again treated with steroids and antibiotics. Current episode is third episode. Patient's rash on the left lower bullock/ankle region resolved. Seems an active rash on the right posterior shoulder which patient thinks might have flared up today. Past med history. As mentioned above Past surgical history. Complex cataract surgery. Cholecystectomy open. Colonoscopy. EGD with endoscopic ultrasound. ERCP with stent exchange. Tonsillectomy. Endoscopic ultrasound. Social history. . No smoking. Alcohol rarely. No drug use Family history. Father had cancer. Diabetes. [place]. Maternal grandfather had cancer. Paternal grandfather had diabetes. Stroke. Brother has hypertension. Allergies Allergy/AdvReac Type Severity Reaction Status Date / Time gluten Allergy Severe celiac's Verified 12/20/23 18:02 disease wheat Allergy Severe celiac's Verified 12/20/23 18:02 disease exenatide [From [employer]] AdvReac Mild Vomiting Verified 12/20/23 18:02 Home Medications Medication Instructions Recorded Confirmed Type cholecalciferol (vitamin D3) 50 50 mcg PO QAM 09/07/19 12/20/23 History mcg (2,000 unit) capsule linagliptin 5 mg tablet (Tradjenta) 5 mg PO QAM 07/16/20 12/20/23 History blood glucose control, normal #1 ea 07/19/20 03/18/22 Rx (Easymax 15 Level 2 solution) blood-glucose meter #1 ea 07/19/20 03/18/22 Rx lancets 30 gauge (Twist Lancets) #300 ea 07/19/20 03/18/22 Rx metoprolol tartrate 50 mg tablet 50 mg PO BID #20 tabs 08/03/20 12/20/23 Rx pen needle, diabetic 31 gauge x #900 ea 12/11/20 03/18/22 Rx 5/16" (BD Ultra-Fine Short Pen Needle) pantoprazole 40 mg tablet,delayed 40 mg PO QAM #90 tabs 01/02/21 12/20/23 Rx release blood sugar diagnostic (EasyMax #300 ea 02/08/21 03/18/22 Rx strips) simvastatin 20 mg tablet 20 mg PO HS #90 tabs 04/15/21 12/20/23 Rx insulin glargine 100 unit/mL (3 18 - 20 unit subcut QAM 02/18/22 12/20/23 History mL) subcutaneous pen (Lantus Solostar U-100 Insulin) magnesium chloride 64 mg 64 mg PO BID #60 tabs 05/11/22 12/20/23 Rx (magnesium chloride) tablet,delayed release (Mag 64) alendronate 70 mg tablet 70 mg PO WK 12/20/23 12/20/23 History metformin 500 mg tablet,extended 1,000 mg PO BID 12/20/23 12/20/23 History release 24 hr Past Med/Surg History Problem List (Updated 12/20/23 @ 23:24 by Rubén Rodriguez DO) Hypomagnesemia (Acute) Acute hypotension (Acute) Abnormal LFTs (Acute) Cellulitis (Acute) Transaminitis (Acute) Elevated LFTs Severe sepsis Rigors (Acute) Cholangitis (Acute) COVID-19 (Acute) Encounter for pre-operative examination Hyperlipidemia (Chronic) Uncontrolled type 2 diabetes mellitus with insulin therapy (Chronic) Diverticulitis (Acute) Medicare annual wellness visit, subsequent Screening for malignant neoplasm of prostate Acute left flank pain (Acute) Pneumonia DVT prophylaxis MARISSA (acute kidney injury) Pneumonia (Acute) Loculated pleural effusion (Acute) Left-sided chest pain (Acute) Hydropneumothorax Parapneumonic effusion Acute hypoxemic respiratory failure Atrial tachycardia Diabetes mellitus type 2, uncontrolled Dysphagia Odynophagia 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) Controlled type 2 diabetes mellitus with insulin therapy Encounter for pre-operative examination Diarrhea Dysphagia History of adenomatous polyp of colon Family history of colon cancer Multiple fractures of ribs of left side (Acute) Encounter for pre-operative examination Celiac disease biopsy proven on EGD Atrial flutter with rapid ventricular response started during admission for pneumonia/pleural effusion (06/25/20)--tx to ICU at [facility] and then tx to [facility]--started on metoprolol Aortic valve stenosis (Chronic) Mild per 09/2021 echo Carotid artery stenosis (Chronic) <50% ICA stenosis Medical History Atrial flutter 06/2020 (per cardio consult, felt likely r/t response of acute illness- sepsis/PNA/parapneumonic effusion with respiratory failure) History of COVID-19 10/2021- asymptomatic IDDM (insulin dependent diabetes mellitus) Freestyle yolie monitoring History of kidney stones Broken ribs s/p fall 10/01/21, denies current issues Hx of skin cancer, basal cell BCC (nose)- removed CLL (chronic lymphocytic leukemia) Malignant melanoma of skin Osteoarthritis Sleep apnea CPAP Hyperlipidemia Surgical History History of esophagogastroduodenoscopy (EGD) History of placement of chest tube 2020 ([facility]) d/t pleural effusion History of cataract surgery R/L History of tooth extraction History of tonsillectomy History of lithotripsy History of herniorrhaphy Umbilical History of cholecystectomy History of colonoscopy Family History Brother Prostate cancer Family history of diabetes mellitus Father Family hx of colon cancer Family history of diabetes mellitus Other No family history of adverse response to anesthesia Denies family history of Ovarian cancer Myocardial infarction Breast cancer Lung cancer Colorectal cancer Social History Smoking Status: Never smoker Second Hand Exposure: No; Do You Dip or Chew Tobacco: No; Tobacco Cessation Education Requested by Patient: No Hx Alcohol Use: No Hx Substance Use: No Preferred Language: Danish Communication Ability: Effective Back End Developer Required: No Beliefs That Will Affect Care: None Current Living Situation: Spouse Other Information That Helps Us Care for You: No Feels Safe at Home: Yes Safety Concerns: Feels Safe At This Time Seatbelt Use: always Assistive Devices: Glasses and Hearing Aid - Bilateral Review of Systems Review of Systems: All systems reviewed & are unremarkable except as noted in HPI & below Physical Exam Physical Exam: General- Not in distress Head- atraumatic Eyes- PERRL. ENT- oropharynx clear Neck- supple, no JVD. Lungs- clear to auscultation no wheezing or crackles Heart- regular rhythm; no murmur, no gallop. Abdomen- normal bowel sounds, soft, nontender, no distension Extremities- no pretibial edema, no erythema seen Neuro- alert, oriented ; PERRL, no facial palsy; no dysarthria; moves extremities Results & Data Results & Data Vital Signs (Past 12 Hours) Vital Signs Temp Pulse Pulse Resp BP BP Pulse Ox 12/21/23 03:09 71 18 125/71 98 12/21/23 03:00 67 12/21/23 02:33 61 16 98/58 L 97 12/21/23 02:01 126/66 12/21/23 01:00 62 15 97/58 L 99 12/21/23 00:06 69 14 98/64 L 98 12/20/23 23:09 67 22 91/62 L 97 12/20/23 22:43 73 12/20/23 22:42 81 14 87/52 L 99 12/20/23 20:45 77 18 86/58 L 96 12/20/23 20:30 81 22 87/49 L 96 12/20/23 20:18 82 20 107/57 L 96 12/20/23 19:30 83 20 95/60 L 96 12/20/23 19:15 95/60 L 12/20/23 19:15 12/20/23 19:04 12/20/23 19:00 94/59 L 12/20/23 19:00 12/20/23 18:53 93/62 L 12/20/23 18:51 84 21 95 12/20/23 18:45 19 12/20/23 18:30 18 98 12/20/23 18:21 12/20/23 18:06 12/20/23 18:00 95 H 28 H 99/65 L 97 12/20/23 17:55 111/73 12/20/23 17:51 94 H 23 111/73 97 12/20/23 17:46 97/60 L 12/20/23 17:43 97 H 20 98 12/20/23 17:34 96 H 12/20/23 17:21 96 H 16 97 12/20/23 17:17 37.2 C 78 16 110/77 96 12/20/23 17:07 37.2 C 98 H 20 111/72 99 O2 Del Method 12/21/23 03:09 Room Air 12/21/23 03:00 12/21/23 02:33 Room Air 12/21/23 02:01 12/21/23 01:00 Room Air 12/21/23 00:06 Room Air 12/20/23 23:09 Room Air 12/20/23 22:43 12/20/23 22:42 Room Air 12/20/23 20:45 Room Air 12/20/23 20:30 Room Air 12/20/23 20:18 Room Air 12/20/23 19:30 Room Air 12/20/23 19:15 12/20/23 19:15 Room Air 12/20/23 19:04 Room Air 12/20/23 19:00 12/20/23 19:00 Room Air 12/20/23 18:53 12/20/23 18:51 12/20/23 18:45 Room Air 12/20/23 18:30 Room Air 12/20/23 18:21 Room Air 12/20/23 18:06 Room Air 12/20/23 18:00 Room Air 12/20/23 17:55 12/20/23 17:51 Room Air 12/20/23 17:46 12/20/23 17:43 Room Air 12/20/23 17:34 12/20/23 17:21 Room Air 12/20/23 17:17 Room Air 12/20/23 17:07 Room Air Diagnostic Findings Laboratory Results WBC 12.06 K/ul (4.8-10.8) H 12/20/23 17:43 RBC 4.15 M/uL (4.70-6.10) L 12/20/23 17:43 Hgb 12.7 g/dl (14.0-18.0) L 12/20/23 17:43 Hct 37.1 % (42.0-52.0) L 12/20/23 17:43 MCV 89.4 fL (80.0-100.0) 12/20/23 17:43 MCH 30.6 pg (25.0-34.0) 12/20/23 17:43 MCHC 34.2 g/dL (32.0-36.0) 12/20/23 17:43 RDW Std Deviation 47.9 fL (36.4-46.3) H 12/20/23 17:43 RDW Coeff of [place] 14.7 % (11.5-14.5) H 12/20/23 17:43 Plt Count 273 K/uL (130-400) 12/20/23 17:43 MPV 9.5 fL (9.4-12.4) 12/20/23 17:43 Immature Gran % (Auto) 0.2 % 12/20/23 17:43 Neut % (Auto) 52.7 % 12/20/23 17:43 Lymph % (Auto) 46.2 % 12/20/23 17:43 [place] % (Auto) 0.7 % 12/20/23 17:43 Eos % (Auto) 0.1 % 12/20/23 17:43 Baso % (Auto) 0.1 % 12/20/23 17:43 Neut # (Auto) 6.36 K/uL (1.40-6.50) 12/20/23 17:43 Lymph # (Auto) 5.57 K/uL (1.20-3.40) H 12/20/23 17:43 [place] # (Auto) 0.08 K/uL (0.11-0.59) L 12/20/23 17:43 Eos # (Auto) 0.01 K/uL (0.00-0.50) 12/20/23 17:43 Baso # (Auto) 0.01 K/uL (0.00-0.20) 12/20/23 17:43 Immature Gran # (Auto) 0.03 K/uL (0.01-0.20) 12/20/23 17:43 Absolute Nucleated RBC 0.02 K/uL (0.00-0.12) 12/20/23 17:43 Nucleated RBC % (auto) 0.2 % 12/20/23 17:43 PT 10.8 Seconds (9.0-12.0) 12/20/23 17:43 INR 1.0 (0.9-1.1) 12/20/23 17:43 APTT 24 Seconds (21-31) 12/20/23 17:43 PTT Ratio 0.9 12/20/23 17:43 Sodium 132 mmol/L (136-145) L 12/20/23 17:43 Potassium 4.6 mmol/L (3.5-5.1) 12/20/23 17:43 Chloride 100 mmol/L (98-107) 12/20/23 17:43 Carbon Dioxide 24 mmol/L (21-32) 12/20/23 17:43 Anion Gap 8 (3-11) 12/20/23 17:43 BUN 29 mg/dl (6-23) H 12/20/23 17:43 Creatinine 1.01 mg/dl (0.6-1.4) 12/20/23 17:43 Est Cr Clr Drug Dosing 54.1 ml/min 12/20/23 17:43 Est GFR ( Amer) 82.8 ml/min 12/20/23 17:43 Est GFR (Non-Af Amer) 71.4 ml/min 12/20/23 17:43 BUN/Creatinine Ratio 28.7 (10-20) H 12/20/23 17:43 Glucose 206 mg/dl (70-99(Fasting)) H 12/20/23 17:43 Lactate 1.1 mmol/L (0.4-2.0) 12/20/23 20:27 Calcium 8.4 mg/dl (8.6-10.3) L 12/20/23 17:43 Magnesium 1.1 mg/dl (1.7-2.4) L 12/20/23 17:43 Total Bilirubin 1.1 mg/dl (0.2-1.0) H 12/20/23 17:43 Direct Bilirubin 0.2 mg/dl (0-0.2) 12/20/23 17:43 AST 120 U/L (13-39) H 12/20/23 17:43 ALT 62 U/L (7-52) H 12/20/23 17:43 Alkaline Phosphatase 121 U/L (34-104) H 12/20/23 17:43 Troponin I High Sens 6.9 pg/ml (0-20) 12/20/23 17:43 Total Protein 6.1 gm/dl (6.0-8.3) 12/20/23 17:43 Albumin 3.3 gm/dl (3.4-5.0) L 12/20/23 17:43 Procalcitonin 2.06 ng/ml (0-0.5) H 12/20/23 19:03 Urine Color Yellow 12/20/23 17:55 Urine Appearance Clear (Clear) 12/20/23 17:55 Urine pH 5.5 (4.5-7.5) 12/20/23 17:55 Ur Specific [place] 1.019 (1.000-1.030) 12/20/23 17:55 Urine Protein Negative (Negative) 12/20/23 17:55 Urine Glucose (UA) 2+ (Negative) H 12/20/23 17:55 Urine Ketones Trace (Negative) H 12/20/23 17:55 Urine Blood Negative (Negative) 12/20/23 17:55 Urine Nitrite Negative (Negative) 12/20/23 17:55 Urine Bilirubin Negative (Negative) 12/20/23 17:55 Urine Urobilinogen Negative (Negative) 12/20/23 17:55 Ur Leukocyte Esterase Negative (Negative) 12/20/23 17:55 Anaplasma Smear See Comment 12/20/23 23:21 Babesia Smear See Comment 12/20/23 23:21 Lyme Disease Screen Negative (Negative) 12/20/23 23:21 SARS-CoV-2 (PCR) NEGATIVE (Negative) 12/20/23 17:27 Influenza Type A (PCR) Negative (Neg) 12/20/23 17:27 Influenza Type B (PCR) Negative (Neg) 12/20/23 17:27 RSV (RT-PCR) Negative (Neg) 12/20/23 17:27 Impressions Chest X-Ray 12/20/23 17:21 XR chest 1V portable CLINICAL HISTORY: Sepsis. COMPARISON STUDY: Chest CT April 25, 2021. Chest radiograph April 30, 2023. FINDINGS: Mild elevation of the left hemidiaphragm is unchanged. Minimal left basilar opacity favors atelectasis. Cardiomediastinal silhouette is unremarkable. Pulmonary vascularity is normal. Old right-sided rib fractures are incidentally noted. IMPRESSION: No acute cardiopulmonary findings. No significant change in appearance of the chest. ACT 112: Negative or not required by law. Electronically signed by: Dario Call M.D. 12/20/2023 6:13 PM Gallbladder Ultrasound 12/20/23 17:21 Exam(s): US GALLBLADDER EXAM: US Abdomen Limited, Gallbladder CLINICAL HISTORY: Reason for exam: hx of ANICETO and biliary sludge. TECHNIQUE: Real-time ultrasound of the right upper quadrant with image documentation. COMPARISON: No relevant prior studies available. FINDINGS: No focal hepatic lesion. Gallbladder: Cholecystectomy. Common bile duct: CBD caliber measures 3 mm in diameter. No stones. No dilation. Pancreas: Pancreas not seen due to bowel gas. Right kidney: Trace right perinephric fluid. IMPRESSION: 1. Status post cholecystectomy. 2. Suspected trace right perinephric fluid Electronically signed by: Shaheen Fernandez MD 12/20/23 22:51 PM KUB X-Ray 12/20/23 17:21 KUB CLINICAL HISTORY: chills COMPARISON STUDY: CT of the abdomen and pelvis May 08, 2022. FINDINGS: There are cholecystectomy clips. There is gas throughout small and large bowel. The bowel gas pattern is within normal limits. No urinary calculi are identified. Pelvic calcifications represent phleboliths. The amount of stool is within normal limits. IMPRESSION: No evidence for a bowel obstruction. ACT 112: Negative or not required by law. Electronically signed by: Dario Call M.D. 12/20/2023 6:14 PM Abdomen/Pelvis CT 12/20/23 21:44 Exam(s): CT ABDOMEN + PELVIS With Contrast IV Amt: 92ml EXAM: CT Abdomen and Pelvis With Intravenous Contrast CLINICAL HISTORY: Reason for exam: rigors. TECHNIQUE: Axial computed tomography images of the abdomen and pelvis with intravenous contrast. CTDI is 11 mGy and DLP is 656 mGy-cm. Automated exposure control was utilized for the study. A dose lowering technique was utilized adhering to the principles of ALARA. CONTRAST: Patient received 92ml of IV contrast COMPARISON: No relevant prior studies available. FINDINGS: Lung bases: Unremarkable. No mass. No consolidation. Heart: Moderate coronary vascular calcifications are seen. ABDOMEN: Liver: Unremarkable. No mass. Gallbladder and bile ducts: Cholecystectomy. Pneumobilia. No ductal dilation. Pancreas: Unremarkable. No mass. No ductal dilation. Spleen: Unremarkable. No splenomegaly. Adrenals: Unremarkable. No mass. Kidneys and ureters: 3 mm nonobstructing left nephrolithiasis. No hydronephrosis. Stomach and bowel: There is diffuse gastric wall thickening, suggestive of gastritis. Sigmoid colonic diverticulosis. No obstruction. PELVIS: Appendix: Normal appendix. Bladder: Unremarkable. No mass. Reproductive: Unremarkable as visualized. ABDOMEN and PELVIS: Intraperitoneal space: Unremarkable. No free air. No significant fluid collection. Bones/joints: Grade 1 L5/S1 spondylolisthesis with bilateral L5 spondylolysis. No acute fracture. No dislocation. Lymph nodes: Unremarkable. No enlarged lymph nodes. Other findings: Left dome of the diaphragm is elevated. IMPRESSION: Diffuse gastric wall thickening which could be from gastritis. Cholecystectomy Sigmoid colonic diverticulosis. Electronically signed by: Shaheen Fernandez MD 12/20/23 22:54 PM Code Status & VTE Plan VTE Prophylaxis Plan VTE Prophylaxis will be ordered: Yes
[2023-12-21] MEDS ORDERED: CARBOHYDRATES FOR HYPOGLYCEMIA PO PRN (05:28)
[2023-12-21] MEDS ORDERED: GLUCOSE 40% GEL 15 GM TUBE PO PRN (05:28)
[2023-12-21] MEDS: SODIUM CHLORIDE 0.9% 1,000 ML IV SCH (05:28)
[2023-12-21] MEDS ORDERED: POLYETHYLENE (MIRALAX) 17 GM PACK PO PRN (05:28)
[2023-12-21] MEDS ORDERED: DEXTROSE 50% 50 ML SYRINGE IV PRN (05:28)
[2023-12-21] MEDS ORDERED: GLUCOSE 10 TAB/TUBE PO PRN (05:28)
[2023-12-21] MEDS ORDERED: GLUCAGON FOR INJ 1 MG VIAL SQ PRN (05:28)
[2023-12-21] MEDS ORDERED: ACETAMINOPHEN 325 MG TAB PO PRN (05:28)
[2023-12-21 06:59] LABS: Hematocrit (blood only) 34.7 % (42.0-52.0); Hemoglobin 11.7 g/dl (14.0-18.0); Mean Corpuscular Hemoglobin 30.6 pg (25.0-34.0); Mean Corpuscular Hgb Conc 33.7 g/dL (32.0-36.0); Mean Corpuscular Volume 90.8 fL (80.0-100.0); RDW Standard Deviation 49.4 fL (36.4-46.3); Red Blood Count 3.82 M/uL (4.70-6.10); White Blood Count 11.46 K/ul (4.8-10.8)
[2023-12-21 07:00] LABS: Basophils # (auto) 0.03 K/uL (0.00-0.20); Basophils % (auto) 0.3 %; Eosinophils # (auto) 0.06 K/uL (0.00-0.50); Eosinophils % (auto) 0.5 %; Immature Granulocytes # (auto) 0.02 K/uL (0.01-0.20); Immature Granulocytes % (auto) 0.2 %; Lymphocytes # (auto) 4.72 K/uL (1.20-3.40); Lymphocytes % (auto) 41.2 %; Mean Platelet Volume 9.1 fL (9.4-12.4); Monocytes # (auto) 0.66 K/uL (0.11-0.59); Monocytes % (auto) 5.8 %; Neutrophils # (auto) 5.97 K/uL (1.40-6.50); Nucleated RBC # (auto) 0.03 K/uL (0.00-0.12); Nucleated RBC % (auto) 0.3 %; Platelet Count 235 K/uL (130-400)
[2023-12-21 07:16] LABS: Calcium 8.1 mg/dl (8.6-10.3); Creatinine Clr Calc Pharmacy 51.4 ml/min; Est GFR (Non-African American) 68.1 ml/min; Magnesium 1.7 mg/dl (1.7-2.4); Potassium 4.5 mmol/L (3.5-5.1)
[2023-12-21 07:33] LABS: Estimated Average Glucose 243 mg/dl; Hemoglobin A1C 10.1 % (4.5-5.6)
[2023-12-21] MEDS: CHOLECALCIFEROL 25 MCG (1000 UNITS) TAB PO SCH (09:07)
[2023-12-21] MEDS: PANTOprazole 40 MG TAB PO SCH (09:07)
[2023-12-21] MEDS: MAGNESIUM CHLORIDE W/CALCIUM 64MG DELAYED REL TAB PO SCH (09:08)
[2023-12-21] MEDS: ENOXAPARIN INJ 40 MG/0.4 ML SYR SQ SCH (09:08)
[2023-12-21] MEDS: METOPROLOL TARTRATE 50 MG TAB PO SCH (09:10)
[2023-12-21] MEDS: INSULIN ASPART PER UNIT CHARGE SC SCH (09:14)
[2023-12-21] MEDS: LANTUS PER UNIT CHARGE SQ SCH (09:16)
[2023-12-21] MEDS: PIPERACILLIN/TAZOBACTAM 4.5 GM/100 ML BAG IV STA (10:01)
--- NOTE | 2023-12-21 11:11 | Hospitalist Progress Note ---
Date of Service December 21, 2023 Assessment & Plan (1) Erythema multiforme, dermal type: (2) Transaminitis: (3) Uncontrolled type 2 diabetes mellitus with insulin therapy: (4) CLL (chronic lymphocytic leukemia): (5) Celiac disease: Plan Patient has had no documented fevers here in the hospital. Reports his history of these recurrent nummular lesions. Has been told it is erythema multiforme. Extensive review of literature on erythema multiforme, can cause liver function abnormalities. Often caused by HSV. Patient seems to have recurrent EM. Often effective treatment is with antiviral Check HSV Check ESR Empiric valacyclovir Continue empiric antibiotics until cultures resulted Therapies Case management Extremely low suspicion for cholangitis at this time Anticipate home in next 1 to 2 days if cultures remain negative. Phone call to , no answer 52 minutes spent on care at the bedside, communication with medical team, review of records, literature review Admission and Anticipated Discharge Date Admission Date: December 21, 2023 Subjective Patient has not had any recurrent severe shakes or chills. Shows me his resting tremor about would be consistent with his diagnosis of Parkinson's. States that he has noticed these increasing lesions more significantly on his back Physical Exam Physical Exam: Constitutional: Alert, nontoxic in appearance HEENT: Mucous membranes moist. Lungs: Clear to auscultation, decreased, no wheezes rales or rhonchi CV: S1-S2, regular Abdomen: Soft, nontender, nondistended Extremities: No significant edema Neuro: Resting tremor, rigid movements consistent with Parkinson's Psych: Cooperative, normal mood Derm: Nummular areas of erythema with central ulcerations in various stages of healing most significantly on his back but also on his extremities Results & Data Results & Data Vital Signs (Past 12 Hours) Vital Signs Temp Pulse Pulse Pulse Resp BP BP 12/21/23 07:49 36.5 C 68 67 16 104/65 12/21/23 05:28 12/21/23 05:28 36.5 C 63 18 126/79 12/21/23 05:28 12/21/23 05:28 36.5 C 63 18 126/79 12/21/23 03:09 71 18 125/71 12/21/23 03:00 67 12/21/23 02:33 61 16 98/58 L 12/21/23 02:01 126/66 12/21/23 01:00 62 15 97/58 L 12/21/23 00:06 69 14 98/64 L 12/20/23 23:09 67 22 91/62 L Pulse Ox O2 Del Method 12/21/23 07:49 97 Room Air 12/21/23 05:28 Room Air 12/21/23 05:28 98 Room Air 12/21/23 05:28 Room Air 12/21/23 05:28 98 Room Air 12/21/23 03:09 98 Room Air 12/21/23 03:00 12/21/23 02:33 97 Room Air 12/21/23 02:01 12/21/23 01:00 99 Room Air 12/21/23 00:06 98 Room Air 12/20/23 23:09 97 Room Air Diagnostic Findings Reviewed imaging, laboratory and diagnostic studies. Pertinent findings as below. No growth to date and cultures LFTs reviewed Reviewed outside EMR, no documentation of pathology
[2023-12-21] MEDS: valACYclovir HCL 500 MG TABLET PO SCH (11:41)
[2023-12-21] MEDS: PIPERACILLIN/TAZOBACTAM 4.5 GM in DEXTROSE 5% MINI-B 100 ML IV SCH (12:40)
--- NOTE | 2023-12-21 13:07 | Electrocardiogram Report ---
Test Reason : Blood Pressure : */* mmHG Vent. Rate : 95 BPM Atrial Rate : * BPM P-R Int : * ms QRS Dur : 74 ms QT Int : 308 ms P-R-T Axes : * -3 42 degrees QTcB Int : 387 ms Poor data quality, interpretation may be adversely affected Normal sinus rhythm Cannot rule out Inferior infarct , age undetermined Abnormal ECG When compared with ECG of 08-May-2022 20:01, Minimal criteria for Inferior infarct are now Present Confirmed by Rubén Walsh ([id number]) on 12/21/2023 1:07:04 PM Referred By: Confirmed By: Rubén Walsh
[2023-12-21] MEDS: SIMVASTATIN 20 MG TAB PO SCH (19:51)
[2023-12-22 07:09] VITALS: BP 129/69; RESP 16; TEMP 97.3; O2SAT 96
[2023-12-22 07:50] LABS: Hemoglobin 11.5 g/dl (14.0-18.0); Mean Corpuscular Hemoglobin 30.3 pg (25.0-34.0); Mean Corpuscular Hgb Conc 33.8 g/dL (32.0-36.0); Mean Corpuscular Volume 89.7 fL (80.0-100.0); Mean Platelet Volume 9.7 fL (9.4-12.4); Platelet Count 245 K/uL (130-400); RDW Coefficient of Variation 15.3 % (11.5-14.5); RDW Standard Deviation 50.4 fL (36.4-46.3); Red Blood Count 3.79 M/uL (4.70-6.10); White Blood Count 8.36 K/ul (4.8-10.8)
[2023-12-22 08:15] LABS: BUN Creatinine Ratio 16.8 (10-20); Bilirubin Direct 0.2 mg/dl (0-0.2); Bilirubin,Total 0.8 mg/dl (0.2-1.0); Calcium 8.3 mg/dl (8.6-10.3); Creatinine Clr Calc Pharmacy 43.2 ml/min; Est GFR (Non-African American) 55.2 ml/min; Potassium 4.2 mmol/L (3.5-5.1); Total Protein 5.5 gm/dl (6.0-8.3)
[2023-12-22 08:36] LABS: Basophils # (auto) 0.01 K/uL (0.00-0.20); Basophils % (auto) 0.1 %; Echinocytes 1+; Eosinophils # (auto) 0.07 K/uL (0.00-0.50); Eosinophils % (auto) 0.8 %; Immature Granulocytes # (auto) 0.02 K/uL (0.01-0.20); Immature Granulocytes % (auto) 0.2 %; Lymphocytes # (auto) 4.89 K/uL (1.20-3.40); Lymphocytes % (auto) 58.5 %; Monocytes # (auto) 0.75 K/uL (0.11-0.59); Neutrophils # (auto) 2.62 K/uL (1.40-6.50); Neutrophils % (auto) 31.4 %
--- NOTE | 2023-12-22 13:34 | Discharge Summary ---
Discharge Summary Date of Service December 22, 2023 Principal Dx & Hospital Course #1 = Principal Diagnosis (1) Erythema multiforme, dermal type: (2) Transaminitis: (3) Uncontrolled type 2 diabetes mellitus with insulin therapy: (4) CLL (chronic lymphocytic leukemia): (5) Celiac disease: Plan Patient is a 78-year-old gentleman who was admitted to the hospital for chills and rigors to rule out sepsis. Here in the hospital patient had no evidence of fevers and his chills completely resolved. Blood cultures are no growth to date. And there did not appear to be any other sources of bacterial infection. He was treated empirically with IV Zosyn. The patient has had these nummular lesions. He has seen outpatient dermatology and is diagnosed with erythema multiforme. He has noticed in an acute flare recently with more noticeable lesions and symptomatic lesions on his back. Erythema multiforme can give laboratory abnormalities including abnormal liver functions as the patient presented with. There was no evidence of any type of cholangitis or biliary infection. Erythema multiforme often has been triggered by viral infection specifically HSV. Patient was tested for HSV those results are still pending. He was empirically started on valacyclovir as recommended for HSV erythema multiforme or recurrent erythema multiforme. Patient has had multiple episodes of this in with it into the definition of recurrent erythema multiforme. Patient had tolerated this medication well. On the day of discharge his liver function testing is significantly improved all of his other symptoms resolved and did not recur. Other vital signs were stable. During his hospitalization continued on his other home medications including his insulin for his diabetes. He was feeling significantly improved on the day of discharge. is at bedside at the time of discharge and agrees to plan of care and understands diagnosis and treatment plan. 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 Notes For Next Care Provider Follow-up HSV testing May need additional evaluation and treatment for recurrent erythema multiforme. May need to consider chronic suppressive therapy with a valacyclovir if patient seems to respond appropriately Medication Changes From Visit Valacyclovir for erythema multiforme Admission HPI Per Admitting Provider 78-year-old male with past medical history significant for type 2 diabetes, celiac disease, history of calculus of kidney, psoriasis, CLL under observation, history of paroxysmal atrial fibrillation in the setting of empyema, borderline moderate aortic stenosis, ascending thoracic aortic enlargement, chronic anemia baseline hemoglobin 12, periampullary neoplasm negative for malignancy of biopsy 04/01, history of cholangitis status post ERCP with biliary rendezvous procedure and metal CBD stent placement on 04/15/2022, and on 05/09/2022 presented with rigors and chills and fevers and elevated LFTs at the time thought to be sump syndrome with passage of biliary debris's and was treated with antibiotics comes again tonight because of chills and rigors and was feeling very cold and could not keep himself warm and was worried about the similar episode with biliary ductal obstruction and came to the ER. Received antibiotics and fluids in the ER. Currently feeling much better. Currently no chills or rigors or fevers. No abdominal pain. Normal bowel and bladder movements. No chest pain or shortness of breath. No cough. No headache. No runny nose or sore throat. Appetite is okay. Ambulating okay. Patient also recently had an rash on both of his shins and treated with steroids and antibiotics with improvement of rash. As per PCP notes patient had similar lesions in March of 2023 and saw dermatology and a biopsy was done and actual biopsy results not available but does indicate that they thought he might have erythema multiforme. He had a recurrent episode in August 2023 and again treated with steroids and antibiotics. Current episode is third episode. Patient's rash on the left lower bullock/ankle region resolved. Seems an active rash on the right posterior shoulder which patient thinks might have flared up today. Past med history. As mentioned above Past surgical history. Complex cataract surgery. Cholecystectomy open. Colonoscopy. EGD with endoscopic ultrasound. ERCP with stent exchange. Tonsillectomy. Endoscopic ultrasound. Social history. . No smoking. Alcohol rarely. No drug use Family history. Father had cancer. Diabetes. [place]. Maternal grandfather had cancer. Paternal grandfather had diabetes. Stroke. Brother has hypertension. Admission Exam Per Admitting Provider See H&P Discharge Exam Constitutional: Alert, nontoxic in appearance HEENT: Mucous membranes moist. Lungs: Clear to auscultation, decreased, no wheezes rales or rhonchi CV: S1-S2, regular Abdomen: Soft, nontender, nondistended Extremities: No significant edema Neuro: No focal deficits Psych: Cooperative, normal mood Derm: Nummular red lesions concentrated mostly on his back however several on his lower extremities. They appear less inflamed, less tender and less irritated than yesterday Updated Medication List Medication Instructions Recorded Confirmed Type cholecalciferol (vitamin D3) 50 50 mcg PO QAM 09/07/19 12/20/23 History mcg (2,000 unit) capsule linagliptin 5 mg tablet (Tradjenta) 5 mg PO QAM 07/16/20 12/20/23 History blood glucose control, normal #1 ea 07/19/20 03/18/22 Rx (Easymax 15 Level 2 solution) blood-glucose meter #1 ea 07/19/20 03/18/22 Rx lancets 30 gauge (Twist Lancets) #300 ea 07/19/20 03/18/22 Rx metoprolol tartrate 50 mg tablet 50 mg PO BID #20 tabs 08/03/20 12/20/23 Rx pen needle, diabetic 31 gauge x #900 ea 12/11/20 03/18/22 Rx 5/16" (BD Ultra-Fine Short Pen Needle) pantoprazole 40 mg tablet,delayed 40 mg PO QAM #90 tabs 01/02/21 12/20/23 Rx release blood sugar diagnostic (EasyMax #300 ea 02/08/21 03/18/22 Rx strips) simvastatin 20 mg tablet 20 mg PO HS #90 tabs 04/15/21 12/20/23 Rx insulin glargine 100 unit/mL (3 18 - 20 unit subcut QAM 02/18/22 12/20/23 History mL) subcutaneous pen (Lantus Solostar U-100 Insulin) magnesium chloride 64 mg 64 mg PO BID #60 tabs 05/11/22 12/20/23 Rx (magnesium chloride) tablet,delayed release (Mag 64) alendronate 70 mg tablet 70 mg PO WK 12/20/23 12/20/23 History metformin 500 mg tablet,extended 1,000 mg PO BID 12/20/23 12/20/23 History release 24 hr valacyclovir 500 mg tablet 500 mg PO BID 10 days #20 tabs 12/22/23 Rx Hospital Stay Data Consultations 12/20/23 23:13 ED Decision to Admit Stat Diagnostic Imagining Performed Reviewed imaging, laboratory and diagnostic studies. Pertinent findings as below. Blood cultures no growth to date HSV PCR pending Hemoglobin 11.5 Basic metabolic profile within normal ranges AST 41, improved ALT 49, normal range Alk phos 85, normal range Total bilirubin 0.8, normal range 12/20/23 17:21 US gallbladder Stat 12/20/23 21:44 CT abd pelvis IV con only Stat Pending Results Patient Have Any Pending Studies at Discharge: Yes Discharge Instructions Given to Patient (Per Discharging Provider) Recommend following up with your warehouse packaging supervisor for ongoing evaluation treatment for erythema multiforme Total Time Total Time Spent Total Time Spent (In Minutes): 36
[2023-12-22 14:04] VITALS: PULSE 68
--- OUTSIDE RECORDS SUMMARY | 2023-12-22 22:32 | External Medical Summary | Summary of Care ---
Author Name Unknown Organization [facility] Address [address] [place] [address] Phone [phone] Care Team Providers Care Training Professional Name Role Phone Corrine Amor Primary Care Provider [phone] Reason for Visit * Reason Onset Date Comments Medication Refill 12/21/2023 Encounter Details Date Type Department Care Team (Late st Contact Info) Description 12/21/2023 [address]ill [address] [place] [phone] Gonzalo Hagan MD [address] [place] [address] Allergies Active Allergy Reactions Criticality Noted Date Comments Exenatide 11/20/2020 Gluten Meal Abdominal pain High 02/19/2022 Wheat Abdominal pain High 02/19/2022 documented as of this encounter (statuses as of 12/22/2023) Medications Medication Sig Dispensed Refills Start Date End Date Status VIAGRA 100 MG Tablet 0 05/23/2016 Active Vitamin D3 50 MCG (1999) Oral Capsule Take 1 Capsule by mouth [...] 3 08/13/2021 Active FreeStyle Junie 14 Day [place] Device Use as directed . 1 Each [...] taking tablet. 15 Tablet 3 09/22/2023 Active Magnesium Chloride 64 MG Oral Tablet Delayed Release (MagDelay)Indicatio ns:Hypomagnesemia Take 1 Tablet by mouth in the morning. 180 Tablet 10/12/2023 Active predniSONE 10 MG Oral Tablet (Deltasone)Indicati ons:Erythema multiforme Take 5 tabs for 2 days, 4 tabs for 2 days, 3 tabs for 2 days, 2 tabs for 2 days 1 tab for 2 days 30 Tablet 11/17/2023 Active FreeStyle Junie 14 Day Sensor Use as directed. Change Sensor every 2 weeks. 2 Each 12/22/2023 Active FreeStyle Junie 14 Day Sensor Use as directed. Change Sensor every 2 weeks. 2 Each 10/01/2023 Discontinue d(Refill) documented as of this encounter (statuses as of 12/22/2023) Active Problems Problem Noted Date Diagnosed Date [...] as of this encounter (statuses as of 12/22/2023) Resolved Problems Problem Noted Date Diagnosed Date Resolved Date Psoriatic arthropathy 05/19/20222022 documented as of this encounter (statuses as of 12/22/2023) Immunizations Name Administration Dates Next Due COVID-19 [...] encounter Miscellaneous Notes * Telephone Encounter - Gonzalo Hagan MD - 12/22/2023 9:03 AM EDTSigned Prescriptions: Disp Refills FreeStyle Junie 14 Day Sensor 2 Each 0 Sig: Use as directed. Change Sensor every 2 weeks. Authorizing Provider: GONZALO HAGAN * Telephone Encounter - Serena Gamez, independent beauty consultant - 12/21/2023 4:15 PM EDT Patient is up to date for office visits. Pt needs for . Pending Prescriptions: Disp Refills FreeStyle Junie 14 Day Sensor 2 Each 0 Sig: Use as directed. Change Sensor every 2 weeks. Last Visit: Visit date not found (in office), Visit date not found (telemedicine) Next Visit: 03/09/2024 If no future appointments scheduled, and last appointment is greater than a year ago, please schedule patient for a follow-up appointment Last date the medication was ordered: 10/01/2023 Pharmacy: [id number] Is this request for a controlled substance?No it is not controlled. Urine Drug Screen:No results found for this or any previous visit. Patient Phone Numbers Labs: Lab Results Component Value Date/Time CREAT 1.1 09/23/2023 08:37 AM CREAT 0.94 04/30/2023 12:00 AM CREAT 1.1 03/26/2012 09:03 AM POTASSIUM 4.7 09/23/2023 08:37 AM POTASSIUM 4.7 04/30/2023 12:00 AM POTASSIUM 4.7 03/26/2012 09:03 AM TSH 2.78 04/25/2022 10:36 AM LDLCALC 58 12/17/2022 08:17 AM LDLCALC 74 03/26/2012 09:03 AM LDLDIRECT 80 03/26/2012 09:03 AM ALT 27 09/01/2023 10:33 AM ALT 18 03/26/2012 09:03 AM HGBA1C 8.9 (H) 09/01/2023 10:33 AM HGBA1C 7.5 (H) 03/05/2023 10:57 AM HGBA1C 8.8 (H) 03/26/2012 09:03 AM documented in this encounter Plan of Treatment Upcoming Encounters Date Type Department Care Team (Late st Contact Info) Description 01/15/2024 10:00 AM EDT Office Visit Neurology [facility] [address] [facility] [place] [address] Aniceto Plummer DO [address] [place] [address] 03/09/2024 10:20 AM EDT Office Visit Endocrinology [address] [place] [phone] Gonzalo Hagan MD [address] [facility] [place] [address] 03/25/2024 9:10 AM EST Office Visit [facility] [address] [place] [address] Corrine Amor [address] [place] [address] 06/22/2024 11:40 AM EST Office Visit Nephrology, Leslee Aguilar [address] [place], [place] [address] Darius Lomeli MD [address] [place] [address] Health Maintenance Due Date Last Done Comments [...] filedocumented as of this encounter Care Teams Training Professional Relationship Specialty Start Date End Date Corrine Amor DO [address] [place] [facility] [place] [address] PCP - General Family Medicine 04/28/22 documented as of this encounter
[2023-12-23 18:12] LABS: Babesia microti DNA Not Detected (Not Detected)
[2023-12-23 23:32] LABS: HSV Type 1 DNA Not Detected (Not Detected); HSV Type 1&2 DNA Source Whole Blood; HSV Type 2 DNA Not Detected (Not Detected)
[2023-12-24 07:09] LABS: Ehrlichia chaff DNA Bld Negative (Negative)
== END 2023-12-22 14:30 | disposition home or self-care (01) ==
LOC: 3W 17:03 → ED 17:03 → 3W 12-21 05:32